=== PATIENT | female | born 2000 | race Caucasian/White ===

== ENCOUNTER 2023-01-24 10:25 | Outpatient (CLI) | payer MEDICAID, SELFPAY ==
[2023-01-24 10:49] VITALS: BP 122/80; PULSE 87; TEMP 36.9
[2023-01-24 10:54] VITALS: BMI 37.8
--- NOTE | 2023-01-24 20:41 | OB.TRI.NOTE ---
HPI - General HPI Narrative JUMANA GIORDANO, is a 23 F who presents to triage with contractions. Patient denies any loss of fluid or vaginal bleeding. Positive movement. Maternal Data Information FRANCINE Calculator Estimated Delivery Date Method Current WG Current Estimate 01/26/23 Manual 39w 6d PFSH PFSH Home Medications aspirin 81 mg tablet,delayed release ([place] Aspirin) 81 mg PO DAILY 01/24/23 [History Last Taken 01/17/23 08:00 81 mg] ipratropium 20 mcg-albuterol 100 mcg/actuation mist for inhalation 1 puff inhalation Q6H 01/24/23 [History Last Taken Unknown] magnesium oxide 420 mg tablet 420 mg PO DAILY 01/24/23 [History Last Taken 01/17/23 08:00 420 mg] Allergy/AdvReac Type Severity Reaction Status Date / Time No Known Allergies Allergy Verified 01/24/23 10:49 Surgical History (Updated 01/25/23 @ 00:41 by Marni Carcamo) History of surgery Social History Smoking Status: Never smoker History Elective abortions Hx Para 0 Spontaneous abortions Hx # Term Pregnancies Ectopic pregnancies Hx # Pregnancies Multiple births # of living children ROS Eyes Eyes: Denies blurry vision Cardiovascular Cardiovascular: Reports none; Denies chest pain at rest, chest pain with activity or dizziness Respiratory/Chest Respiratory/Chest: Denies cough or dyspnea Gastrointestinal Gastrointestinal: Reports none and other; Denies diarrhea or vomiting Genitourinary Genitourinary: Denies dysuria Musculoskeletal Musculoskeletal: Reports none Integumentary Integumentary: Reports none; Denies rash Neurologic Neurologic: Denies dizziness, headache(s) or other visual disturbances Psychiatric Psychiatric: Reports none Physical Exam Const alert and no apparent distress General Appearance: cooperative Orientation / Consciousness: awake Exam Limitations: no limitations HEENT normocephalic Eyes General Eye: normal appearance of both eyes Neck full ROM Chest inspection of chest normal Resp normal respiratory effort and normal air movement Effort and Inspection: symmetric chest movement Auscultation: clear to auscultation bilaterally Cardio regular rate GI soft to palpation, non-tender and non-distended Inspection: and other Back/Spine normal ROM Extremity full ROM, normal capillary refill and no calf tenderness Skin no rashes or lesions noted Neuro oriented x3 and CN's II-XII intact bilaterally Psych mental status grossly normal Assessment & Plan (1) 39 weeks gestation of : (2) Uterine contractions: PLAN: Plan NST reactive, Cat. 1 tracing CE - no change /-2 D/C home with follow up in office Labor precautions and kick counts reviewed
== END 2023-01-24 13:38 | disposition home or self-care (01) ==
LOC: WPOUT 10:39 → WP 10:41
PROVIDERS: Referring Provider Advanced Practice Midwife; Visit Provider Advanced Practice Midwife
DX: O47.1 False labor at or after 37 completed weeks of gestation (principal); Z3A.39 39 weeks gestation of pregnancy
CPT/HCPCS: 59025; 59050 ×2; G0378 ×2; 99221

== ENCOUNTER 2023-01-25 00:16 | Inpatient (IN) | payer MEDICAID, SELFPAY ==
[2023-01-24 21:43] VITALS: PULSE 110; O2SAT 99
[2023-01-24 21:44] VITALS: BP 123/76; PULSE 82; TEMP 37.1
[2023-01-24 21:46] VITALS: BMI 37.8
[2023-01-24] MEDS: Lactated Ringers 1,000 ML 999 ML IV (22:20)
[2023-01-24] MEDS: Acetaminophen 500 MG Tablet 1000 MG PO (22:31)
[2023-01-24 22:53] LABS: Color, Urine Yellow (Yellow); Glucose, Dipstick Normal (Normal); Ketone-Dipstick 50 mg/dl (Negative); Leukocyte Esterase-Dipstick 25 /ul (Negative); Nitrite-Dipstick Negative (Negative); Occult Blood-Urine Negative /ul (Negative); Protein-Dipstick Negative (Negative); Specific Gravity, Urine 1.015 (1.002-1.030); Urine Bilirubin Dipstick Negative (Negative); Urine Clarity Clear (Clear); Urine Urobilinogen Normal (Normal)
[2023-01-25] VITALS (61 sets, daily range): BP systolic 100–140; BP diastolic 54–80; PULSE 79–143; RESP 16–18; TEMP 36.1–37.1; O2SAT 80–100
[2023-01-25 00:29] LABS: Absolute Lymphocyte Count 1.65 X10^3/uL (0.83-4.51); Absolute Neutrophil Count 9.5 X10^3/uL (2.0-7.7); Basophil# 0.02 X10^3/uL; Basophil% 0.2 % (0-1); Hematocrit 34.5 % (37-47); Hemoglobin 11.1 g/dL (12.0-15.0); Lymphocyte # 1.65 X10^3/ul (0.83-4.51); Lymphocyte % 14.1 % (19-41); Mean Corp Hgb Conc 32.2 g/dL (32-36); Mean Corpuscular Hgb 26.9 pg (27.0-32.0); Mean Corpuscular Volume 83.5 fL (81-99); Mean Platelet Vol. 9.5 fl (6.2-12.0); Monocyte# 0.56 X10^3/uL; Monocyte% 4.8 % (0-10); NRBC Flagged by Analyzer 0 % (0-5); Neutrophil # 9.45 X10^3/uL (2.7-7.7); Neutrophil % 80.5 % (47-70); Platelet Count 344 K/mm3 (150-450); RBC Distribution Width CV 13.7 % (11.6-14.6); RBC Distribution Width SD 41.7 fl (35.1-43.9); Red Blood Count 4.13 M/mm3 (4.2-5.4); White Blood Count 11.7 K/mm3 (4.4-11.0)
[2023-01-25] MEDS: LACTATED RINGERS 500 ML 999 ML IV (00:30)
[2023-01-25] MEDS: Lactated Ringers 1,000 ML 200 ML IV ×2 (00:30→05:53)
[2023-01-25 01:25] LABS: Syphilis Antibodies Non-reactive
[2023-01-25] MEDS: fentaNYL-bupivacaine (epidural) 100 ML BAG EPIDURAL ×2 (02:01→06:12)
[2023-01-25 05:07] LABS: Hepatitis C Antibody Non-Reactive (Nonreactive)
[2023-01-25] MEDS: Mag Hydrox/Al Hydrox/Simeth 30 ML UDC PO (05:44)
--- NOTE | 2023-01-25 07:10 | PCM.HP.OB ---
HPI - General General Date of Admission: 01/25/23 HPI Narrative JUMANA GIORDANO, is a 23 F at 39.5 weeks gestation who presents to triage with contractions. She was seen in triage earlier in the day and sent home due to no cervical change. Continued to have contractions at home that increased with intensity and pain. Unsure if she is leaking fluid. Positive movement. PFSH PFSH Home Medications aspirin 81 mg tablet,delayed release ([place] Aspirin) 81 mg PO DAILY 01/24/23 [History Last Taken 01/17/23 08:00 81 mg] ipratropium 20 mcg-albuterol 100 mcg/actuation mist for inhalation 1 puff inhalation Q6H 01/24/23 [History Last Taken Unknown] magnesium oxide 420 mg tablet 420 mg PO DAILY 01/24/23 [History Last Taken 01/17/23 08:00 420 mg] Allergy/AdvReac Type Severity Reaction Status Date / Time No Known Allergies Allergy Verified 01/24/23 10:49 Surgical History (Updated 01/25/23 @ 00:41 by Marni Carcamo) History of surgery Social History Smoking Status: Never smoker History Elective abortions Hx Para 0 Spontaneous abortions Hx # Term Pregnancies Ectopic pregnancies Hx # Pregnancies Multiple births # of living children ROS Eyes Eyes: Denies blurry vision, change in vision or spots in vision ENT HEENT: Denies dizziness or headache(s) Cardiovascular Cardiovascular: Denies abdominal pain, chest pain or dyspnea Respiratory/Chest Respiratory/Chest: Denies cough, dyspnea, shortness of breath at rest or shortness of breath with exertion Gastrointestinal Gastrointestinal: Denies abdominal pain, diarrhea or vomiting Genitourinary Genitourinary: Denies change in urinary stream, difficulty urinating or dysuria Musculoskeletal Musculoskeletal: Reports none Integumentary Integumentary: Denies rash Neurologic Neurologic: Denies dizziness, headache(s), memory loss or weakness Psychiatric Psychiatric: Reports none Vital Signs Vital Signs Vital Signs: 01/24/23 21:43 01/24/23 21:43 01/24/23 21:44 Temperature Temperature Source Tympanic Pulse Rate 110 H Blood Pressure BP Systolic BP Diastolic Pulse Ox 99 01/24/23 21:44 01/24/23 21:44 01/24/23 21:44 Temperature 98.8 F Temperature Source Pulse Rate 82 Blood Pressure 123/76 H BP Systolic 123 BP Diastolic 76 Pulse Ox 01/25/23 00:54 01/25/23 00:54 01/25/23 00:54 Temperature Temperature Source Pulse Rate 104 H Blood Pressure 125/73 H BP Systolic 125 BP Diastolic 73 Pulse Ox 98 01/25/23 00:55 01/25/23 00:55 01/25/23 01:32 Temperature 98.0 F Temperature Source Tympanic Pulse Rate 112 H Blood Pressure BP Systolic BP Diastolic Pulse Ox 01/25/23 01:32 01/25/23 01:37 01/25/23 01:37 Temperature Temperature Source Pulse Rate 113 H Blood Pressure 134/79 H BP Systolic 134 BP Diastolic 79 Pulse Ox 100 01/25/23 01:37 01/25/23 01:37 01/25/23 01:42 Temperature Temperature Source Pulse Rate 114 H Blood Pressure 126/71 H BP Systolic 126 BP Diastolic 71 Pulse Ox 99 01/25/23 01:42 01/25/23 01:42 01/25/23 01:42 Temperature Temperature Source Pulse Rate 93 95 Blood Pressure BP Systolic BP Diastolic Pulse Ox 99 01/25/23 01:47 01/25/23 01:47 01/25/23 01:47 Temperature Temperature Source Pulse Rate 89 Blood Pressure 127/75 H BP Systolic 127 BP Diastolic 75 Pulse Ox 100 01/25/23 01:52 01/25/23 01:52 01/25/23 01:52 Temperature Temperature Source Pulse Rate 93 Blood Pressure 140/80 H BP Systolic 140 BP Diastolic 80 Pulse Ox 97 01/25/23 01:58 01/25/23 01:58 01/25/23 01:57 Temperature Temperature Source Pulse Rate 100 Blood Pressure 129/66 H BP Systolic 129 BP Diastolic 66 Pulse Ox 99 01/25/23 02:02 01/25/23 02:02 01/25/23 02:02 Temperature Temperature Source Pulse Rate 99 Blood Pressure 120/63 BP Systolic 120 BP Diastolic 63 Pulse Ox 99 01/25/23 02:07 01/25/23 02:07 01/25/23 02:07 Temperature Temperature Source Pulse Rate 102 H Blood Pressure 124/71 H BP Systolic 124 BP Diastolic 71 Pulse Ox 100 01/25/23 02:12 01/25/23 02:12 01/25/23 02:12 Temperature Temperature Source Pulse Rate 99 101 H Blood Pressure 129/72 H BP Systolic 129 BP Diastolic 72 Pulse Ox 01/25/23 02:12 01/25/23 02:17 01/25/23 02:17 Temperature Temperature Source Pulse Rate 106 H Blood Pressure 130/71 H BP Systolic 130 BP Diastolic 71 Pulse Ox 100 01/25/23 02:17 01/25/23 02:50 01/25/23 02:50 Temperature Temperature Source Tympanic Pulse Rate Blood Pressure 118/73 BP Systolic 118 BP Diastolic 73 Pulse Ox 100 01/25/23 02:50 01/25/23 02:50 01/25/23 03:47 Temperature 98.8 F Temperature Source Pulse Rate 108 H Blood Pressure 125/70 H BP Systolic 125 BP Diastolic 70 Pulse Ox 01/25/23 03:47 01/25/23 03:47 01/25/23 03:47 Temperature Temperature Source Tympanic Pulse Rate 98 Blood Pressure BP Systolic BP Diastolic Pulse Ox 99 01/25/23 03:47 01/25/23 04:43 01/25/23 04:43 Temperature 98.8 F 98.0 F Temperature Source Tympanic Pulse Rate Blood Pressure BP Systolic BP Diastolic Pulse Ox 01/25/23 04:43 01/25/23 04:43 01/25/23 04:43 Temperature Temperature Source Pulse Rate 96 Blood Pressure 122/62 H BP Systolic 122 BP Diastolic 62 Pulse Ox 100 01/25/23 05:49 01/25/23 05:49 01/25/23 05:49 Temperature Temperature Source Tympanic Pulse Rate 103 H Blood Pressure 118/74 BP Systolic 118 BP Diastolic 74 Pulse Ox 01/25/23 05:49 01/25/23 05:49 01/25/23 05:49 Temperature 98.5 F Temperature Source Pulse Rate 107 H Blood Pressure BP Systolic BP Diastolic Pulse Ox 99 01/25/23 06:26 01/25/23 06:27 01/25/23 06:27 Temperature Temperature Source Tympanic Pulse Rate 88 Blood Pressure 117/79 BP Systolic 117 BP Diastolic 79 Pulse Ox 01/25/23 06:26 01/25/23 06:27 01/25/23 06:27 Temperature 98.4 F Temperature Source Pulse Rate 113 H Blood Pressure BP Systolic BP Diastolic Pulse Ox 100 Weight Weight: 220 lb 0.341 oz Body Mass Index (BMI) 37.8 Physical Exam Const alert, oriented x3 and no apparent distress General Appearance: cooperative Orientation / Consciousness: awake Exam Limitations: no limitations HEENT normocephalic Head and Scalp: normal to inspection Eyes General Eye: normal appearance of both eyes Neck full ROM and no lymphadenopathy Lymph Lymphatic: no lymphadenopathy noted Chest inspection of chest normal Resp normal respiratory effort, normal air movement and clear to auscultation bilaterally Effort and Inspection: able to speak in complete sentences and symmetric chest movement Cardio regular rate and regular rhythm GI normal to inspection, nondistended, normoactive bowel sounds Manual OB Exam: presentation cephalic Back/Spine normal ROM Extremity full ROM and no calf tenderness Skin no rashes or lesions noted General Skin Exam: no breakdown Neuro oriented x3 and CN's II-XII intact bilaterally Psych mental status grossly normal and thought process normal Labs Labs Labs: Blood Type A NEGATIVE Antibody Screen NEGATIVE Hct 34.5 % (37-47) L Hgb 11.1 g/dL (12.0-15.0) L Syphilis Total Ab Non-reactive Hepatitis C Antibody Non-Reactive (Nonreactive) Assessment & Plan (1) Spontaneous onset of labor: (2) Spontaneous rupture of amniotic membranes: (3) Obesity affecting : (4) Rh negative status during : (5) Recurrent UTI: PLAN: Plan NST reactive, Cat. 1 tracing ROM plus- Positive Admit to labor and delivery Routine labs GBS negative Epidural when indicated Start Pitocin at 2 mu/min and increase per policy if no CE in [address] Self notified and is collaborating physician
--- NOTE | 2023-01-25 07:26 | PCM.PN.BLA ---
Progress Note Patient comfortable with epidural anesthesia. Assessment & Plan Assessment/Plan (1) Spontaneous onset of labor: (2) 39 weeks gestation of : (3) Rh negative status during : (4) Obesity affecting : (5) Recurrent UTI: PLAN: Plan Continue present plan of care Continue Pitocin IV and increase per policy GBS negative CE /-[address] Eugene updated and assuming management
--- NOTE | 2023-01-25 07:42 | PCM.PN.BLA ---
Progress Note Patient seen at bedside. Remains comfortable with epidural. Desires AROM. Assessment & Plan Assessment/Plan (1) Meconium in amniotic fluid: (2) Artificial rupture of membranes antepartum: (3) 39 weeks gestation of : (4) Obesity affecting : (5) Spontaneous onset of labor: (6) Rh negative status during : PLAN: Plan CE /-1 bulging bag AROM for meconium fluid Continue present plan of care Anticipate
[2023-01-25] MEDS: Oxytocin 15 Units/NS 250ml 15 UNITS/250 ML IV.SOLN 2 UNITS IV (07:57)
--- NOTE | 2023-01-25 09:48 | PCM.PN.BLA ---
Progress Note pt examined at bedside, 0. continue pitocin and labor at this time. FHR tracing reviewed. anticipate .
[2023-01-25] MEDS: Methylergonovine 0.2 MG/ML Ampul IM (11:08)
[2023-01-25] MEDS: Oxytocin 15 Units/NS 250ml 15 UNITS/250 ML IV.SOLN 83 UNITS IV (11:22)
--- NOTE | 2023-01-25 11:46 | OP.PCM_ITS ---
Maternal Data Information FRANCINE Calculator Estimated Delivery Date Method Current WG Current Estimate 01/26/23 Manual 39w 6d Vaginal Delivery Operative Information Date of Procedure: 01/25/23 Pre-Operative Diagnosis: 39 weeks, obesity in , meconium, rh negative Post-Operative Diagnosis: same, live female infant Surgery / Procedure Performed: Spontaneous Vaginal Delivery Type of Anesthesia: Epidural Drain: Guillen to straight drain Estimated Blood Loss: 300 Time of Delivery: 10:52 Findings Description of Procedure: Patient progressed to fully dilated. Good maternal pushing efforts delivered the 's head followed by the anterior and posterior shoulders. Rest the 's body was delivered without complication. Infant was vigorous at time of delivery and was placed on the mother's chest for immediate skin to skin. [employer]ricating Machine Tender and nursery team were available due to meconium stained fluid. Delayed cord clamping was performed. At this time once the cord was clamped and cut Pitocin was started and placenta delivered intact without complication. Some brisk bleeding was noted but the fundus was firm. Uterine exploration revealed some small amount of membranes. Ultrasound was brought into the room ultrasound did not reveal any further retained products. Methergine IM was given. Bleeding slowed. First-degree vaginal laceration extending bilaterally were appreciated with bleeding noted. 3-0 Rapide suture and 2-0 Vicryl suture was used in an interrupted fashion to repair the lacerations. Good hemostasis was appreciated. Presentation: Vertex Amniotic Membrane Rupture Type: Artificial Amniotic Fluid Description: Moderate meconium Placental Delivery Description: Spontaneous Placenta Disposition: [facility] Specimen(s) Removed: Placenta Cord Vessel Description: 3 Vessels Cord Entanglement: None Infant A Gender: Female (1 minute): 8 (5 minute): 9 Delayed Cord Clamping: Yes Post Vaginal Delivery Medications Given After Delivery: IV Pitocin and IM Methergin Episiotomy Description: None Laceration: Vaginal Extension/lac and 1st degree Complication Complications: None
[2023-01-25] MEDS: 0.9% Saline Lock 10 ML Syringe IV (14:23)
[2023-01-25] MEDS: Acetaminophen 500 MG Tablet 1000 MG PO ×2 (17:38→23:48)
[2023-01-26 04:08] VITALS: BP 110/58; PULSE 107; RESP 18
[2023-01-26 04:09] VITALS: BP 110/58; PULSE 107
[2023-01-26] MEDS: Acetaminophen 500 MG Tablet 1000 MG PO (06:41)
[2023-01-26 08:18] VITALS: BP 110/57; PULSE 94; RESP 16; TEMP 36.8; O2SAT 95; O2SAT 96
[2023-01-26 08:19] VITALS: BP 110/57; PULSE 98
--- NOTE | 2023-01-26 08:37 | DS.PCM_ITS ---
Providers Date of Admission: 01/25/23 Primary Care Physician: JARRED MIDDLETON Reason For Visit: VAGINAL DELIVERY Diagnosis Discharge Diagnosis (1) Meconium in amniotic fluid: Status: Acute Code(s): P96.83 - Meconium staining (2) Artificial rupture of membranes antepartum: Status: Acute (3) Obesity affecting : Status: Acute Code(s): O99.210 - Obesity complicating , unspecified trimester (4) Spontaneous onset of labor: Status: Acute (5) Rh negative status during : Status: Acute Code(s): O26.899 - Other specified related conditions, unspecified trimester; Z67.91 - Unspecified blood type, Rh negative (6) (spontaneous vaginal delivery): Status: Acute Code(s): O80 - Encounter for full-term uncomplicated delivery Plan CE /1 bulging bag AROM for meconium fluid Continue present plan of care Anticipate Medications at Discharge Home Medications ipratropium 20 mcg-albuterol 100 mcg/actuation mist for inhalation 1 puff inhalation Q6H 01/24/23 Hospital Course Operations None Procedures None Summary of Care Provided Minutes Spent on Discharge: 15 Hospital Course: Patient had . Hospital course was uneventful. Physical Exam Narrative Patient seen at bedside. Ambulating and voiding without difficulty. Formula feeding. Desires discharge home today. Const alert and no apparent distress General Appearance: cooperative and comfortable Exam Limitations: no limitations HEENT normocephalic Eyes General Eye: normal appearance of both eyes Neck full ROM General: normal visual inspection Chest Chest: symmetrical chest wall rise Resp normal respiratory effort and normal air movement Effort and Inspection: symmetric chest movement Auscultation: clear to auscultation bilaterally Cardio regular rate and regular rhythm GI normal to inspection, nondistended, normoactive bowel sounds Back/Spine normal ROM Extremity full ROM and no calf tenderness General Extremity: normal exam except as noted Skin no rashes or lesions noted Neuro CN's II-XII intact bilaterally Psych mental status grossly normal Weight / BMI Weight Weight: 220 lb 0.341 oz Body Mass Index (BMI) 37.8 ABG / Lab / Microbiology Data 01/24/23 22:20 Microbiology: Microbiology 01/24/23 22:44 Urine, Clean Catch Urine Culture - Preliminary Culture exhibits no growth. D/C Instructions Discharge Diet: No restrictions Discharge Activity: Return to Normal Activity, May Shower and May Take a Tub Bath May resume sexual activity in: 4-6 weeks Weight Bearing Status: Weight bearing as tolerated Call your doctor if you observe: Fever of 101 or Higher, Inability to urinate, Using more than 1 pad per hour, Shortness of breath, Dizziness, Swelling in the ankles, Chest pain, Calf discomfort and Uncontrolled pain Please Follow Up With: Beena Walters CNM When: Within 10 days Meaningful Use Info Meaningful Use Diagnoses (Choose all that apply): None applicable Discharge Plan Admission Admit Date/Time: 01/25/23 00:16 Primary Reason for Your Visit: Labor and Delivery Attending Provider: Iris Self Primary Care Provider: JARRED MIDDLETON Discharge Orders/Prescriptions Prescriptions: Continued ipratropium-albuterol 20-100 mcg/actuation mist 1 puff inhalation Q6H Discontinued aspirin [[place] Aspirin] 81 mg tablet,delayed release (DR/EC) 81 mg PO DAILY magnesium oxide 420 mg tablet 420 mg PO DAILY Referrals / Follow Up: JARRED MIDDLETON [Other] Disposition Disposition (needs filled in before D/C Order can be placed): Home, Self Care
--- NOTE | 2023-01-26 10:12 | CASEMGMT ---
Social Work Assessment Labor and Delivery Unit Patient Address: [address] [place] [address] [address] [place] [id number] Phone number: [phone] Date of Referral: 01/26/23 Time of Referral:? 829 Referred By: Charge nurse Date of Intervention: ??01/26/23 Time of Intervention:? 899 Reason for Referral:? Resources Sw completed chart review and talked to charge nurse regarding social concerns. Sw presented to bedside and introduced self to mother of baby (MOB- Jaquelin). Sw explained reason for sw involvement. Sw completed psychosocial assessment and provided MOB with resources. Father of baby (FOB- Giovanny) arrived towards end of assessment and asked appropriate questions. History obtained from: medical records and mother of baby (GREGORY) and FOB. ??? Household composition: Currently residing in the home is MOB, FOJerilyn and now baby. Parents state that housing is safe and secure- no concerns. Patient's parent/guardian status:?GREGORY states that she and JUDE have been together for 7 years. MOB states that they met in high school. No concerns regarding domestic violence or intimate partner violence at this time. ? Medical History: GREGORY is 23 year old, female who is 3, para 0-now 1 following labor and delivery of baby. GREGORY received routine [facility] with [facility] during . GREGORY delivered baby on 01/25/23 via vaginal delivery at 39 weeks gestation. Baby girl, named Kelsi Lerner, was born weighing 6lb 8oz and her apgars were 8 and 9 at one and five minutes of life respectfully. GREGORY is bottle feeding baby and reports that she has all necessary feeding supplies. MOB states that baby will be followed by Dr. Menendez for pediatrics. Educational Status:?Both parents graduated from high school, no concerns regarding reading, learning or comprehension. Financial Status: GREGORY and FOJerilyn are both gainfully employed outside of the home. 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 JUDE works for [employer] and he is able to take off a week of work. Infant Supplies: GREGORY states that she has obtained all necessary baby supplies including: car seat, safe sleep space, clothes, diapers, wipes and feeding supplies. Childcare/Caregiver(s):? MOB states that when both parents are working they have family who will be able to provide care to baby. Transportation:?? Both parents have their drivers license and reliable means of transportation. No transportation barriers at this time. Programs/Agencies Involved: ?GREGORY is connected to insurance through [employer]. MOB was reminded to get baby added to her insurance within the next 30 days. MOB was also educated on how to obtain baby's certificate from the [facility]. Sw educated MOB on [employer]. MOB receptive to referral to [employer]. Sw to ensure referral gets made. Sw also encouraged MOB to get connected to [facility]. MOB expressed understanding that now that baby is born she is able to call and get an appointment scheduled. Sw also provided MOB with list of [facility] resources for her to utilize should any needs present themselves after discharge. Children Services/Legal Issues:??? No history of Children Services involvement. No issues or concerns warranting referral at this time. Behavioral Health Issues: ??Mental Health History:?FOB and MOB deny any mental health diagnoses. ?? Substance Use History:?MOB denies substance use prior to and during . ? Family History:??MOB states that there is no family history of addiction/ substance use or mental health. ??? Drug Screens: No urine screens observed in chart review. ?? Family/Social Stressors:? Parents deny any stressors at this time. FOB stated that they have a couple of dogs at home, and he is curious about recommendations on how to introduce baby to them when they go home. Sw brainstormed some solutions/ recommendations for this question. Support Systems: MOB states that her mom and paternal grandma are both supportive. Depression/Shaken Baby/Safe Sleeping:? Sw educated MOB and FOB on signs and symptoms of baby blues and depression/ anxiety. Sw encouraged parents to talk about how FOB can be supportive if MOB would experience one or the other. Parents expressed understanding. Sw educated parents on shaken baby prevention and ABCs of safe sleep. Parents expressed understanding. ASSESSMENT:?MOB and baby admitted following labor and delivery. MOB was observed holding baby and responding appropriately to her needs. MOB stated that she feels an attachment/ farrell to baby already. MOB stated that she was told to feed baby every two- hours. Sw reviewed feeding/ hunger cues with parents. MOB and FOB asked appropriate questions and were receptive to sw involvement and support. PLAN:? MOB and baby to be discharged when medically ready. Sw make referral to [employer] as requested and discussed with MOB. ?No other services requested or indicated. Rashard Clarke, INSURANCE CLAIMS SUPERVISOR, NIGHT MANAGER
[2023-01-26 11:17] VITALS: BP 125/68; PULSE 115; PULSE 120; RESP 16; TEMP 36.5; O2SAT 98; O2SAT 99
[2023-01-26 13:47] VITALS: PULSE 93; RESP 16
== END 2023-01-26 14:05 | disposition home or self-care (01) | DRG 560 ==
LOC: WPOUT 00:16 → WP 00:16
PROVIDERS: Advanced Practice Midwife; Admitting Provider Obstetrics & Gynecology; Visit Provider Obstetrics & Gynecology
DX: O70.0 First degree perineal laceration during delivery (principal); Z37.0 Single live birth; E66.8 Other obesity; O99.214 Obesity complicating childbirth; O77.0 Labor and delivery complicated by meconium in amniotic fluid; Z3A.39 39 weeks gestation of pregnancy; Z79.82 Long term (current) use of aspirin; Z87.440 Personal history of urinary (tract) infections; Z67.91 Unspecified blood type, Rh negative
CPT/HCPCS: 59025; 59050; 76815; 81002; 85025; 86780; 86803; 86850; 86900; 86901; 87086; 87088; 99221; J7120; A4216; G0378

== ENCOUNTER 2024-10-05 07:17 | Inpatient (IN) | payer MEDICAID, SELFPAY ==
[2024-10-05] VITALS (45 sets, daily range): BP systolic 105–147; BP diastolic 58–96; PULSE 75–117; RESP 16–18; TEMP 36.8–37.7; O2SAT 97–100; BMI 34.7
--- OUTSIDE RECORDS SUMMARY | 2024-10-05 07:14 | XMS RPT_ITS | CCD ---
Author Organization [facility] ion Partnership [facility] Care Team Providers Care Liability Claims Adjuster Name Role Phone Sameer Hoyt Unavailable Unavailable Sameer Hoyt Unavailable Unavailable No Doctor Assigned, Nodr Unavailable Unavail able Erin Powell Primary Care Provider [phone] Erin Powell CNPbeth Primary Care Provide r VAL DAI Admitting Unavail able ANDRE ERIN [facility] Care Unavaila ble Robnoah, Erin E Unavailable Ruby Morgan Unavailable Unavailable SUHASVAL KWAN Attending Unavail able ROBNOAH, ERIN [facility] Care Unavaila ble ROBUCK, [facility] Admitting Unavaila ble SUHASVAL KWAN Attending Unavail able ROBNOAH, ERIN RAND Referring Unavaila ble ROBUCK, [facility] Care Unavaila ble SUHASVAL KWAN Attending Unavail able ANDRE [facility] Care Unavaila ble SUHASVAL KWAN Attending Unavail able ROBNOAH, [facility] Unavaila ble NAYANA STERLING Attending Unavailable ROBUCK, [facility] Care Unavaila ble ROBUCK, Erin E Primary Care Physician [phone] MD Asael Puente Attending Provider SHANE Powell Primary Care Provider [phone] Crys Smith Attending Unavailable Robnoah, MsRaymond Khan [facility] Unav ailable Andre, Ms. Erin [facility] Unav ailable DO Jimmy Sanchez Attending Unavailab le (Historical), No Pcp Primary Care Provider Unava ilable Beena Walters Attending Unavailable Beena Walters Referring Unavailable BAADH, PALV Primary Care Unavailable BAADH, PALV Primary Care Unavailable Keo Garcia Admitting Unavailable Keo Garcia Attending Unavailable [facility] Primary Care Provider [phone] Herber Aragon Primary Care Physician [phone] MD aMrgo Herber Attending Unavailable MD Margo Herber Attending Unavailable MD Margo Herber Attending Unavailable MD Margo Herber Attending Unavailable MARY YEH Attending Unavailable [facility] Unavailab TATUM Sherman Attending Unavailable [facility] Unavailab willow ZANESANKETEE Referring Unavailable [facility] Unavailab KATHIE Bullock Attending Unavailable [facility] Unavailab MARY Johnson Attending Unavailable KATHIE DEGROOT Referring Unavailable [facility] Unavailab willow YOST TATUM Referring Unavailable [facility] Unavailab MARY Johnson Attending Unavailable WISPALOMO, TATUM Referring Unavailable [facility] Unavailab TATUM Sherman Attending Unavailable [facility] Unavailab TATUM Sherman Attending Unavailable [facility] Unavailab willow ZANE, KATHIE Referring Unavailable [facility] Unavailab MARY Johnson Attending Unavailable [facility] Unavailab AD Myrick Attending Unavailable [facility] Unavailab AD Myrick Referring Unavailable [facility] Unavailab MARY Johnson Attending Unavailable [facility] Unavailab TATUM Sherman Attending Unavailable [facility] Unavailab willow YOST TATUM Referring Unavailable [facility] Unavailab MARY Johnson Attending Unavailable [facility] Unavailab BEENA Gipson Attending Unavailable [facility] Unavailab BEENA Gipson Attending Unavailable SUNNY, SUNDAY ESTRELLA Primary Care Unavailab le Allergies Allergy Classification Reported Allergen(s) Allergy Type Date of Onset Reaction(s) Facility (1 source) No Known Medication Allergies; Translations: [No Known Medication Allergies] Propensity to adverse reactions (disorder) [facility] Repository Medications Current Medications Medication Drug Class(es) Dates Sig (Normalized) Sig (Original) Albuterol (20 sources) beta2-Adrenergic Agonist Start: 08-04-2020 albuterol Refills(s) 0 Start Date: 08/04/20 Status: Ordered ALBUTEROL INHALA allergy medication and stomach medication, all names unknown. 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 Submit a new specimen if indicated. Normal [facility] Comment on above: Performed By: #### M 100.2200 #### [facility] [address] [place], [address] CBC W/Diff, Automatedon 11-0 Absolute Lymph 1.65 X10 3/uL Normal 0.83-4.51 [facility] Comment on above: Performed By: #### L 100.0100, BtABS, BTS #### [facility] [address] [place], [address] Absolute Neut 9.5 X10 3/uL High 2.0-7.7 [facility] Comment on above: Performed By: #### L 100.0100, BtABS, BTS #### [facility] [address] [place], [address] Basophils/100 WBC (Bld) 0.2 % Normal 0-1 [facility] Comment on above: Performed By: #### L 100.0100, BtABS, BTS #### [facility] [address] [place], [address] Eosinophils/100 WBC (Bld) 0.0 % Normal 0-5 [facility] Comment on above: Performed By: #### L 100.0100, BtABS, BTS #### [facility] [address] [place], [address] Erythrocyte distribution width (RBC) [Ratio] 13.7 % Normal 11.6-14.6 [facility] Comment on above: Performed By: #### L 100.0100, BtABS, BTS #### [facility] [address] [place], [address] Hematocrit (Bld) [Volume fraction] 34.5 % Low 37-47 [facility] Comment on above: Performed By: #### L 100.0100, BtABS, BTS #### [facility] [address] [place], [address] Hemoglobin (Bld) [Mass/Vol] 11.1 g/dL Low 12.0-15.0 [facility] Comment on above: Performed By: #### L 100.0100, BtABS, BTS #### [facility] [address] [place], [address] IG% 0.400 Normal 0.0-0.9 [facility] Comment on above: Result Comment: IG% - Immature Granulocytes (promyelocytes, myelocytes and metamyelocytes) > 1% indicates that a LEFT SHIFT is Present. Performed By: #### L 100.0100, BtABS, BTS #### [facility] [address] [place], [address] Lymphocytes/100 WBC (Bld) 14.1 % Low 19-41 [facility] Comment on above: Performed By: #### L 100.0100, BtABS, BTS #### [facility] [address] [place], [address] MCH (RBC) [Entitic mass] 26.9 pg Low 27.0-32.0 [facility] Comment on above: Performed By: #### L 100.0100, BtABS, BTS #### [facility] [address] [place], [address] MCHC (RBC) [Mass/Vol] 32.2 g/dL Normal 32-36 [facility] Comment on above: Performed By: #### L 100.0100, BtABS, BTS #### [facility] [address] [place], [address] MCV (RBC) [Entitic vol] 83.5 fL Normal 81-99 [facility] Comment on above: Performed By: #### L 100.0100, BtABS, BTS #### [facility] [address] [place], [address] Monocytes/100 WBC (Bld) 4.8 % Normal 0-10 [facility] Comment on above: Performed By: #### L 100.0100, BtABS, BTS #### [facility] [address] [place], [address] Neutrophils/100 WBC (Bld) 80.5 % High 47-70 [facility] Comment on above: Performed By: #### L 100.0100, BtABS, BTS #### [facility] [address] [place], [address] Nucleated RBC (Bld) [#/Vol] 0 10*3/uL Normal 0-5 [facility] Comment on above: Performed By: #### L 100.0100, BtABS, BTS #### [facility] [address] [place], [address] Platelet mean volume (Bld) [Entitic vol] 9.5 fL Normal 6.2-12.0 [facility] Comment on above: Performed By: #### L 100.0100, BtABS, BTS #### [facility] [address] [place], [address] Platelets (Bld) [#/Vol] 344 10*3/uL Normal 150-450 [facility] Comment on above: Performed By: #### L 100.0100, BtABS, BTS #### [facility] [address] [place], [address] RBC (Bld) [#/Vol] 4.13 10*6/uL Low 4.2-5.4 [facility] Comment on above: Performed By: #### L 100.0100, BtABS, BTS #### [facility] [address] [place], [address] RDW SD 41.7 fl Normal 35.1-43.9 [facility] Comment on above: Performed By: #### L 100.0100, BtABS, BTS #### [facility] [address] [place], [address] WBC (Bld) [#/Vol] 11.7 10*3/uL High 4.4-11.0 [facility] Comment on above: Performed By: #### L 100.0100, BtABS, BTS #### [facility] [address] [place], [address] H AND P Exam - OB/GYNon 11-0 H&P Exam - INSIDE PARTS SALES [facility] Medical Records Department [address] [place] [address] H P Exam - [employer]ES 01/25/23 0710 MR#: [id number] Acct: [id number] Name: JUMANA MENJIVAR Rep #: [id number] : 2000 23 From: Beena Walters CNM PCP: ERIN POWELL Status:ADM IN Location: [id number] HPI - General General Date of Admission: 01/25/23 HPI Narrative JUMANA MENJIVAR, is a 23 F at 39.5 weeks gestation who presents to triage with contractions. She was seen in triage earlier in the day and sent home due to no cervical change. Continued to have contractions at home that increased with intensity and pain. Unsure if she is leaking fluid. Positive movement. PFSH PFSH Home Medications aspirin 81 mg tablet,delayed release (Remlap Aspirin) 81 mg PO DAILY 01/24/23 [History Last Taken 01/17/23 08:00 81 mg] ipratropium 20 mcg-albuterol 100 mcg/actuation mist for inhalation 1 puff inhalation Q6H 01/24/23 [History Last Taken Unknown] magnesium oxide 420 mg tablet 420 mg PO DAILY 01/24/23 [History Last Taken 01/17/23 08:00 420 mg] Allergy/AdvReac Type Severity Reaction Status Date / Time No Known Allergies Allergy Verified 01/24/23 10:49 Surgical History (Updated 01/25/23 @ 00:41 by Marni Carcamo) History of surgery Social History Smoking Status: Never smoker History Elective abortions Hx Para 0 Spontaneous abortions Hx # Term Pregnancies Ectopic pregnancies Hx # Pregnancies Multiple births # of living children ROS Eyes Eyes: Denies blurry vision, change in vision or spots in vision ENT HEENT: Denies dizziness or headache(s) Cardiovascular Cardiovascular: Denies abdominal pain, chest pain or dyspnea Respiratory/Chest Respiratory/Chest: Denies cough, dyspnea, shortness of breath at rest or shortness of breath with exertion Gastrointestinal Gastrointestinal: Denies abdominal pain, diarrhea or vomiting Genitourinary Genitourinary: Denies change in urinary stream, difficulty urinating or dysuria Musculoskeletal Musculoskeletal: Reports none Integumentary Integumentary: Denies rash Neurologic Neurologic: Denies dizziness, headache(s), memory loss or weakness Psychiatric Psychiatric: Reports none Vital Signs Vital Signs Vital Signs: 01/24/23 21:43 01/24/23 21:43 01/24/23 21:44 Temperature Temperature Source Tympanic Pulse Rate 110 H Blood Pressure BP Systolic BP Diastolic Pulse Ox 99 01/24/23 21:44 01/24/23 21:44 01/24/23 21:44 Temperature 98.8 F Temperature Source Pulse Rate 82 Blood Pressure 123/76 H BP Systolic 123 BP Diastolic 76 Pulse Ox 01/25/23 00:54 01/25/23 00:54 01/25/23 00:54 Temperature Temperature Source Pulse Rate 104 H Blood Pressure 125/73 H BP Systolic 125 BP Diastolic 73 Pulse Ox 98 01/25/23 00:55 01/25/23 00:55 01/25/23 01:32 Temperature 98.0 F Temperature Source Tympanic Pulse Rate 112 H Blood Pressure BP Systolic BP Diastolic Pulse Ox 01/25/23 01:32 01/25/23 01:37 01/25/23 01:37 Temperature Temperature Source Pulse Rate 113 H Blood Pressure 134/79 H BP Systolic 134 BP Diastolic 79 Pulse Ox 100 01/25/23 01:37 01/25/23 01:37 01/25/23 01:42 Temperature Temperature Source Pulse Rate 114 H Blood Pressure 126/71 H BP Systolic 126 BP Diastolic 71 Pulse Ox 99 01/25/23 01:42 01/25/23 01:42 01/25/23 01:42 Temperature Temperature Source Pulse Rate 93 95 Blood Pressure BP Systolic BP Diastolic Pulse Ox 99 01/25/23 01:47 01/25/23 01:47 01/25/23 01:47 Temperature Temperature Source Pulse Rate 89 Blood Pressure 127/75 H BP Systolic 127 BP Diastolic 75 Pulse Ox 100 01/25/23 01:52 01/25/23 01:52 01/25/23 01:52 Temperature Temperature Source Pulse Rate 93 Blood Pressure 140/80 H BP Systolic 140 BP Diastolic 80 Pulse Ox 97 01/25/23 01:58 01/25/23 01:58 01/25/23 01:57 Temperature Temperature Source Pulse Rate 100 Blood Pressure 129/66 H BP Systolic 129 BP Diastolic 66 Pulse Ox 99 01/25/23 02:02 01/25/23 02:02 01/25/23 02:02 Temperature Temperature Source Pulse Rate 99 Blood Pressure 120/63 BP Systolic 120 BP Diastolic 63 Pulse Ox 99 01/25/23 02:07 01/25/23 02:07 01/25/23 02:07 Temperature Temperature Source Pulse Rate 102 H Blood Pressure 124/71 H BP Systolic 124 BP Diastolic 71 Pulse Ox 100 01/25/23 02:12 01/25/23 02:12 01/25/23 02:12 Temperature Temperature Source Pulse Rate 99 101 H Blood Pressure 129/72 H BP Systolic (more content not included)... Normal [facility] Hepatitis C Antibodyon 01-25 Hepatitis C Ab Non-Reactive Normal Nonreactive [facility] Comment on above: Result Comment: Non Reactive: < 0.8 Equivocal: >/= 0.8 to < 1.0 Reactive: >/= 1.0 The [facility] recommends that a reactive/equivocal HCV antibody result be followed up by the HCV Nucleic Acid Amplification test (616939) Performed By: #### L 3890.6300 #### [facility] [address] [place], [address] L509.8000on 01-25-2023 Syphilis Abs Non-Reactive Normal [facility] Comment on above: Performed By: #### L 509.8000 #### [facility] [address] [place], [address] Operative Reporton 3 Operative Report [facility] Medical Records Department [address] [place] [address] Operative Report 01/25/23 1146 MR#: [id number] Acct: [id number] Name: JUMANA MENJIVAR Rep #: [id number] : 2000 23 From: Millicent Ribeiro MD PCP: ERIN POWELL Status:ADM IN Location: [id number] Maternal Data Information FRANCINE Calculator Estimated Delivery Date Method Current WG Current Estimate 01/26/23 Manual 39w 6d Vaginal Delivery Operative Information Date of Procedure: 01/25/23 Pre-Operative Diagnosis: 39 weeks, obesity in , meconium, rh negative Post-Operative Diagnosis: same, live female infant Surgery / Procedure Performed: Spontaneous Vaginal Delivery Type of Anesthesia: Epidural Drain: Guillen to straight drain Estimated Blood Loss: 300 Time of Delivery: 10:52 Findings Description of Procedure: Patient progressed to fully dilated. Good maternal pushing efforts delivered the 's head followed by the anterior and posterior shoulders. Rest the 's body was delivered without complication. Infant was vigorous at time of delivery and was placed on the mother's chest for immediate skin to skin. Fur Joiner and nursery team were available due to meconium stained fluid. Delayed cord clamping was performed. At this time once the cord was clamped and cut Pitocin was started and placenta delivered intact without complication. Some brisk bleeding was noted but the fundus was firm. Uterine exploration revealed some small amount of membranes. Ultrasound was brought into the room ultrasound did not reveal any further retained products. Methergine IM was given. Bleeding slowed. First-degree vaginal laceration extending bilaterally were appreciated with bleeding noted. 3-0 Rapide suture and 2-0 Vicryl suture was used in an interrupted fashion to repair the lacerations. Good hemostasis was appreciated. Presentation: Vertex Amniotic Membrane Rupture Type: Artificial Amniotic Fluid Description: Moderate meconium Placental Delivery Description: Spontaneous Placenta Disposition: [facility] Specimen(s) Removed: Placenta Cord Vessel Description: 3 Vessels Cord Entanglement: None Infant A Gender: Female (1 minute): 8 (5 minute): 9 Delayed Cord Clamping: Yes Post Vaginal Delivery Medications Given After Delivery: IV Pitocin and IM Methergin Episiotomy Description: None Laceration: Vaginal Extension/lac and 1st degree Complication Complications: None 01/25/23 1150 Cosigner Signature (if applicable): CC: Yandel Ribeiro; ERIN POWELL Signed Normal [facility] Type AND Screenon 01-25-2023 Ab SCREEN GEL TNP Normal [facility] Comment on above: Order Comment: Labor Performed By: #### L 100.0100, BtABS, BTS #### [facility] [address] [place], [address] OPT OUT OF GEL Yes,TUBE (Screen) Normal [facility] Comment on above: Order Comment: Labor Performed By: #### L 100.0100, BtABS, BTS #### [facility] [address] [place], [place], [address] Urinalysis, Routine (Dipstic k)on 01-25-2023 BILIRUBIN URINE Negative Normal Negative [facility] Comment on above: Order Comment: COLLE CTOR TO SPECIFY Performed By: #### L 400.2010 #### [facility] [address] [place], [address] Clarity (U) Clear Normal Clear [facility] Comment on above: Order Comment: COLLE CTOR TO SPECIFY Performed By: #### L 400.2010 #### [facility] [address] [place], [address] Color (U) Yellow Normal Yellow [facility] Comment on above: Order Comment: COLLE CTOR TO SPECIFY Performed By: #### L 400.2010 #### [facility] [address] [place], [address] GLUCOSE, UR Normal Normal Normal [facility] Comment on above: Order Comment: COLLE CTOR TO SPECIFY Performed By: #### L 400.2010 #### [facility] [address] [place], [address] KETONE UR 50 mg/dl Abnormal Negative [facility] Comment on above: Order Comment: COLLE CTOR TO SPECIFY Performed By: #### L 400.2010 #### [facility] [address] [place], [address] LEUK ESTERASE 25 /ul Abnormal Negative [facility] Comment on above: Order Comment: COLLE CTOR TO SPECIFY Performed By: #### L 400.2010 #### [facility] [address] [place], [address] Nitrite Ql (U) Negative Normal Negative [facility] Comment on above: Order Comment: COLLE CTOR TO SPECIFY Performed By: #### L 400.2010 #### [facility] [address] [place], [address] OCCULT BLOOD-UR Negative Normal Negative [facility] Comment on above: Order Comment: COLLE CTOR TO SPECIFY Performed By: #### L 400.2010 #### [facility] [address] [place], [address] pH UR 8.0 Normal 5.0 - 8.0 [facility] Comment on above: Order Comment: JOAQUIN CTOR TO SPECIFY Performed By: #### L 400.2010 #### [facility] [address] [place], [address] PROT DIPSTX Negative Normal Negative [facility] Comment on above: Order Comment: JOAQUIN CTOR TO SPECIFY Performed By: #### L 400.2010 #### [facility] [address] [place], [address] SP.GR. DIPSTX 1.015 Normal 1.002-1.030 [facility] Comment on above: Order Comment: JOAQUIN CTOR TO SPECIFY Performed By: #### L 400.2010 #### [facility] [address] [place], [address] UROBILI Normal Normal Normal [facility] Comment on above: Order Comment: JOAQUIN CTOR TO SPECIFY Performed By: #### L 400.2010 #### [facility] [address] [place], [address] Absolute lymphocyte countOrd ered By: Beena Walters on 01-24-2023 Lymphocytes Auto (Unsp spec) [#/Vol] 1.65 10*3/uL 0.83-4.51 [facility] Basophil percentageOrdered B y: Beena Walters on 01-24-2023 Basophils/100 WBC (Bld) 0.2 % 0-1 [facility] Eosinophils/100 WBC (Bld) 0.0 % 0-5 [facility] Neutrophils (Bld) [#/Vol] 9.5 10*3/uL 2.0-7.7 [facility] Neutrophils/100 WBC (Bld) 80.5 % 47-70 [facility] WBC (Bld) [#/Vol] 11.7 10*3/uL 4.4-11.0 [facility] Bilirubin Test strip Ql (U)O rdered By: Beena Walters on 01-24-2023 Bilirubin Ql (U) Negative Negative [facility] Blood erythrocytes count (nu mber/volume)Ordered By: Beena Walters on 01-24-2023 RBC (Bld) [#/Vol] 4.13 10*6/uL 4.2-5.4 [facility] Blood hemoglobin measurement (mass/volume)Ordered By: Beena Walters on 01-24-2023 Hemoglobin (Bld) [Mass/Vol] 11.1 g/dL 12.0-15.0 [facility] Blood lymphocytes/100 leukoc ytesOrdered By: Beena Walters on 01-24-2023 Lymphocytes/100 WBC (Bld) 14.1 % 19-41 [facility] Blood monocytes/100 leukocyt esOrdered By: Beena Walters on 01-24-2023 Monocytes/100 WBC (Bld) 4.8 % 0-10 [facility] Blood platelet mean volumeOr dered By: Beena Walters on 01-24-2023 Platelet mean volume (Bld) [Entitic vol] 9.5 fL 6.2-12.0 [facility] Culture, urineOrdered By: Eitan Walters on 01-24-2023 Bacteria identified Cx Nom (U) Positive [facility] Determination of erythrocyte mean corpuscular volume (MCV)Ordered By: Beena Walters on 01-24-2023 MCV (RBC) [Entitic vol] 83.5 fL 81-99 [facility] Hematocrit Auto (Bld) [Volum e fraction]Ordered By: Beena Walters on 01-24-2023 Hematocrit (Bld) [Volume fraction] 34.5 % 37-47 [facility] Ketones Test strip Ql (U)Ord ered By: Beena Walters on 01-24-2023 Ketones Ql (U) 50 mg/dl Negative [facility] Laboratory - Hematology and Cell countsOrdered By: Beena Walters on 01-24-2023 Erythrocyte distribution width (RBC) [Entitic vol] 41.7 fL 35.1-43.9 [facility] Erythrocyte distribution width (RBC) [Ratio] 13.7 % 11.6-14.6 [facility] Immature granulocytes/100 WBC (Bld) 0.400 % 0.0-0.9 [facility] Comment on above: IG% - Immature Granu locytes (promyelocytes, myelocytes and metamyelocytes) > 1% indicates that a LEFT SHIFT is Present. MCH (RBC) [Entitic mass] 26.9 pg 27.0-32.0 [facility] Nucleated RBC/100 WBC (Bld) [Ratio] 0 % 0-5 [facility] MCHC Auto (RBC) [Mass/Vol]Or dered By: Beena Walters on 01-24-2023 MCHC (RBC) [Mass/Vol] 32.2 g/dL 32-36 [facility] Nitrite Test strip Ql (U)Ord ered By: Beena Walters on 01-24-2023 Nitrite Ql (U) Negative Negative [facility] No Panel InformationOrdered By: Beena Walters on 01-24-2023 Hepatitis C Antibody Non-Reactive Nonreactive [facility] Comment on above: Non Reactive: < 0.8 Equivocal: >/= 0.8 to < 1.0 Reactive: >/= 1.0The CDC recommends that a reactive/equivocal HCV antibody result be followed up by the HCV Nucleic Acid Amplificationtest (329514) OB Triage Physician Noteon 1 03-26-2022 OB Triage Physician Note [facility] Medical Records Department [address] [place] [address] OB Triage Physician Note 01/24/232040 MR#: [id number] Acct: [id number] Name: JUMANA MENJIVAR Rep #: [id number] : 2000 23 From: Beena Walters CNYandel PCP: ERIN POWELL Status:DEP CLI Y Location: [facility] HPI - General HPI Narrative JUMANA MENJIVAR, is a 23 F who presents to triage with contractions. Patient denies any loss of fluid or vaginal bleeding. Positive movement. Maternal Data Information FRANCINE Calculator Estimated Delivery Date Method Current WG Current Estimate 01/26/23 Manual 39w 6d PFSH PFSH Home Medications aspirin 81 mg tablet,delayed release (Remlap Aspirin) 81 mg PO DAILY 01/24/23 [History Last Taken 01/17/23 08:00 81 mg] ipratropium 20 mcg-albuterol 100 mcg/actuation mist for inhalation 1 puff inhalation Q6H 01/24/23 [History Last Taken Unknown] magnesium oxide 420 mg tablet 420 mg PO DAILY 01/24/23 [History Last Taken 01/17/23 08:00 420 mg] Allergy/AdvReac Type Severity Reaction Status Date / Time No Known Allergies Allergy Verified 01/24/23 10:49 Surgical History (Updated 01/25/23 @ 00:41 by Marni Carcamo) History of surgery Social History Smoking Status: Never smoker History Elective abortions Hx Para 0 Spontaneous abortions Hx # Term Pregnancies Ectopic pregnancies Hx # Pregnancies Multiple births # of living children ROS Eyes Eyes: Denies blurry vision Cardiovascular Cardiovascular: Reports none; Denies chest pain at rest, chest pain with activity or dizziness Respiratory/Chest Respiratory/Chest: Denies cough or dyspnea Gastrointestinal Gastrointestinal: Reports none and other; Denies diarrhea or vomiting Genitourinary Genitourinary: Denies dysuria Musculoskeletal Musculoskeletal: Reports none Integumentary Integumentary: Reports none; Denies rash Neurologic Neurologic: Denies dizziness, headache(s) or other visual disturbances Psychiatric Psychiatric: Reports none Physical Exam Const alert and no apparent distress General Appearance: cooperative Orientation / Consciousness: awake Exam Limitations: no limitations HEENT normocephalic Eyes General Eye: normal appearance of both eyes Neck full ROM Chest inspection of chest normal Resp normal respiratory effort and normal air movement Effort and Inspection: symmetric chest movement Auscultation: clear to auscultation bilaterally Cardio regular rate GI soft to palpation, non-tender and non-distended Inspection: and other Back/Spine normal ROM Extremity full ROM, normal capillary refill and no calf tenderness Skin no rashes or lesions noted Neuro oriented x3 and CN's II-XII intact bilaterally Psych mental status grossly normal Assessment Plan (1) 39 weeks gestation of : (2) Uterine contractions: PLAN: Plan NST reactive, Cat. 1 tracing CE - no change /-2 D/C home with follow up in office Labor precautions and kick counts reviewed 01/25/23 0732 Date Beena Blakelyts CN Cosigner Signature (if applicable): Date CC: CECILE Walters; ERIN POWELL Signed Normal [facility] Platelets bldOrdered By: Jairon Walters on 01-24-2023 Platelets (Bld) [#/Vol] 344 10*3/uL 150-450 [facility] Protein Test strip Ql (U)Ord ered By: Beena Walters on 01-24-2023 Protein Ql (U) Negative Negative [facility] Serum Treponema species anti body detectionOrdered By: Beena Walters on 01-24-2023 Treponema sp Ab Ql (S) Non-Reactive [facility] Urine blood detectionOrdered By: Beena Walters on 01-24-2023 RBC Ql (U) Negative Negative [facility] Urine clarityOrdered By: Jairon Walters on 01-24-2023 Clarity (U) Clear Clear [facility] Urine color determinationOrd ered By: Beena Walters on 01-24-2023 Color (U) Yellow Yellow [facility] Urine glucose detectionOrder ed By: Beena Walters on 01-24-2023 Glucose Ql (U) Normal mg/dl Normal [facility] Urine leukocyte esterase det ection by dipstickOrdered By: Beena Walters on 01-24-2023 Leukocyte esterase Test strip Ql (U) 25 /ul Negative [facility] Urine pHOrdered By: Beena Walters on 01-24-2023 pH (U) 8.0 [pH] 5.0 - 8.0 [facility] Urine specific gravity measu rementOrdered By: Beena Walters on 01-24-2023 Specific gravity (U) [Rel density] 1.015 1.002-1.030 [facility] Urobilinogen Auto test strip Ql (U)Ordered By: Beena Walters on 01-24-2023 Urobilinogen Ql (U) Normal mg/dl Normal [facility] URINE OB DIP B/Oon Glucose Ql (U) Negative Neg mg/dL [facility] Protein.monoclonal (U) [Mass/Vol] Negative Neg mg/dL [facility] OBSTETRIC ULTRASOUND WHIon 1 [facility] URINE OB DIP B/Oon 3 Glucose Ql (U) Negative Neg mg/dL [facility] Protein.monoclonal (U) [Mass/Vol] Negative Neg mg/dL [facility] URINE OB DIP B/Oon 3 Glucose Ql (U) Negative Neg mg/dL [facility] Protein.monoclonal (U) [Mass/Vol] Negative Neg mg/dL [facility] URINE OB DIP B/Oon 3 Glucose Ql (U) Negative Neg mg/dL [facility] Protein.monoclonal (U) [Mass/Vol] Negative Neg mg/dL [facility] URINE OB DIP B/Oon 3 Glucose Ql (U) Negative Neg mg/dL [facility] Protein.monoclonal (U) [Mass/Vol] Negative Neg mg/dL [facility] OBSTETRIC ULTRASOUND WHIon 0 11-14-2022 [facility] URINE OB DIP B/Oon 3 Glucose Ql (U) Negative Neg mg/dL [facility] Protein.monoclonal (U) [Mass/Vol] trace Neg mg/dL [facility] URINE OB DIP B/Oon 3 Glucose Ql (U) Negative Neg mg/dL [facility] Protein.monoclonal (U) [Mass/Vol] trace Neg mg/dL [facility] OBSTETRIC ULTRASOUND WHIon 0 09-29-2022 [facility] URINE OB DIP B/Oon 3 Glucose Ql (U) Negative Neg mg/dL [facility] Protein.monoclonal (U) [Mass/Vol] Negative Neg mg/dL [facility] Reference Laboratory Testing Ordered By: Rand Saavedra on 06-15-2022 Results Report See Comment 1 (06/15/22 6:03 PM) Normal [facility] Comment on above: Result Comment: Resu lts for this order will not be sent to [facility]. The Reference Lab performing the testing will send the results directly to the ordering provider. CHEMISTRYOrdered By: SYSTEM SYSTEM on 06-14-2022 Amphetamines Screen method >1000 ng/mL Ql (U) Negative (06/14/22 4:45 PM) Normal Negative [facility] Barbiturates Screen Ql (U) Negative (06/14/22 4:45 PM) Normal Negative [facility] Benzodiazepines Ql (U) Negative (06/14/22 4:45 PM) Normal Negative [facility] Cocaine Ql (U) Negative (06/14/22 4:45 PM) Normal Negative [facility] Opiates Screen Ql (U) Negative (06/14/22 4:45 PM) Normal Negative [facility] Phencyclidine Screen method >25 ng/mL Ql (U) Negative (06/14/22 4:45 PM) Normal Negative [facility] HEMATOLOGYOrdered By: SYSTEM SYSTEM on 06-14-2022 Basophils/100 WBC (Bld) 0.4 % Normal 0.0 - 2.0 % [facility] Basophils/Leukocytes Auto (Bld) [Pure # fraction] 0.0 E9/L Normal 0.0 - 0.2 E9/L [facility] Eosinophils/100 WBC (Bld) 0.4 % Normal 0.0 - 8.0 % [facility] Eosinophils/Leukocytes Auto (Bld) [Pure # fraction] 0.0 E9/L Normal 0.0 - 0.5 E9/L [facility] Lymphocytes/100 WBC (Bld) 18.7 % Normal 14.0 - 50.0 % [facility] Lymphocytes/Leukocytes Auto (Bld) [Pure # fraction] 1.8 E9/L Normal 1.0 - 4.0 E9/L [facility] Monocytes/100 WBC (Bld) 5.2 % Normal 4.0 - 14.0 % [facility] Monocytes/Leukocytes Auto (Bld) [Pure # fraction] 0.5 E9/L Normal 0.2 - 1.0 E9/L [facility] Neutrophils/100 WBC (Bld) 75.3 % High 36.0 - 75.0 % [facility] Neutrophils/Leukocytes Auto (Bld) [Pure # fraction] 7.3 E9/L Normal 2.0 - 7.5 E9/L [facility] HEMATOLOGYOrdered By: Maria A May on 06-14-2022 Erythrocyte distribution width (RBC) [Ratio] 13.3 % Normal 10.9 - 14.2 % [facility] Hematocrit (Bld) [Volume fraction] 36.5 % Normal 34.0 - 46.0 % [facility] Hemoglobin (Bld) [Mass/Vol] 12.3 g/dL Normal 12.0 - 16.0 gm/dL [facility] MCH (RBC) [Entitic mass] 27.0 pg Normal 27.0 - 34.0 pg [facility] MCHC (RBC) [Mass/Vol] 33.6 g/dL Normal 31.4 - 36.0 gm/dL [facility] MCV (RBC) [Entitic vol] 80.4 fL Normal 80.0 - 100.0 fL [facility] Platelet mean volume (Bld) [Entitic vol] 7.1 fL Normal 6.4 - 10.8 fL [facility] Platelets (Bld) [#/Vol] 356.0 E9/L Normal 150. 0 - 500.0 E9/L [facility] RBC (Bld) [#/Vol] 4.5 E12/L Normal 4.3 - 5.9 E12/L [facility] WBC corrected for nucl RBC Auto (Bld) [#/Vol] 9.7 E9/L Normal 4.0 - 11.0 E9/L [facility] HCG,BETA-QUANTITATIVEon 03-19 HCG,BETA-QUANTITATIVE <2 Normal [facility] Comment on above: Result Comment: . Total HCG measurement is performed using the [employer] Access Immunoassay which detects intact HCG and free beta HCG subunit. . This test is not indicated for use as a tumor marker. HCG testing is performed using a different test methodology at [facility] than other [facility]. Direct result comparison should only be made within the same method. REF VALUES NON FEMALE <5 MALES <5 Performed By: #### H CGQU #### [address] [address] ABO/RH GROUP TESTon 03-18-20 ABO TYPE A Normal [facility] Comment on above: Performed By: #### A RIK #### [address] [address] CBC AND DIFFERENTIALon 03-18 % AUTOMATED IMMATURE GRAN 0.1 % Normal 0.0 - 0.9 [facility] Comment on above: Result Comment: Lesley ture Granulocyte Count (IG) includes promyelocytes, myelocytes and metamyelocytes but does not include bands. Percent differential counts (%) should be interpreted in the context of the absolute cell counts (cells/L). Performed By: #### A RIK #### [address] [address] Basophils (Bld) [#/Vol] 0.03 10*3/uL Normal 0.00 - 0.1 0 [facility] Comment on above: Performed By: #### A RIK #### [place] [id number] Basophils/100 WBC (Bld) 0.3 % Normal 0.0 - 2.[address] [facility] Comment on above: Performed By: #### A RIK #### [place] [id number] Eosinophils (Bld) [#/Vol] 0.04 10*3/uL Normal 0.00 - 0.70 [facility] Comment on above: Performed By: #### A RIK #### [place] [id number] Eosinophils/100 WBC (Bld) 0.4 % Normal 0.0 - 6.0 [facility] Comment on above: Performed By: #### A RIK #### [place] [id number] Erythrocyte distribution width (RBC) [Ratio] 12.9 % Normal 11.5 - 14.5 [facility] Comment on above: Performed By: #### A RIK #### [place] [id number] Hematocrit (Bld) [Volume fraction] 39.1 % Normal 36.0 - 46.0 [facility] Comment on above: Performed By: #### A RIK #### [address] [address] Hemoglobin (Bld) [Mass/Vol] 12.8 g/dL Normal 12.0 - 16.0 [facility] Comment on above: Performed By: #### A RIK #### [address] [address] Lymphocytes (Bld) [#/Vol] 2.24 10*3/uL Normal 1.20 - 4.80 [facility] Comment on above: Performed By: #### A RIK #### [address] [address] Lymphocytes/100 WBC (Bld) 24.5 % Normal 13.0 - 44.0 [facility] Comment on above: Performed By: #### A RIK #### [address] [address] MCHC (RBC) [Mass/Vol] 32.7 g/dL Normal 32.0 - 36.0 [facility] Comment on above: Performed By: #### A RIK #### [address] [address] MCV (RBC) [Entitic vol] 85 fL Normal 80 - [address] [facility] Comment on above: Performed By: #### A RIK #### [address] [address] Monocytes (Bld) [#/Vol] 0.44 10*3/uL Normal 0.10 - 1.0 0 [facility] Comment on above: Performed By: #### A RIK #### [address] [address] Monocytes/100 WBC (Bld) 4.8 % Normal 2.0 - 10.[address] [facility] Comment on above: Performed By: #### A RIK #### [address] [address] Neutrophils (Bld) [#/Vol] 6.38 10*3/uL Normal 1.20 - 7.70 [facility] Comment on above: Result Comment: Perc ent differential counts (%) should be interpreted in the context of the absolute cell counts (cells/L). Performed By: #### A RIK #### [address] [address] Neutrophils/100 WBC (Bld) 69.9 % Normal 40.0 - 80.0 [facility] Comment on above: Performed By: #### A RIK #### [address] [address] Platelets (Bld) [#/Vol] 307 10*3/uL Normal 150 - 450 [facility] Comment on above: Performed By: #### A RIK #### [address] [address] RBC 4.62 x10E12/L Normal 4.00 - 5.20 [facility] Comment on above: Performed By: #### A RIK #### [place] [id number] WBC (Bld) [#/Vol] 9.1 10*3/uL Normal 4.4 - 11.3 [facility] Comment on above: Performed By: #### A RIK #### [place] [id number] COMPREHENSIVE PANELon 2021 Albumin [Mass/Vol] 4.3 g/dL Normal 3.4 - 5.0 [facility] Comment on above: Performed By: #### U AMIC #### [place] [id number] ALP [Catalytic activity/Vol] 74 U/L Normal 33 - 110 [facility] Comment on above: Performed By: #### U AMIC #### [address] [address] ALT [Catalytic activity/Vol] 10 U/L Normal 7 - 45 [facility] Comment on above: Result Comment: Becca ents treated with Sulfasalazine may generate falsely decreased results for ALT. Performed By: #### U AMIC #### [address] [address] Anion gap [Moles/Vol] 12 mmol/L Normal 10 - 20 [facility] Comment on above: Performed By: #### U AMIC #### [address] [address] AST [Catalytic activity/Vol] 15 U/L Normal 9 - 39 [facility] Comment on above: Performed By: #### U AMIC #### [address] [address] Bilirubin [Mass/Vol] 0.3 mg/dL Normal 0.0 - 1.2 [facility] Comment on above: Performed By: #### U AMIC #### [address] [address] Calcium [Mass/Vol] 9.5 mg/dL Normal 8.6 - 10.3 [facility] Comment on above: Performed By: #### U AMIC #### [address] [address] Chloride [Moles/Vol] 106 mmol/L Normal 98 - 107 [facility] Comment on above: Performed By: #### U AMIC #### [address] [address] Creatinine [Mass/Vol] 0.64 mg/dL Normal 0.50 - 1.05 [facility] Comment on above: Performed By: #### U AMIC #### [address] [address] eGFR FEMALE >90 Normal >90 [facility] Comment on above: Result Comment: CALC ULATIONS OF ESTIMATED GFR ARE PERFORMED USING THE 2020 CKD-EPI STUDY REFIT EQUATION WITHOUT THE RACE VARIABLE FOR THE IDMS-TRACEABLE CREATININE METHODS. https://jasn.asnjournals.org/content/early/ASN.2020 312992 Performed By: #### U AMIC #### [address] [address] Glucose [Mass/Vol] 92 mg/dL Normal 74 - 99 [facility] Comment on above: Performed By: #### U AMIC #### [address] [address] HCO3 (Bld) [Moles/Vol] 24 mmol/L Normal 21 - 32 [facility] Comment on above: Performed By: #### U AMIC #### [address] [address] Potassium [Moles/Vol] 3.6 mmol/L Normal 3.5 - 5.3 [facility] Comment on above: Performed By: #### U AMIC #### [address] [address] Protein [Mass/Vol] 7.1 g/dL Normal 6.4 - 8.2 [facility] Comment on above: Performed By: #### U AMIC #### [address] [address] Sodium [Moles/Vol] 138 mmol/L Normal 136 - 145 [facility] Comment on above: Performed By: #### U AMIC #### [address] [address] Urea nitrogen [Mass/Vol] 8 mg/dL Normal 6 - 23 [facility] Comment on above: Performed By: #### U AMIC #### [address] [address] HCG,BETA-QUANTITATIVEon 02-18 HCG,BETA-QUANTITATIVE 490 mIU/mL Abnormal [facility] Comment on above: Result Comment: . Total HCG measurement is performed using the [employer] Access Immunoassay which detects intact HCG and free beta HCG subunit. . This test is not indicated for use as a tumor marker. HCG testing is performed using a different test methodology at [facility] than other [facility]. Direct result comparison should only be made within the same method. REF VALUES NON FEMALE <5 MALES <5 . Low-level positive HCG results can be seen in early , in laurie- or post-menopausal females due to normal pituitary HCG production, or with analytic interference. Repeat testing in 48-72 hours can aid in assessing for as results should double in this time period. FSH measurement is recommended in laurie- or post-menopausal females as concurrent elevation of FSH can support pituitary production as the source of the HCG elevation. Performed By: #### H CGQU #### [address] [address] Provider Note - ED v3on 02-18 Provider Note - ED v3 Provider Note: Chart Review: HISTORY OF PRESENTING ILLNESS JUMANA is a 22 year old Female and was seen by me at 18-Mar-2022 14:24 for a chief complaint of vaginal bleeding (Pt is 7 weeks and is c/o dark red blood that started light this morning then progressively gotten worse. Pt has had one miscarriage in the past. Pt is also c/o cramps.)(1). Triage Information: Most recent Vital Sign Value Date Temp (F): 97.3 03-18-2022 14:09 Temp (C): 36.2 03-18-2022 14:09 Heart Rate (beats/min): 88 03-18-2022 14:09 Respirations (breaths/min): 18 03-18-2022 14:09 SpO2 (%): 98 03-18-2022 14:09 BP Systolic (mm Hg): 118 03-18-2022 14:09 BP Diastolic (mm Hg): 77 03-18-2022 14:09 PAST MEDICAL HISTORY ALLERGIES/INTOLERANCE S: No Known Allergies HEALTH HISTORY: No documented data. OUTPATIENT MEDICATIONS: Home Medications Review Status for Reconciliation: Incomplete Med Status: Incomplete Medication History Drug Name: albuterol sulfate HFA 90 mcg/actuation aerosol inhaler Instructions: 2 puff(s) inhaled every 4 hours, As Needed Drug Name: Flovent HFA 110 mcg/actuation aerosol inhaler Instructions: 2 puff(s) inhaled 2 times a day Drug Name: loratadine 10 mg tablet Instructions: 1 tab(s) orally once a day Drug Name: naproxen 500 mg oral tablet Instructions: 1 tab(s) orally 2 times a day Drug Name: brompheniramine/pseud oephedrine/dextrometh orphan [id number]/5 mL oral syrup Instructions: 5 milliliter(s) orally every 4 to 6 hours, As Needed Drug Name: fluticasone 50 mcg/inh nasal spray Instructions: 1 spray(s) in each nostril once a day Drug Name: cephalexin 500 mg oral capsule Instructions: 1 cap(s) orally 4 times a day SIGNIFICANT EVENTS: Other Description:NON SMOKER Additional Notes:02/2021 Past Medical History Description:NO CHRONIC HEALTH ISSUES Additional Notes:02/2021 Past Surgical History Description:NO SURGICAL HISTORY THIS YEAR Additional Notes:02/2021 CRITICAL CARE RESULTS: Recent Lab Results: I have reviewed these laboratory results: Complete Blood Count + Differential 18-Mar-2022 14:54:00 ResultValue White Blood Cell Count 9.1 Red Blood Cell Count 4.62 HGB 12.8 HCT 39.1 MCV 85 MCHC 32.7 PLT 307 RDW-CV 12.9 Neutrophil % 69.9 Immature Granulocytes % 0.1 Lymphocyte % 24.5 Monocyte % 4.8 Eosinophil % 0.4 Basophil % 0.3 Neutrophil Count 6.38 Lymphocyte Count 2.24 Monocyte Count 0.44 Eosinophil Count 0.04 Basophil Count 0.03 Comprehensive Metabolic Panel 18-Mar-2022 14:54:00 ResultValue Glucose, Serum 92 NA 138 K 3.6 CL 106 Bicarbonate, Serum 24 Anion Gap, Serum 12 BUN 8 CREAT 0.64 GFR Female >90 Calcium, Serum 9.5 ALB 4.3 ALKP 74 T Pro 7.1 T Bili 0.3 Alanine Aminotransferase, Serum 10 Aspartate Transaminase, Serum 15 HCG, Beta Quantitative 18-Mar-2022 14:54:00 ResultValue HCG, Beta Quantitative 490 A Urinalysis, Microscopic 18-Mar-2022 14:42:00 ResultValue White Cells 4 Red Blood Cells 17 A Epithelial Cells, Squamous 2 Bacteria, Urine 1+ A Urinalysis with Culture if Indicated 18-Mar-2022 14:42:00 ResultValue Color, Urine RED Reference Range: STRAW,YELLOW Appearance, Urine HAZY Specific [place], Urine 1.010 pH, Urine 6.0 Protein, Urine 100 (2+) A Glucose, Urine NEGATIVE Blood, Urine LARGE (3+) A Ketones, Urine NEGATIVE Bilirubin, Urine NEGATIVE Urobilinogen, Urine <2.0 Nitrite, Urine NEGATIVE Leukocyte Esterase, Urine TRACE A Radiology Results: Impression: 1. No evidence of an intrauterine . The endometrium is thickened and there is a tiny endometrial-basis securing the lower uterine segment measuring 0.4 cm that does not contain a yolk sac or embryo. This could be an endometrial cyst or residual gestational sac and is too small to further characterize. Recommend close obstetrical follow-up, serial beta HCG measurements, and repeat ultrasound as clinically indicated. 2. Markedly limited visualization of the adnexa. A cystic structure in the right adnexal region near the fundus is noted, though not well characterized due to these limitations. Differential diagnosis includes para ovarian cyst, trace amount of fluid or a gestational sac of an ectopic . Transvaginal images confirm the above. Ultrasound Pelvis OB Transabdominal with Transvaginal up to 1st Trimester [Mar 18 2022 5:10PM] VITAL SIGNS: T PRBP SpO2O2(LPM) %FiO2 Method 18-Mar-2022 17:00:[id number] 98 room air, no respiratory support 18-Mar-2022 16:37:[id number]/65 100 room air, no respiratory support 18-Mar-2022 14:09:[id number]/ 77 98 room air, no respiratory support MDM MDM/ED COURSE: PMH: Reviewed PSH: Reviewed Social History: Reviewed. Allergies reviewed. HPI: This is a 22 year old female, , prior miscarriage July 2021 at approx 7 weeks gestation, who pr (more content not included)... Normal [facility] RH IMMUNE GLOB.on 03-18-2022 RH IMMUNE GLOB. ORDER RECD Normal [facility] Comment on above: Performed By: #### U [facility] #### [place] [id number] [place] [id number] Risk Screen - Adult Emergenc yon 03-18-2022 Risk Screen - Adult Emergency Preferred Language: Preferred Language: Preferred Language for Discussing Health Care (patient/designee)Kimberli de la rosa Patient Preferred Pharmacy: Patient Preferred Pharmacy Statement: I have reviewed and updated the patient's preferred pharmacy selection for today's visit. Advanced Directives: Advance Directive/DNRno Family Violence Adult: Abuse Screen: Are you or have you been threatened or abused physically, emotionally, or sexually by anyoneno Learning Assessment (Patient): Learning Assessment (Patient): Patient is Able to be Assessed for Learningyes Factors Influencing Readiness to Learnacuteness of illness Factors that Impact Ability to Learnnone Devices/Methods Used to Communicatenone Learning Preferencesverbal instruction; written material Cultural Considerationsnone Developmental Considerationsnone Yazdanism Considerationsnone Learning Assessment (Other Learner): Learning Assessment (Other Learner): Other learner availableno Pressure Injury/TB/Substance: Pressure Injury: Do you have a coughno Smoking Statusnever smoker Alcohol Usedenies Drug Usedenies Drug 2 Usedenies Admission Risk Screen: Significant IndicatorsComplete CAGE: CAGE: Is this an injured patient at a Trauma Center ([facility]/[place]/[facility]/[place]): no Electronic Signatures: Julia Dey (RN) (Signed 18-Mar-2022 15:16) Authored: Preferred Language, Patient Preferred Pharmacy, Advanced Directives, Family Violence Adult, Learning Assessment (Patient), Learning Assessment (Other Learner), Pressure Injury/TB/Substance, Pressure Injury, CAGE Last Updated: 18-Mar-2022 15:16 by Julia Dey (RN) Normal [facility] TYPE + SCREENon 03-18-2022 ABO TYPE A Normal [facility] Comment on above: Performed By: #### T +S #### [place] [address] RH TYPE Negative Normal [facility] Comment on above: Result Comment: Revi ew your Rh Negative female patient's potential need for Rh Immune Globulin (RhIg)administration. Performed By: #### T +S #### [place] [address] Performed By: #### A RIK #### [place] [address] UA MICROSCOPICon 03-18-2022 BACTERIA 1+ /HPF Abnormal [facility] Comment on above: Performed By: #### U AMIC #### [place] [address] RBC 17 /HPF Abnormal 0-5 [facility] Comment on above: Performed By: #### U AMIC #### [place] [address] SQUAMOUS EPITH. CELLS 2 /HPF Normal [facility] Comment on above: Performed By: #### U AMIC #### [place] [address] WBC 4 /HPF Normal 0-5 [facility] Comment on above: Performed By: #### U AMIC #### [place] [address] URINALYSIS WITH CULTURE IF I NDICATEDon 03-18-2022 pH (U) 6.0 [pH] Normal 5.0 - 8.0 [facility] Comment on above: Performed By: #### A RIK #### [place] [address] Appearance (U) HAZY Normal CLEAR [facility] Comment on above: Performed By: #### A RIK #### [place] [address] Bilirubin Ql (U) Negative Normal NEGATIVE [facility] Comment on above: Performed By: #### A RIK #### [place] [id number] Color (U) RED Normal STRAW,YELLOW [facility] Comment on above: Performed By: #### A RIK #### [place] [address] Glucose Ql (U) Negative Normal NEGATIVE [facility] Comment on above: Performed By: #### A RIK #### [place] [address] Hemoglobin Ql (U) LARGE (3+) Abnormal NEGATIVE [facility] Comment on above: Performed By: #### A RIK #### [place] [address] Ketones Ql (U) Negative Normal NEGATIVE [facility] Comment on above: Performed By: #### A RIK #### [place] [address] Leukocyte esterase Test strip Ql (U) TRACE Abnormal NEGATIVE [facility] Comment on above: Performed By: #### A RIK #### [place] [id number] Nitrite Ql (U) Negative Normal NEGATIVE [facility] Comment on above: Performed By: #### A RIK #### [place] [address] Protein Ql (U) 100 (2+) Abnormal NEGATIVE [facility] Comment on above: Performed By: #### A RIK #### [place] [id number] Specific gravity (U) [Rel density] 1.010 Normal 1.005 - 1.035 [facility] Comment on above: Performed By: #### A RIK #### [place] [id number] Urobilinogen (U) [Mass/Vol] mg/dL Normal 0.0 - 1.9 [facility] Comment on above: Performed By: #### A RIK #### [facility] [address] [place] [address] URINE CULTURE,BACTERIALon URINE CULTURE,BACTERIAL PATIENT: JUMANA MENJIVAR LOCATION: [facility] NEHEMIAH#: [id number] : [birth year] AGE: SEX: F ORDERED BY: CRYS SMITH SOURCE: URINE COLLECTED: 03/18/22 14:42 ANTIBIOTICS AT [place].: RECEIVED : 03/19/22 08:41 SITE: R E S U L T S URINE CULTURE,BACTERIAL FINAL 03/20/22 07:58 NO GROWTH Normal [facility] Comment on above: Performed By: #### U [facility] #### [facility] [address] [place] [address] US PELVIS OB TRANSABDOMINAL W TRANSVAGINAL UP TO 1st TRIMESTERon 03-18-2022 US PELVIS OB TRANSABDOMINAL W TRANSVAGINAL UP TO 1st TRIMESTER Patient Name: JUMANA MENJIVAR STUDY: US PELVIS OB TRANSABDOMINAL WITH TRANSVAGINAL; 03/18/2022 4:40 pm INDICATION: 7 WEEKS PREG AND BLEEDING. COMPARISON: None. ACCESSION NUMBER(S): [id number] ORDERING CLINICIAN: ANITRA CAMEJO TECHNIQUE: Grayscale and color Doppler transabdominal and transvaginal images of the pelvis. Spectral Doppler of the ovaries. FINDINGS: LMP = 01/28/2022, corresponding to 7 weeks, 0 days; beta-hCG = 490 mIU/mL UTERUS: The uterus has a homogeneous echotexture, is anteverted, and measures 7.8 x 4 x 4.5 cm. ENDOMETRIUM: The endometrium measures 1.3 cm in thickness. There is a tiny endometrial-based cystic area in the lower uterine segment measuring 0.4 cm x 0.1 cm x 0.3 cm with elongated shape and no discernible internal yolk sac or embryo. CERVIX: Closed. RIGHT OVARY: The right ovary measures 2.2 x 1.5 x 1.7 cm and appears normal. Intact arterial and venous color and spectral Doppler flow. There is a 0.5 cm x 0.5 cm x 0.7 cm cystic structure in the right adnexal region near the fundus that is not well visualized or characterized due to body habitus, deep location, and bowel gas. LEFT OVARY: The left ovary measures 2.9 x 1.6 x 2.5 cm and appears normal. Intact arterial and venous color and spectral Doppler flow. No suspicious adnexal mass is seen. Evaluation limited by bowel gas. FLUID: No free fluid. IMPRESSION: 1. No evidence of an intrauterine . The endometrium is thickened and there is a tiny endometrial-basis securing the lower uterine segment measuring 0.4 cm that does not contain a yolk sac or embryo. This could be an endometrial cyst or residual gestational sac and is too small to further characterize. Recommend close obstetrical follow-up, serial beta HCG measurements, and repeat ultrasound as clinically indicated. 2. Markedly limited visualization of the adnexa. A cystic structure in the right adnexal region near the fundus is noted, though not well characterized due to these limitations. Differential diagnosis includes para ovarian cyst, trace amount of fluid or a gestational sac of an ectopic . Transvaginal images confirm the above. Electronically signed by: RENE GOMEZ MD [facility] 07-27-2021 L - -------- Specimen: [id number] Received: 07/27/21 Status: TAMIA Williamson Num: [id number] Spec Type: Surgical Subm Dr: ASAEL PUENTE MD Tissues: A Products of Conception - Spontaneous or Missed (POC) Procedures: HE Stain/5, Gross/Micro L4 -------- Patient Age/Sex Location Account Attending Physician -------- Jumana Menjivar / [place] [id number] ASAEL PUENTE MD -------- SPEC NUM: [id number] RECD: 07/27/21 STATUS: TAMIA WILLIAMSON NUM: [id number] OTTONIEL: 07/27/21 [facility] DR: ASAEL PUENTE MD ENTERED: 07/28/21 [facility] : JOB TYPE: Surgical DEPT: S ORDERED: HE Stain/5, Gross/Micro L4 ORDERED: HE Stain/5, Gross/Micro L4 Pathological Diagnosis Products of conception, suction D C: - Immature chorionic villi present with degenerative changes. - Fragment of decidual tissue and gestational endometrium. - No tissue identified. Clinical Information Missed Gross Description Received in formalin labeled with the patient's name and uterine contents is a 5.5 x 5 x 0.6 cm aggregate of steward-pink, ragged soft tissue. No embryo, parts, vesicles or chorionic villi are grossly identified. Approximately 95% of the specimen is submitted in cassettes A1 - A 5. (/) Microscopic Description Five glass slides with H E stained material have been examined. The microscopic findings support the above pathologic diagnosis. -------- Specimen: [id number] Received: 07/27/21 Status: TAMIA Williamson Num: [id number] Spec Type: Surgical Subm Dr: ASAEL PUENTE MD Tissues: A Products of Conception - Spontaneous or Missed (POC) Procedures: RAIMUNDO Stain/5, Gross/Micro L4 -------- Patient: Jumana Menjivar [id number] (Continued) -------- Specimen: Received: 07/27/21 (Continued) Signed (signature on file) Soco_ Haim Cadena MD 07/28/21 1611 -------- Specimen: Received: 07/27/21 Status: TAMIA Williamson Num: [id number] Spec Type: Surgical Subm Dr: ASAEL PUENTE MD Tissues: A Products of Conception - Spontaneous or Missed (POC) Procedures: HE Stain/5, Gross/Micro L4 -------- Patient: Jumana Menjivar [id number] (Continued) -------- Specimen: [id number] Received: 07/27/21 (Continued) CPT Codes 40132 -------- -------- Specimen: [id number] Received: 07/27/21 Status: EVANGELISTALuciano Williamson Num: [id number] Spec Type: Surgical Subm Dr: ASAEL PUENTE MD Tissues: A Products of Conception - Spontaneous or Missed (POC) Procedures: HE Stain/5, Gross/Micro L4 -------- Patient: Jumana Menjivar [id number] (Continued) -------- Signed (signature on file) Haim Cadena MD 07/28/21 1611 [facility] CHEMISTRYOrdered By: SYSTEM SYSTEM on 07-25-2021 [place] [address] m[IU]/mL High 1 - 3 mIU/mL [facility] Remisol ABO/RH GROUP TESTon 07-18-19 ABO TYPE A [facility] Comment on above: Performed By: #### A RIK #### [place] [address] Performed By: #### T +S #### [place] [address] RH TYPE Negative [facility] Comment on above: Result Comment: Revi ew your Rh Negative female patient's potential need for Rh Immune Globulin (RhIg)administration. Performed By: #### A RIK #### [place] [address] Performed By: #### T +S #### [place] [address] CBC AND DIFFERENTIALon 07-17 Basophils (Bld) [#/Vol] 0.10 10*3/uL Normal 0.00 - 0.1 0 [facility] Comment on above: Performed By: #### U AMIC #### [address] [address] Basophils/100 WBC (Bld) 0.9 % Normal 0.0 - 2.[address] [facility] Comment on above: Performed By: #### U AMIC #### [address] [address] Eosinophils (Bld) [#/Vol] 0.10 10*3/uL Normal 0.00 - 0.70 [facility] Comment on above: Performed By: #### U AMIC #### [address] [address] Eosinophils/100 WBC (Bld) 1.4 % Normal 0.0 - 6.0 [facility] Comment on above: Performed By: #### U AMIC #### [address] [address] Erythrocyte distribution width (RBC) [Ratio] 13.4 % Normal 11.5 - 14.5 [facility] Comment on above: Performed By: #### U AMIC #### [address] [address] Hematocrit (Bld) [Volume fraction] 39.0 % Normal 36.0 - 46.0 [facility] Comment on above: Performed By: #### U AMIC #### [address] [address] Hemoglobin (Bld) [Mass/Vol] 13.2 g/dL Normal 12.0 - 16.0 [facility] Comment on above: Performed By: #### U AMIC #### [address] [address] Lymphocytes (Bld) [#/Vol] 2.40 10*3/uL Normal 1.20 - 4.80 [facility] Comment on above: Performed By: #### U AMIC #### [address] [address] Lymphocytes/100 WBC (Bld) 29.7 % Normal 13.0 - 44.0 [facility] Comment on above: Performed By: #### U AMIC #### [address] [address] MCHC (RBC) [Mass/Vol] 33.8 g/dL Normal 32.0 - 36.0 [facility] Comment on above: Performed By: #### U AMIC #### [address] [address] MCV (RBC) [Entitic vol] 82 fL Normal 80 - [address] [facility] Comment on above: Performed By: #### U AMIC #### [address] [address] Monocytes (Bld) [#/Vol] 0.40 10*3/uL Normal 0.10 - 1.0 0 [facility] Comment on above: Performed By: #### U AMIC #### [address] [address] Monocytes/100 WBC (Bld) 5.1 % Normal 2.0 - 10.0 [facility] Comment on above: Performed By: #### U AMIC #### [address] [address] Neutrophils (Bld) [#/Vol] 5.10 10*3/uL Normal 1.20 - 7.70 [facility] Comment on above: Result Comment: Perc ent differential counts (%) should be interpreted in the context of the absolute cell counts (cells/L). Performed By: #### U AMIC #### [address] [address] Neutrophils/100 WBC (Bld) 62.9 % Normal 40.0 - 80.0 [facility] Comment on above: Performed By: #### U AMIC #### [address] [address] Platelets (Bld) [#/Vol] 311 10*3/uL Normal 150 - 450 [facility] Comment on above: Performed By: #### U AMIC #### [address] [address] RBC 4.75 x10E12/L Normal 4.00 - 5.20 [facility] Comment on above: Performed By: #### U AMIC #### [address] [address] WBC (Bld) [#/Vol] 8.1 10*3/uL Normal 4.4 - 11.3 [facility] Comment on above: Performed By: #### U AMIC #### [address] [address] HCG,BETA-QUANTITATIVEon 05-0 HCG,BETA-QUANTITATIVE 7458 mIU/mL Abnormal [facility] Comment on above: Result Comment: Low- level positive HCG results can be seen in early , in laurie- or post-menopausal females due to normal pituitary HCG production, or with analytic interference. Repeat testing in 48-72 hours can aid in assessing for as results should double in this time period. FSH measurement is recommended in laurie- or post-menopausal females as concurrent elevation of FSH can support pituitary production as the source of the HCG elevation. . Total HCG measurement is performed using the Ashlyn Marshall Access Immunoassay which detects intact HCG and free beta HCG subunit. This test is not indicated for use as a tumor marker. HCG testing is performed using a different test methodology at [facility] than other [facility]. Direct result comparison should only be made within the same method. REF VALUES NON FEMALE <5 MALES <5 Performed By: #### U AMIC #### [address] [address] HCG,URINEon 07-17-2021 Beta HCG ( test) Ql (U) Positive Abnormal Negative [facility] Comment on above: Performed By: #### H CGU #### [address] [address] Provider Note - ED Care Contreras sitionon 07-17-2021 Provider Note - ED Care Transition ED Care Transition: Chart Review: ED NOTES ED NOTES: Patient care was taken over by myself at 7 AM. Patient with complaint of vaginal bleeding with spotting since Sunday. Patient 7 weeks 1 para 0 awaiting transvaginal ultrasound. Transvaginal pelvic ultrasound reveals single live intrauterine at 6 weeks 1 day with pole and yolk sac. No heart rate is identified currently. Recommendation is for repeat quantitative hCGs. I went ahead detailed discussion with the patient concerning fact that she would need to have a repeat quantitative hCG in 48 hours. I then realized that the type and Rh had not been ordered and the patient does not know her blood type. I ordered a type and Rh prior to discharging the patient home with plan follow-up with her [employer] at [employer] for quantitative hCG and 48 hours. Patient was discharged home in stable satisfactory condition provided note for work and told to have pelvic rest. Patient's blood type is a Rh- and therefore will require RhoGAM which I ordered for the patient prior to being discharged home. CLINICAL IMPRESSION Diagnosis/Annotation: ED Dx Name:Threatened Code:O20.0 Disposition: discharged Type: home ATTESTATION CRITICAL CARE TIME Is this a critically ill patient: no Electronic Signatures: Jimmy Sanchez () (Signed 20-Jul-2021 07:11) Authored: ED Notes, Clinical Impression, Attestation, Chart Review, Scores Last Updated: 20-Jul-2021 07:11 by Jimmy Sanchez () [facility] Provider Note - ED v3on 05-0 Provider Note - ED v3 Provider Note: Chart Review: ED NOTES ED NOTES: History of Present Illness: 21-year-old female presents with concern for vaginal bleeding during . at approximately 7 weeks. States that 2 days ago she began having intermittent spotting. Worsened abdominal cramping this morning with heavier bleeding. Denies any nausea, vomiting, fever, chills, trauma. Denies any urinary symptoms. Past Medical History: None Past surgical History: None Family history: Reviewed and not pertinent to complaint Social history: Denies any drugs, alcohol, tobacco abuse. REVIEW OF SYSTEMS: Pertinent negatives and positives noted in the HPI. Otherwise, a complete review of system was negative. PHYSICAL EXAM: Appearance: Alert, oriented , cooperative, in no acute distress. Skin: Intact, dry skin, no lesions, rash, petechiae or purpura. Eyes: PERRLA, EOMs intact, Conjunctiva pink with no redness or exudates. HENT: Normocephalic, atraumatic. Nares patent. No intraoral lesions. Neck: Supple, without meningismus. Trachea at midline. No lymphadenopathy. Pulmonary: Clear bilaterally with good chest wall excursion. No rales, rhonchi or wheezing. No accessory muscle use or stridor. Cardiac: Regular rate and rhythm, no rubs, murmurs, or gallops. Abdomen: Abdomen is soft, nontender, and nondistended. No palpable organomegaly. No rebound or guarding. Nonsurgical abdomen Psychiatric: Appropriate mood and affect. HISTORY OF PRESENTING ILLNESS JUMANA is a 21 year old Female and was seen by me at 17-Jul-2021 06:04 for a chief complaint of problem (Patient states she had a home positive home test 3 weeks ago and has now had vaginal bleeding/spotting for 3 days in a row. Has not seen OBGYN yet.)(1). Triage Information: Most recent Vital Sign Value Date Temp (F): 97.5 07-17-2021 06:11 Temp (C): 36.4 07-17-2021 06:11 Heart Rate (beats/min): 91 07-17-2021 06:11 Respirations (breaths/min): 18 07-17-2021 06:11 SpO2 (%): 99 07-17-2021 06:11 BP Systolic (mm Hg): 126 07-17-2021 06:11 BP Diastolic (mm Hg): 78 07-17-2021 06:11 PAST MEDICAL HISTORY ALLERGIES/INTOLERANCE S: No Known Allergies HEALTH HISTORY: No documented data. OUTPATIENT MEDICATIONS: Home Medications Review Status for Reconciliation: N/A Med Status: Patient Currently Takes Medications Drug Name: albuterol sulfate HFA 90 mcg/actuation aerosol inhaler Instructions: 2 puff(s) inhaled every 4 hours, As Needed Drug Name: Flovent HFA 110 mcg/actuation aerosol inhaler Instructions: 2 puff(s) inhaled 2 times a day Drug Name: loratadine 10 mg tablet Instructions: 1 tab(s) orally once a day Drug Name: naproxen 500 mg oral tablet Instructions: 1 tab(s) orally 2 times a day Drug Name: brompheniramine/pseud oephedrine/dextrometh orphan 3km-27af-10ho/5 mL oral syrup Instructions: 5 milliliter(s) orally every 4 to 6 hours, As Needed Drug Name: fluticasone 50 mcg/inh nasal spray Instructions: 1 spray(s) in each nostril once a day SIGNIFICANT EVENTS: Other Description:NON SMOKER Additional Notes:02/2021 Past Medical History Description:NO CHRONIC HEALTH ISSUES Additional Notes:02/2021 Past Surgical History Description:NO SURGICAL HISTORY THIS YEAR Additional Notes:02/2021 CRITICAL CARE RESULTS: Recent Lab Results: I have reviewed these laboratory results: Urinalysis with Culture if Indicated 17-Jul-2021 06:32:00 ResultValue Color, Urine Yellow Reference Range: STRAW,YELLOW Appearance, Urine CLEAR Specific [place], Urine 1.008 pH, Urine 6.0 Protein, Urine NEGATIVE Glucose, Urine NEGATIVE Blood, Urine LARGE(3+) A Ketones, Urine NEGATIVE Bilirubin, Urine NEGATIVE Urobilinogen, Urine <2.0 Nitrite, Urine Negative Leukocyte Esterase, Urine NEGATIVE Urine Test 17-Jul-2021 06:32:00 ResultValue HCG, Urine POSITIVE A Complete Blood Count + Differential 17-Jul-2021 06:30:00 ResultValue White Blood Cell Count 8.1 Red Blood Cell Count 4.75 HGB 13.2 HCT 39.0 MCV 82 MCHC 33.8 PLT 311 RDW-CV 13.4 Neutrophil % 62.9 Lymphocyte % 29.7 Monocyte % 5.1 Eosinophil % 1.4 Basophil % 0.9 Neutrophil Count 5.10 Lymphocyte Count 2.40 Monocyte Count 0.40 Eosinophil Count 0.10 Basophil Count 0.10 VITAL SIGNS: T PRBP SpO2O2(LPM) %FiO2 Method 17-Jul-2021 06:11:[id number]/ 78 99 MDM MDM/ED COURSE: Patient appears well and nontoxic. Benign abdominal exam. Urine positive. Transvaginal ultrasound ordered. Patient signed out to incoming physician Dr. Sanchez in stable condition. DISPOSITION Diagnosis/Annotation: Signed Out to Incoming Provider Disposition: HANDOFF Signed out to Incoming Provider: Jimmy Sanhcez (more content not included)... [facility] RH IMMUNE GLOB.on 07-17-2021 RH IMMUNE GLOB. ORDER RECD [facility] Comment on above: Performed By: #### U [facility] #### [place] [id number] [place] [id number] Risk Screen - Adult Emergenc yon 07-17-2021 Risk Screen - Adult Emergency Preferred Language: Preferred Language: Preferred Language for Discussing Health Care (patient/designee)Eng estrella Advanced Directives: Advance Directive/DNRno Family Violence Adult: Abuse Screen: Are you or have you been threatened or abused physically, emotionally, or sexually by anyoneno Learning Assessment (Patient): Learning Assessment (Patient): Patient is Able to be Assessed for Learningyes Factors Influencing Readiness to Learnacuteness of illness Factors that Impact Ability to Learnnone Devices/Methods Used to Communicatenone Learning Preferencesaudio Cultural Considerationsnone Developmental Considerationsnone Yazdanism Considerationsnone Learning Assessment (Other Learner): Learning Assessment (Other Learner): Other learner availableno Pressure Injury/TB/Substance: Pressure Injury: Pressure Injury Present on Admissionno Do you have a coughno Smoking Statusnever smoker Alcohol Usedenies Drug Usedenies Drug 2 Usedenies Admission Risk Screen: Significant IndicatorsComplete CAGE: CAGE: Is this an injured patient at a Trauma Center ([facility]/[place]/[place]): no Electronic Signatures: Laney Fernando (MARCELLO) (Signed 17-Jul-2021 06:55) Authored: Preferred Language, Advanced Directives, Family Violence Adult, Learning Assessment (Patient), Learning Assessment (Other Learner), Pressure Injury/TB/Substance, Pressure Injury, CAGE Last Updated: 17-Jul-2021 06:55 by Laney Fernando (MARCELLO) [facility] TRANS VAG PREG UTERUSon 05-0 TRANS VAG PREG UTERUS Patient Name: JUMANA MENJIVAR STUDY: TRANS VAG PREG UTERUS; 07/17/2021 8:12 am INDICATION: spotting. COMPARISON: None. ACCESSION NUMBER(S): [id number] ORDERING CLINICIAN: JIMMY SANCHEZ TECHNIQUE: Multiple ultrasonographic images of the pelvis were obtained. Transabdominal and transvaginal ultrasound was performed. FINDINGS: UTERUS: Uterus shows a single intrauterine , with mean gestational sac diameter of 15 mm, corresponding to gestational age of 5 weeks 5 days, pole is identified, with a crown-rump length measuring up to 7 mm, corresponding to gestational age of 6 weeks 4 days. heart rate could not be identified. Uterus measures 7.2 x 4.5 x 5.2 cm. Yolk sac is identified. Gestational age based on LMP is 7 weeks 2 days, gestational age based on ultrasound is 6 weeks 1 day + / -3 days. MATERNAL ANATOMY: RIGHT ADNEXA: Right ovary measures 2.7 x 1.3 x 2.2 cm, shows normal blood flow. No right adnexal masses. LEFT ADNEXA: Left ovary measures 2.7 x 2.4 x 2 cm, shows a 1.3 cm probable corpus luteal cyst, normal blood flow to the left ovary. Trace amount of free fluid in the pelvis. IMPRESSION: 1. Single intrauterine gestational sac noted with a pole and yolk sac, corresponding to gestational age of 6 weeks 1 day, heart rate could not be identified, changes could be related to early intrauterine , recommend continued serial beta HCG follow-up to exclude nonviable . Electronically signed by: RENAY CHANCE MD [facility] Triage - EDon 07-17-2021 Triage - ED Quick Triage: Are You yes Have You Given In The Last 6 Weeksno Are You Currently Breastfeedingno The patient and/or guardian verbally acknowledges placement for services into the following (when Urgent Care Service hours are operating):emergency department Chart Review: ARRIVAL INFORMATION Mode of Arrival: private vehicle CHIEF COMPLAINT JUMANA MENJIVAR is a Female patient with a chief complaint of problem (Patient states she had a home positive home test 3 weeks ago and has now had vaginal bleeding/spotting for 3 days in a row. Has not seen OBGYN yet.). Triage Date/Time: 17-Jul-2021 06:11 SOLITARIO: 3V Pain Rating (0-10): 0 = None Vital Signs: Temperature: 97.5F ( 36.4C) Blood Pressure: 126/78 Mean: Heart Rate: 91 Respiratory Rate: 18 Pulse Oximetry: 99% Height: 5 feet 4.00 inches. 162.5 CM Weight: 190.4 pounds. Calculated 86.4 kg. Calculated BMI (kg/m2): 32.719 Calculated BSA (m2) 1.97 Riddhi Coma Scale: Best Eye Response: (E4) spontaneous Best Motor Response: (M6) obeys commands Best Verbal Response: (V5) oriented [place] Score: 15 Cough lasting greater than 3 weeks: no Allergies: no Last menstrual period: 27-May-2021 Patient has homicidal thoughts: no Risk Screens Suicide Risk Screen In the Past Month: Have you wished you were or wished you could go to sleep and not wake up no In the Past Month: Have you had any actual thoughts of killing yourself no In Your Lifetime: Have you ever done anything, started to do anything, or prepared to do anything to end your life no Interventions: Ansari Fall Interventions: LOW INTERVENTIONS: *patient oriented to surroundings and call system, * patient/family falls education completed and documented, *patients fall status communicated during bedside handoff, *whiteboard updated, *mode of toileting discussed with patient, *bed in low position with brakes locked, *call light in reach, * non-skid footwear TRAVEL HISTORY Travel History Coronavirus Screening: no exposure or symptoms Travel Exposure History: NO travel to International locations in the past 30 days PAIN Pain Scale Used: [place] Pain Rating (0-10): 0 = None Past Medical History: Past Medical History Reviewedyes Electronic Signatures: Dario Erickson (MARCELLO) (Signed 17-Jul-2021 06:14) Entered: Risk Screens, Pain, Travel History, Chart Review, Scores, Past Medical History Authored: Quick Triage, Risk Screens, Pain, Travel History, Chart Review, Scores, Past Medical History Last Updated: 17-Jul-2021 06:14 by Dario Erickson) Normal [facility] UA MICROSCOPICon 07-17-2021 Mucus Ql (Urine sed) 1+ /LPF Normal [facility] Comment on above: Performed By: #### U [facility] #### [place] [address] RBC 2 /HPF Normal 0-5 [facility] Comment on above: Performed By: #### U AMIC #### [address] [address] SQUAMOUS EPITH. CELLS 2 /HPF Normal [facility] Comment on above: Performed By: #### U AMIC #### [address] [address] WBC 7 /HPF Abnormal 0-5 [facility] Comment on above: Performed By: #### U AMIC #### [address] [address] URINALYSIS WITH CULTURE IF I NDICATEDon 07-17-2021 Appearance (U) CLEAR Normal CLEAR [facility] Comment on above: Performed By: #### U AMIC #### [address] [address] Bilirubin Ql (U) Negative Normal NEGATIVE [facility] Comment on above: Performed By: #### U AMIC #### [address] [address] Color (U) Yellow Normal STRAW,YELLOW [facility] Comment on above: Performed By: #### U AMIC #### [address] [address] Glucose Ql (U) Negative Normal NEGATIVE [facility] Comment on above: Performed By: #### U AMIC #### [address] [address] Hemoglobin Ql (U) LARGE(3+) Abnormal NEGATIVE [facility] Comment on above: Performed By: #### U AMIC #### [address] [address] Ketones Ql (U) Negative Normal NEGATIVE [facility] Comment on above: Performed By: #### U AMIC #### [address] [address] Leukocyte esterase Test strip Ql (U) Negative Normal NEGATIVE [facility] Comment on above: Performed By: #### U AMIC #### [address] [address] Nitrite Ql (U) Negative Normal NEGATIVE [facility] Comment on above: Performed By: #### U AMIC #### [address] [address] pH (U) 6.0 [pH] Normal 5.0 - 8.0 [facility] Comment on above: Performed By: #### U AMIC #### [address] [address] Protein Ql (U) Negative Normal NEGATIVE [facility] Comment on above: Performed By: #### U AMIC #### [address] [address] Specific gravity (U) [Rel density] 1.008 Normal 1.005 - 1.035 [facility] Comment on above: Performed By: #### U AMIC #### [address] [address] Urobilinogen (U) [Mass/Vol] mg/dL Normal 0.0 - 1.9 [facility] Comment on above: Performed By: #### U AMIC #### [address] [address] URINE CULTURE,BACTERIALon URINE CULTURE,BACTERIAL PATIENT: JUMANA MENJIVAR LOCATION: [facility]#: [id number] : [birth year] AGE: SEX: F ORDERED BY: JOVANI SIMPSON SOURCE: URINE COLLECTED: 07/17/21 06:32 ANTIBIOTICS AT [facility].: RECEIVED : 07/17/21 13:06 SITE: R E S [facility] T S URINE CULTURE,BACTERIAL FINAL 07/18/21 08:31 NO SIGNIFICANT GROWTH. Normal [facility] Comment on above: Performed By: #### U RINC #### [facility] [address] [place] [address] Coding Summary.on 08-12-2020 Coding Summary. CD:[id number] G h0bWw+PGhlYWQ+YL5WIWZ kJ53sjTBkpQ0CW9jPVV7E YEIPSOLFSY5PNH2hrHJ6B QpbL1HsdwIu HhyxdSIoWD46PGv2HWE7h NnjBDnsmC4ozKFxR0g6Es UlRV63oD62XZggSWZqZlN 3LjZpbjsgbWFy E2zqQuLteKGoJjy+PHRhY mxlIHdpZHRoPScxMDAlJy YupAayBC3kUd2aFDBbQQW vbGxhcHNlOiBj r5loISCyNFkaHN4szPmaO 9WqlRQ7APVcw0d1Mc68cU I+CIMyTOG2yMxdLWfyc93 6OfJkt3raFBX8 nWMnSIpvZYJ9V35hz9Y2W UAdVAGwCFK7lBI1dK8vdQ anlyfrU8BldSKmKyL7ARN 0rNYqwW1oeRbq ejsywZ9iMrz+S53EIQ6CD UWOHF1EXbn9T1PiGnjqkS I+IU10GWZzKZ04nRTqhOK tm1kigBo0MzLg WUTcSQM7hNfsDTetf1WfH RXwA36ckRYra3T8RCGrfD vckRWhNdFfoUZ6hC4kQUc sfwvjc1wslpmd Sasos1kzqr61uF48Y26qW RcnIQFeOSB2NPFoCUMxqY euhv0hxD9sYu0+OOgem7p xb7golNq8KlAw UETzlsFnaDuuVFE7n2GxM e12F9TkcXqes3ZkBzm7ee 60wCLyb2A9gKA7NIgiUBY clV9iQBrqGiY7 YODgCiCciY43pBMwKSqiF k8foJissZedZI8rYPUaxk ogAMBsxP2qTFUbhASauAl sCP1zDIMmstee b630MaPdTDR3NBWwyPDbG 6GlfV8kUeMcGIKmIDMaZ4 YzqRVtFLpeK953OTjmAyB 3AHNmvyUrJ7Fy ZLZfeBtdRiN2o7H3Ib2Zt 5RggomqFGW2TOqgSCO3Dv B9JcRlShH4Y8AfIvw2VUV upQyqIS1kL8Mm WQUimsrfikskwFG7YJWuE SFgzY03kSSyLPggNr9oe7 Y2z603EIFjOQYmoJ73Pu8 udDogMTBwdCBU lY6idzjds4fzqcxrUoMhT PNhHVq2GMy4EDPioVklMt IxTJN8SuO9MQX6qPSteT6 rrWopypkhgN7y Oyc+C61rzR1qAGA4OBF6c dvuPBXomlMvGP19YD66Q2 RyPjwvdGFibGU+PGRpdiB azJwiVJ8dUoYw d6wdr0XnIXizB0JuLZJvN TrvFin8ZVIuUID0cGW8xR 4dXYIiAAcjc6C8lBF9G7I vuqYykq3aw5wc NFBjJJabT43xbXLbb4F5I URwgUA9FSXbaTqaHkGvqA 93Oyc+TBXdtSnsm5OoYta cl6ofn1rprMy1 JzMuYZQpqyJhsYdjTNA3w 2NfEo16Z59zJRsdQHQuZT GzUAIfAAEozRtxod0kfQ0 wIi8+PGNvbCB3 lOW0yX6wRXJvQwC1PQjbY 094NvJbpIVkZlkos8vae2 wosJd4ZuYuMAWssbIolCb rQBC2b9OsXy11 U22wZIloNIXgQPPsTTHxN IFgnLqsjt1qdX9pRn9+PC 9kh1xfip02qW70gRK+PHR nPQM9zLwiQOjz WXNxdZ2rNIioZfG3PHGwK dUnfZ41xIXjAIwtQm3hjD tslOquVU3uSTTnhypjg07 5TeOgx4smLGYi iLYyMUrpMRU4M00wr0O5D LWzMOJmTXL1wGL4hN3ogX lnbjogbGVmdDsgdmVydGl kFFccFAkbP541 IHRvcDsnPlBhdGllbnQgT gOmVHv2S7MaTgy0EAPlpJ qlNW8jrCJaBPerJl0bvVh ukQeqDB5aIXMd wnify292KuPba1msEGCnl USwNKdjAZY2Q81cb7P6WV SqEYVvCOT5fCB8wV2erEh nbjogbGVmdDsg awPxhBvyAEwhAOnmZ702R HRvcDsnPkJpcnRoIERhdG Y3IX65DF81aYWwj0G1xUF 4S8WpNWQuvgss hiiuxLM1THJoOLDrpP18K u5ntYunTa4vEZFnNHE3SE OfoFAhL2UkoI6oVbNwYOZ lJASxA9PrbPLu JTjuS047DEtlPsM4KICwa uJwE6EnPQYigUzuExD3l4 X7So1BL6G0FQ86WH08lAQ rj8S6hWS2V7Pe EFCgujvipvuflAV2OQTvS TSkcZ44Zs2oiBhtGz3bQI KsLHS9PECvjEAxE8MpnB3 yOiAjMDAwMDAw P9KyzGNwCDgxC136UZisH kJ5OYHwvhBdI6FvZBFecW quQuQ8v6J3Zz0EIFq1PQ0 4WY50mXJnc7B1 fNI4D0SuROPalwwdxlrob UC9UVUqIJWazT00Vn6pdB nyZw3zFROgKBB5FFBdsGN lK3DyqC6cBzQp VNWsSXVbZ0AygOLqYQwxW 270HAprHrQ4VATagbXxZ2 TqRFYimSgkSeS6c0O5Sd8 QKLNcSB29RTE5 nXG3BE98ES85T2HvOyqzg GFibGU+PHRhYmxlIHdpZH RoPScxMDAlJyBzdHlsZT0 sBg0dLREyWEXg xWveiTKyDlCne3smPDMmR WqnEM1xsBhzL1OobHZ2IJ Gxh1e2Uz09X63dM8SxiWB +HHWjsCT4nRU7 wP5tTgLcVcZ3EOgbL160U bQpuRBiYxzcg6dnj7rpoI b4ZlH9FOQnykRxdTodDMV 2z4EnOy16D55s IHdpZHRoPSIxNSUiIHZhb Yqlyw5nuH8xWn4+PGNvbC I3wMB8qN1oRxKgKoB0FDm mH669StSwoECp Ygjre5fwd6fahRq4EfZnQ XGkgaMnpItnZVM1b7RxJb 76O9MhjHpqq8KwCqt1vn8 0kSTvh5P1zGV9 M3DwHFOlflxdtZXatXfuC H7lKFYdxxapKHKutZ9eSL TeC5m9XzEtRbP4QIenM1J ncaC1RGWjeSId JZeqJOH7Q39zn0Q9QFRlM LJwUGB4kEI4bK3qcSxpzy ogbGVmdDsgdmVydGljYWw sDHxzW289CDEt wRkrMTXorD1uHOIidIFwk DhyNW0nQXKnedrqDpBPQ6 JELCBLRUxMWTwvdGQ+PHR iPMY7vQypYOmc VRLeuF7fJMLdS3b5RsLoQ eD2ZDwqC0SrKMLlrrepUd 53vJ2mBfQnCgL3JXvyB1E fmxK9AQIheOYa QXekCIS0J99ab0G3RYCzF FKvDWW1hQW8zP1hzQfzoy ogbGVmdDsgdmVydGljYWw wFEpoD141YFCa qYorCsKuYgN4JgVyBFF7A 3QgVpp0BGNpeEmxRX1zxP ScAJrhJx0pgXevcQiwVV0 wNTBpbjtwYWRk fJ2pVKAapLNwiUoaSH3yG KNxdqwkp435PwGnRSA6CS AmjIOzW5FkdO1fJyFnKRN zENLcR4XeyUKj YRsgR285DVbzXuG6LNKlk cAsV9NkCCZftYxiHbZ3g3 O1Ko1lKRJFORSmuvqcaHV +PFUsZGR1uDun GBydCVNdcS2bPEXfB9b0X rHbDwT3QKzjR7HtUZLghu stFp78iQ2nGqUtTfW2QOh pT2OqewQ3IIIl cFEcWHzpRWB6D74hq7T1N OJxRPPkACK4mBB8sP8llS lnbjogbGVmdDsgdmVydGl sRSbrSDoyA024 IHRvcDsnPkZlbWFsZTwvd GQ+GWXnFDY5rYgbCHypUN LneJ1oQJCsZ0r8OqFzAlO 6CPlmV5BaNCWa jwjoRe21wX8zCkHlJsJ6X ShkI8CztdT6PXPzdEDhLM lrJDM5Z28mo5P0PHLwYOJ xDGF4hFK7uI2f bGlnbjogbGVmdDsgdmVyd NixCVdoWVvfF780VCFqdY znAsnqRgCJul2nEX7rBsw vdGQ+WZ24pm32 A5YmPtoaKfv5BYIfKTX7u GR7iH2hBARtABcvr6U7kL N6M6LccsTwci7hy6gfOKA dBVbgM22dhJFi j0I4IDZwqLI5YKQxqXxbK uEpqM56Wsy+PGNvbGdyb3 KoFuocs8fwq0koyKl8NnS wJSIgdmFsaWdu ROR7f6RgUs15A35nCPwhN HRoPSIzMCUiIHZhbGlnbj 7ljL7fIy9+IJHvaMT1oSC 7vO4zVhDjRdS3 KCfjE662BiRbqARmShgbc 1qsl9cikUz6NyQuWSHbtl UszHulIJD9s5GgYm44P5J rtJrqn5NmYzb7 fb00sCShq2Q8wQZ1J6OcF AWkjqzrxCJevWkzDA5rDA UefxspSKNvsJ7nZRKrJ4g 1JpQlMiI3RAtb O3WwirE9BHFslMXvECGql EENvU7hrkrqu0kyanljSx GvQBCmXFz1CAk0OHNhlEf vKjXzWIF6BpJ2 IZU7nLFfvN1nhIcuejdkv G9wOyc+RPb2k4neqPHhSQ 3zhCB3AH51BE09bQJte6D 2xQA5K0RiQJSb lkkeedjiqPH3VXVzHPRjz Q42Sv0pzBmcEo5tQVNxRF X9JITqwJDjK7JlwK7kNiH fRAImJPCxQ6Fn sUCaMDyhW714UFfiJpF7G MYxusGsD0WrLNNoySnwLp E4f5P2Tn2GKA77AS50KG0 9eUNvc4J1sRZ2 D5NoYQFrdedcmaqywJR7N XQlPFYnhE31Wy5tmXkrMa 1qGUMwTSM3PPCwaFBqT2Q tqF6tEfCeOXWs YEKtY9OiqWQmVTcfR815H UqbNgM4HHSqmcGmN2EeSN WucJrvAmA4j4D8Ul9QAs4 4ZX15GY85ePSy x0C5jIG9R6YeKPXeuwhfy iotkMH3GEJbCEQclV42Lf 6rdQdtOn7tICPrAXG3TMW xaLIyW3YzxP6g BdIlKXMpJVSlA0BcoAYmK BawR852IPmaMdR1QLQfrl PyL1JeVIToyUznDbN6i1A 4Yk1LLCgczgo0 R6ZuYwkckEC+FM64YFWoI Y25lGEtdPCwd2jfhKl9Ru MvRJBvHQN4mWknTCifv8B uSFGsM09hsCUj c2U6 (more content not included)... Normal [facility] Chlamydia/Gonococcus, NAAon 08-09-2020 C. trachomatis rRNA PHYLLIS+probe Ql (Unsp spec) Negative Invalid Interpretation Code Negative [facility] Comment on above: Order Comment: drop off- do not cancel pms 08/04/2020 22:06:26 EDT Performed By: #### 1 [id number] #### [facility] [address] [place] [address] N. gonorrhoeae rRNA PHYLLIS+probe Ql (Unsp spec) Negative Invalid Interpretation Code Negative [facility] Comment on above: Order Comment: drop off- do not cancel [facility] 08/04/2020 22:06:26 EDT Result Comment: Perf ormed at: =G [facility] [address], [place] [id number] MD Deana Farrell Performed By: #### 1 [id number] #### [facility] [address] [place] [address] Ambulatory Clinical Summaryo 08-04-2020 Ambulatory Clinical Summary {p7-[id number] -[id number] -ec-58}CD:[id number] Normal [facility] Gynecology Office/Clinic Not sarina 08-04-2020 Gynecology Office/Clinic Note CD:[id number] 8UA02pNxlbxLlh7upwc8i LO5vIcKavwDdZAhhTg8yg 9crJY92rr8eQsOeOl1+Cj trLM5DDOpCCKZq dA4aSAOXBuvAEwSdRP6sA iLJXc6OKOJcHKzHEPvgBI 2dJIK2baxzsU4zCP6gRHQ waTLfJu9ll0g0 WqsuWu5vIq0NKe86sUOyx EZkQOZMJ9wcvI1sYX5wlI CiJ2NgDBDnBo6QTEc6wVk ocQ3rlyS4Rum1 yBW1Mn68m6mprnQyn4ZlH oJ9EToypAk1fCfrTZasdY 4lXhIxRSWCaC3pgNrpFD8 xlW6uywVoqKaw biI+LenjPQQdEna5kGGzF G76A0RsfUvdLpb3fSS8RN AptOShBGTdhRn9JWEDWOB BLUNvbXBhdGli nMYaJSCyurRukdP7KegWN MVeBkPaZgg9G0xfVLW+Cj fqf7W0Fii3HFs4HBD0aKv rXLYym571IACs nKjveAwniESaq74aCIVka AJwSrZoh859FGPjahT0SL aajDmzFql5tDBemKTka9f dwLf2HcSzSGSf AicTPFXrhGiae6YvRmoMM Hnqk0ddpoKhxHifNWJ6w2 AhFHjtGTOxXFL4NnKmIV8 +CgkJPGNvbCB2 TMahN872TkMguAQpa2glk Pd1VhV3UPFmRx3HWTcjO6 6dN5HqrNY+Ztj5cUEgKPp +CgkJPHRyPgoJ XNi1hWFdv4Y4dAL5GfUti jFiu9k3VDobRYT6DiK8IU H1lIBnaD0igLivolchyS3 wOyI+CgkJCTxk aJBqO7kqq4S2NmMvt8Ehp GhwwvIxDHLmIhDuk7meUx rjUVBugF2eEVR1OcNjIAX zsNMjOUBjJD9l hpQucDXjJNWnPbZtB1Blc 68ad9KlFWAGH6bXVkZsYL V2BR9dNkDtQJ3gY0YxKEz 8MAidFNA0PEQn NQP1Gd25A9I3MGE3MXRbQ OubVYSuJOEmb6B9rSY4Br EvOPPcgnl7BJAcaAbeDpf zcGFuIGNsYXNz KDAbANMvS9Ten42kxNAed EH5Vr09p8RtzyFvsVmrDV 7gIf6siN38MDccbJG5WYY tyXH8JCJncLKb LUCgu7ByjErkqllouH2lH LXjxW4fAiT+Q5xzFSGxW8 3vsXutaS37CA1syDVhHvx mm9Arux6YNFyZ NMYtokYmeFKzxg9hRXYzw RBji058RR97LgNaMEgvp2 20EL34nAgaAU5hNWUVV4A PCU4ATVZDOdAk IZejZUGktxSbL7F4qEhnQ TKYQ9K9UzB2KS1HHfPgRO HFZ0IwFdIcJo4LY7TRPIh KDpG8GiDeRMfx GEOoPqJ5KIIwVyNkMbCpW w03WzLiYVP2RGSoP7UsNF m8FrR4TfArPu8RTYkHSSD tchCjbDVfld1o AXJbeFQgd707RD85kXNmr DWuWFOhzC80PKGqLEUgNY X3E13bnWNlaHJ6wOA0DuR BVENBUkVfTUVB AsHyAWZ2XV10bUZ3sGO9T mL9OoK0PPr9MeZzXHprMJ GvGvI9DHLfRVRiIIY1Xh2 6KCV6UGVbMAKs MiO3NNo1QlCmHxHvSdW5u ZonsmviGH5tIQynUL5fS7 UzU0ShNC01YHIbw01pIgX yqXJzzE1bsxYn SG9vodYmTaYyv7NyPt01Q N3mroBmtc08I8Cjnw9SXL pLND3cuVD+CgkJCTwvZGl 2PgoKCQkJPGRp shJgjBHymq5pDNScVQF8y P8zLXKxaoEkdeWazOLnpE UgZGRpbnNlcnRmcmVldGV 2tXGpNPKgiB83 UURiKZAzkBI9Fh7oSaBrH aRtUs46YHR4KOG5XohfIL uaMc1zUOHlYZuoXRNqWuO sTLF4oAhmBECp BALvmH7rJxP1yBm3Me12i 1WrfmLjjDMwps4rQYWvCX H1aN2kNLiufSfzoYW+PHN jIG3gc0H4oVG9 HyYmyoHlh5RlZ5a7AhKyi 7qgUsY0RUh1NODcW24bRK Uzu620JPVhBFKfrNfhKWd dYs0vg4InuEPj VtHOhYK3g6M9KC8maDOvX mcrt2Iqxe5UEzjORUppnV HkV7hxj4J8XiGjv4Ipp02 qlyS8UV8ndUJ7 AJSgNII2eAUnlYctiJNwP 1amVKCYR1jmD50QOMIXLF KJYIvuS4NfP40dnoIdpeU qF8vbdSnefI68 FKP3ZZE8Uc0zIUDuCEZkV ZduDVWnWAE4RlU0LSyaGk JvJI44RqVvXGBxJ7GpSyC yMGEzYzFmMjRk Ot14w9WeqqKgzCtpIZ1gq SIuU1tpGwDnqFEhONgmBd RzJKNdnP1uZuNwyKN3UQV spHSiKXguW095 QLppOzD7JXMznS7kIgBqK 6SyMSujEWzqGMd6NADknv Mrf6Z4pXX3DE7rld8lnPj cOr7gzP31ZBbb zMS1CM7lxb8cvMiiaNZ2v L1xBFGrtgW8zY0yOaGsc5 5lOyI+MMVhMB9rs3N3cUH 2PzKonJ7jGxZa W7HvHfGdHUNqJhwlHGr7D GshsXVgEBxkPf52p1E8KS AbwFrudBUkXKvfMw6vo6C 8f502OMWhjIqm Ks0oaQ13WDkxyXZ6PXPlj LG0VCAppDZaWFZkw0PwtH aswqzrcW5iMVUxwL8pTkN cGKWbbH7duQ3p MdFvqMz7IW7irnbnbj4vb 6Z9r090OYNmeItbGgIgZL lhTN2cqKLVdTI6u2H9BQ3 zcGFuPiYjeGEw OyYjeGEwOyYjeGEwOzxzc WNfFDF8iDvdYIDiFZChvM 8kKEPhfLwtKVU7NnZcTVT qrJ2oHTEbeQZu kWmvRQM4FkPnp704MLoip ZztlKvePf3bKQfqsHKlQ7 vbKHCwtOazYSA0TvGgVAR ajU2hNp89eF3j QoSwyJe8Ht6ZVRDQVPwgK UIwLSnnQYkis7Vzlm3gN6 ftEWczT5ysXUvvIaT3ALP 2QaQ9EXU1EBPx IC8+CgkJCSYjeGEwOzxic tSzYlvFHVraP7cvEYkoA5 nmIQeVahGhudY6yE71bjB jhkYbspRuW4tf dgFopKU7m7Q8ELuidyLdH mVlbiByZWNvcmRlZDwvc3 Lbte28J4Vjvq2VESjXBM2 kaXY+CgoJCQk8 KAh8TYZsCULwBZUlJBSaK 8Sef37hBLVlKPPoGCCiYI TzSWXwMTipx1FcrHFrPQA 6YAq0SKVkgyPq u2ZxCwluVzKvJGyaJZR4d D0pJ90lER8uQR6EEjZyWN DbYxWqByOzeUW9Xv4mApY lZwXuBd40WqYb RSF4VPUmSMV0QA4jThC7Y 2A9KAQ2AWUwBBY1aJewBD BmJOXwwA2sCgS9zKf1Ip9 5q6ViosLoaZSj co0uLWPvXUN0hN0tZIvom GxheSI+CIXpYF7dg4P8gV M2ReMdkgGle7WuA2h0MhY ds4nzCmP2YGq7 ZEZyS84mZCOke248CLJkS WIybTytLDicQxegg8Haxo vtq0RhQSWgs5EwlXGHsJh wDMCxKU9wpIOo Rfijn1Mqck2LFffPORloo WZaN4hjl6J7XjEpHH4jE2 3bcNZkuBUoHMZ8B92cD1X tvS7qEGCXHkLi JIotg542ZE54xJurVH2qL P5MS0GXTITjUAMuMhDgTh SlOC8cYJB2mNF3TfPaXlF oTuY7KEF8NZPz AAWWDt96LqqVPTQEKqK4M 7T4O0B6EKVmpYL2Qo7oDk y0DWDqFE9bCKibKPEnMWO xBtS2FN83MwCp TTwzYEThLUVoNkmOBLr3A Ih2NJZrLLOwZJTpQFRplc NvbnRlbnRpdGVtIiBkZDp uv450BR46aAoe IU4dPDAMH0GTSQ9YOACTK aNjHYmxpyXaiDuiHA0uDT p5QPdqSlO6MAFbYRC6YT0 9dSU1abIsd3pg qo8jOJTvhEB9Qj6pOpL3J Bv1JJ5gErAlBIApY7MrPF CpZE86JfU0TuGlTFUqAvD mUcrFMAf1SEd4 IGNsYXNzPSJkZGNvbXBvb aKldPBoXBA5PX74kLC0sA N6jGX4tGA8IyLzi3VvjPU caRDuhEB5Bg35 Kyg1PmZjGp9gGDD9DPQ6Q eAhMKBzPx5fGSbaQBUjIg GwW7ZgAvuPCEe3FRe6UAY sYXNzPSJkZGZy LQF4CDv4NOTstxPph9LqP nltAzZvJOnzvS4wmC8aqZ pbL9A8yCaqYEA6w6Twwyq naHQiIGlkPSJf GAE2A8MeG8BdI7H7Tc20P ay6TCW1ZLXrJyDfCkZ9Mq X8TEZpQg0jUVD8M65fqNF qDVIsz4JjiOBf WHh7bOYyKGScZJCngV2kF OdmvPiuhQUnZJiBFH6tT6 dsUAihPPP8iIQiU0dsUZW uYSBwbGFjZWQg GbsyZG4nRq3fgN5lq93pN ePjNB2zKl4yKM06MkDqLt 3ABCfDIY3RITRfVYVqUgK rcAFui9DnlM8p uUltfBL0UESyOsXsNRUqq mshPMTeSDRxTNX0EZB6TO Bzp2Pbz2IgIe4sMCJst9A 1QZCepL8soRsz OBMwVVB0oS4iFQDfNIMfA SlkVnGSUGG3bZSjiIEmRQ vrLgMrl9F7YDRbfQScMKF cOHRdf8PfGIth orApX6WfuQPpucyhs1r7y QMtFVLihIAilZ8vcigunp 6fkMMtzmBsQQH8WUYgTOD slhxzYZOvGJ9y EANzyX2phWiwuH95EKHfg 0Jah4MxZM9jGWCkU5enVY fwUOnqC2ghigklCXHehBW bjA5uM3T9rr4h argvDY5bUG8dq9DsSVEiC C8+IozZAR1fLGEsGO4hDL IcvC1pnWQayQRywBchrrS hueQsIH15dRrf CJ9rPL8xjzDeoHQwj2XgI KfzYQZqeJRouJ9zKDk1RU pgtiLxkMNgx6NuVItgGWH yIC8+CgkJCVNo Z (more content not included)... Normal [facility] Comment on above: Result Comment: Elec tronically Signed By: IVANA CERVANTES, Josey\.anthony\Date and Time Signed: 08/04/20 16:25 EDT Patient Educationon 08-05-19 Patient Education Intrauterine Device Information An intrauterine device (IUD) is inserted into your uterus and prevents . There are 2 types of IUDs available: ? Copper IUD. This type of IUD is wrapped in copper wire and is placed inside the uterus. Copper makes the uterus and fallopian tubes produce a fluid that kills sperm. The copper IUD can stay in place for 10 years. ? Hormone IUD. This type of IUD contains the hormone progestin (synthetic progesterone ). The hormone thickens the cervical mucus and prevents sperm from entering the uterus, and it also thins the uterine lining to prevent implantation of a fertilized egg. The hormone can weaken or kill the sperm that get into the uterus. The hormone IUD can stay in place for 5 years. Your caregiver will make sure you are a good candidate for a contraceptive IUD. Discuss with your caregiver the possible side effects. ADVANTAGES ? It is highly effective, reversible, long-acting, and low maintenance. ? There are no estrogen-related side effects. ? An IUD can be used when . ? It is not associated with weight gain. ? It works immediately after insertion. ? The copper IUD does not interfere with your female hormones. ? The progesterone IUD can make heavy menstrual periods construction assistant. ? The progesterone IUD can be used for 5 years. ? The copper IUD can be used for 10 years. DISADVANTAGES ? The progesterone IUD can be associated with irregular bleeding patterns. ? The copper IUD can make your menstrual flow heavier and more painful. ? You may experience cramping and vaginal bleeding after insertion. Document Released: 02/06/2005 Document Revised: 05/27/2012 Document Reviewed: 07/08/2011 ExitCare? Patient Information ?2013 [employer] [facility] Vital Signs Date Time Vital Sign Value Performing Clinician Facility 10-02-2024 [id number]:[id number] Body mass index (BMI) [Ratio] 34.67 kg/m2 Keo Garcia MD Work Phone: [facility] 10-02-2024 15:10-0400 Body weight 91.63 kg Keo Garcia MD Work Phone: [facility] 10-02-2024 15:10-0400 Diastolic blood pressure 78 mm[Hg] Keo Garcia MD Work Phone: [facility] 10-02-2024 15:10-0400 Systolic blood pressure 112 mm[Hg] Keo Garcia MD Work Phone: [facility] 09-25-2024 15:07-0400 Body mass index (BMI) [Ratio] 34.6 kg/m2 Tatum Yost MD Work Phone: [facility] 09-25-2024 15:07-0400 Body weight 91.44 kg Tatum Yost MD Work Phone: [facility] 09-25-2024 15:07-0400 Diastolic blood pressure 74 mm[Hg] Tatum Yost MD Work Phone: [facility] 09-25-2024 15:07-0400 Systolic blood pressure 106 mm[Hg] Tatum Yost MD Work Phone: [facility] 09-18-2024 15:04-0400 Body mass index (BMI) [Ratio] 34.16 kg/m2 Mary Yeh MD Work Phone: [facility] 09-18-2024 15:04-0400 Body weight 90.27 kg Mary Yeh MD Work Phone: [facility] 09-18-2024 15:04-0400 Diastolic blood pressure 62 mm[Hg] Mary Yeh MD Work Phone: [facility] 09-18-2024 15:04-0400 Systolic blood pressure 110 mm[Hg] Mary Yeh MD Work Phone: [facility] 09-12-2024 15:22-0400 Body mass index (BMI) [Ratio] 34.67 kg/m2 Beena Walters LAY MIDWIFE.CNM Work Phone: [facility] 09-12-2024 15:22-0400 Body weight 91.63 kg Beena Walters L[employer] MIDWIFE.CNM Work Phone: [facility] 09-12-2024 15:22-0400 Diastolic blood pressure 64 mm[Hg] Beena Plotts L[employer] MIDWIFE.CNM Work Phone: [facility] 09-12-2024 15:22-0400 Systolic blood pressure 102 mm[Hg] Beena Plotts LAY MIDWIFE.CNM Work Phone: [facility] 09-05-2024 15:09-0400 Body mass index (BMI) [Ratio] 34.5 kg/m2 Beena Plotts LAY MIDWIFE.CNM Work Phone: [facility] 09-05-2024 15:09-0400 Body weight 91.17 kg Beena Plotts LAY MIDWIFE.CNM Work Phone: [facility] 09-05-2024 15:09-0400 Diastolic blood pressure 66 mm[Hg] Beena Plotts LAY MIDWIFE.CNM Work Phone: [facility] 09-05-2024 15:09-0400 Systolic blood pressure 102 mm[Hg] Beena Plotts LAY MIDWIFE.CNM Work Phone: [facility] 08-22-2024 10:44-0400 Body mass index (BMI) [Ratio] 34.36 kg/m2 Tatum Yost MD Work Phone: [facility] 08-22-2024 10:44-0400 Body weight 90.81 kg Tatum Yost MD Work Phone: [facility] 08-22-2024 10:44-0400 Diastolic blood pressure 72 mm[Hg] Tatum Yost MD Work Phone: [facility] 08-22-2024 10:44-0400 Systolic blood pressure 110 mm[Hg] Tatum Yost MD Work Phone: [facility] 07-24-2024 13:39-0400 Body mass index (BMI) [Ratio] 33.37 kg/m2 Tatum Yost MD Work Phone: [facility] 07-24-2024 13:39-0400 Body weight 88.18 kg Tatum Yost MD Work Phone: [facility] 07-24-2024 13:39-0400 Diastolic blood pressure 78 mm[Hg] Tatum Yost MD Work Phone: [facility] 07-24-2024 13:39-0400 Systolic blood pressure 110 mm[Hg] Tatum Yost MD Work Phone: [facility] 06-12-2024 14:29-0400 Body mass index (BMI) [Ratio] 32.61 kg/m2 Ad Haury LAY MIDWIFE.PASTRY [employer]OOK Work Phone: [facility] 06-12-2024 14:29-0400 Body weight 86.18 kg Ad Haury LAY MIDWIFE.[employer] Work Phone: [facility] 06-12-2024 14:29-0400 Diastolic blood pressure 60 mm[Hg] Ad Haury LAY MIDWIFE.[employer] Work Phone: [facility] 06-12-2024 14:29-0400 Systolic blood pressure 110 mm[Hg] Ad Haury LAY MIDWIFE.[employer] Work Phone: [facility] 06-06-2024 11:05-0400 Body mass index (BMI) [Ratio] 32.27 kg/m2 Mary Yeh MD Work Phone: [facility] 06-06-2024 11:05-0400 Body weight 85.28 kg Mary Yeh MD Work Phone: [facility] 06-06-2024 11:05-0400 Diastolic blood pressure 70 mm[Hg] Mary Yeh MD Work Phone: [facility] 06-06-2024 11:05-0400 Systolic blood pressure 120 mm[Hg] Mary Yeh MD Work Phone: [facility] 05-15-2024 13:55-0500 Body mass index (BMI) [Ratio] 31.93 kg/m2 Mary Yeh MD Work Phone: [facility] 05-15-2024 13:55-0500 Body weight 84.37 kg Mary Yeh MD Work Phone: [facility] 05-15-2024 13:55-0500 Diastolic blood pressure 74 mm[Hg] Mary Yeh MD Work Phone: [facility] 05-15-2024 13:55-0500 Systolic blood pressure 112 mm[Hg] Mary Yeh MD Work Phone: [facility] 04-17-2024 16:10-0500 Body mass index (BMI) [Ratio] 31.76 kg/m2 Mary Yeh MD Work Phone: [facility] 04-17-2024 16:10-0500 Body weight 83.92 kg Mary Yeh MD Work Phone: [facility] 04-17-2024 16:10-0500 Diastolic blood pressure 73 mm[Hg] Mary Yeh MD Work Phone: [facility] 04-17-2024 16:10-0500 Systolic blood pressure 111 mm[Hg] Mary Yeh MD Work Phone: [facility] 03-21-2024 13:09-0500 Body mass index (BMI) [Ratio] 31.76 kg/m2 Tatum Yost MD Work Phone: [facility] 03-21-2024 13:09-0500 Body weight 83.92 kg Tatum Yost MD Work Phone: [facility] 03-21-2024 13:09-0500 Diastolic blood pressure 68 mm[Hg] Tatum Yost MD Work Phone: [facility] 03-21-2024 13:09-0500 Systolic blood pressure 120 mm[Hg] Tatum Yost MD Work Phone: [facility] 02-19-2024 08:10-0500 Body mass index (BMI) [Ratio] 32.41 kg/m2 Kathie Lima LAY MIDWIFE.[employer] Work Phone: [facility] 02-19-2024 08:10-0500 Body weight 85.64 kg Kathie Lima LAY MIDWIFE.[employer] Work Phone: [facility] 02-19-2024 08:10-0500 Diastolic blood pressure 66 mm[Hg] Kathie Lima LAY MIDWIFE.[employer] Work Phone: [facility] 02-19-2024 08:10-0500 Systolic blood pressure 112 mm[Hg] Kathie Zane L[employer] MIDWIFE.[employer] Work Phone: [facility] 01-26-2023 13:47-0500 Heart rate 93 /min [facility] 01-26-2023 13:47-0500 Respiratory rate 16 /min [facility] 01-26-2023 11:17-0500 Body temperature 97.7 [degF] [facility] 01-26-2023 11:17-0500 Diastolic blood pressure 68 mm[Hg] [facility] 01-26-2023 11:17-0500 SaO2% (BldA) [Mass fraction] 99 % [facility] 01-26-2023 11:17-0500 Systolic blood pressure 125 mm[Hg] [facility] 01-24-2023 21:46-0500 Body height 162.56 cm [facility] 01-24-2023 21:46-0500 Body mass index (BMI) [Ratio] 37.8 kg/m2 [facility] 01-24-2023 21:46-0500 Body weight 99.8 kg [facility] 01-24-2023 10:54-0500 Body height 162.56 cm [facility] [place] 01-24-2023 10:54-0500 Body mass index (BMI) [Ratio] 37.8 kg/m2 [facility] 01-24-2023 10:54-0500 Body weight 99.9 kg [facility] 01-24-2023 10:49-0500 Body temperature 98.5 [degF] [facility] 01-24-2023 10:49-0500 Diastolic blood pressure 80 mm[Hg] [facility] 01-24-2023 10:49-0500 Heart rate 87 /min [facility] [place] 01-24-2023 10:49-0500 Systolic blood pressure 122 mm[Hg] [facility] 01-16-2023 10:41-0400 Body weight 99.34 kg Jairo Guillermo MD Work Phone: [facility] 01-16-2023 10:41-0400 Diastolic blood pressure 72 mm[Hg] Jairo Guillermo MD Work Phone: [facility] 01-16-2023 10:41-0400 Systolic blood pressure 122 mm[Hg] Jairo Guillermo MD Work Phone: [facility] 01-10-2023 14:38-0400 Body weight 98.43 kg Keo Garcia MD Work Phone: [facility] 01-10-2023 14:38-0400 Diastolic blood pressure 76 mm[Hg] Keo Garcia MD Work Phone: [facility] 01-10-2023 14:38-0400 Systolic blood pressure 112 mm[Hg] Keo Garcia MD Work Phone: [facility] 01-02-2023 13:50-0400 Body weight 98.88 kg Millicent Eugene MD Work Phone: [facility] 01-02-2023 13:50-0400 Diastolic blood pressure 66 mm[Hg] Millicent Eugene MD Work Phone: [facility] 01-02-2023 13:50-0400 Systolic blood pressure 114 mm[Hg] Millicent Eugene MD Work Phone: [facility] 12-26-2022 14:39-0400 Body weight 99.43 kg Jairo Guillermo MD Work Phone: [facility] 12-26-2022 14:39-0400 Diastolic blood pressure 72 mm[Hg] Jairo Guillermo MD Work Phone: [facility] 12-26-2022 14:39-0400 Systolic blood pressure 106 mm[Hg] Jairo Guillermo MD Work Phone: [facility] 12-11-2022 13:50-0400 Blood Pressure Location Erin ANDRE [facility] 12-11-2022 13:50-0400 Diastolic blood pressure 70 mm[Hg] Erin POWELL [facility] 12-11-2022 13:50-0400 Heart rate 104 /min Erin POWELL [facility] 12-11-2022 13:50-0400 SaO2% (BldA) [Mass fraction] 97 % Erin POWELL [facility] 12-11-2022 13:50-0400 Systolic blood pressure 109 mm[Hg] Erin POWELL [facility] 11-29-2022 16:03-0400 Body weight 96.16 kg Millicent Eugene MD Work Phone: [facility] 11-29-2022 16:03-0400 Diastolic blood pressure 70 mm[Hg] Millicent Eugene MD Work Phone: [facility] 11-29-2022 16:03-0400 Systolic blood pressure 112 mm[Hg] Millicent Eugene MD Work Phone: [facility] 11-14-2022 13:46-0400 Body weight 95.71 kg Lauren Pro MD Work Phone: [facility] 11-14-2022 13:46-0400 Diastolic blood pressure 62 mm[Hg] Lauren Pro MD Work Phone: [facility] 11-14-2022 13:46-0400 Systolic blood pressure 108 mm[Hg] Lauren Pro MD Work Phone: [facility] 11-03-2022 10:17-0400 Body weight 95.25 kg Millicent Eugene MD Work Phone: [facility] 11-03-2022 10:17-0400 Diastolic blood pressure 64 mm[Hg] Millicent Eugene MD Work Phone: [facility] 11-03-2022 10:17-0400 Systolic blood pressure 110 mm[Hg] Millicent Eugene MD Work Phone: [facility] 10-11-2022 14:54-0400 Diastolic blood pressure 75 mm[Hg] Erin ROBUCK [facility] 10-11-2022 14:54-0400 Heart rate 91 /min Erin ROBUCK [facility] 10-11-2022 14:54-0400 SaO2% (BldA) [Mass fraction] 98 % Erin ROBUCK [facility] 10-11-2022 14:54-0400 Systolic blood pressure 114 mm[Hg] Erin ROBUCK [facility] 09-29-2022 14:39-0400 Body weight 93.89 kg Ob Ultrasound Work Phone: [facility] 09-01-2022 15:54-0400 Body weight 93.89 kg Jairo Guillermo MD Work Phone: [facility] 09-01-2022 15:54-0400 Diastolic blood pressure 58 mm[Hg] Jairo Guillermo MD Work Phone: [facility] 09-01-2022 15:54-0400 Systolic blood pressure 102 mm[Hg] Jairo Guillermo MD Work Phone: [facility] 06-20-2022 08:41-0400 Diastolic blood pressure 71 mm[Hg] Erin ROBUCK [facility] 06-20-2022 08:41-0400 Heart rate 90 /min Erin ROBUCK [facility] 06-20-2022 08:41-0400 Systolic blood pressure 107 mm[Hg] Erin ROBUCK [facility] 07-25-2021 16:03-0400 Body weight 85.72 kg MD Asael Puente Work Phone: [facility] 03-14-2021 17:50-0500 Body height 162.5 cm Erin Robuck Other Phone: [facility] 03-14-2021 17:50-0500 Body temperature 97.7 [degF] Erin Robuck Other Phone: [facility] 03-14-2021 17:50-0500 Diastolic blood pressure 83 mm[Hg] Erin Robuck Other Phone: [facility] 03-14-2021 17:50-0500 Heart rate 90 /min Erin Robuck Other Phone: [facility] 03-14-2021 17:50-0500 Respiratory rate 20 /min Erin Robuck Other Phone: [facility] 03-14-2021 17:50-0500 SaO2% (BldA) [Mass fraction] 98 % Erin Robuck Other Phone: [facility] 03-14-2021 17:50-0500 Systolic blood pressure 118 mm[Hg] Erin Robuck Other Phone: [facility] 12-08-2020 16:39-0400 Body height 162.6 cm Val Dai MD Work Phone: [facility] 12-08-2020 16:39-0400 Body mass index (BMI) [Percentile] Per age and sex 95.7 % Val Dai MD Work Phone: [facility] 12-08-2020 16:39-0400 Body mass index (BMI) [Ratio] 32.6 kg/m2 Val Dai MD Work Phone: [facility] 12-08-2020 16:39-0400 Body temperature 98.2 [degF] Val Dai MD Work Phone: [facility] 12-08-2020 16:39-0400 Body weight 86.14 kg Val Dai MD Work Phone: [facility] 12-08-2020 16:39-0400 Diastolic blood pressure 79 mm[Hg] Val Dai MD Work Phone: [facility] 12-08-2020 16:39-0400 Heart rate 91 /min Val Dai MD Work Phone: [facility] 12-08-2020 16:39-0400 SaO2% (BldA) [Mass fraction] 95 % Val Dai MD Work Phone: [facility] 12-08-2020 16:39-0400 Systolic blood pressure 112 mm[Hg] Val Dai MD Work Phone: [facility] 10-19-2020 16:27-0400 Body height 162.6 cm Val Dai MD Work Phone: [facility] 10-19-2020 16:27-0400 Body mass index (BMI) [Ratio] 31.31 kg/m2 Val Dai MD Work Phone: [facility] 10-19-2020 16:27-0400 Body temperature 97.7 [degF] Val Dai MD Work Phone: [facility] 10-19-2020 16:27-0400 Body weight 82.74 kg Val Dai MD Work Phone: [facility] 10-19-2020 16:27-0400 Diastolic blood pressure 81 mm[Hg] Val Dai MD Work Phone: [facility] 10-19-2020 16:27-0400 Heart rate 70 /min Val Dai MD Work Phone: [facility] 10-19-2020 16:27-0400 SaO2% (BldA) [Mass fraction] 98 % Val Dai MD Work Phone: [facility] 10-19-2020 16:27-0400 Systolic blood pressure 122 mm[Hg] Val Dai MD Work Phone: [facility] 08-19-2020 14:32-0400 Body height 162.6 cm Val Dai MD Work Phone: [facility] 08-19-2020 14:32-0400 Body mass index (BMI) [Ratio] 32.41 kg/m2 Val Dai MD Work Phone: [facility] 08-19-2020 14:32-0400 Body temperature 98.01 [degF] Val Dai MD Work Phone: [facility] 08-19-2020 14:32-0400 Body weight 85.64 kg Val Dai MD Work Phone: [facility] 08-19-2020 14:32-0400 Diastolic blood pressure 73 mm[Hg] Val Dai MD Work Phone: [facility] 08-19-2020 14:32-0400 Heart rate 60 /min Val Dai MD Work Phone: [facility] 08-19-2020 14:32-0400 SaO2% (BldA) [Mass fraction] 97 % Val Dai MD Work Phone: [facility] 08-19-2020 14:32-0400 Systolic blood pressure 123 mm[Hg] Val Dai MD Work Phone: [facility] 05-11-2020 13:42-0500 BMI (Body Mass Index) 31.76 kg/m2 Nayana Sterling [facility] 05-11-2020 13:42-0500 Body weight 83.92 kg Nayana Sterling [facility] 05-11-2020 13:42-0500 Height 162.6 cm [facility] [place] Encounters Encounter Date Encounter Type Care Provider Facility Start: 01-02-2025 ambulatory MD Herber Kirby lity:[facility] Start: 10-02-2024 End: 10-02-2024 Patient encounter procedure Keo Garcia MD Work Phone: OB/Gynecology Comment on above: Encounter for superv ision of high risk in third trimester, antepartum (HCC) (Primary Dx); Short interval between pregnancies affecting , antepartum (HCC); Anemia complicating , third trimester (HCC); 40 weeks gestation of (HCC); Vaginal discharge during in third trimester (HCC) Start: 09-25-2024 End: 09-25-2024 Patient encounter procedure Tatum Yost MD Work Phone: OB/Gynecology Comment on above: Obesity affecting pr egnancy in third trimester, unspecified obesity type (HCC) (Primary Dx); 39 weeks gestation of (HCC); Encounter for supervision of high risk in third trimester, antepartum (HCC); Anemia complicating , third trimester (HCC); Short interval between pregnancies affecting , antepartum (HCC) Start: 09-25-2024 End: 09-25-2024 ambulatory TATUM YOST Facility:[facility] Start: 09-18-2024 End: 09-18-2024 Initial preventive medicine new pt age 12-17 yr Mary Yeh MD Work Phone: OB/Gynecology Comment on above: Encounter for superv ision of high risk in third trimester, antepartum (HCC) (Primary Dx); Obesity affecting in third trimester, unspecified obesity type (HCC); Anemia complicating , third trimester (HCC); Short interval between pregnancies affecting , antepartum (HCC); 38 weeks gestation of (HCC) Start: 09-18-2024 End: 09-18-2024 ambulatory MARY YEH Facility:[facility] Start: 09-12-2024 End: 09-12-2024 Patient encounter procedure Beena Walters APRN.CNM Work Phone: OB/Gynecology Comment on above: Obesity affecting pr egnancy in third trimester, unspecified obesity type (HCC) (Primary Dx); 37 weeks gestation of (HCC); Encounter for supervision of high risk in third trimester, antepartum (HCC); Anemia complicating , third trimester (HCC); Short interval between pregnancies affecting , antepartum (HCC) Start: 09-12-2024 End: 09-12-2024 [facility] Start: 09-05-2024 End: 09-05-2024 Patient encounter procedure Beena Walters APRN.CNM Work Phone: OB/Gynecology Comment on above: Obesity affecting pr egnancy in third trimester, unspecified obesity type (HCC) (Primary Dx); Encounter for supervision of high risk in third trimester, antepartum (HCC); Anemia complicating , third trimester (HCC); 36 weeks gestation of (HCC) Start: 09-05-2024 End: 09-05-2024 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 TATUM YOST [facility] Start: 08-07-2024 End: 08-07-2024 [facility] Start: 07-24-2024 End: 07-24-2024 Patient encounter procedure Tatum Yost MD Work Phone: OB/Gynecology Comment on above: Obesity affecting pr egnancy in third trimester, unspecified obesity type (HCC) (Primary Dx); 30 weeks gestation of (HCC); Encounter for supervision of high risk in third trimester, antepartum (HCC); Anemia complicating , third trimester (HCC) Start: 07-24-2024 End: 07-24-2024 ambulatory TATUM YOST Facility:[facility] Start: 07-10-2024 End: 09-09-2024 Follow-up encounter Ad Roland APRN.PASTRY COOK Work Phone: OB/Gynecology Start: 07-10-2024 End: 07-10-2024 ambulatory AD ROLAND Facility:[facility] Start: 07-04-2024 End: 07-04-2024 ambulatory MD Herber Aragon Facility:[facility] Start: 06-18-2024 End: 06-20-2024 Telephone encounter Mary Little RN Maternal Medic ine Comment on above: Tours Captain - O ther (PRAF) Breast Pump Start: 06-12-2024 End: 06-12-2024 ambulatory AD ROLAND Facility:[facility] Start: 06-12-2024 End: 06-12-2024 Patient encounter procedure Ad Roland APRN.PASTRY COOK Work Phone: OB/Gynecology Comment on above: Encounter for superv ision of high risk in second trimester, antepartum (Primary Dx); 24 weeks gestation of ; Rh negative state in antepartum period; Screening for diabetes mellitus; Obesity affecting in third trimester, unspecified obesity type Start: 06-06-2024 End: 06-06-2024 ambulatory MARY YEH Facility:[facility] Start: 06-06-2024 End: 06-06-2024 Office outpatient visit 15 minutes Mary Yeh MD Work Phone: OB/Gynecology Comment on above: Encounter for superv ision of other normal in second trimester (Primary Dx); Short interval between pregnancies affecting , antepartum; Vaginal itching; Screening for diabetes mellitus Start: 05-19-2024 End: 05-21-2024 ambulatory Tatum Yost MD Work Phone: OB/Gynecology Comment on above: Dentist Start: 05-17-2024 End: 07-17-2024 Follow-up encounter Tatum Yost MD Work Phone: OB/Gynecology Start: 05-15-2024 End: 05-15-2024 Office outpatient visit 15 minutes Mary Yeh MD Work Phone: OB/Gynecology Comment on above: Encounter for superv ision of other normal in second trimester (Primary Dx); 20 weeks gestation of Start: 05-15-2024 End: 05-15-2024 ambulatory TATUM YOST Facility:[facility] Start: 05-15-2024 End: 05-15-2024 Patient encounter procedure Whi Tech 1 Physical Therapist Mfm Wstr Mob Maternal Medicine Comment on above: Encounter for anatomic survey (Primary Dx); Obesity affecting in second trimester, unspecified obesity type; 20 weeks gestation of Start: 04-17-2024 End: 04-17-2024 Office outpatient visit 15 minutes Mary Yeh MD Work Phone: OB/Gynecology Comment on above: Short interval betwe en pregnancies affecting , antepartum (Primary Dx); Encounter for supervision of other normal in second trimester; 16 weeks gestation of Start: 04-17-2024 End: 04-17-2024 ambulatory KATHIE DEGROOT Facility:[facility] Start: 04-17-2024 End: 04-17-2024 Patient encounter procedure Whi Tech 1 Physical Therapist [facility] Maternal Medicine Comment on above: Encounter for hector lechuga screening for malformation using ultrasound (Primary Dx); 16 weeks gestation of ; Obesity affecting in second trimester, unspecified obesity type Start: 04-12-2024 End: 04-14-2024 ambulatory Tatum Yost MD Work Phone: OB/Gynecology Comment on above: Medicine Start: 04-11-2024 End: 04-11-2024 ambulatory MD Herber Aragon Facility:[facility] Start: 03-24-2024 End: 03-24-2024 ambulatory Tatum Yost MD Work Phone: OB/Gynecology Comment on above: Test results Start: 03-21-2024 End: 03-21-2024 Patient encounter procedure Tatum Yost MD Work Phone: OB/Gynecology Comment on above: Short interval betwe en pregnancies affecting , antepartum (Primary Dx); 12 weeks gestation of ; Encounter for supervision of other normal in second trimester Start: 03-21-2024 End: 03-21-2024 ambulatory [facility] Facility:[facility] Start: 03-07-2024 End: 03-07-2024 ambulatory MD Herber Aragon Facility:[facility] Start: 03-07-2024 End: 03-07-2024 Patient encounter procedure Herber Aragon [facility] Start: 02-21-2024 End: 02-21-2024 Telephone encounter Mary Little RN Obstetrics/Gynecolog y Comment on above: Tours Captain - O ther (PRAF) Start: 02-19-2024 End: 02-19-2024 ambulatory KATHIE TYNAN Facility:[facility] Start: 02-19-2024 End: 02-19-2024 Patient encounter procedure Kathie Limaramiro QUIROGAPASTRY COOK Work Phone: OB/Gynecology Comment on above: with uncer tain dates in first trimester (Primary Dx); 7 weeks gestation of ; Short interval between pregnancies affecting , antepartum; Encounter for supervision of normal in multigravida in first trimester Start: 02-06-2024 End: 02-06-2024 Telephone encounter Ad Roland APRN.PASTRY COOK Work Phone: OB/Gynecology Comment on above: Appointment Start: 01-25-2023 ambulatory Millicent Eugene MD Work Phone: OB/Gynecology Comment on above: Ob Delivery Note Start: 01-25-2023 End: 01-26-2023 Evaluation and management of inpatient PALV BAADH Facility:[facility] Start: 01-25-2023 End: 01-26-2023 Evaluation and management of inpatient [facility] Work Phone: Start: 01-24-2023 End: 01-24-2023 ambulatory Jairo Guillermo MD Work Phone: [facility] Work Phone: Comment on above: Baby Start: 01-24-2023 End: 01-24-2023 ambulatory Beena Walters Facility:[facility] Start: 01-24-2023 End: 01-24-2023 Patient encounter procedure [facility] Work Phone: Start: 01-17-2023 ambulatory Jairo Dolan Work Phone: OB/Gynecology Comment on above: Movement Start: 01-16-2023 End: 01-16-2023 Patient encounter procedure Jairo Guillermo MD Work Phone: OB/Gynecology Comment on above: Supervision of other high risk pregnancies, third trimester (Primary Dx); 38 weeks gestation of Start: 01-10-2023 End: 01-10-2023 Patient encounter procedure Keo Garcia MD Work Phone: OB/Gynecology Comment on above: with prena ankush care elsewhere, antepartum (Primary Dx); Obesity during ; Encounter for ultrasound to check growth; 37 weeks gestation of ; Need for influenza vaccination Encounter for ultras ound to assess growth (Primary Dx); Uterine size-date discrepancy, third trimester; Supervision of other high risk pregnancies, third trimester; 38 weeks gestation of Start: 01-02-2023 End: 01-02-2023 Patient encounter procedure Millicent Eugene MD Work Phone: OB/Gynecology Comment on above: Obesity during pregn jasvir (Primary Dx); with care elsewhere, antepartum; 36 weeks gestation of Start: 12-26-2022 End: 12-26-2022 Patient encounter procedure Jairo Guillermo MD Work Phone: OB/Gynecology Comment on above: with prena ankush care elsewhere, antepartum (Primary Dx); Obesity during ; 35 weeks gestation of Start: 12-11-2022 End: 12-11-2022 Patient encounter procedure Erin POWELL [facility] Start: 11-29-2022 End: 11-29-2022 Patient encounter procedure Millicent Eugene MD Work Phone: OB/Gynecology Comment on above: Obesity in (Primary Dx); 31 weeks gestation of Start: 11-14-2022 End: 11-14-2022 Patient encounter procedure Lauren Pro MD Work Phone: Maternal Medicine Comment on above: Encounter for follow -up ultrasound of anatomy (Primary Dx); Obesity affecting in second trimester, unspecified obesity type; 29 weeks gestation of Obesity during pregn jasvir (Primary Dx); 29 weeks gestation of Start: 11-03-2022 Telephone encounter Tours Captain RN Obstetrics/Gynecology Comment on above: Tours Captain - O ther (2nd risk assessment form submitted at 28 wks. Halima Mack RN) Start: 11-03-2022 End: 11-03-2022 Patient encounter procedure Millicent Eugene MD Work Phone: OB/Gynecology Comment on above: Obesity during pregn jasvir (Primary Dx); Rh negative state in antepartum period; Need for vaccination; 28 weeks gestation of Start: 10-11-2022 End: 10-11-2022 Patient encounter procedure Erin POWELL [facility] Start: 10-02-2022 Telephone encounter Jairo salamanca MD Work Phone: OB/Gynecology Comment on above: [facility] Start: 09-29-2022 End: 09-29-2022 Patient encounter procedure Physical Therapist Chauvin Ultrasound Work Phone: OB/Gynecology Comment on above: Obesity during pregn jasvir Start: 09-01-2022 End: 09-01-2022 Patient encounter procedure Jairo Giullermo MD Work Phone: OB/Gynecology Comment on above: with prena ankush care elsewhere, antepartum (Primary Dx); Obesity during ; Recurrent urinary tract infection affecting , antepartum; 19 weeks gestation of Start: 06-20-2022 End: 06-20-2022 Patient encounter procedure rEin POWELL [facility] Start: 06-15-2022 End: 06-15-2022 Patient encounter procedure Josey HEATH [facility] Start: 06-14-2022 End: 06-14-2022 Patient encounter procedure Josey HEATH [facility] Start: 03-18-2022 End: 03-18-2022 Emergency department patient visit Crys Elizabeth Smith Facility:[id number] Start: 07-27-2021 End: 07-27-2021 Admission to same day surgery center MD [facility] Start: 07-26-2021 End: 10-24-2021 Preprocedural examination done Asael Puente [facility] Start: 07-26-2021 End: 10-24-2021 Recurring Asael Puente [facility] Start: 07-25-2021 End: 07-25-2021 Patient encounter procedure Asael Puente [facility] Start: 07-17-2021 End: 07-17-2021 Emergency department patient visit Ms. Erin Powell Facility:[id number] Start: 05-17-2021 End: 05-17-2021 ambulatory NAYANA STERLING [facility] Start: 05-17-2021 End: 05-17-2021 Office outpatient visit 10 minutes Nayana Sterling [facility] Work Phone: [facility] Comment on above: Tendinitis of thumb (Primary Dx); Carpal tunnel syndrome of right wrist Start: 03-14-2021 End: 03-14-2021 Emergency department patient visit Ruby Morgan [facility] Start: 12-08-2020 End: 12-08-2020 ambulatory [facility] Amb[facility] Start: 12-08-2020 End: 12-08-2020 Office outpatient visit 15 minutes Val Dai MD Work Phone: [facility] Comment on above: Irritable bowel synd chris with diarrhea Start: 10-19-2020 End: 10-19-2020 ambulatory [facility] Amb[facility] Start: 10-19-2020 End: 10-19-2020 Office outpatient visit 15 minutes Val Dai MD Work Phone: [facility] Comment on above: Irritable bowel synd chris with diarrhea (Primary Dx) Start: 08-20-[address] [facility] Start: 08-19-2020 End: 08-19-2020 ambulatory ERIN POWELL [facility] Ambulatory Start: 08-19-2020 End: 08-19-2020 Office outpatient new 30 minutes Erin Powell [facility] Work Phone: [facility] Comment on above: Irritable bowel synd chris with both constipation and diarrhea Start: 07-05-2020 End: 07-05-2020 Transcribe Orders Alyssa Alfonso MA [facility] Comment on above: Irritable bowel synd chris without diarrhea (Primary Dx) Start: 05-11-2020 End: 05-11-2020 Office outpatient new 20 minutes Nayana Sterling Work Phone: [facility] Comment on above: Tendinitis of thumb (Primary Dx) Start: 01-29-2018 End: 01-30-2018 Patient encounter procedure Sameer Day Lai Facility:[facility] Procedures Date Procedure Procedure Detail Performing Clinician Start: 10-02-2024 Urnls dip stick/tabl et rgnt auto w/o microscopy Keo Garcia MD Work Phone: Start: 09-25-2024 Urnls dip stick/tabl et rgnt non-auto w/o micrscp Tatum Yost MD Work Phone: Start: 09-18-2024 Urnls dip stick/tabl et rgnt non-auto w/o micrscp Mary Yeh MD Work Phone: Start: 09-12-2024 Urnls dip stick/tabl et rgnt non-auto w/o micrscp Beena Plotchepe LAY MIDWIFE.CNM Work Phone: Start: 09-05-2024 Urnls dip stick/tabl et rgnt non-auto w/o micrscp Beena Plotts LAY MIDWIFE.CNM Work Phone: Start: 08-22-2024 Urnls dip stick/tabl et rgnt non-auto w/o micrscp Tatum Yost MD Work Phone: Start: 07-10-2024 Antibody screen QUINTIN YEH Comment on above: Order Comment: Speci men Type: BLOOD SPECIMEN Ordering Facility: [facility] Address: [address] [place] [address] Performed By: #### T SPN #### [facility] CLIA [id number] [address] [place] [address] Start: 05-15-2024 Us preg uterus after 1st trimest 03/19 gestation Tatum Yost MD Work Phone: Start: 04-17-2024 Us preg uterus after 1st trimest / gestation Kathie Degroot LAY MIDWIFE.PASTRY COOK Work Phone: Start: 03-21-2024 Antibody screen QUINTIN YEH Comment on above: Order Comment: Speci men Type: BLOOD SPECIMEN Ordering Facility: [facility] Address: [address] [place] [address] Performed By: #### T SPN #### [facility] CLIA [id number] [address] [place] [address] OF DESMOND Start: 02-19-2024 Us uterus l imited 1/> fetuses Kathie Degroot LAY MIDWIFE.PASTRY COOK Work Phone: Start: 01-25-2023 Antibody screen Ramya Walters Comment on above: Order Comment: Labor Performed By: #### L 100.0100, BtABS, BTS #### [facility] [address] [place], [address] Start: 01-24-2023 Urine culture Start: 01-16-2023 URINE OB DIP B/O Jairo Guillermo MD Work Phone: Start: 01-10-2023 INFLUENZA VACCINE, A GE 6 MO - 64 YR, QUADRIVALENT (AFLURIA, FLULAVAL, FLUZONE) Keo Garcia MD Work Phone: Start: 01-10-2023 URINE OB DIP B/O Maksim Garcia MD Work Phone: Start: 01-10-2023 Us preg uterus after 1st trimest 03/19 gestation Keo Garcia MD Work Phone: Start: 01-02-2023 URINE OB DIP B/O Millicent Eugene MD Work Phone: Start: 12-26-2022 URINE OB DIP B/O Jairo Guillermo MD Work Phone: Start: 11-29-2022 URINE OB DIP B/O Millicent Eugene MD Work Phone: Start: 11-14-2022 URINE OB DIP B/O Jairo Guillermo MD Work Phone: Start: 11-14-2022 Us preg uterus after 1st trimest 03/19 gestation Millicent Eugene MD Work Phone: Start: 11-03-2022 URINE OB DIP B/O Millicent Eugene MD Work Phone: Start: 09-29-2022 Us preg uterus after 1st trimest 03/19 gestation Jairo Guillermo MD Work Phone: Start: 09-01-2022 URINE OB DIP B/O Jairo Guillermo MD Work Phone: Start: 03-18-2022 Antibody screen Orly bonilla Joelalfonsoestee Comment on above: Performed By: #### T +S #### [address] [address] Start: 07-27-2021 Dilation and curetta ge of uterus MD Asael Puente Work Phone: Start: 07-17-2021 Antibody screen Orly bonilla Luis Comment on above: Performed By: #### T +S #### [address] [address] Start: 07-03-2018 Insertion of intraut erine contraceptive device Asael Puente Plan of Treatment Date Care Activity Detail Author Start: 07-10-2034 Urine microalbumin profile DTaP,Tdap,Td Vaccine (4 - Td or Tdap) [facility] Start: 11-03-2032 Urine microalbumin profile [facility] Start: 08-08-2025 PAP TESTING PAP TESTING [facility] Start: 08-08-2025 Screening for malignant neoplasm of cervix Cervical Cancer Screening [facility] Start: 02-18-2025 GC (Gonorrhea) Screening (18-24) GC (Gonorrhea) Screening (18-24) [facility] Start: 02-18-2025 Screening for Chlamydia trachomatis Chlamydia Screening (18-) [facility] Start: 11-18-2024 End: 11-18-2024 Patient encounter procedure 11/18/2024 2:30 PM EDT Office Visit OB/Gynecology [address] [place], [place] [id number] Keo Garcia MD [address] [place], [place] [id number] POST 6 week OB/Gynecology Comment on above: POST 6 week Start: 11-17-2024 Influenza vaccination [facility] Start: 10-13-2024 End: 10-13-2024 Patient encounter procedure 10/13/2024 2:30 PM EDT Office Visit OB/Gynecology [address] [place] [address] Ad Roland APRN.PASTRY COOK [address] [place] [address] Post OB/Gynecology Comment on above: Post Start: 10-02-2024 End: 10-02-2024 Patient encounter procedure 10/02/2024 3:10 PM EDT Routine Office Visit OB/Gynecology [address] [place] [address] Keo Garcia MD [address] [place] [address] OB OB/Gynecology Comment on above: OB Start: 09-25-2024 End: 09-25-2024 Patient encounter procedure 09/25/2024 3:10 PM EDT Routine Office Visit OB/Gynecology [address] [place] [address] Tatum Yost MD [address] [place] [address] OB OB/Gynecology Comment on above: OB Start: 09-18-2024 End: 09-18-2024 Patient encounter procedure 09/18/2024 3:40 PM EDT Routine Office Visit OB/Gynecology [address] [place] [address] Mary Yeh MD [address] [place] [address] OB OB/Gynecology Comment on above: OB Start: 09-12-2024 End: 09-12-2024 Patient encounter procedure 09/12/2024 3:15 PM EDT Routine Office Visit OB/Gynecology [address] [place] [address] Beena Walters APRN.CNM [address] [place] [address] OB OB/Gynecology Comment on above: OB Start: 09-05-2024 End: 09-05-2024 Patient encounter procedure 09/05/2024 3:15 PM EDT Routine Office Visit OB/Gynecology [address] [place] [address] Beena Walters APRN.CN [address] [place] [address] OB OB/Gynecology Comment on above: OB Start: 08-07-2024 End: 08-07-2024 Patient encounter procedure 08/07/2024 3:50 PM EDT Routine Office Visit OB/Gynecology [address] [place] [address] Mary Yeh MD [address] [place], [place] [id number] OB Routine OB/Gynecology Comment on above: OB Routine Start: 07-24-2024 End: 10-23-2024 CBC panel - Blood by Automated count COMPLETE BLOOD COUNT Lab Routine 30 weeks gestation of (HCC) Anemia complicating , third trimester (HCC) Expected: 07/24/2024, Expires: 10/23/2024 [facility] Work Phone: Comment on above: Expected: 07/24/2024, Expires: Start: 07-24-2024 End: 07-24-2024 Patient encounter procedure 07/24/2024 1:50 PM EDT Routine Office Visit OB/Gynecology [address] [place] [address] Tatum Yost MD [address] [place] [address] 30 wk OB OB/Gynecology Comment on above: 30 wk OB Start: 07-10-2024 End: 07-10-2024 Patient encounter procedure 07/10/2024 10:30 AM EDT Routine Office Visit OB/Gynecology [address] [place] [address] Mary Yeh MD [address] [place] [address] 28 wk OB + og shot + glucose test OB/Gynecology Comment on above: 28 wk OB + og shot + glucose test Start: 07-10-2024 End: 07-10-2024 ambulatory 07/10/2024 10:00 AM EDT Results Only [place] [facility] [address] [place] [address] glucose + labs [facility] Comment on above: glucose + labs Start: 07-07-2024 End: 10-06-2024 ANEMIA REFLEX PANEL ANEMIA REFLEX PANEL Lab Routine Encounter for supervision of other normal in second trimester Expected: 07/07/2024, Expires: 10/06/2024 [facility] Comment on above: Expected: 07/07/2024, Expires: Start: 07-07-2024 End: 06-06-2025 GESTATIONAL GLUCOSE SCREEN, 1-HOUR, 50 GRAM, NON-FASTING GESTATIONAL GLUCOSE SCREEN, 1-HOUR, 50 GRAM, NON-FASTING Lab Routine Screening for diabetes mellitus Expected: 07/07/2024, Expires: 06/06/2025 [facility] Work Phone: Comment on above: Expected: 07/07/2024, Expires: Start: 07-07-2024 End: 06-06-2025 SYPHILIS TREPONEMAL W/REFLEX SYPHILIS TREPONEMAL W/REFLEX Lab Routine Encounter for supervision of other normal in second trimester Expected: 07/07/2024, Expires: 06/06/2025 [facility] Comment on above: Expected: 07/07/2024, Expires: Start: 06-12-2024 End: 06-12-2024 Patient encounter procedure 06/12/2024 2:30 PM EDT Routine Office Visit OB/Gynecology [address] [place] [address] Ad Roland APRN.PASTRY COOK [address] [place] [address] 4 wk fu (24 wk appt) OB/Gynecology Comment on above: 4 wk fu (24 wk appt) Start: 06-12-2024 End: 09-11-2024 ANEMIA REFLEX PANEL ANEMIA REFLEX PANEL Lab Routine 24 weeks gestation of Rh negative state in antepartum period Expected: 06/12/2024, Expires: 09/11/2024 [facility] Comment on above: Expected: 06/12/2024, Expires: Start: 06-12-2024 End: 06-12-2025 GESTATIONAL GLUCOSE SCREEN, 1-HOUR, 50 GRAM, NON-FASTING GESTATIONAL GLUCOSE SCREEN, 1-HOUR, 50 GRAM, NON-FASTING Lab Routine Screening for diabetes mellitus Expected: 06/12/2024, Expires: 06/12/2025 [facility] Work Phone: Comment on above: Expected: 06/12/2024, Expires: Start: 06-12-2024 End: 06-12-2025 SYPHILIS TREPONEMAL W/REFLEX SYPHILIS TREPONEMAL W/REFLEX Lab Routine 24 weeks gestation of Rh negative state in antepartum period Expected: 06/12/2024, Expires: 06/12/2025 [facility] Comment on above: Expected: 06/12/2024, Expires: Start: 06-12-2024 End: 09-11-2024 TYPE + SCREEN TYPE + SCREEN Blood Bank Routine 24 weeks gestation of Rh negative state in antepartum period Expected: 06/12/2024, Expires: 09/11/2024 [facility] Comment on above: Expected: 06/12/2024, Expires: Start: 05-16-2024 End: 05-16-2024 Patient encounter procedure 05/16/2024 2:40 PM EST Routine Office Visit OB/Gynecology [address] [place] [address] Jairo Guillermo MD [address] [place] [address] OB Routine OB/Gynecology Comment on above: OB Routine Start: 05-16-2024 End: 05-16-2024 Patient encounter procedure 05/16/2024 1:30 PM EST Routine Office Visit Maternal Medicine [address] [place] [address] Anatomy Scan [facility] Comment on above: Anatomy Scan Start: 05-15-2024 End: 05-15-2024 Patient encounter procedure [facility] Comment on above: anatomy scan OB Start: 04-17-2024 End: 04-17-2024 Patient encounter procedure [facility] Comment on above: Early Anatomy [facility] Anatomy/OB Start: 03-21-2024 End: 03-21-2025 OBSTETRIC ULTRASOUND WHI OBSTETRIC ULTRASOUND WHI Anc Imaging Routine 12 weeks gestation of Short interval between pregnancies affecting , antepartum Encounter for supervision of other normal in second trimester Expected: 03/21/2024, Expires: 03/21/2025 [facility] Work Phone: Comment on above: Expected: 03/21/2024, Expires: Start: 03-21-2024 End: 03-21-2024 Patient encounter procedure 03/21/2024 1:10 PM EST Routine Office Visit OB/Gynecology [address] [place] [address] Tatum Yost MD [address] [place] [address] 2nd OB OB/Gynecology Comment on above: 2nd OB Start: 02-19-2024 End: 05-20-2024 ANEMIA REFLEX PANEL ANEMIA REFLEX PANEL Lab Routine with uncertain dates in first trimester Expected: 02/19/2024, Expires: 05/20/2024 [facility] Work Phone: Comment on above: Expected: 02/19/2024, Expires: Start: 02-19-2024 End: 05-20-2024 Hemoglobin A1c in Blood HEMOGLOBIN A1C Lab Routine with uncertain dates in first trimester Expected: 02/19/2024, Expires: 05/20/2024 [facility] Comment on above: Expected: 02/19/2024, Expires: Start: 02-19-2024 End: 05-20-2024 Hepatitis B virus surface Ag [Presence] in Serum HEPATITIS B SURFACE ANTIGEN Lab Routine with uncertain dates in first trimester Expected: 02/19/2024, Expires: 05/20/2024 [facility] Comment on above: Expected: 02/19/2024, Expires: Start: 02-19-2024 End: 05-20-2024 Hepatitis C virus Ab [Presence] in Serum HEPATITIS C ANTIBODY IA WITH CONFIRMATION Lab Routine with uncertain dates in first trimester Expected: 02/19/2024, Expires: 05/20/2024 [facility] Comment on above: Expected: 02/19/2024, Expires: Start: 02-19-2024 End: 05-20-2024 HIV 1+2 Ab [Presence] in Serum or Plasma by Immunoassay HIV 1/2 COMBO WITH REFLEX TO DIFFERENTIATION Lab Routine with uncertain dates in first trimester Expected: 02/19/2024, Expires: 05/20/2024 [facility] Comment on above: Expected: 02/19/2024, Expires: Start: 02-19-2024 End: 02-18-2025 OBSTETRIC ULTRASOUND WHI OBSTETRIC ULTRASOUND WHI Anc Imaging Routine 7 weeks gestation of Expected: 02/19/2024, Expires: 02/18/2025 [facility] Comment on above: Expected: 02/19/2024, Expires: Start: 02-19-2024 End: 05-20-2024 RUBELLA IGG ANTIBODY RUBELLA IGG ANTIBODY Lab Routine with uncertain dates in first trimester Expected: 02/19/2024, Expires: 05/20/2024 [facility] Comment on above: Expected: 02/19/2024, Expires: Start: 02-19-2024 End: 05-20-2024 SYPHILIS TREPONEMAL W/REFLEX SYPHILIS TREPONEMAL W/REFLEX Lab Routine with uncertain dates in first trimester Expected: 02/19/2024, Expires: 05/20/2024 [facility] Comment on above: Expected: 02/19/2024, Expires: Start: 02-19-2024 End: 05-20-2024 TYPE + SCREEN TYPE + SCREEN Blood Bank Routine with uncertain dates in first trimester Expected: 02/19/2024, Expires: 05/20/2024 [facility] Comment on above: Expected: 02/19/2024, Expires: Start: 02-19-2024 End: 02-19-2024 Patient encounter procedure 02/19/2024 8:15 AM EST Initial Office Visit OB/Gynecology [address] [place] [address] Kathie Degroot APRN.PASTRY COOK [address] [place] [address] OB/Gynecology Start: 11-18-2023 Covid-19 Vaccine ( season) Covid-19 Vaccine ( season) [facility] Start: 11-18-2023 Influenza [facility] Start: 08-09-2023 CHLAMYDIA SCREENING (18-24) CHLAMYDIA SCREENING (18-24) [facility] Start: 08-09-2023 GC (GONORRHEA) SCREENING (18-24) GC (GONORRHEA) SCREENING (18-24) [facility] Start: 08-09-2023 Screening for Chlamydia trachomatis Chlamydia Screening (18-24) [facility] Start: 01-26-2023 Patient discharge [facility] Start: 01-25-2023 Administration of blood product [facility] Start: 01-25-2023 Administration of medication [facility] Start: 01-25-2023 Application of ice collar, cap or bag [facility] Start: 01-25-2023 Catheterization of vein [facility] Start: 01-25-2023 Introduction of urinary catheter [facility] Start: 01-25-2023 Measuring intake and output [facility] Start: 01-25-2023 Notification of physician [facility] Start: 01-25-2023 Procedure discontinued [facility] Start: 01-25-2023 Provision of activity privileges [facility] Start: 01-25-2023 Vital signs measurements [facility] Start: 01-25-2023 [facility] Start: 01-25-2023 Admission procedure [facility] Start: 01-25-2023 Verification routine [facility] Start: 01-24-2023 Nonstress test [facility] Start: 01-24-2023 Obstetric monitoring [facility] Start: 01-24-2023 Vital signs measurements [facility] Start: 01-24-2023 [facility] Start: 01-24-2023 Patient discharge [facility] Start: 11-17-2022 Influenza vaccination [facility] Start: 11-14-2022 End: 11-15-2023 OBSTETRIC ULTRASOUND WHI OBSTETRIC ULTRASOUND [facility]I Anc Imaging Routine Obesity during 29 weeks gestation of Expected: 11/14/2022, Expires: 11/15/2023 [facility] Work Phone: Comment on above: Expected: 11/14/2022, Expires: 4 Start: 09-01-2022 End: 09-02-2023 OBSTETRIC ULTRASOUND WHI OBSTETRIC ULTRASOUND WHI Anc Imaging Routine Obesity during Expected: 09/01/2022, Expires: 09/02/2023 [facility] Work Phone: Comment on above: Expected: 09/01/2022, Expires: 4 Start: 03-19-2022 DEPRESSION ASSESSMENT DEPRESSION ASSESSMENT [facility] Start: 03-10-2021 End: 03-10-2021 Patient encounter procedure 03/10/2021 Office Visit Gastroenterology Vla Dia MD [address] [place] [address] [facility] Start: 11-18-2020 End: 11-18-2020 Patient encounter procedure 11/18/2020 Office Visit Gastroenterology Val Dai MD [address] [place] [address] [facility] Start: 11-17-2020 Influenza vaccination [facility] Start: 09-16-2020 End: 09-16-2020 Patient encounter procedure 09/16/2020 Office Visit Gastroenterology Val Dai MD [address] [place] [address] [phone] [facility] Start: 04-25-2020 Meningococcal B Vaccine (2 of 2 - Trumenba SCDM 2-dose series) Meningococcal B Vaccine (2 of 2 - Trumenba SCDM 2-dose series) [facility] Start: 04-25-2020 Meningococcal B Vaccine: Consider Based On Risk (2 of 2 - Risk Trumenba 2-dose series) Meningococcal B Vaccine: Consider Based On Risk (2 of 2 - Risk Trumenba 2-dose series) [facility] Start: 01-04-2020 Hepatitis B Vaccine (1 of 3 - 19+ 3-dose series) Hepatitis B Vaccine (1 of 3 - 19+ 3-dose series) [facility] Start: 01-04-2020 Urine microalbumin profile DTAP,TDAP,TD (1 - Tdap) [facility] Start: 11-21-2019 HPV Vaccine (2 - 3-dose series) HPV Vaccine (2 - 3-dose series) [facility] Start: 11-18-2019 Influenza vaccination Sequential Influenza Vaccine (#1) [facility] Start: 11-18-2019 Influenza vaccination given Sequential Influenza Vaccine (#1) [facility] Start: 2019 Anxiety Screening Anxiety Screening [facility] Start: 2019 Depression Screening Depression Screening [facility] Start: 2019 Hepatitis C antibody, confirmatory test Hepatitis C Screening [facility] Start: 2019 Hepatitis C screening Hepatitis C Screening [facility] Start: 2019 HEPATITIS C SCREENING HEPATITIS C SCREENING [facility] Start: 2019 HIV SCREENING HIV SCREENING [facility] Start: 2019 HIV screening HIV Screening [facility] Start: 2017 COVID-19 Vaccine (1 of 2) COVID-19 Vaccine (1 of 2) [facility] Start: 2017 COVID-19 Vaccine (1) COVID-19 Vaccine (1) [facility] Start: 01-04-2016 HIV screening HIV Screening [facility] Start: 2015 PEDS TO ADULT TRANSITION ANNUAL ASSESSMENT PEDS TO ADULT TRANSITION ANNUAL ASSESSMENT [facility] Start: 2013 Adolescent depression screening assessment Depression Screening (PHQ9) [facility] Start: 2013 COVID-19 Vaccine (1) COVID-19 Vaccine (1) [facility] Start: 2013 Depression screening using PHQ-9 (Patient Health Questionnaire 9) score [facility] Start: 2013 PEDS TO ADULT TRANSITION INITIAL DISCUSSION PEDS TO ADULT TRANSITION INITIAL DISCUSSION [facility] Start: 01-04-2012 Vaccination for human papillomavirus HPV Vaccines (1 - 2-dose series) [facility] Start: 2010 HPV VACCINE (1 - 2-dose series) HPV VACCINE (1 - 2-dose series) [facility] Start: 2006 COVID-19 Vaccine (1) COVID-19 Vaccine (1) [facility] Start: 01-04-2004 History and physical examination, annual for health maintenance Wellness Visit [facility] Start: 2001 COVID-19 VACCINE (#1) COVID-19 VACCINE (#1) [facility] Start: 2001 HEPATITIS B (1 of 3 - 3-dose series) HEPATITIS B (1 of 3 - 3-dose series) [facility] Start: 2001 Hepatitis B Vaccine (1 of 3 - 3-dose series) Hepatitis B Vaccine (1 of 3 - 3-dose series) [facility] Start: 2001 Screening for Chlamydia trachomatis Chlamydia Screening [facility] Start: 2001 Tetanus vaccination Tetanus: Every 10yrs [facility] Bacteria identified in Urine by Culture URINE CULTURE Microbiology Routine with care elsewhere, antepartum Recurrent urinary tract infection affecting , antepartum 09/01/2022 4:30 PM EDT [facility] Work Phone: Bacteria identified in Urine by Culture URINE CULTURE Microbiology Routine with uncertain dates in first trimester 02/19/2024 8:40 AM EST [facility] Bacteria identified in Urine by Culture BACTERIAL CULTURE, URINE Microbiology Routine Encounter for supervision of high risk in third trimester, antepartum (HCC) Short interval between pregnancies affecting , antepartum (HCC) Anemia complicating , third trimester (HCC) 40 weeks gestation of (HCC) Vaginal discharge during in third trimester (HCC) 10/02/2024 3:56 PM EDT [facility] BACTERIAL VAGINOSIS NAAT BACTERI AL VAGINOSIS NAAT Lab Routine Vaginal itching 06/06/2024 11:18 AM EDT [facility] BACTERIAL VAGINOSIS NAAT BACTERI AL VAGINOSIS NAAT Lab Routine Encounter for supervision of high risk in third trimester, antepartum (HCC) Short interval between pregnancies affecting , antepartum (HCC) Anemia complicating , third trimester ([facility]) 40 weeks gestation of ([facility]) Vaginal discharge during in third trimester ([facility]) 10/02/2024 3:56 PM T [facility] TABITHA/TRICHOMONAS NAAT TABITHA /TRICHOMONAS NAAT Lab Routine Vaginal itching 06/06/2024 11:18 AM [facility] TABITHA/TRICHOMONAS NAAT TABITHA /TRICHOMONAS NAAT Lab Routine Encounter for supervision of high risk in third trimester, antepartum (HCC) Short interval between pregnancies affecting , antepartum ([facility]) Anemia complicating , third trimester ([facility]) 40 weeks gestation of ([facility]) Vaginal discharge during in third trimester ([facility]) 10/02/2024 3:56 PM [facility] Work Phone: Chlamydia trachomatis+Neisseria gonorrhoeae DNA [Presence] in Unspecified specimen by PHYLLIS with probe detection GONORRHEA/CHLAMYDIA NAAT Lab Routine with uncertain dates in first trimester 02/19/2024 8:40 AM [facility] Chlamydia trachomatis+Neisseria gonorrhoeae DNA [Presence] in Unspecified specimen by PHYLLIS with probe detection GONORRHEA/CHLAMYDIA NAAT Lab Routine Encounter for supervision of high risk in third trimester, antepartum ([facility]) Short interval between pregnancies affecting , antepartum ([facility]) Anemia complicating , third trimester ([facility]) 40 weeks gestation of ([facility]) Vaginal discharge during in third trimester ([facility]) 10/02/2024 3:56 PM [facility] End: 09-16-2021 Electromyography EMG: Neurology Routine Carpal tunnel syndrome of right wrist 1 Occurrences starting 05/17/2021 until 09/16/2021 [facility] Work Phone: Comment on above: 1 Occurrences starting 05/17/2021 until 09/16/2021 End: 05-17-2022 Nerve conduction test Nerve conduction test Neurology Routine Carpal tunnel syndrome of right wrist 1 Occurrences starting 05/17/2021 until 05/17/2022 [facility] Comment on above: 1 Occurrences starting 05/17/2021 until 05/17/2022 Patient Education [facility] Work Phone: Patient referral [facility] Work Phone: ROUTINE, GR OUP B STREP PCR ROUTINE, GROUP B STREP PCR Microbiology Routine 36 weeks gestation of 01/02/2023 2:50 PM EDT [facility] Work Phone: ROUTINE, GR OUP B STREPTOCOCCUS BY PCR ROUTINE, GROUP B STREPTOCOCCUS BY PCR Microbiology Routine Obesity affecting in third trimester, unspecified obesity type (HCC) Encounter for supervision of high risk in third trimester, antepartum ([facility]) Anemia complicating , third trimester ([facility]) 36 weeks gestation of ([facility]LY [facility]) 09/05/2024 3:24 PM EDT [facility] Work Phone: End: 08-19-2021 Tissue transglutaminase IgA measurement Tissue Transglutaminase, IgA Lab Routine Irritable bowel syndrome with both constipation and diarrhea 1 Occurrences starting 08/19/2020 until 08/19/2021 [facility] Comment on above: 1 Occurrences starting 08/19/2020 until 08/19/2021 [facility] Immunizations Immunization Date Immunization Notes Care Provider [facility] 07-10-2024 RHO(D) immune globulin- IV or IM Tatum Yost MD Work Phone: [facility] 07-10-2024 tetanus toxoid, reduced diphtheria toxoid, and acellular pertussis vaccine, adsorbed Tatum Yost MD Work Phone: [facility] 01-16-2023 influenza, high dose seasonal, preservative-free [facility] 01-16-2023 influenza virus vaccine, unspecified formulation Kathie Degroot APRN.CNP Work Phone: [facility] 01-10-2023 influenza, injectabl e, quadrivalent, contains preservative Keo Garcia MD Work Phone: [facility] Work Phone: 01-10-2023 influenza virus vaccine, unspecified formulation Ad Roland PASTRY COOK Work Phone: [facility] 11-03-2022 RHO(D) immune globulin- IV or IM Tours Captain RN [facility] Work Phone: 11-03-2022 tetanus toxoid, reduced diphtheria toxoid, and acellular pertussis vaccine, adsorbed Tours Captain RN [facility] Work Phone: 10-24-2019 Human Papillomavirus 9-valent vaccine Tatum Yost MD Work Phone: [facility] 10-24-2019 meningococcal B vaccine, fully recombinant Tatum Yost MD Work Phone: [facility] 10-24-2019 meningococcal polysaccharide (groups A, C, Y and W-135) diphtheria toxoid conjugate vaccine (MCV4P) Tatum Yost MD Work Phone: [facility] 11-16-2014 meningococcal ACWY vaccine, unspecified formulation Asael Moreno [facility] 11-16-2014 tetanus toxoid, reduced diphtheria toxoid, and acellular pertussis vaccine, adsorbed Asael Revision3 [facility] NEGATED: Highlighted row has not occurred!12-11-2022 influenza virus vaccine, unspecified formulation Erin ANDRE [facility] NEGATED: Highlighted row has not occurred!05-30-2019 influenza virus vaccine, live, attenuated, for intranasal use Asael Puente [facility] Payers Date Payer Category Payer Self-pay [id number] 2022 Unknown [id number] 2020 Medicaid [id number] 2020 Medicaid [id number] 2020 Medicaid [id number] 2018 Unknown 2001 Unknown [id number] 2.16. [id number] 2001 Unknown [id number] 2.16. [id number] 2001 Unknown [id number] 2.16. [id number] 2001 Unknown [id number] 2.16. [id number] 2001 Unknown [id number] 2.16. [id number] 2001 Unknown [id number] 2.16. [id number] 2001 Unknown [id number] 2.16.8 [id number] 2001 Unknown [id number] 2.16.8 [id number] 2001 Unknown [id number] 2.16.8 [id number] 2001 Unknown [id number] 2.16.8 40.1.035970.3.579.2.727 2001 Unknown [id number] 2.16.8 [id number] 2001 Unknown [id number] 2.16.8 [id number] 1976 Unknown [id number] 2.16.84 [id number] Unknown [id number] 2.16.8 [id number] Unknown [id number] 2.16.8 [id number] Social History Date Type Detail Facility Start: 05-12-2020 End: 08-08-2022 Tobacco smoking status NHIS Never smoker [facility] Start: 05-12-2020 End: 08-08-2022 Tobacco use and exposure Never used [facility] Start: 05-12-2020 End: 10-02-2024 Alcohol intake Ex-drinker (finding) [facility] Start: 2001 Sex Assigned At Not on file [facility] Start: 05-07-2021 End: 05-17-2021 Exposure to SARS-CoV-2 (event) Not sure [facility] Start: 01-25-2023 Tobacco smokin g consumption unknown [facility] Tobacco smoking status Never [facility] Start: 09-29-2022 End: 10-02-2024 Sex Assigned At Female [facility] Start: 2001 Sex Assigned At Female F [facility] Start: 08-03-2022 Education 13 [facility] Start: 05-05-2022 [facility] Start: 09-29-2022 End: 10-02-2024 History of Social function [facility] Goals Date Patient Goal Desired Activity /State Personal health goal Personal health goal Clinical Notes 08-19-2020 to 10-02-2024 Addendum Note - Keo Garcia MD - 10/02/2024 3:55 PM EDTAddendum Note - Keo Garcia MD - 10/02/2024 3:55 PM EDTAddendum Note - Jenny Nielsen MA - 10/02/2024 3:50 PM EDT Note Date & Type Note Facility 10-02-2024 Note Addended by: KEO GARCIA on: 10/02/2024 03:55 PM Modules accepted: Orders [facility] 10-02-2024 Miscellaneous Notes Addended by: KEO GARCIA on: 10/02/2024 03:55 PM Modules accepted: Orders Addended by: JENNY NIELSEN on: 10/02/2024 03:50 PM Modules accepted: Orders RR- VB No. LOF No. CTXS No. Movement: present. Other c/o: No. Medication list reviewed. SENSITIVE EXAM: Sensitive exam not performed. Physical Exam See Flow Sheet Abd: soft, nontender, gravid Ext: edema: 1+ A/P 40w0d Estimated Date of Delivery: 10/02/24 Assessment & Plan Encounter for supervision of high risk in third trimester, antepartum ([facility]) Orders: TABITHA/TRICHOMONAS NAAT BACTERIAL VAGINOSIS NAAT UA DIP, URINE (POC) BACTERIAL CULTURE, URINE Short interval between pregnancies affecting , antepartum ([facility]) Orders: TABITHA/TRICHOMONAS NAAT BACTERIAL VAGINOSIS NAAT UA DIP, URINE (POC) BACTERIAL CULTURE, URINE Anemia complicating , third trimester ([facility]) Orders: TABITHA/TRICHOMONAS NAAT BACTERIAL VAGINOSIS NAAT UA DIP, URINE (POC) BACTERIAL CULTURE, URINE 40 weeks gestation of ([facility]) Orders: TABITHA/TRICHOMONAS NAAT BACTERIAL VAGINOSIS NAAT UA DIP, URINE (POC) BACTERIAL CULTURE, URINE Vaginal discharge during in third trimester ([facility]) Orders: TABITHA/TRICHOMONAS NAAT BACTERIAL VAGINOSIS NAAT UA DIP, URINE (POC) BACTERIAL CULTURE, URINE r/b/a to induction of labor reviewed, questions answered, desires to proceed. Scheduled for 10/05/24. Membranes swept after verbal consent Keo Garcia M.D. documented in this encounter [facility] 10-02-2024 Note Addended by: Luciano NIELSEN on: 10/02/2024 03:50 PM Modules accepted: Orders T [facility] 10-02-2024 Progress note Formatting of t his note might be different from the original. RR- VB No. LOF No. CTXS No. Movement: present. Other c/o: No. Medication list reviewed. SENSITIVE EXAM: Sensitive exam not performed. Physical Exam See Flow Sheet Abd: soft, nontender, gravid Ext: edema: 1+ A/P 40w0d Estimated Date of Delivery: 10/02/24 Assessment & Plan Encounter for supervision of high risk in third trimester, antepartum ([facility]) Orders: TABITHA/TRICHOMONAS NAAT BACTERIAL VAGINOSIS NAAT UA DIP, URINE (POC) BACTERIAL CULTURE, URINE Short interval between pregnancies affecting , antepartum ([facility]) Orders: TABITHA/TRICHOMONAS NAAT BACTERIAL VAGINOSIS NAAT UA DIP, URINE (POC) BACTERIAL CULTURE, URINE Anemia complicating , third trimester ([facility]) Orders: TABITHA/TRICHOMONAS NAAT BACTERIAL VAGINOSIS NAAT UA DIP, URINE (POC) BACTERIAL CULTURE, URINE 40 weeks gestation of ([facility]) Orders: TABITHA/TRICHOMONAS NAAT BACTERIAL VAGINOSIS NAAT UA DIP, URINE (POC) BACTERIAL CULTURE, URINE Vaginal discharge during in third trimester ([facility]) Orders: TABITHA/TRICHOMONAS NAAT BACTERIAL VAGINOSIS NAAT UA DIP, URINE (POC) BACTERIAL CULTURE, URINE r/b/a to induction of labor reviewed, questions answered, desires to proceed. Scheduled for 10/05/24. Membranes swept after verbal consent Keo Garcia M.D. [facility] 09-25-2024 Progress note Formatting of t his note might be different from the original. SW- No ctx, vb, lof. Good FM PE: Gen- NAD, well appearing, comfortable Abd- Soft, gravid, NT See flowsheet A/p 39 wk gestation - Discussed 41 wk IOL - RTO 1 wk Tatum Yost DO [facility] 09-25-2024 Miscellaneous Notes SW- No ctx, vb, lof. Good FM PE: Gen- NAD, well appearing, comfortable Abd- Soft, gravid, NT See flowsheet A/p 39 wk gestation - Discussed 41 wk IOL - RTO 1 wk Tatum Yost DO documented in this encounter [facility] 09-25-2024 Instructions Fanny Skaggs MA - 09/25/2024 3:06 PM EDT SEQUENTIAL SCREENINGS The [facility] offers sequential screenings for women who are interested in screenings for chromosomal abnormalities and certain defects during a . The sequential screen combines ultrasound and blood tests to determine the risk of chromosomal abnormalities, including Down's Syndrome (Trisomy 21) and Trisomy 18, as well as open neural tube defects including spina bifida. Ultrasound examination is performed between 11 weeks and 13 weeks gestational age. Blood tests are drawn after the ultrasound and again later in the between 15 and 21 weeks gestational age. Please let your physician know if you are interested in this testing. It will require an appointment with our electronics warfare technician. This is not an ultrasound performed by a physician in our office during a routine visit. SIGNS AND SYMPTOMS OF LABOR 1. Contractions every 10 minutes or more often 2. Clear, pink, or brownish fluid (water) leaking from vagina 3. Feeling that baby is pushing down, pressure 4. Low, dull backache 5. Cramps that feel like a period 6. Cramps with or without diarrhea If you notice any of the above symptoms, contact our office at [phone] and ask to speak with a nurse. After hours, you can call doctors registry at [phone] OR call [facility] at [phone] and ask to have the doctor precision machinist paged. If you consider this an emergency, dial 2--6 or go to your nearest emergency department. NEED HELP? Are you dealing with a violent or abusive relationship? Are you a victim of rape or sexual assult? Call [facility] ([place]) 24 hour Crisis Hotline: 417.177.3789 or 164-569-1911. MANUAL Your Guide to a Healthy manual is now on-line. Visit [email or web address] to download your free copy documented in this encounter [facility] 09-18-2024 Progress note Formatting of t his note might be different from the original. S: Jumana Menjivar is a 24 year old female who presents at 10/02/2024, by Last Menstrual Period for a routine visit. Denies headache, visual changes, chest pain, shortness of breath, vaginal bleeding, leakage of fluid, or dysuria. Feeling well, no complaints. Good movement, No contractions O: See flow sheet Gen: No apparent distress Abd: Gravid, nontender ASSESSMENT/PLAN: 1. Encounter for supervision of high risk in third trimester, antepartum ([facility]) - ICD9: V23.9, ICD10: O09.93 (primary diagnosis) - URINE OB DIP B/O 2. Obesity affecting in third trimester, unspecified obesity type ([facility]) - ICD9: 649.13, ICD10: O99.213 - URINE OB DIP B/O 3. Anemia complicating , third trimester ([facility]) - ICD9: 648.23, 285.9, ICD10: O99.013 Oral iron - URINE OB DIP B/O 4. Short interval between pregnancies affecting , antepartum ([facility]) - ICD9: V23.89, ICD10: O09.899 - URINE OB DIP B/O 5. 38 weeks gestation of ([facility]) - ICD9: V22.2, ICD10: Z3A.38 - URINE OB DIP B/O Mary Yeh MD [facility] 09-18-2024 Miscellaneous Notes S: Jumana Menjivar is a 24 year old female who presents at 10/02/2024, by Last Menstrual Period for a routine visit. Denies headache, visual changes, chest pain, shortness of breath, vaginal bleeding, leakage of fluid, or dysuria. Feeling well, no complaints. Good movement, No contractions O: See flow sheet Gen: No apparent distress Abd: Gravid, nontender ASSESSMENT/PLAN: 1. Encounter for supervision of high risk in third trimester, antepartum ([facility]) - ICD9: V23.9, ICD10: O09.93 (primary diagnosis) - URINE OB DIP B/O 2. Obesity affecting in third trimester, unspecified obesity type ([facility]) - ICD9: 649.13, ICD10: O99.213 - URINE OB DIP B/O 3. Anemia complicating , third trimester ([facility]) - ICD9: 648.23, 285.9, ICD10: O99.013 Oral iron - URINE OB DIP B/O 4. Short interval between pregnancies affecting , antepartum ([facility]) - ICD9: V23.89, ICD10: O09.899 - URINE OB DIP B/O 5. 38 weeks gestation of ([facility]) - ICD9: V22.2, ICD10: Z3A.38 - URINE OB DIP B/O Mary Yeh MD documented in this encounter [facility] 09-18-2024 Instructions Dana Jimenez MA - 09/18/2024 3:03 PM EDT SEQUENTIAL SCREENINGS The [facility] offers sequential screenings for women who are interested in screenings for chromosomal abnormalities and certain defects during a . The sequential screen combines ultrasound and blood tests to determine the risk of chromosomal abnormalities, including Down's Syndrome (Trisomy 21) and Trisomy 18, as well as open neural tube defects including spina bifida. Ultrasound examination is performed between 11 weeks and 13 weeks gestational age. Blood tests are drawn after the ultrasound and again later in the between 15 and 21 weeks gestational age. Please let your physician know if you are interested in this testing. It will require an appointment with our electronics warfare technician. This is not an ultrasound performed by a physician in our office during a routine visit. SIGNS AND SYMPTOMS OF LABOR 1. Contractions every 10 minutes or more often 2. Clear, pink, or brownish fluid (water) leaking from vagina 3. Feeling that baby is pushing down, pressure 4. Low, dull backache 5. Cramps that feel like a period 6. Cramps with or without diarrhea If you notice any of the above symptoms, contact our office at [phone] and ask to speak with a nurse. After hours, you can call doctors registry at [phone] OR call [facility] at [phone] and ask to have the doctor precision machinist paged. If you consider this an emergency, dial 9-1-5 or go to your nearest emergency department. NEED HELP? Are you dealing with a violent or abusive relationship? Are you a victim of rape or sexual assult? Call [facility] ([place]) 24 hour Crisis Hotline: 135.983.2071 or 475-673-0078. MANUAL Your Guide to a Healthy manual is now on-line. Visit [email or web address] to download your free copy documented in this encounter [facility] 09-12-2024 Progress note Formatting of t his note might be different from the original. S: Jumana Menjivar is a 24 year old female who presents at 37 weeks gestation for a routine visit. Positive movements. Occasional margaret soriano contractions. Increased acid reflux with no relief from Pepcid. Would like to try another medication. Acid reflux causes her to vomit. Denies headache, visual changes, chest pain, shortness of breath, vaginal bleeding, leakage of fluid, or dysuria. O: See flow sheet Gen: No apparent distress Abd: Gravid, non tender ASSESSMENT/PLAN: 1. Obesity affecting in third trimester, unspecified obesity type 2. 37 weeks gestation of 3. Encounter for supervision of high risk in third trimester, antepartum 4. Anemia complicating , third trimester 5. Short interval between pregnancies affecting , antepartum - D/C Pepcid - Rx for Protonix 20 mg XR PO sent - Labor precautions reviewed and when to call office - Continue vitamin and ASA daily - RTO weekly visits Beena Walters APRN.CNM [facility] 09-12-2024 Miscellaneous Notes S: Jumana Menjivar is a 24 year old female who presents at 37 weeks gestation for a routine visit. Positive movements. Occasional margaret soriano contractions. Increased acid reflux with no relief from Pepcid. Would like to try another medication. Acid reflux causes her to vomit. Denies headache, visual changes, chest pain, shortness of breath, vaginal bleeding, leakage of fluid, or dysuria. O: See flow sheet Gen: No apparent distress Abd: Gravid, non tender ASSESSMENT/PLAN: 1. Obesity affecting in third trimester, unspecified obesity type 2. 37 weeks gestation of 3. Encounter for supervision of high risk in third trimester, antepartum 4. Anemia complicating , third trimester 5. Short interval between pregnancies affecting , antepartum - D/C Pepcid - Rx for Protonix 20 mg XR PO sent - Labor precautions reviewed and when to call office - Continue vitamin and ASA daily - RTO weekly visits Beena Walters APRN.CNM documented in this encounter [facility] 09-12-2024 Instructions Kaamri Rock MA - 09/12/2024 3:19 PM EDT SEQUENTIAL SCREENINGS The [facility] offers sequential screenings for women who are interested in screenings for chromosomal abnormalities and certain defects during a . The sequential screen combines ultrasound and blood tests to determine the risk of chromosomal abnormalities, including Down's Syndrome (Trisomy 21) and Trisomy 18, as well as open neural tube defects including spina bifida. Ultrasound examination is performed between 11 weeks and 13 weeks gestational age. Blood tests are drawn after the ultrasound and again later in the between 15 and 21 weeks gestational age. Please let your physician know if you are interested in this testing. It will require an appointment with our electronics warfare technician. This is not an ultrasound performed by a physician in our office during a routine visit. SIGNS AND SYMPTOMS OF LABOR 1. Contractions every 10 minutes or more often 2. Clear, pink, or brownish fluid (water) leaking from vagina 3. Feeling that baby is pushing down, pressure 4. Low, dull backache 5. Cramps that feel like a period 6. Cramps with or without diarrhea If you notice any of the above symptoms, contact our office at [phone] and ask to speak with a nurse. After hours, you can call doctors registry at [phone] OR call [facility] at [phone] and ask to have the doctor precision machinist paged. If you consider this an emergency, dial 9-1-4 or go to your nearest emergency department. NEED HELP? Are you dealing with a violent or abusive relationship? Are you a victim of rape or sexual assult? Call [facility] ([place]) 24 hour Crisis Hotline: 799.371.9913 or 764-466-9072. MANUAL Your Guide to a Healthy manual is now on-line. Visit [email or web address] to download your free copy documented in this encounter [facility] 09-05-2024 Progress note Formatting of t his note might be different from the original. S: Jumana Menjivar is a 24 year old female who presents at 36 weeks gestation for a routine visit. Positive movements. Denies any cramps or contractions. Denies headache, visual changes, chest pain, shortness of breath, vaginal bleeding, leakage of fluid, or dysuria. Feeling well, no complaints. O: See flow sheet Gen: No apparent distress Abd: Gravid, nontender TAUS- confirms vertex ASSESSMENT/PLAN: 1. Obesity affecting in third trimester, unspecified obesity type 2. Encounter for supervision of high risk in third trimester, antepartum 3. Anemia complicating , third trimester 4. 36 weeks gestation of - GBS today - Continue oral iron supplementation - Reviewed labor precautions and when to call office - RTO weekly visits Beena Walters APRN.CNM [facility] Work Phone: 09-05-2024 Miscellaneous Notes S: Jumana Menjivar is a 24 year old female who presents at 36 weeks gestation for a routine visit. Positive movements. Denies any cramps or contractions. Denies headache, visual changes, chest pain, shortness of breath, vaginal bleeding, leakage of fluid, or dysuria. Feeling well, no complaints. O: See flow sheet Gen: No apparent distress Abd: Gravid, nontender TAUS- confirms vertex ASSESSMENT/PLAN: 1. Obesity affecting in third trimester, unspecified obesity type 2. Encounter for supervision of high risk in third trimester, antepartum 3. Anemia complicating , third trimester 4. 36 weeks gestation of - GBS today - Continue oral iron supplementation - Reviewed labor precautions and when to call office - RTO weekly visits Beena Walters APRN.CNM documented in this encounter [facility] 09-05-2024 Instructions Kamari Rock MA - 09/05/2024 3:08 PM EDT SEQUENTIAL SCREENINGS The [facility] offers sequential screenings for women who are interested in screenings for chromosomal abnormalities and certain defects during a . The sequential screen combines ultrasound and blood tests to determine the risk of chromosomal abnormalities, including Down's Syndrome (Trisomy 21) and Trisomy 18, as well as open neural tube defects including spina bifida. Ultrasound examination is performed between 11 weeks and 13 weeks gestational age. Blood tests are drawn after the ultrasound and again later in the between 15 and 21 weeks gestational age. Please let your physician know if you are interested in this testing. It will require an appointment with our electronics warfare technician. This is not an ultrasound performed by a physician in our office during a routine visit. SIGNS AND SYMPTOMS OF LABOR 1. Contractions every 10 minutes or more often 2. Clear, pink, or brownish fluid (water) leaking from vagina 3. Feeling that baby is pushing down, pressure 4. Low, dull backache 5. Cramps that feel like a period 6. Cramps with or without diarrhea If you notice any of the above symptoms, contact our office at [phone] and ask to speak with a nurse. After hours, you can call doctors registry at [phone] OR call [facility] at [phone] and ask to have the doctor precision machinist paged. If you consider this an emergency, dial 9-1-1 or go to your nearest emergency department. NEED HELP? Are you dealing with a violent or abusive relationship? Are you a victim of rape or sexual assult? Call [facility] ([place]) 24 hour Crisis Hotline: 275.535.4454 or 973-278-6048. MANUAL Your Guide to a Healthy manual is now on-line. Visit [email or web address] to download your free copy documented in this encounter [facility] 08-25-2024 Telephone encounter Note 3rd risk assessment form submitted 08/25/2024. Mary Little RN [facility] 08-25-2024 Miscellaneous Notes 3rd risk assessment form submitted 08/25/2024. Mary Little RN documented in this encounter [facility] 08-22-2024 Progress note Formatting of t his note might be different from the original. SW- No pain, vb, lof. Good FM PE: Gen- NAD, well appearing Abd- A/p 34 wk gestation - Anemia: Cont oral iron - RTO 2 wks for GBS Tatum Yost DO [facility] 08-22-2024 Miscellaneous Notes SW- No pain, vb, lof. Good FM PE: Gen- NAD, well appearing Abd- A/p 34 wk gestation - Anemia: Cont oral iron - RTO 2 wks for GBS Tatum Yost DO documented in this encounter [facility] 08-22-2024 Instructions Fanny Skaggs MA - 08/22/2024 10:42 AM EDT SEQUENTIAL SCREENINGS The [facility] offers sequential screenings for women who are interested in screenings for chromosomal abnormalities and certain defects during a . The sequential screen combines ultrasound and blood tests to determine the risk of chromosomal abnormalities, including Down's Syndrome (Trisomy 21) and Trisomy 18, as well as open neural tube defects including spina bifida. Ultrasound examination is performed between 11 weeks and 13 weeks gestational age. Blood tests are drawn after the ultrasound and again later in the between 15 and 21 weeks gestational age. Please let your physician know if you are interested in this testing. It will require an appointment with our electronics warfare technician. This is not an ultrasound performed by a physician in our office during a routine visit. SIGNS AND SYMPTOMS OF LABOR 1. Contractions every 10 minutes or more often 2. Clear, pink, or brownish fluid (water) leaking from vagina 3. Feeling that baby is pushing down, pressure 4. Low, dull backache 5. Cramps that feel like a period 6. Cramps with or without diarrhea If you notice any of the above symptoms, contact our office at [phone] and ask to speak with a nurse. After hours, you can call doctors registry at [phone] OR call [facility] at [phone] and ask to have the doctor precision machinist paged. If you consider this an emergency, dial 5-8-6 or go to your nearest emergency department. NEED HELP? Are you dealing with a violent or abusive relationship? Are you a victim of rape or sexual assult? Call [facility] ([facility] 24 hour Crisis Hotline: 555.916.8371 or 329-048-9827. MANUAL Your Guide to a Healthy manual is now on-line. Visit [email or web address] to download your free copy documented in this encounter [facility] 07-24-2024 Progress note Formatting of t his note might be different from the original. SW- pt doing well. No pain, vb, lof. Good FM PE: Gen- NAD, well appearing Abd- Soft, gravid, NT See flowsheet A/p 30 wk gestation - Anemia: Cont oral iron and repeat CBC ordered for next visit - Discussed upcoming expectations - RTO 2 wks Tatum Yost DO [facility] 07-24-2024 Miscellaneous Notes SW- pt doing well. No pain, vb, lof. Good FM PE: Gen- NAD, well appearing Abd- Soft, gravid, NT See flowsheet A/p 30 wk gestation - Anemia: Cont oral iron and repeat CBC ordered for next visit - Discussed upcoming expectations - RTO 2 wks Tatum Yost DO documented in this encounter [facility] 07-24-2024 Instructions Fanny Skaggs MA - 07/24/2024 1:38 PM EDT SEQUENTIAL SCREENINGS The [facility] offers sequential screenings for women who are interested in screenings for chromosomal abnormalities and certain defects during a . The sequential screen combines ultrasound and blood tests to determine the risk of chromosomal abnormalities, including Down's Syndrome (Trisomy 21) and Trisomy 18, as well as open neural tube defects including spina bifida. Ultrasound examination is performed between 11 weeks and 13 weeks gestational age. Blood tests are drawn after the ultrasound and again later in the between 15 and 21 weeks gestational age. Please let your physician know if you are interested in this testing. It will require an appointment with our electronics warfare technician. This is not an ultrasound performed by a physician in our office during a routine visit. SIGNS AND SYMPTOMS OF LABOR 1. Contractions every 10 minutes or more often 2. Clear, pink, or brownish fluid (water) leaking from vagina 3. Feeling that baby is pushing down, pressure 4. Low, dull backache 5. Cramps that feel like a period 6. Cramps with or without diarrhea If you notice any of the above symptoms, contact our office at [phone] and ask to speak with a nurse. After hours, you can call [employer] registry at [phone] OR call [facility] at [phone] and ask to have the doctor precision machinist paged. If you consider this an emergency, dial 9-1-4 or go to your nearest emergency department. NEED HELP? Are you dealing with a violent or abusive relationship? Are you a victim of rape or sexual assult? Call [facility] ([place]) 24 hour Crisis Hotline: 217.879.1927 or 145-408-6694. MANUAL Your Guide to a Healthy manual is now on-line. Visit [email or web address] to download your free copy documented in this encounter [facility] 07-10-2024 Note HNO ID: [id number] Author: MARY COTTRELL RN Service: ? Author Type: Registered Nurse Type: Progress Notes Filed: 07/10/2024 11:15 Note Text: The patient is here for an injection of Rhogam. Dose: 300 mcg Amount wasted: none. Route: Intramuscular Site: right upper quadrant gluteus Inhalation Therapy Aides Teacher: CSL Behring Lot #: [id number] Expiration Date: 09/14/26 The date due for the next injection is N/A Patient tolerated well. Mary Yeh MD present in office at time of injection. Mary Cottrell RN [facility] 07-10-2024 Note HNO ID: [id number] Author: JENNY NIELSEN MA Service: ? Author Type: Gi Physician Type: Progress Notes Filed: 07/10/2024 11:15 Note Text: Patient identified by name and date of . Jumana Miranda Otto presents today for a vaccination of Tdap. Patient denies an allergy to latex: yes Patient denies a severe (life-threatening) allergy to a previous dose of Tdap, DTP, DTaP, DT or Td vaccine. Yes Patient denies history of epilepsy or neurological problems: Yes Patient is afebrile and denies being moderately or severely ill: Yes Patient denies history of Guillain-[place] Syndrome (a severe paralytic illness): Yes Tdap Adacel injection was given without incident. See immunizations for details of immunizations administered today. VIS sheet provided: Yes Provider Dr Yeh was present in office at time of injection. [facility] 06-20-2024 Telephone encounter Note Order signed and faxed. Yamel Melton RN [facility] 06-20-2024 Miscellaneous Notes Order signed and faxed. Yamel Melton RN Breast pump and belly band order received from [address] To JG to sign. Yamel Melton RN documented in this encounter [facility] 06-18-2024 Telephone encounter Note Breast pump and belly band order received from [address] To JG to sign. Yamel Melton RN [facility] 06-18-2024 Telephone encounter Note 2nd risk assessment form submitted 06/18/2024. Mary Little RN [facility] 06-18-2024 Miscellaneous Notes 2nd risk assessment form submitted 06/18/2024. Mary Little RN documented in this encounter [facility] 06-12-2024 Note HNO ID: [id number] Author: AD ROLAND APRN.PASTRY COOK Service: ? Author Type: Nurse Practitioner Type: Progress Notes Filed: 06/12/2024 14:48 Note Text: EH - S: Jumana is a 24 year old female who presents at 24w0d for a routine visit. Feeling movement. Denies headache, visual changes, chest pain, shortness of breath, vaginal bleeding, leakage of fluid, or dysuria. Some musculoskeletal pain. O: See flow sheet Gen: No apparent distress Abd: Gravid, nontender, S=D ASSESSMENT/PLAN: 1. Encounter for supervision of high risk in second trimester, antepartum - ICD9: V23.9, ICD10: O09.92 (primary diagnosis) - Continue PNV and LDA 24 weeks gestation of - ICD9: V22.2, ICD10: Z3A.24 - GTT, CBC, RPR, type and screen next visit Rh negative state in antepartum period - ICD9: 646.83, ICD10: O26.899, Z67.91 - Plan for Rhogam next visit Obesity affecting in third trimester, unspecified obesity type - ICD9: 649.13, ICD10: O99.213 - Pre BMI 32 PTL precautions reviewed. RTO in 4 weeks or sooner as needed. Ad Roland APRN.PASTRY COOK [facility] 06-12-2024 History of Presen t illness Narrative EH - S: Jumana is a 24 year old female who presents at 24w0d for a routine visit. Feeling movement. Denies headache, visual changes, chest pain, shortness of breath, vaginal bleeding, leakage of fluid, or dysuria. Some musculoskeletal pain. O: See flow sheet Gen: No apparent distress Abd: Gravid, nontender, S=D ASSESSMENT/PLAN: 1. Encounter for supervision of high risk in second trimester, antepartum - ICD9: V23.9, ICD10: O09.92 (primary diagnosis) - Continue PNV and LDA 24 weeks gestation of - ICD9: V22.2, ICD10: Z3A.24 - GTT, CBC, RPR, type and screen next visit Rh negative state in antepartum period - ICD9: 646.83, ICD10: O26.899, Z67.91 - Plan for Rhogam next visit Obesity affecting in third trimester, unspecified obesity type - ICD9: 649.13, ICD10: O99.213 - Pre BMI 32 PTL precautions reviewed. RTO in 4 weeks or sooner as needed. Ad Roland APRN.PASTRY COOK documented in this encounter [facility] 06-12-2024 Instructions Henna Myers MA - 06/12/2024 2:22 PM EDT SEQUENTIAL SCREENINGS The [facility] offers sequential screenings for women who are interested in screenings for chromosomal abnormalities and certain defects during a . The sequential screen combines ultrasound and blood tests to determine the risk of chromosomal abnormalities, including Down's Syndrome (Trisomy 21) and Trisomy 18, as well as open neural tube defects including spina bifida. Ultrasound examination is performed between 11 weeks and 13 weeks gestational age. Blood tests are drawn after the ultrasound and again later in the between 15 and 21 weeks gestational age. Please let your physician know if you are interested in this testing. It will require an appointment with our electronics warfare technician. This is not an ultrasound performed by a physician in our office during a routine visit. SIGNS AND SYMPTOMS OF LABOR 1. Contractions every 10 minutes or more often 2. Clear, pink, or brownish fluid (water) leaking from vagina 3. Feeling that baby is pushing down, pressure 4. Low, dull backache 5. Cramps that feel like a period 6. Cramps with or without diarrhea If you notice any of the above symptoms, contact our office at [phone] and ask to speak with a nurse. After hours, you can call doctors registry at [phone] OR call [facility] at [phone] and ask to have the doctor precision machinist paged. If you consider this an emergency, dial 9-1-9 or go to your nearest emergency department. NEED HELP? Are you dealing with a violent or abusive relationship? Are you a victim of rape or sexual assult? Call [facility] ([place]) 24 hour Crisis Hotline: 289.607.2856 or 998-626-8238. MANUAL Your Guide to a Healthy manual is now on-line. Visit [email or web address] to download your free copy documented in this encounter [facility] 03-21-2025 Progress note Formatting of t his note might be different from the original. S: Jumana Menjivar is a 24 year old female who presents at 10/02/2024, by Last Menstrual Period for a routine visit. Denies headache, visual changes, chest pain, shortness of breath, vaginal bleeding, leakage of fluid, or dysuria. Feeling well, no complaints. O: See flow sheet Gen: No apparent distress Abd: Gravid, nontender Treated a yeast infection with monistat but symptoms worse after one dose. STAT care on SUN but has not results Swabs collected today ASSESSMENT/PLAN: 1. Encounter for supervision of other normal in second trimester - ICD9: V22.1, ICD10: Z34.82 (primary diagnosis) - SYPHILIS TREPONEMAL W/REFLEX - ANEMIA REFLEX PANEL 2. Short interval between pregnancies affecting , antepartum - ICD9: V23.89, ICD10: O09.899 3. Vaginal itching - ICD9: 698.1, ICD10: N89.8 - TABITHA/TRICHOMONAS NAAT - BACTERIAL VAGINOSIS NAAT 4. Screening for diabetes mellitus - ICD9: V77.1, ICD10: Z13.1 - GESTATIONAL GLUCOSE SCREEN, 1-HOUR, 50 GRAM, NON-FASTING Mary Yeh MD [facility] 06-06-2024 Miscellaneous Notes S: Jumana Menjivar is a 24 year old female who presents at 10/02/2024, by Last Menstrual Period for a routine visit. Denies headache, visual changes, chest pain, shortness of breath, vaginal bleeding, leakage of fluid, or dysuria. Feeling well, no complaints. O: See flow sheet Gen: No apparent distress Abd: Gravid, nontender Treated a yeast infection with monistat but symptoms worse after one dose. STAT care on SUN but has not results Swabs collected today ASSESSMENT/PLAN: 1. Encounter for supervision of other normal in second trimester - ICD9: V22.1, ICD10: Z34.82 (primary diagnosis) - SYPHILIS TREPONEMAL W/REFLEX - ANEMIA REFLEX PANEL 2. Short interval between pregnancies affecting , antepartum - ICD9: V23.89, ICD10: O09.899 3. Vaginal itching - ICD9: 698.1, ICD10: N89.8 - TABITHA/TRICHOMONAS NAAT - BACTERIAL VAGINOSIS NAAT 4. Screening for diabetes mellitus - ICD9: V77.1, ICD10: Z13.1 - GESTATIONAL GLUCOSE SCREEN, 1-HOUR, 50 GRAM, NON-FASTING Mary Yeh MD documented in this encounter [facility] 06-06-2024 Instructions Dana Jimenez MA - 06/06/2024 11:01 AM EDT SEQUENTIAL SCREENINGS The [facility] offers sequential screenings for women who are interested in screenings for chromosomal abnormalities and certain defects during a . The sequential screen combines ultrasound and blood tests to determine the risk of chromosomal abnormalities, including Down's Syndrome (Trisomy 21) and Trisomy 18, as well as open neural tube defects including spina bifida. Ultrasound examination is performed between 11 weeks and 13 weeks gestational age. Blood tests are drawn after the ultrasound and again later in the between 15 and 21 weeks gestational age. Please let your physician know if you are interested in this testing. It will require an appointment with our electronics warfare technician. This is not an ultrasound performed by a physician in our office during a routine visit. SIGNS AND SYMPTOMS OF LABOR 1. Contractions every 10 minutes or more often 2. Clear, pink, or brownish fluid (water) leaking from vagina 3. Feeling that baby is pushing down, pressure 4. Low, dull backache 5. Cramps that feel like a period 6. Cramps with or without diarrhea If you notice any of the above symptoms, contact our office at [phone] and ask to speak with a nurse. After hours, you can call doctors registry at [phone] OR call [facility] at [phone] and ask to have the doctor precision machinist paged. If you consider this an emergency, dial or go to your nearest emergency department. NEED HELP? Are you dealing with a violent or abusive relationship? Are you a victim of rape or sexual assult? Call [facility] ([facility] 24 hour Crisis Hotline: 263.247.9134 or 744-152-7942. MANUAL Your Guide to a Healthy manual is now on-line. Visit [email or web address] to download your free copy documented in this encounter [facility] 05-15-2024 Progress note Formatting of t his note might be different from the original. S: Jumana Menjivar is a 24 year old female who presents at 10/02/2024, by Last Menstrual Period for a routine visit. Denies headache, visual changes, chest pain, shortness of breath, vaginal bleeding, leakage of fluid, or dysuria. Feeling well, no complaints. Good movement, No contractions O: See flow sheet Gen: No apparent distress Abd: Gravid, nontender Anatomy prelim normal ASSESSMENT/PLAN: 1. Encounter for supervision of other normal in second trimester - ICD9: V22.1, ICD10: Z34.82 (primary diagnosis) 2. 20 weeks gestation of - ICD9: V22.2, ICD10: Z3A.20 Mary Yeh MD [facility] 05-15-2024 Miscellaneous Notes S: Jumana Menjivar is a 24 year old female who presents at 10/02/2024, by Last Menstrual Period for a routine visit. Denies headache, visual changes, chest pain, shortness of breath, vaginal bleeding, leakage of fluid, or dysuria. Feeling well, no complaints. Good movement, No contractions O: See flow sheet Gen: No apparent distress Abd: Gravid, nontender Anatomy prelim normal ASSESSMENT/PLAN: 1. Encounter for supervision of other normal in second trimester - ICD9: V22.1, ICD10: Z34.82 (primary diagnosis) 2. 20 weeks gestation of - ICD9: V22.2, ICD10: Z3A.20 Mary Yeh MD documented in this encounter [facility] 05-15-2024 Instructions Bashir Toth MA - 05/15/2024 1:54 PM EST SEQUENTIAL SCREENINGS The [facility] offers sequential screenings for women who are interested in screenings for chromosomal abnormalities and certain defects during a . The sequential screen combines ultrasound and blood tests to determine the risk of chromosomal abnormalities, including Down's Syndrome (Trisomy 21) and Trisomy 18, as well as open neural tube defects including spina bifida. Ultrasound examination is performed between 11 weeks and 13 weeks gestational age. Blood tests are drawn after the ultrasound and again later in the between 15 and 21 weeks gestational age. Please let your physician know if you are interested in this testing. It will require an appointment with our electronics warfare technician. This is not an ultrasound performed by a physician in our office during a routine visit. SIGNS AND SYMPTOMS OF LABOR 1. Contractions every 10 minutes or more often 2. Clear, pink, or brownish fluid (water) leaking from vagina 3. Feeling that baby is pushing down, pressure 4. Low, dull backache 5. Cramps that feel like a period 6. Cramps with or without diarrhea If you notice any of the above symptoms, contact our office at [phone] and ask to speak with a nurse. After hours, you can call doctors registry at [phone] OR call [facility] at [phone] and ask to have the doctor precision machinist paged. If you consider this an emergency, dial 9-1-3 or go to your nearest emergency department. NEED HELP? Are you dealing with a violent or abusive relationship? Are you a victim of rape or sexual assult? Call [facility] [place] ([facility] 24 hour Crisis Hotline: 706.190.9906 or 536-643-3012. MANUAL Your Guide to a Healthy manual is now on-line. Visit [email or web address] to download your free copy documented in this encounter [facility] 04-17-2024 Progress note Formatting of t his note might be different from the original. S: Jumana Menjivar is a 24 year old female who presents at 10/02/2024, by Last Menstrual Period for a routine visit. Denies visual changes, chest pain, shortness of breath, vaginal bleeding, leakage of fluid, or dysuria. Feeling well, no complaints. Nausea better but still getting headaches. Magnesium worked last O: See flow sheet Gen: No apparent distress Early anatomy today 20 week scan scheduled ASSESSMENT/PLAN: 1. Short interval between pregnancies affecting , antepartum - ICD9: V23.89, ICD10: O09.899 (primary diagnosis) 2. Encounter for supervision of other normal in second trimester - ICD9: V22.1, ICD10: Z34.82 3. 16 weeks gestation of - ICD9: V22.2, ICD10: Z3A.16 Mary Yeh MD [facility] 04-17-2024 Miscellaneous Notes S: Jumana Menjivar is a 24 year old female who presents at 10/02/2024, by Last Menstrual Period for a routine visit. Denies visual changes, chest pain, shortness of breath, vaginal bleeding, leakage of fluid, or dysuria. Feeling well, no complaints. Nausea better but still getting headaches. Magnesium worked last O: See flow sheet Gen: No apparent distress Early anatomy today 20 week scan scheduled ASSESSMENT/PLAN: 1. Short interval between pregnancies affecting , antepartum - ICD9: V23.89, ICD10: O09.899 (primary diagnosis) 2. Encounter for supervision of other normal in second trimester - ICD9: V22.1, ICD10: Z34.82 3. 16 weeks gestation of - ICD9: V22.2, ICD10: Z3A.16 Mary Yeh MD documented in this encounter [facility] 04-17-2024 Instructions Jenny Nielsen MA - 04/17/2024 4:10 PM EST SEQUENTIAL SCREENINGS The [facility] offers sequential screenings for women who are interested in screenings for chromosomal abnormalities and certain defects during a . The sequential screen combines ultrasound and blood tests to determine the risk of chromosomal abnormalities, including Down's Syndrome (Trisomy 21) and Trisomy 18, as well as open neural tube defects including spina bifida. Ultrasound examination is performed between 11 weeks and 13 weeks gestational age. Blood tests are drawn after the ultrasound and again later in the between 15 and 21 weeks gestational age. Please let your physician know if you are interested in this testing. It will require an appointment with our electronics warfare technician. This is not an ultrasound performed by a physician in our office during a routine visit. SIGNS AND SYMPTOMS OF LABOR 1. Contractions every 10 minutes or more often 2. Clear, pink, or brownish fluid (water) leaking from vagina 3. Feeling that baby is pushing down, pressure 4. Low, dull backache 5. Cramps that feel like a period 6. Cramps with or without diarrhea If you notice any of the above symptoms, contact our office at [phone] and ask to speak with a nurse. After hours, you can call doctors registry at [phone] OR call [facility] at [phone] and ask to have the doctor precision machinist paged. If you consider this an emergency, dial [phone] or go to your nearest emergency department. NEED HELP? Are you dealing with a violent or abusive relationship? Are you a victim of rape or sexual assult? Call [facility] [place] ([facility] 24 hour Crisis Hotline: 365.654.1514 or 090-515-6667. MANUAL Your Guide to a Healthy manual is now on-line. Visit [email or web address] to download your free copy documented in this encounter [facility] 04-14-2024 Miscellaneous Notes Faxed to [facility] in [place]. Mary Cottrell RN documented in this encounter [facility] 04-14-2024 Telephone encounter Note Faxed to [facility] in [place]. Mary Highman, RN [facility] 03-21-2024 Note Addended by: TATUM YOST on: 03/21/2024 01:35 PM Modules accepted: Orders [facility] 03-21-2024 Miscellaneous Notes Addended by: TATUM YOST on: 03/21/2024 01:35 PM Modules accepted: Orders SW- Acid reflux. No pain, vb, lof. PE: Gen- NAD, well appearing Abd- Soft A/p 12 wk gestation - Start baby ASA - NOB labs completed - Start Pepcid - Schedule anatomy US - RTO 4 wks Tatum Yost DO documented in this encounter [facility] 03-21-2024 Progress note Formatting of t his note might be different from the original. SW- Acid reflux. No pain, vb, lof. PE: Gen- NAD, well appearing Abd- Soft A/p 12 wk gestation - Start baby ASA - NOB labs completed - Start Pepcid - Schedule anatomy US - RTO 4 wks Tatum Yost DO [facility] 03-21-2024 Instructions Fanny Skaggs MA - 03/21/2024 1:05 PM EST SEQUENTIAL SCREENINGS The [facility] offers sequential screenings for women who are interested in screenings for chromosomal abnormalities and certain defects during a . The sequential screen combines ultrasound and blood tests to determine the risk of chromosomal abnormalities, including Down's Syndrome (Trisomy 21) and Trisomy 18, as well as open neural tube defects including spina bifida. Ultrasound examination is performed between 11 weeks and 13 weeks gestational age. Blood tests are drawn after the ultrasound and again later in the between 15 and 21 weeks gestational age. Please let your physician know if you are interested in this testing. It will require an appointment with our electronics warfare technician. This is not an ultrasound performed by a physician in our office during a routine visit. SIGNS AND SYMPTOMS OF LABOR 1. Contractions every 10 minutes or more often 2. Clear, pink, or brownish fluid (water) leaking from vagina 3. Feeling that baby is pushing down, pressure 4. Low, dull backache 5. Cramps that feel like a period 6. Cramps with or without diarrhea If you notice any of the above symptoms, contact our office at [phone] and ask to speak with a nurse. After hours, you can call doctors registry at [phone] OR call [facility] at [phone] and ask to have the doctor precision machinist paged. If you consider this an emergency, dial 9--3 or go to your nearest emergency department. NEED HELP? Are you dealing with a violent or abusive relationship? Are you a victim of rape or sexual assult? Call [facility] 24 hour Crisis Hotline: 896.176.6414 or 943-165-4196. MANUAL Your Guide to a Healthy manual is now on-line. Visit [email or web address] to download your free copy documented in this encounter [facility] 02-21-2024 Telephone encounter Note 1st risk assessment form submitted 02/21/2024. Mary Little RN [facility] 02-21-2024 Miscellaneous Notes 1st risk assessment form submitted 02/21/2024. Mary Little RN documented in this encounter [facility] 02-19-2024 Mitra Nunez LPN - 02/19/2024 8:02 AM EST Please select the following link to access the [facility] Your Guide to a Healthy . [email or web address] documented in this encounter [facility] 02-06-2024 Telephone encounter Note I called patient and did intake questions [facility] 02-06-2024 Miscellaneous Notes I called patient and did intake questions Attempted to contact the patient to go over new ob intake questions. No answer. Left voicemail. Adrienne Guzman MA documented in this encounter [facility] 02-06-2024 Note HNO ID: [id number] Author: KATHIE DEGROOT APRN.PASTRY COOK Service: ? 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 *Delivered last child 01/25/2023. FOB is the father of her previous child. * Declined aneuploidy screening INITIAL OB ASSESSMENT HPI: Jumana is a 24 year old White here to establish Obstetrical Care. Patient's last menstrual period was 12/27/2023 (exact date). from OB Dating Form. was planned-FOJerilyn is the father of her other child. Complaints: No OB History T1 L1 SAB1 IAB0 Ectopic0 Multiple0 Live Births1 # 1 - Date: 07/2021, Sex: None, Weight: None, GA: 8w0d, Type: MISSED AB, Apgar1: None, Apgar5: None, Living: None, Comments: DANDC # 2 - Date: 03/18/22, Sex: None, Weight: None, GA: 6w0d, Type: SPONTANEOUS , Apgar1: None, Apgar5: None, Living: None, Comments: No DANDC # 3 - Date: 01/25/23, Sex: Female, Weight: 2.948 kg (6 lb 8 oz), GA: 39w6d, Type: Vaginal, Spontaneous, Apgar1: 8, Apgar5: 9, Living: Living, Comments: spontaneous labor, EBL 300mL, 1st degree vaginal laceration # 4 - Date: None, Sex: None, Weight: None, GA: None, Type: None, Apgar1: None, Apgar5: None, Living: None, Comments: None Previous history: Prior : never History of 4th degree laceration: No History of shoulder dystocia: No History of Hypertensive disorders including pre-eclampsia or gestational hypertension: No History of gestational diabetes: No Patient's Risk Screening for delivery: Have you had a prior mejia between 20w and 36w6d? No How many pregnancies have you had before? 3 Did you have a previous baby with a GBS Infection? No Please select all that apply for any prior : N/A MEDICAL/PSYCHOSOCIAL HISTORY: History of hemorrhage or bleeding concerns: No Thyroid Disease: No History of chronic hypertension: No History of pre-existing diabetes: No No results found for: ABORHD No weight on file for this encounter. Last Pap: 08/16/2022 History of abnormal pap: No Prior treatment for cervical dysplasia: none. Last HPV: History of STDs: None Partner History of STDs: None Did you have a partner with Herpes? No Tobacco use: No E-Cigarette/Vaping Use: No Caffeine use: Yes 1 can of soda a day Drug use: No Alcohol use: No Multivitamin with Folic acid: Yes Would refuse blood transfusion if medically necessary: No Social Needs: How often does this describe you? I don't have enough money to pay my bills: Never Within the past 12 months, have you worried that your food would run out before you had money to buy more? Never In the past 12 months, has lack of reliable transportation kept you from going to medical appointments or work, or from getting things needed for daily living? Never In the past 12 months, have you had any concerns about having a place to live, or about the condition or quality of your housing? Never Would you like more information on any of the following (please check all that apply)? Not interested Social History: Do you have any history of depression, anxiety, PTSD, or other mood problems? No Do you have a history of abuse or trauma that may impact your experience? No Are you currently employed? Yes Depression/Anxiety Screening: denies symptoms of depression. OB Depression and Anxiety Screening- This Encounter (since 02/05/2024) Over the past 2 weeks have you felt down, depressed, or hopeless? Negative Over the past two weeks, have you felt little interest or pleasure in doing things?? Negative Feeling nervous, anxious or on edge 0-Not at all Not being able to stop or control worrying 0-Not al all Anxiety Pre-Screening Total (If >/= 3 additional questions will be reviewed) 0 Genetic Screening: Partner present: No Patient verbalized knowledge of partner family health history: Yes Do you or your partner have any personal or family history of defects not previously discussed: No Do you have history of a complicated by anomaly, genetic condition, or demise: No Preeclampsia Risk Screening: Screening for prevention of preeclampsia: High risk factors: None Moderate risk ractors: Obesity (body mass index greater than 30) OB Risk Screening: Completed, no positive findings documented. 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 (Patient not taking: Reported on 03/13/2023) 100 tablet 3 aspirin, enteric coated (ASPIRIN, ENTERIC COATED) 81 mg EC tabl (more content not included)... 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 *Delivered last child 01/25/2023. FOB is the father of her previous child. * Declined aneuploidy screening INITIAL OB ASSESSMENT HPI: Jumana is a 24 year old White here to establish Obstetrical Care. Patient's last menstrual period was 12/27/2023 (exact date). from OB Dating Form. was planned-FOB is the father of her other child. Complaints: No OB History T1 L1 SAB1 IAB0 Ectopic0 Multiple0 Live Births1 # 1 - Date: 07/2021, Sex: None, Weight: None, GA: 8w0d, Type: MISSED AB, Apgar1: None, Apgar5: None, Living: None, Comments: D&C # 2 - Date: 03/18/22, Sex: None, Weight: None, GA: 6w0d, Type: SPONTANEOUS , Apgar1: None, Apgar5: None, Living: None, Comments: No D&C # 3 - Date: 01/25/23, Sex: Female, Weight: 2.948 kg (6 lb 8 oz), GA: 39w6d, Type: Vaginal, Spontaneous, Apgar1: 8, Apgar5: 9, Living: Living, Comments: spontaneous labor, EBL 300mL, 1st degree vaginal laceration # 4 - Date: None, Sex: None, Weight: None, GA: None, Type: None, Apgar1: None, Apgar5: None, Living: None, Comments: None Previous history: Prior : never History of 4th degree laceration: No History of shoulder dystocia: No History of Hypertensive disorders including pre-eclampsia or gestational hypertension: No History of gestational diabetes: No Patient's Risk Screening for delivery: Have you had a prior mejia between 20w and 36w6d? No How many pregnancies have you had before? 3 Did you have a previous baby with a GBS Infection? No Please select all that apply for any prior : N/A MEDICAL/PSYCHOSOCIAL HISTORY: History of hemorrhage or bleeding concerns: No Thyroid Disease: No History of chronic hypertension: No History of pre-existing diabetes: No No results found for: ABORHD No weight on file for this encounter. Last Pap: 08/16/2022 History of abnormal pap: No Prior treatment for cervical dysplasia: none. Last HPV: History of STDs: None Partner History of STDs: None Did you have a partner with Herpes? No Tobacco use: No E-Cigarette/Vaping Use: No Caffeine use: Yes 1 can of soda a day Drug use: No Alcohol use: No Multivitamin with Folic acid: Yes Would refuse blood transfusion if medically necessary: No Social Needs: How often does this describe you? I don't have enough money to pay my bills: Never Within the past 12 months, have you worried that your food would run out before you had money to buy more? Never In the past 12 months, has lack of reliable transportation kept you from going to medical appointments or work, or from getting things needed for daily living? Never In the past 12 months, have you had any concerns about having a place to live, or about the condition or quality of your housing? Never Would you like more information on any of the following (please check all that apply)? Not interested Social History: Do you have any history of depression, anxiety, PTSD, or other mood problems? No Do you have a history of abuse or trauma that may impact your experience? No Are you currently employed? Yes Depression/Anxiety Screening: denies symptoms of depression. OB Depression and Anxiety Screening- This Encounter (since 02/05/2024) Over the past 2 weeks have you felt down, depressed, or hopeless? Negative Over the past two weeks, have you felt little interest or pleasure in doing things? Negative Feeling nervous, anxious or on edge 0-Not at all Not being able to stop or control worrying 0-Not al all Anxiety Pre-Screening Total (If >/= 3 additional questions will be reviewed) 0 Genetic Screening: Partner present: No Patient verbalized knowledge of partner family health history: Yes Do you or your partner have any personal or family history of defects not previously discussed: No Do you have history of a complicated by anomaly, genetic condition, or demise: No Preeclampsia Risk Screening: Screening for prevention of preeclampsia: High risk factors: None Moderate risk ractors: Obesity (body mass index greater than 30) OB Risk Screening: Completed, no positive findings documented. 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 (Patient not taking: Reported on 03/13/2023) 100 tablet 3 aspirin, enteric coated (ASPIRIN, ENTERIC COATED) 81 mg EC tablet Take 1 tablet by mouth once daily. (Patient not taking: Reported on 03/13/2023) 100 tablet 1 prental multivitamin 27 mg iron- 800 mcg tablet Take 1 tablet by mouth once daily. ALBUTEROL INHALATION Inhale as instructed. No current facility-administered medications for this visit. Allergies As of Date: 02/19/2024 (No Known Allergies) Fully Assessed 03/13/2023 Does patient have penicillin allergy: No REVIEW OF SYSTEMS: GENERAL: Negative for: Fever or Chills HEENT: Negative for: Headache, Impaired Vision, Ringing in Ears, Nosebleeds NECK: Negative for: Swelling, Pain, Stiffness RESPIRATORY: Negative for: Cough, Shortness of breath, Wheezing GASTROINTESTINAL: Negative for: Heartburn, Constipation, Diarrhea, Blood in stool, and Positive for: Nausea and Vomiting MUSCULOSKELETAL: Negative for: Muscle or joint pain, stiffness, Joint swelling NEUROLOGIC/PSYCHIATRIC: Negative for: Weakness, Paralysis, Numbness, Tingling, Tremor, Anxiety, Depression, Memory loss SKIN: Negative for: Rash, Itching GENITOURINARY: Negative for: vaginal itching, vaginal discharge, hematuria or dysuria SENSITIVE EXAM: The sensitive examination was discussed with the Patient or Patient's Authorized Counter Pocket Sewer. As applicable, any other physician, advance practice provider, medical student, or other health professional student that will be observing or involved in the sensitive examination for educational or training purposes was discussed with the Patient or Authorized Counter Pocket Sewer. The Patient or Authorized Counter Pocket Sewer has agreed to proceed with the sensitive examination. (Sensitive examination includes inspection and/or palpation of the breasts, pelvis, prostate and anorectal regions). PHYSICAL EXAM: LMP 12/27/2023 GENERAL: pleasant in no apparent distress DERMATOLOGY: Normal, without lesions, non-icteric, and non-hirsute NECK: Supple, full range of motion, no adenopathy, and thyroid normal CHEST: Normal inspiratory effort BREAST: soft, non-tender, symmetric, no dominant mass, normal nipple-areolar complex, no lymphadenopathy, and no nipple discharge ABDOMEN: soft, non-tender, and no masses NEURO: alert and oriented x3,exam grossly non-focal PELVIS: External genitalia normal without lesions. Perineal body intact. No vaginal or cervical lesions. Cervix closed. No adnexal masses or tenderness. Clinical Pelvimetry: Pelvimetry clinically assessed as adequate Limited OB ultrasound exam: single intrauterine , positive cardiac activity, and POCUS performed. +cardiac activity, CRL consistent with LMP. Kathie Degroot APRN.PASTRY COOK ASSESSMENT: 24 year old at 5w6d wks gestational age PLAN: 1) Patient oriented to practice. Patient given new OB orientation folder. Discussed nutrition, folic acid supplementation, dietary guidelines, exercise, smoking, alcohol, caffeine, and drug use. Discussed gestational weight gain guidelines. Discussed routine OB labs including STD/HIV. Discussed how to access Your guide to a health and the Rehabilitation Clerk. Reviewed midwifery and inventory coordinator services that are available. 2) Screening: Hemoglobin A1C: ordered Baby Aspirin: The patient has been counseled about the potential benefits of low dose aspirin in and our recommendation that this be offered to all patients, regardless of whether they meet the high risk criteria specified above. She Accepts Aneuploidy Screening: Discussed aneuploidy screening, nuchal translucency/first trimester early anatomy ultrasound and NIPT. The risks/benefits and limitations of NIPT/aneuploidy screening were reviewed including the potential for false negative and false positive results. The availability of genetic counseling was reviewed. Information on aneuploidy screening was provided. The patient declines screening Myriad Carrier Screening: Discussed myriad carrier screening. We discussed the availability of professional-society guided carrier screening and reviewed the conditions screened and limitations of screening. The availability of genetic counseling was reviewed. Information on carrier screening was provided. The patient Declines 3) Patient offered option of Virtual Visits. Patient unsure. May consider in future. 4) Obesity (BMI >30), will order early glucose screen or Hemoglobin A1C. Short interval between pregnancies Follow up in 4 weeks or sooner dinh. Kathie Degroot APRN.CNP documented in this encounter [facility] 02-06-2024 Telephone encounter Note Attempted to contact the patient to go over new ob intake questions. No answer. Left voicemail. Adrienne Guzman MA [facility] 01-26-2023 Discharge summary Note Date/Time January 26, 2023 8:39am [facility] Medical Records Department [address] [place] [address] Discharge Summary 01/26/23 0837 MR#: [id number] Acct: [id number] Name: JUMANA MENJIVAR Rep #:[id number] : 2000 23 From: Beena Walters CNM PCP: ERIN POWELL Status:ADM IN Location: [id number] Providers Date of Admission: 01/25/23 Primary Care Physician: ERIN POWELL Reason For Visit: VAGINAL DELIVERY Diagnosis Discharge Diagnosis (1) Meconium in amniotic fluid: Status: Acute Code(s): P96.83 - Meconium staining (2) Artificial rupture of membranes antepartum: Status: Acute (3) Obesity affecting : Status: Acute Code(s): O99.210 - Obesity complicating , unspecified trimester (4) Spontaneous onset of labor: Status: Acute (5) Rh negative status during : Status: Acute Code(s): O26.899 - Other specified related conditions, unspecified trimester; Z67.91 - Unspecified blood type, Rh negative (6) (spontaneous vaginal delivery): Status: Acute Code(s): O80 - Encounter for full-term uncomplicated delivery Plan CE 1 bulging bag AROM for meconium fluid Continue present plan of care Anticipate Medications at Discharge Home Medications ipratropium 20 mcg-albuterol 100 mcg/actuation mist for inhalation 1 puff inhalation Q6H 01/24/23 Hospital Course Operations None Procedures None Summary of Care Provided Minutes Spent on Discharge: 15 Hospital Course: Patient had . Hospital course was uneventful. Physical Exam Narrative Patient seen at bedside. Ambulating and voiding without difficulty. Formula feeding. Desires discharge home today. Const alert and no apparent distress General Appearance: cooperative and comfortable Exam Limitations: no limitations HEENT normocephalic Eyes General Eye: normal appearance of both eyes Neck full ROM General: normal visual inspection Chest Chest: symmetrical chest wall rise Resp normal respiratory effort and normal air movement Effort and Inspection: symmetric chest movement Auscultation: clear to auscultation bilaterally Cardio regular rate and regular rhythm GI normal to inspection, nondistended, normoactive bowel sounds Back/Spine normal ROM Extremity full ROM and no calf tenderness General Extremity: normal exam except as noted Skin no rashes or lesions noted Neuro CN's II-XII intact bilaterally Psych mental status grossly normal Weight / BMI Weight Weight: 220 lb 0.341 oz Body Mass Index (BMI) 37.8 ABG / Lab / Microbiology Data 01/24/23 22:20 Microbiology: Microbiology 01/24/23 22:44 Urine, Clean Catch Urine Culture - Preliminary Culture exhibits no growth. D/C Instructions Discharge Diet: No restrictions Discharge Activity: Return to Normal Activity, May Shower and May Take a Tub Bath May resume sexual activity in: 4-6 weeks Weight Bearing Status: Weight bearing as tolerated Call your doctor if you observe: Fever of 101 or Higher, Inability to urinate, Using more than 1 pad per hour, Shortness of breath, Dizziness, Swelling in the ankles, Chest pain, Calf discomfort and Uncontrolled pain Please Follow Up With: Beena Walters CNM When: Within 10 days Meaningful Use Info Meaningful Use Diagnoses (Choose all that apply): None applicable Discharge Plan Admission Admit Date/Time: 01/25/23 00:16 Primary Reason for Your Visit: Labor and Delivery Attending Provider: Keo Garcia Primary Care Provider: ERIN POWELL Discharge Orders/Prescriptions Prescriptions: Continued ipratropium-albuterol 20-100 mcg/actuation mist 1 puff inhalation Q6H Discontinued aspirin [Remlap Aspirin] 81 mg tablet,delayed release (DR/EC) 81 mg PO DAILY magnesium oxide 420 mg tablet 420 mg PO DAILY Referrals / Follow Up: ERIN POWELL [Other] Disposition Disposition (needs filled in before D/C Order can be placed): Home, Self Care 01/26/23 0841 <Electronically signed by Beena Walters CNM> Cosigner Signature (if applicable): CC: CECILE Walters; ERIN POWELL~ Signed [facility] Work Phone: 1(198) 404-999411-10-2023 [facility] Medical Records Department [address] [place] [id number] Discharge Summary 01/26/23 0837 MR#: [id number] Acct: [id number] Name: JUMANA MENJIVAR Rep #: [id number] : 2000 23 From: Beena Walters CNM PCP: ERIN POWELL Status:ADM IN Location: [id number] Providers Date of Admission: 01/25/23 Primary Care Physician: ERIN POWELL Reason For Visit: VAGINAL DELIVERY Diagnosis Discharge Diagnosis (1) Meconium in amniotic fluid: Status: Acute Code(s): P96.83 - Meconium staining (2) Artificial rupture of membranes antepartum: Status: Acute (3) Obesity affecting : Status: Acute Code(s): O99.210 - Obesity complicating , unspecified trimester (4) Spontaneous onset of labor: Status: Acute (5) Rh negative status during : Status: Acute Code(s): O26.899 - Other specified related conditions, unspecified trimester; Z67.91 - Unspecified blood type, Rh negative (6) (spontaneous vaginal delivery): Status: Acute Code(s): O80 - Encounter for full-term uncomplicated delivery Plan CE /-1 bulging bag AROM for meconium fluid Continue present plan of care Anticipate Medications at Discharge Home Medications ipratropium 20 mcg-albuterol 100 mcg/actuation mist for inhalation 1 puff inhalation Q6H 01/24/23 Hospital Course Operations None Procedures None Summary of Care Provided Minutes Spent on Discharge: 15 Hospital Course: Patient had . Hospital course was uneventful. Physical Exam Narrative Patient seen at bedside. Ambulating and voiding without difficulty. Formula feeding. Desires discharge home today. Const alert and no apparent distress General Appearance: cooperative and comfortable Exam Limitations: no limitations HEENT normocephalic Eyes General Eye: normal appearance of both eyes Neck full ROM General: normal visual inspection Chest Chest: symmetrical chest wall rise Resp normal respiratory effort and normal air movement Effort and Inspection: symmetric chest movement Auscultation: clear to auscultation bilaterally Cardio regular rate and regular rhythm GI normal to inspection, nondistended, normoactive bowel sounds Back/Spine normal ROM Extremity full ROM and no calf tenderness General Extremity: normal exam except as noted Skin no rashes or lesions noted Neuro CN's II-XII intact bilaterally Psych mental status grossly normal Weight / BMI Weight Weight: 220 lb 0.341 oz Body Mass Index (BMI) 37.8 ABG / Lab / Microbiology Data 01/24/23 22:20 Microbiology: Microbiology 01/24/23 22:44 Urine, Clean Catch Urine Culture - Preliminary Culture exhibits no growth. D/C Instructions Discharge Diet: No restrictions Discharge Activity: Return to Normal Activity, May Shower and May Take a Tub Bath May resume sexual activity in: 4-6 weeks Weight Bearing Status: Weight bearing as tolerated Call your doctor if you observe: Fever of 101 or Higher, Inability to urinate, Using more than 1 pad per hour, Shortness of breath, Dizziness, Swelling in the ankles, Chest pain, Calf discomfort and Uncontrolled pain Please Follow Up With: Beena Walters CNM When: Within 10 days Meaningful Use Info Meaningful Use Diagnoses (Choose all that apply): None applicable Discharge Plan Admission Admit Date/Time: 01/25/23 00:16 Primary Reason for Your Visit: Labor and Delivery Attending Provider: Keo Garcia Primary Care Provider: ERIN POWELL Discharge Orders/Prescriptions Prescriptions: Continued ipratropium-albuterol 20-100 mcg/actuation mist 1 puff inhalation Q6H Discontinued aspirin [Remlap Aspirin] 81 mg tablet,delayed release (DR/EC) 81 mg PO DAILY magnesium oxide 420 mg tablet 420 mg PO DAILY Referrals / Follow Up: ERIN POWELL [Other] Disposition Disposition (needs filled in before D/C Order can be placed): Home, Self Care 01/26/23 0841 Cosigner Signature (if applicable): CC: CECILE Walters; ERIN POWELL [facility] History of Present illness Narrative * Yamel Melton RN - 01/25/2023 4:58 PM EST Patient delivered via by Dr. Eugene on 01/25/23 at [facility]. See OB history. Yamel Melton RN documented in this encounterUniversity Hospitals [facility]11-09-2023 Procedure [facility]11-09-2023 Progress note Author Yandel james [facility] January 25, 2023 9:49am Note Date/Time January 25, 2023 9 :49am [facility] Medical Records Department [address] [place] [address] Progress Note 01/25/2348 MR#: [id number] Acct: [id number] Name: JUMANA MENJIVAR Rep #:[id number] : 2000 23 From: Millicent Eugene MD PCP: ERIN POWELL Status:ADM IN Location: WI741-2 Progress Note pt examined at bedside, VE/0. continue pitocin and labor at this time. FHR tracing reviewed. anticipate . 01/25/2349 <Electronically signed by Millicent Ribeiro MD> Millicent Ribeiro MD Cosigner Signature (if applicable): CC: ~ Signed [facility] Work Phone: 1(458) 429-273511-09-2023 Progress note Author [facility] January 25, 2023 7:44am Note Date/Time January 25, 2023 7 :44am [facility] Medical Records Department [address] [place] [address] Progress Note 01/25/23741 MR#: [id number] Acct: [id number] Name: JUMANA MENJIVAR Rep #:[id number] : 2000 23 From: Beena Walters CNM PCP: ERIN POWELL Status:ADM IN Location: LD674-6 Progress Note Patient seen at bedside. Remains comfortable with epidural. Desires AROM. Assessment & Plan Assessment/Plan (1) Meconium in amniotic fluid: (2) Artificial rupture of membranes antepartum: (3) 39 weeks gestation of : (4) Obesity affecting : (5) Spontaneous onset of labor: (6) Rh negative status during : PLAN: Plan CE bulging bag AROM for meconium fluid Continue present plan of care Anticipate 01/25/2344 <Electronically signed by Beena Walters CNM> Beena Walters CNM Cosigner Signature (if applicable): CC: ~ Signed [facility] Work Phone: 1(323) 950-589611-09-2023 Progress note Author Beena [facility] January 25, 2023 7:29am Note Date/Time January 25, 2023 7 :29am [facility] Medical Records Department [address] [place] [address] Progress Note 01/25/23725 MR#: [id number] Acct: [id number] Name: JUMANA MENJIVAR Rep #:[id number] : 2000 23 From: Beena Walters CNM PCP: ERIN POWELL Status:ADM IN Location: [id number] Progress Note Patient comfortable with epidural anesthesia. Assessment & Plan Assessment/Plan (1) Spontaneous onset of labor: (2) 39 weeks gestation of : (3) Rh negative status during : (4) Obesity affecting : (5) Recurrent UTI: PLAN: Plan Continue present plan of care Continue Pitocin IV and increase per policy GBS negative CE bulging bag Anticipate Dr. Eugene updated and assuming management 01/25/23 07 <Electronically signed by Beena Walters CNM> Beena Walters CNM Cosigner Signature (if applicable): CC: ~ Signed [facility] Work Phone: 1(672) 710-976711-09-2023 History and physical note Author Beena [facility] January 25, 2023 7:26am Note Date/Time January 25, 2023 7 :16am [facility] Medical Records Department [address] [place] [id number] H&P Exam - [employer] 01/25/23 0710 MR#: [id number] Acct: [id number] Name: JUMANA MENJIVAR Rep #:[id number] : 2000 23 From: Beena Walters CNM PCP: ERIN POWELL Status:ADM IN Location: [id number] HPI - General General Date of Admission: 01/25/23 HPI Narrative JUMANA MNEJIVAR, is a 23 F at 39.5 weeks gestation who presents to triage withcontractions. She was seen in triage earlier in the day and sent home due to no cervical change. Continued to have contractions at home that increased with intensity and pain. Unsure if she is leaking fluid. Positive movement. PFSH PFSH Home Medications aspirin 81 mg tablet,delayed release (Remlap Aspirin) 81 mg PO DAILY 01/24/23 [History Last Taken 01/17/23 08:00 81 mg] ipratropium 20 mcg-albuterol 100 mcg/actuation mist for inhalation 1 puff inhalation Q6H 01/24/23 [History Last Taken Unknown] magnesium oxide 420 mg tablet 420 mg PO DAILY 01/24/23 [History Last Taken 01/17/23 08:00 420 mg] Allergy/AdvReac Type Severity Reaction Status Date / Time No Known Allergies Allergy Verified 01/24/23 10:49 Surgical History (Updated 01/25/23 @ 00:41 by Marni Carcamo) History of surgery Social History Smoking Status: Never smoker History Elective abortions Hx Para 0 Spontaneous abortions Hx # Term Pregnancies Ectopic pregnancies Hx # Pregnancies Multiple births # of living children ROS Eyes Eyes: Denies blurry vision, change in vision or spots in vision ENT HEENT: Denies dizziness or headache(s) Cardiovascular Cardiovascular: Denies abdominal pain, chest pain or dyspnea Respiratory/Chest Respiratory/Chest: Denies cough, dyspnea, shortness of breath at rest or shortness of breath with exertion Gastrointestinal Gastrointestinal: Denies abdominal pain, diarrhea or vomiting Genitourinary Genitourinary: Denies change in urinary stream, difficulty urinating or dysuria Musculoskeletal Musculoskeletal: Reports none Integumentary Integumentary: Denies rash Neurologic Neurologic: Denies dizziness, headache(s), memory loss or weakness Psychiatric Psychiatric: Reports none Vital Signs Vital Signs Vital Signs: 01/24/23 21:43 01/24/23 21:43 01/24/23 21:44 Temperature Temperature Source Tympanic Pulse Rate 110 H Blood Pressure BP Systolic BP Diastolic Pulse Ox 99 01/24/23 21:44 01/24/23 21:44 01/24/23 21:44 Temperature 98.8 F Temperature Source Pulse Rate 82 Blood Pressure 123/76 H BP Systolic 123 BP Diastolic 76 Pulse Ox 01/25/23 00:54 01/25/23 00:54 01/25/23 00:54 Temperature Temperature Source Pulse Rate 104 H Blood Pressure 125/73 H BP Systolic 125 BP Diastolic 73 Pulse Ox 98 01/25/23 00:55 01/25/23 00:55 01/25/23 01:32 Temperature 98.0 F Temperature Source Tympanic Pulse Rate 112 H Blood Pressure BP Systolic BP Diastolic Pulse Ox 01/25/23 01:32 01/25/23 01:37 01/25/23 01:37 Temperature Temperature Source Pulse Rate 113 H Blood Pressure 134/79 H BP Systolic 134 BP Diastolic 79 Pulse Ox 100 01/25/23 01:37 01/25/23 01:37 01/25/23 01:42 Temperature Temperature Source Pulse Rate 114 H Blood Pressure 126/71 H BP Systolic 126 BP Diastolic 71 Pulse Ox 99 01/25/23 01:42 01/25/23 01:42 01/25/23 01:42 Temperature Temperature Source Pulse Rate 93 95 Blood Pressure BP Systolic BP Diastolic Pulse Ox 99 01/25/23 01:47 01/25/23 01:47 01/25/23 01:47 Temperature Temperature Source Pulse Rate 89 Blood Pressure 127/75 H BP Systolic 127 BP Diastolic 75 Pulse Ox 100 01/25/23 01:52 01/25/23 01:52 01/25/23 01:52 Temperature Temperature Source Pulse Rate 93 Blood Pressure 140/80 H BP Systolic 140 BP Diastolic 80 Pulse Ox 97 01/25/23 01:58 01/25/23 01:58 01/25/23 01:57 Temperature Temperature Source Pulse Rate 100 Blood Pressure 129/66 H BP Systolic 129 BP Diastolic 66 Pulse Ox 99 01/25/23 02:02 01/25/23 02:02 01/25/23 02:02 Temperature Temperature Source Pulse Rate 99 Blood Pressure 120/63 BP Systolic 120 BP Diastolic 63 Pulse Ox 99 01/25/23 02:07 01/25/23 02:07 01/25/23 02:07 Temperature Temperature Source Pulse Rate 102 H Blood Pressure 124/71 H BP Systolic 124 BP Diastolic 71 Pulse Ox 100 01/25/23 02:12 01/25/23 02:12 01/25/23 02:12 Temperature Temperature Source Pulse Rate 99 101 H Blood Pressure 129/72 H BP Systolic 129 BP Diastolic 72 Pulse Ox 01/25/23 02:12 01/25/23 02:17 01/25/23 02:17 Temperature Temperature Source Pulse Rate 106 H Blood Pressure 130/71 H BP Systolic 130 BP Diastolic 71 Pulse Ox 100 01/25/23 02:17 01/25/23 02:50 01/25/23 02:50 Temperature Temperature Source Tympanic Pulse Rate Blood Pressure 118/73 BP Systolic 118 BP Diastolic 73 Pulse Ox 100 01/25/23 02:50 01/25/23 02:50 01/25/23 03:47 Temperature 98.8 F Temperature Source Pulse Rate 108 H Blood Pressure 125/70 H BP Systolic 125 BP Diastolic 70 Pulse Ox 01/25/23 03:47 01/25/23 03:47 01/25/23 03:47 Temperature Temperature Source Tympanic Pulse Rate 98 Blood Pressure BP Systolic BP Diastolic Pulse Ox 99 01/25/23 03:47 01/25/23 04:43 01/25/23 04:43 Temperature 98.8 F 98.0 F Temperature Source Tympanic Pulse Rate Blood Pressure BP Systolic BP Diastolic Pulse Ox 01/25/23 04:43 01/25/23 04:43 01/25/23 04:43 Temperature Temperature Source Pulse Rate 96 Blood Pressure 122/62 H BP Systolic 122 BP Diastolic 62 Pulse Ox 100 01/25/23 05:49 01/25/23 05:49 01/25/23 05:49 Temperature Temperature Source Tympanic Pulse Rate 103 H Blood Pressure 118/74 BP Systolic 118 BP Diastolic 74 Pulse Ox 01/25/23 05:49 01/25/23 05:49 01/25/23 05:49 Temperature 98.5 F Temperature Source Pulse Rate 107 H Blood Pressure BP Systolic BP Diastolic Pulse Ox 99 01/25/23 06:26 01/25/23 06:27 01/25/23 06:27 Temperature Temperature Source Tympanic Pulse Rate 88 Blood Pressure 117/79 BP Systolic 117 BP Diastolic 79 Pulse Ox 01/25/23 06:26 01/25/23 06:27 01/25/23 06:27 Temperature 98.4 F Temperature Source Pulse Rate 113 H Blood Pressure BP Systolic BP Diastolic Pulse Ox 100 Weight Weight: 220 lb 0.341 oz Body Mass Index (BMI) 37.8 Physical Exam Const alert, oriented x3 and no apparent distress General Appearance: cooperative Orientation / Consciousness: awake Exam Limitations: no limitations HEENT normocephalic Head and Scalp: normal to inspection Eyes General Eye: normal appearance of both eyes Neck full ROM and no lymphadenopathy Lymph Lymphatic: no lymphadenopathy noted Chest inspection of chest normal Resp normal respiratory effort, normal air movement and clear to auscultation bilaterally Effort and Inspection: able to speak in complete sentences and symmetric chest movement Cardio regular rate and regular rhythm GI normal to inspection, nondistended, normoactive bowel sounds Manual OB Exam: presentation cephalic Back/Spine normal ROM Extremity full ROM and no calf tenderness Skin no rashes or lesions noted General Skin Exam: no breakdown Neuro oriented x3 and CN's II-XII intact bilaterally Psych mental status grossly normal and thought process normal Labs Labs Labs: Blood Type A NEGATIVE Antibody Screen NEGATIVE Hct 34.5 % (37-47) L Hgb 11.1 g/dL (12.0-15.0) L Syphilis Total Ab Non-reactive Hepatitis C Antibody Non-Reactive (Nonreactive) Assessment & Plan (1) Spontaneous onset of labor: (2) Spontaneous rupture of amniotic membranes: (3) Obesity affecting : (4) Rh negative status during : (5) Recurrent UTI: PLAN: Plan NST reactive, Cat. 1 tracing ROM plus- Positive Admit to labor and delivery Routine labs GBS negative Epidural when indicated Start Pitocin at 2 mu/min and increase per policy if no CE in [address] Garcia notified and is collaborating physician 01/25/23 0716 <Electronically signed by Beena Walters CNM> Cosigner Signature (if applicable): CC: CECILE Walters; ERIN POWELL~ Signed ADDENDUM by CECILE Walters on 01/25/23 at 0726 Addendum INCORRECT PATIENT CHARTED ON- This patient did NOT have ROM plus return positive and is currently intact. Ableto palpate bag of water with exam. 01/25/23 07<Electronically signed by Beena Walters CNM> Cosigner Signature (if applicable): cc: CECILE Walters; ERIN POWELL ~* Signed [facility] Work Phone: 1(656) 801-924911-08-2023 Miscellaneous Notes* Telephone Encounter - Beena Walters APRN.CNM - 01/24/2023 10:52 AM EST Thank you for the update. Beena Walters APRN.CNM * Telephone Encounter - Yamel Melton RN - 01/24/2023 9:36 AM EST Patient called in for update. Contractions are now 4 minutes apart and she is uncomfortable. No bleeding or leaking fluid. Good movement. She is wanting to go to L&D. She is notifying L&D that she is coming. FYI. Yamel Giauque RN documented in this [facility]11-01-2023 Miscellaneous Notes* Telephone Encounter - Beena Walters APRN.CNM - 01/17/2023 1:49 PM EDT She can do kick counts. Go in quiet room, lay on left side and count movements. Any movement counts- small or large. She should be feeling 10 movements in 2 hours. Babies do have sleep cycles as well. If she is concerned- please offer her to come in for NST again. Beena Walters APRN.CNM * Telephone Encounter - Linda Valenzuela RN - 01/17/2023 1:33 PM EDT Please address. Patient 38w5d just seen in office yesterday and had an NST. Linda Valenzuela RN documented in this encounterUniversity Hospitals [facility]10-31-2023 History of Present illness Narrative* Jairo Guillermo MD - 01/16/2023 11:50 AM EDT NST SUMMARY PROVIDER ASSESSMENT AND INTERPRETATION Jumana Menjivar is a 23 year old female, , who is at 38w4d with an FRANCINE of 01/26/2023, by Ultrasound dating method. Indications for NST: Obesity Baseline: 145 Variability: Moderate Accelerations: Present 15 X 15 Decelerations: None Contractions: TOCO: None Interpretation: Reactive SIGNATURE: Jairo Guillermo MD documented in this [facility]10-31-2023 Miscellaneous Notes* Quick Notes - Jairo Guillermo MD - 01/16/2023 10:50 AM EDT KJ - VB No. LOF No. CTXS No. Movement: present. Other c/o: No. Medication list reviewed. Physical Exam See Flow Sheet Gen: no accute distress, well appearing Abd: soft, nontender, gravid A/P 38w4d Estimated Date of Delivery: 01/26/23 Obesity - NST today Labor precautions reviewed, Kick counts reviewed. Jairo Guillermo MD documented in this encounterUniversity Hospitals Ely[facility] Center10-31-2023 Instructions* Patient Instructions* Masters Mandi Rodriguez - 01/16/2023 10:36 AM EDT SEQUENTIAL SCREENINGS The [facility] offers sequential screenings for women who are interested in screenings for chromosomal abnormalities and certain defects during a . The sequential screen combinesultrasound and blood tests to determine the risk of chromosomal abnormalities, including Down's Syndrome (Trisomy 21) and Trisomy 18, as well as open neural tube defects including spina bifida. Ultrasound examination is performed between 11 weeks and 13 weeks gestational age. Blood tests are drawn after the ultrasound and again later in the between 15 and 21 weeks gestational age. Please let your physician know if you are interested in this testing. It will require an appointment withour electronics warfare technician. This is not an ultrasound performed by a physician in our office during a routine visit. SIGNS AND SYMPTOMS OF LABOR 1. Contractions every 10 minutes or more often 2. Clear, pink, or brownish fluid (water) leaking from vagina 3. Feeling that baby is pushing down, pressure 4. Low, dull backache 5. Cramps that feel like a period 6. Cramps with or without diarrhea If you notice any of the above symptoms, contact our office at [phone] and ask to speak with anurse. After hours, you can call doctors registry at [phone] OR call [facility] at [phone] ask to have the doctor precision machinist paged. If you consider this an emergency, dial 1--7 or go to your nearest emergency department. NEED HELP? Are you dealing with a violent or abusive relationship? Are you a victim of rape or sexual assult? Call [facility] ([place]) 24 hour Crisis Hotline: 734.578.6672 or 308-786-8118. MANUAL Your Guide to a Healthy manual is now on-line. Visit [email or web address] to download your free copy documented in this encounterUniversity Hospitals Elyria Medical Center10-25-2023 History of Present illness Narrative* Keo Garcia MD - 01/10/2023 2:49 PM EDT NST SUMMARY PROVIDER ASSESSMENT AND INTERPRETATION Jumana Menjivar is a 23 year old female, , who is at 37w5d with an FRANCINE of 01/26/2023, by Ultrasound dating method. Indications for NST: Obesity Baseline: 155 Variability: Moderate Accelerations: Present 15 X 15 Decelerations: None Contractions: TOCO: None Interpretation: Category I and Reactive SIGNATURE: Keo Garcia MD documented in this encounterUniversity Hospitals Elyria Medical Center10-25-2023 Miscellaneous Notes* Quick Notes - Keo Garcia MD - 01/10/2023 2:43 PM EDT RR- VB No. LOF No. CTXS No. Movement: present. Other c/o: No. Medication list reviewed. Physical Exam See Flow Sheet Abd: soft, nontender, gravid Ext: edema: Trace A/P 37w5d Estimated Date of Delivery: 01/26/23 GBS neg US for growth today getting NSTs weekly for BMI >35 FLU VACCINE DONE TODAY Keo Garcia M.D. documented in this encounterUniversity Hospitals Elyria [facility] Center10-25-2023 Instructions* Patient Instructions* Jenny Nielsen Ma - 01/10/2023 2:18 PM EDT SEQUENTIAL SCREENINGS The [facility] offers sequential screenings for women who are interested in screenings for chromosomal abnormalities and certain defects during a . The sequential screen combinesultrasound and blood tests to determine the risk of chromosomal abnormalities, including Down's Syndrome (Trisomy 21) and Trisomy 18, as well as open neural tube defects including spina bifida. Ultrasound examination is performed between 11 weeks and 13 weeks gestational age. Blood tests are drawn after the ultrasound and again later in the between 15 and 21 weeks gestational age. Please let your physician know if you are interested in this testing. It will require an appointment withour electronics warfare technician. This is not an ultrasound performed by a physician in our office during a routine visit. SIGNS AND SYMPTOMS OF LABOR 1. Contractions every 10 minutes or more often 2. Clear, pink, or brownish fluid (water) leaking from vagina 3. Feeling that baby is pushing down, pressure 4. Low, dull backache 5. Cramps that feel like a period 6. Cramps with or without diarrhea If you notice any of the above symptoms, contact our office at [phone] and ask to speak with anurse. After hours, you can call doctors registry at [phone] OR call [facility] at [phone] ask to have the doctor precision machinist paged. If you consider this an emergency, dial 9-9-8 or go to your nearest emergency department. NEED HELP? Are you dealing with a violent or abusive relationship? Are you a victim of rape or sexual assult? Call [facility] ([place]) 24 hour Crisis Hotline: 895.701.8627 or 439-900-7819. MANUAL Your Guide to a Healthy manual is now on-line. Visit [email or web address] to download your free copy documented in this encounterUniversity Hospitals Elyria Medical Center10-17-2023 Miscellaneous Notes* Quick Notes - Millicent Dent MD - 01/02/2023 3:15 PM EDT DM-Pt doing well. Denies vaginal Bleeding, Leaking fluid, or regular Contractions. Pt reports good movement Physical Exam: Gen: female in no apparent distress Abd: soft, Gravid. Non tender to palpation. See flow sheet A/P: @ 36.4 weeks 1) nst today 2) has growth us scheduled next week 3) gbs today 4) kick counts and labor reviewed Millicent Ribeiro MD documented in this encounterUniversity Hospitals Elyria [facility] Center10-17-2023 History of Present illness Narrative* Millicent Dent MD - 01/02/2023 2:45 PM EDT NST SUMMARY PROVIDER ASSESSMENT AND INTERPRETATION Jumana Menjivar is a 22 year old female, , who is at 36w4d with an FRANCINE of 01/26/2023, by Ultrasound dating method. Indications for NST: Obesity Baseline: 150 Variability: Moderate Accelerations: Present 15 X 15 Decelerations: None Contractions: TOCO: None Interpretation: Category I and Reactive SIGNATURE: Millicent Ribeiro MD documented in this encounterUniversity Hospitals Elyria [facility] Center10-17-2023 Instructions* Patient Instructions* Dana Jimenez Ma - 01/02/2023 1:44 PM EDT SEQUENTIAL SCREENINGS The [facility] offers sequential screenings for women who are interested in screenings for chromosomal abnormalities and certain defects during a . The sequential screen combinesultrasound and blood tests to determine the risk of chromosomal abnormalities, including Down's Syndrome (Trisomy 21) and Trisomy 18, as well as open neural tube defects including spina bifida. Ultrasound examination is performed between 11 weeks and 13 weeks gestational age. Blood tests are drawn after the ultrasound and again later in the between 15 and 21 weeks gestational age. Please let your physician know if you are interested in this testing. It will require an appointment withour electronics warfare technician. This is not an ultrasound performed by a physician in our office during a routine visit. SIGNS AND SYMPTOMS OF LABOR 1. Contractions every 10 minutes or more often 2. Clear, pink, or brownish fluid (water) leaking from vagina 3. Feeling that baby is pushing down, pressure 4. Low, dull backache 5. Cramps that feel like a period 6. Cramps with or without diarrhea If you notice any of the above symptoms, contact our office at [phone] and ask to speak with anurse. After hours, you can call doctors registry at [phone] OR call [facility] at [phone] ask to have the doctor precision machinist paged. If you consider this an emergency, dial 9-1-2 or go to your nearest emergency department. NEED HELP? Are you dealing with a violent or abusive relationship? Are you a victim of rape or sexual assult? Call [facility] ([place]) 24 hour Crisis Hotline: 376.504.5762 or 459-857-3528. MANUAL Your Guide to a Healthy manual is now on-line. Visit [email or web address] to download your free copy documented in this encounterUniversity Hospitals Elyria Medical Center10-10-2023 Miscellaneous Notes* Quick Notes - Jairo Guillermo MD - 12/26/2022 3:03 PM EDT KJ - VB No. LOF No. CTXS No. Movement: present. Other c/o: No. Medication list reviewed. Physical Exam See Flow Sheet Gen: no accute distress, well appearing Abd: soft, nontender, gravid A/P 35w4d Estimated Date of Delivery: 01/26/23 Obesity - growth US scheduled. Needs weekly NSTs at 36 weeks. PTL precautions reviewed, Kick counts reviewed. Jairo Guillermo MD documented in this encounterUniversity Hospitals Elyria Medical Center10-10-2023 Instructions* Patient Instructions* Mandi Jorge Ma - 12/26/2022 2:34 PM EDT SEQUENTIAL SCREENINGS The [facility] offers sequential screenings for women who are interested in screenings for chromosomal abnormalities and certain defects during a . The sequential screen combinesultrasound and blood tests to determine the risk of chromosomal abnormalities, including Down's Syndrome (Trisomy 21) and Trisomy 18, as well as open neural tube defects including spina bifida. Ultrasound examination is performed between 11 weeks and 13 weeks gestational age. Blood tests are drawn after the ultrasound and again later in the between 15 and 21 weeks gestational age. Please let your physician know if you are interested in this testing. It will require an appointment withour electronics warfare technician. This is not an ultrasound performed by a physician in our office during a routine visit. SIGNS AND SYMPTOMS OF LABOR 1. Contractions every 10 minutes or more often 2. Clear, pink, or brownish fluid (water) leaking from vagina 3. Feeling that baby is pushing down, pressure 4. Low, dull backache 5. Cramps that feel like a period 6. Cramps with or without diarrhea If you notice any of the above symptoms, contact our office at [phone] and ask to speak with anurse. After hours, you can call doctors registry at [phone] OR call [facility] at [phone] ask to have the doctor precision machinist paged. If you consider this an emergency, dial 91-0 or go to your nearest emergency department. NEED HELP? Are you dealing with a violent or abusive relationship? Are you a victim of rape or sexual assult? Call [facility] ([place]) 24 hour Crisis Hotline: 460.807.5038 or 666-306-2063. MANUAL Your Guide to a Healthy manual is now on-line. Visit [email or web address] to download your free copy documented in this encounterUniversity Hospitals Elyria Medical Center09-18-2023 Hospital Discharge instructions Follow Up Care 12/04/2022 12:58:44 With:Erin POWELL CNP Address: [address] [place], [place] [id number]- When: only if needed [facility] 09-13-2023 Miscellaneous Notes* Quick Notes - Millicent Dent MD - 11/29/2022 4:22 PM EDT DM-Pt doing well. Denies vaginal Bleeding, Leaking fluid, or regular Contractions. Pt reports good movement Physical Exam: Gen: female in no apparent distress Abd: soft, Gravid. Non tender to palpation. See flow sheet A/P: @ 31.5 week 1) declines flu 2) RTO 2 wk 3) kick counts reviewed Millicent Ribeiro MD documented in this encounterUniversity Hospitals [facility]09-13-2023 Instructions* Patient Instructions* Barbara Rodriguez Dana - 11/29/2022 3:43 PM EDT SEQUENTIAL SCREENINGS [facility] offers sequential screenings for women who are interested in screenings for chromosomal abnormalities and certain defects during a . The sequential screen combinesultrasound and blood tests to determine the risk of chromosomal abnormalities, including Down's Syndrome (Trisomy 21) and Trisomy 18, as well as open neural tube defects including spina bifida. Ultrasound examination is performed between 11 weeks and 13 weeks gestational age. Blood tests are drawn after the ultrasound and again later in the between 15 and 21 weeks gestational age. Please let your physician know if you are interested in this testing. It will require an appointment withour electronics warfare technician. This is not an ultrasound performed by a physician in our office during a routine visit. SIGNS AND SYMPTOMS OF LABOR 1. Contractions every 10 minutes or more often 2. Clear, pink, or brownish fluid (water) leaking from vagina 3. Feeling that baby is pushing down, pressure 4. Low, dull backache 5. Cramps that feel like a period 6. Cramps with or without diarrhea If you notice any of the above symptoms, contact our office at [phone] and ask to speak with anurse. After hours, you can call doctors registry at [phone] OR call [facility] at [phone] ask to have the doctor precision machinist paged. If you consider this an emergency, dial 9-5 or go to your nearest emergency department. NEED HELP? Are you dealing with a violent or abusive relationship? Are you a victim of rape or sexual assult? Call [facility] ([place]) 24 hour Crisis Hotline: 493.253.2237 or 206-116-1570. MANUAL Your Guide to a Healthy manual is now on-line. Visit [email or web address] to download your free copy documented in this encounterUniversity Hospitals Elyria Medical Center08-29-2023 Miscellaneous Notes* Quick Notes - Jairo Guillermo MD - 11/14/2022 3:18 PM EDT KJ - VB No. LOF No. CTXS No. Movement: present. Other c/o: No. Medication list reviewed. Physical Exam See Flow Sheet Gen: no accute distress, well appearing Abd: soft, nontender, gravid A/P 29w4d Estimated Date of Delivery: 01/26/23 Obesity - growth US today & repeat in 4 weeks PPBC - desires Mirena IUD and OK with it being after PP visit PTL precautions reviewed, Kick counts reviewed. Jairo Guillermo MD documented in this encounterUniversity Hospitals Elyria Medical Center08-29-2023 Instructions* Patient Instructions* Mandi Jorge Ma - 11/14/2022 2:40 PM EDT SEQUENTIAL SCREENINGS The [facility] offers sequential screenings for women who are interested in screenings for chromosomal abnormalities and certain defects during a . The sequential screen combinesultrasound and blood tests to determine the risk of chromosomal abnormalities, including Down's Syndrome (Trisomy 21) and Trisomy 18, as well as open neural tube defects including spina bifida. Ultrasound examination is performed between 11 weeks and 13 weeks gestational age. Blood tests are drawn after the ultrasound and again later in the between 15 and 21 weeks gestational age. Please let your physician know if you are interested in this testing. It will require an appointment withour electronics warfare technician. This is not an ultrasound performed by a physician in our office during a routine visit. SIGNS AND SYMPTOMS OF LABOR 1. Contractions every 10 minutes or more often 2. Clear, pink, or brownish fluid (water) leaking from vagina 3. Feeling that baby is pushing down, pressure 4. Low, dull backache 5. Cramps that feel like a period 6. Cramps with or without diarrhea If you notice any of the above symptoms, contact our office at [phone] and ask to speak with anurse. After hours, you can call doctors registry at [phone] OR call [facility] at [phone] ask to have the doctor precision machinist paged. If you consider this an emergency, dial 9-1-8 or go to your nearest emergency department. NEED HELP? Are you dealing with a violent or abusive relationship? Are you a victim of rape or sexual assult? Call [facility] ([place]) 24 hour Crisis Hotline: 802.991.7067 or 593-972-5018. MANUAL Your Guide to a Healthy manual is now on-line. Visit [email or web address] to download your free copy documented in this encounterUniversity Hospitals Elyria Medical Center08-18-2023 Miscellaneous Notes* Quick Notes - Millicent Dent MD - 11/03/2022 10:45 AM EDT DM-Pt doing well. Denies vaginal Bleeding, Leaking fluid, or regular Contractions. Pt reports good movement Physical Exam: Gen: female in no apparent distress Abd: soft, Gravid. Non tender to palpation. See flow sheet A/P: @ 28 weeks 1) tdap, rhogam and labs today 2) larc form- MIRENA at delivery 3) RTO 2 wks 4) Kick counts reviewed Millicent Ribeiro MD documented in this encounterUniversity Hospitals Elyria Medical Center08-18-2023 History of Present illness Narrative* Dana Jimenez Ma - 11/03/2022 10:16 AM EDT Patient identified by name and date of . Jumana Menjivar presents today for a vaccination of Tdap. Patient denies an allergy to latex: yes Patient denies a severe (life-threatening) allergy to a previous dose of Tdap, DTP, DTaP, DT or Td vaccine. Yes Patient denies history of epilepsy or neurological problems: Yes Patient is afebrile and denies being moderately or severely ill: Yes Patient denies history of Guillain-[place] Syndrome (a severe paralytic illness): Yes Tdap Adacel injection was given without incident. See immunizations for details of immunizations administered today. VIS sheet provided: Yes Provider Jabier was present in office at time of injection. Dana Jimenez Ma documented in this encounterUniversity Hospitals Elyria Medical Center08-18-2023 Instructions* Patient Instructions* Dana Jimenez Ma - 11/03/2022 10:02 AM EDT SEQUENTIAL SCREENINGS The [facility] offers sequential screenings for women who are interested in screenings for chromosomal abnormalities and certain defects during a . The sequential screen combinesultrasound and blood tests to determine the risk of chromosomal abnormalities, including Down's Syndrome (Trisomy 21) and Trisomy 18, as well as open neural tube defects including spina bifida. Ultrasound examination is performed between 11 weeks and 13 weeks gestational age. Blood tests are drawn after the ultrasound and again later in the between 15 and 21 weeks gestational age. Please let your physician know if you are interested in this testing. It will require an appointment withour electronics warfare technician. This is not an ultrasound performed by a physician in our office during a routine visit. SIGNS AND SYMPTOMS OF LABOR 1. Contractions every 10 minutes or more often 2. Clear, pink, or brownish fluid (water) leaking from vagina 3. Feeling that baby is pushing down, pressure 4. Low, dull backache 5. Cramps that feel like a period 6. Cramps with or without diarrhea If you notice any of the above symptoms, contact our office at [phone] and ask to speak with anurse. After hours, you can call doctors registry at [phone] OR call [facility] at [phone] ask to have the doctor precision machinist paged. If you consider this an emergency, dial or go to your nearest emergency department. NEED HELP? Are you dealing with a violent or abusive relationship? Are you a victim of rape or sexual assult? Call [facility] ([place]) 24 hour Crisis Hotline: 350.622.3542 or 749-831-7543. MANUAL Your Guide to a Healthy manual is now on-line. Visit [email or web address] to download your free copy documented in this encounterUniversity Hospitals Elyria Medical Center08-18-2023 Miscellaneous Notes* Telephone Encounter - Halima Mack RN - 11/03/2022 9:47 AM EDT 2nd risk assessment form submitted at 28 wks. Halima Mack RN documented in this encounterUniversity Hospitals Elyria Medical Center07-26-2023 Hospital Discharge instructions Patient Education 10/11/2022 15:03:17 Obesity, Adult, [id number] Obesity, Adult Obesity is having too much body fat. Being obese means that your weight is more than what is healthy for you. BMI (body mass index) is a number that explains how much body fat you have. If you have a BMI of 30or more, you are obese. Obesity can cause serious health problems, such as: Stroke. Coronary artery disease (CAD). Type 2 diabetes. Some types of cancer. High blood pressure (hypertension). High cholesterol. Gallbladder stones. Obesity can also contribute to: Osteoarthritis. Sleep apnea. Infertility problems. What are the causes? Eating meals each day that are high in calories, sugar, and fat. Drinking a lot of drinks that have sugar in them. Being born with genes that may make you more likely to become obese. Having a medical condition that causes obesity. Taking certain medicines. Sitting a lot (having a sedentary lifestyle). Not getting enough sleep. What increases the risk? Having a family history of obesity. Living in an area with limited access to: ?[place], recreation centers, or sidewalks. ?Healthy food choices, such as grocery stores and [email or web address]. What are the signs or symptoms? The main sign is having too much body fat. How is this treated? Treatment for this condition often includes changing your lifestyle. Treatment may include: Changing your diet. This may include making a healthy meal plan. Exercise. This may include activity that causes your heart to beat faster (aerobic exercise) and strength training. Work with your doctor to design a program that works for you. Medicine to help you lose weight. This may be used if you are not able to lose one pound a week after 6 weeks of healthy eating and more exercise. Treating conditions that cause the obesity. Surgery. Options may include gastric banding and gastric bypass. This may be done if: ?Other treatments have not helped to improve your condition. ?You have a BMI of 40 or higher. ?You have life-threatening health problems related to obesity. Follow these instructions at home: Eating and drinking Follow advice from your doctor about what to eat and drink. Your doctor may tell you to: ?Limit fast food, sweets, and processed snack foods. ?Choose low-fat options. For example, choose low-fat milk instead of whole milk. ?Eat five or more servings of fruits or vegetables each day. ?Eat at home more often. This gives you more control over what you eat. ?Choose healthy foods when you eat out. ?Learn to read food labels. This will help you learn how much food is in one serving. ?Keep low-fat snacks available. ?Avoid drinks that have a lot of sugar in them. These include soda, fruit juice, iced tea with sugar, and flavored milk. Drink enough water to keep your pee (urine) pale yellow. Do not go on fad diets. Physical activity Exercise often, as told by your doctor. Most adults should get up to 150 minutes of moderate-intensity exercise every week.Ask your doctor: ?What types of exercise are safe for you. ?How often you should exercise. Warm up and stretch before being active. Do slow stretching after being active (cool down). Rest between times of being active. Lifestyle Work with your doctor and a food expert (dietitian) to set a weight-loss goal that is best for you. Limit your screen time. Find ways to reward yourself that do not involve food. Do not drink alcohol if: ?Your doctor tells you not to drink. ?You are , may be , or are planning to become . If you drink alcohol: ?Limit how much you have to: ?0 1 drink a day for women. ?0 2 drinks a day for men. ?Know how much alcohol is in your drink. In the [place] one drink equals one 12 oz bottle of beer (355 mL), one 5 oz glass of wine (148 mL), or one 1 oz glass of hard liquor (44 mL). General instructions Keep a weight-loss journal. This can help you keep track of: ?The food that you eat. ?How much exercise you get. Take vmhr-cxz-ewfoigr and prescription medicines only as told by your doctor. Take vitamins and supplements only as told by your doctor. Think about joining a support group. Pay attention to your mental health as obesity can lead to depression or self esteem issues. Keep all follow-up visits. Contact a doctor if: You cannot meet your weight-loss goal after you have changed your diet and lifestyle for 6 weeks. You are having trouble breathing. Summary Obesity is having too much body fat. Being obese means that your weight is more than what is healthy for you. Work with your doctor to set a weight-loss goal. Get regular exercise as told by your doctor. This information is not intended to replace advice given to you by your health care provider. Make sure you discuss any questions you have with your health care provider. Document Revised: 10/11/2021 Document Reviewed: 10/11/2021 [employer] Patient Education 2022 [employer]. Follow Up Care 06/20/2022 09:03:56 With:Erin POWELL CNP Address: [address] [place], [place] [id number]- When: only if needed [facility] 07-18-2023 Miscellaneous Notes* Telephone Encounter - Jus Katz RN - 10/03/2022 9:33 AM EDT Received records. On Dr Eagle olivia for review and a copy sent to be scanned into medical record * Telephone Encounter - Jus Katz RN - 10/02/2022 3:07 PM EDT Received medical records from [facility].No records were included. Just TiffanyYN visit from 08/04/2020. I called their office to get the other records faxed to us. Spoke with Dayanara and she will fax office visits to us. ( If pt calls back I had left a message to clarify if she had care there-but decided to call Jeff Marsh myself-sorry to bother her) documented in this encounterUniversity Hospitals Elyria Medical Center06-16-2023 Miscellaneous Notes* Quick Notes - Jairo Guillermo MD - 09/01/2022 4:12 PM EDT KJ - No VB/LOF/ctxs. Possible flutters. A&P: Anatomy US today & follow up schedule Need records - patient to sign records release as reports getting PNB in [place] Urine culture Jairo Guillermo MD documented in this encounterUniversity Hospitals Elyria Medical Center06-16-2023 Instructions* Patient Instructions* Mandi Jorge Ma - 09/01/2022 3:53 PM EDT SEQUENTIAL SCREENINGS The [facility] offers sequential screenings for women who are interested in screenings for chromosomal abnormalities and certain defects during a . The sequential screen combinesultrasound and blood tests to determine the risk of chromosomal abnormalities, including Down's Syndrome (Trisomy 21) and Trisomy 18, as well as open neural tube defects including spina bifida. Ultrasound examination is performed between 11 weeks and 13 weeks gestational age. Blood tests are drawn after the ultrasound and again later in the between 15 and 21 weeks gestational age. Please let your physician know if you are interested in this testing. It will require an appointment withour electronics warfare technician. This is not an ultrasound performed by a physician in our office during a routine visit. SIGNS AND SYMPTOMS OF LABOR 1. Contractions every 10 minutes or more often 2. Clear, pink, or brownish fluid (water) leaking from vagina 3. Feeling that baby is pushing down, pressure 4. Low, dull backache 5. Cramps that feel like a period 6. Cramps with or without diarrhea If you notice any of the above symptoms, contact our office at [phone] and ask to speak with anurse. After hours, you can call doctors registry at [phone] OR call [facility] at [phone] ask to have the doctor precision machinist paged. If you consider this an emergency, dial 9-1-1 or go to your nearest emergency department. NEED HELP? Are you dealing with a violent or abusive relationship? Are you a victim of rape or sexual assult? Call [facility] ([place]) 24 hour Crisis Hotline: 750.233.9855 or 982-105-7160. MANUAL Your Guide to a Healthy manual is now on-line. Visit [email or web address] to download your free copy documented in this encounterUniversity Hospitals Elyria Medical Center04-04-2023 Hospital Discharge instructions Patient Education 06/20/2022 08:56:13 Obesity, Adult, Scfu-zs-Itnn Obesity, Adult Obesity is having too much body fat. Being obese means that your weight is more than what is healthy for you. BMI is a number that explains how much body fat you have. If you have a BMI of 30 or more, you are obese. Obesity is often caused by eating or drinking more calories than your body uses. Changing your lifestyle can help you lose weight. Obesity can cause serious health problems, such as: Stroke. Coronary artery disease (CAD). Type 2 diabetes. Some types of cancer, including cancers of the colon, breast, uterus, and gallbladder. Osteoarthritis. High blood pressure (hypertension). High cholesterol. Sleep apnea. Gallbladder stones. Infertility problems. What are the causes? Eating meals each day that are high in calories, sugar, and fat. Being born with genes that may make you more likely to become obese. Having a medical condition that causes obesity. Taking certain medicines. Sitting a lot (having a sedentary lifestyle). Not getting enough sleep. Drinking a lot of drinks that have sugar in them. What increases the risk? Having a family history of obesity. Being an woman. Being a man. Living in an area with limited access to: ?[place], recreation centers, or sidewalks. ?Healthy food choices, such as grocery stores and farmers' markets. What are the signs or symptoms? The main sign is having too much body fat. How is this treated? Treatment for this condition often includes changing your lifestyle. Treatment may include: ?Changing your diet. This may include making a healthy meal plan. ?Exercise. This may include activity that causes your heart to beat faster (aerobic exercise) and strength training. Work with your doctor to design a program that works for you. ?Medicine to help you lose weight. This may be used if you are not able to lose 1 pound a week after 6 weeks of healthy eating and more exercise. ?Treating conditions that cause the obesity. ?Surgery. Options may include gastric banding and gastric bypass. This may be done if: ?Other treatments have not helped to improve your condition. ?You have a BMI of 40 or higher. ?You have life-threatening health problems related to obesity. Follow these instructions at home: Eating and drinking Follow advice from your doctor about what to eat and drink. Your doctor may tell you to: ?Limit fast food, sweets, and processed snack foods. ?Choose low-fat options. For example, choose low-fat milk instead of whole milk. ?Eat 5 or more servings of fruits or vegetables each day. ?Eat at home more often. This gives you more control over what you eat. ?Choose healthy foods when you eat out. ?Learn to read food labels. This will help you learn how much food is in 1 serving. ?Keep low-fat snacks available. ?Avoid drinks that have a lot of sugar in them. These include soda, fruit juice, iced tea with sugar, and flavored milk. Drink enough water to keep your pee (urine) pale yellow. Do not go on fad diets. Physical activity Exercise often, as told by your doctor. Most adults should get up to 150 minutes of moderate-intensity exercise every week.Ask your doctor: ?What types of exercise are safe for you. ?How often you should exercise. Warm up and stretch before being active. Do slow stretching after being active (cool down). Rest between times of being active. Lifestyle Work with your doctor and a food expert (dietitian) to set a weight-loss goal that is best for you. Limit your screen time. Find ways to reward yourself that do not involve food. Do not drink alcohol if: ?Your doctor tells you not to drink. ?You are , may be , or are planning to become . If you drink alcohol: ?Limit how much you use to: ?0 1 drink a day for women. ?0 2 drinks a day for men. ?Be aware of how much alcohol is in your drink. In the [place] one drink equals one 12 oz bottle of beer (355 mL), one 5 oz glass of wine (148 mL), or one 1 oz glass of hard liquor (44 mL). General instructions Keep a weight-loss journal. This can help you keep track of: ?The food that you eat. ?How much exercise you get. Take uacc-qfm-siatrke and prescription medicines only as told by your doctor. Take vitamins and supplements only as told by your doctor. Think about joining a support group. Keep all follow-up visits as told by your doctor. This is important. Contact a doctor if: You cannot meet your weight loss goal after you have changed your diet and lifestyle for 6 weeks. Get help right away if you: Are having trouble breathing. Are having thoughts of harming yourself. Summary Obesity is having too much body fat. Being obese means that your weight is more than what is healthy for you. Work with your doctor to set a weight-loss goal. Get regular exercise as told by your doctor. This information is not intended to replace advice given to you by your health care provider. Make sure you discuss any questions you have with your health care provider. Document Released: 05/27/2012 Document Revised: 11/07/2018 Document Reviewed: 11/07/2018 [employer] Patient Education 2020 [place]. Follow Up Care 06/16/2022 08:57:43 With:Erin POWELL CNP Address: [address] [place], [place] [id number]- When:Within 3 Month(s) [facility] 03-29-2023 Evaluation + Plan note Diagnostic Tests Pending * Hepatitis B Surface Antigen 06/14/22 * Urine Culture 06/14/22 * RPR with Conf Rfx 06/14/22 * Rubella Antibody IgG 06/14/22 * HIV Screen 4th Generation wRfx 06/14/22 * Varicella Zoster Antibody IgG 06/14/22 [facility]03-02-2022 History of Present illness Narrative* Nayana Sterling, PASTRY COOK - 05/18/2021 7:19 AM EST [facility] [address] [facility] [address] [facility] [id number] Chief Complaint Patient presents with Right Hand - Pain Jumana Menjivar returns to the office today for follow-up of the right hand. I last saw Jumana about a year ago for pain in the right thumb. Today she presents to the office with a slightly different symptoms. She reports that not only if she having discomfort in the thumb but she also has numbness and tingling in the thumb as well as the index and the middle fingers. She has been wearing a night splint on the wrist which did work but unfortunately now is not helping her at all. She does find that this wakes her up in the middle of the night. She is right-handed and this is making work more difficult due to the pain. She denies any new injury to the right hand. She has tried with OTC pain medications and unfortunately nothing is helping which is why she is here for follow-up today. The patient's past medical history, surgical history, social history, family history, medications and allergies were reviewed with the patient today and are available in the chart for further review. No Known Allergies Current Outpatient Medications: albuterol sulfate (PROAIR HFA INHL), Inhale ., Disp: , Rfl: amoxicillin (AMOXIL) 500 MG capsule, TAKE 1 CAPSULE BY MOUTH THREE TIMES DAILY UNTIL GONE, Disp: , Rfl: dicyclomine (BENTYL) 10 MG capsule, Take 1 (one) capsule (10 mg total) by mouth 2 (two) times a day., Disp: 60 capsule, Rfl: 0 etodolac (LODINE) 500 MG tablet, Take 500 mg by mouth 2 (two) times a day as needed for pain ., Disp: , Rfl: famotidine (PEPCID) 20 MG tablet, Take 20 mg by mouth nightly ., Disp: , Rfl: Flovent HFA 110 mcg/actuation inhaler, Inhale 2 puffs 2 (two) times a day ., Disp: , Rfl: loperamide (Imodium A-D) 2 mg tablet, Take 1 (one) tablet (2 mg total) by mouth every 8 (eight) hours as needed for diarrhea ., Disp: 30 tablet, Rfl: 0 LORATADINE ORAL, Take by mouth ., Disp: , Rfl: naproxen (NAPROSYN) 500 MG tablet, Take 500 mg by mouth 2 (two) times a day ., Disp: , Rfl: penicillin v potassium (VEETID) 500 MG tablet, Take 500 mg by mouth 3 (three) times a day ., Disp: , Rfl: Sprintec, 28, 0.25-35 mg-mcg per tablet, Take 1 tablet by mouth daily ., Disp: , Rfl: Past Medical History: Diagnosis Date Asthma GERD (gastroesophageal reflux disease) IBS (irritable bowel syndrome) Past Surgical History: Procedure Laterality Date COLONOSCOPY INTRAUTERINE DEVICE INSERTION 06/2018 Social History Socioeconomic History Marital status: Single Tobacco Use Smoking status: Never Smoker Smokeless tobacco: Never Used Vaping Use Vaping Use: Never used Substance and Sexual Activity Alcohol use: Not Currently Drug use: Not Currently ROS: Review of Systems Constitutional: Negative for activity change and fatigue. HENT: Negative for congestion, hearing loss and trouble swallowing. Eyes: Negative for visual disturbance. Respiratory: Negative for chest tightness and shortness of breath. Cardiovascular: Negative for chest pain and palpitations. Gastrointestinal: Negative for abdominal pain, diarrhea, nausea and vomiting. Endocrine: Negative for polydipsia, polyphagia and polyuria. Genitourinary: Negative for decreased urine volume, difficulty urinating and hematuria. Musculoskeletal: Positive for arthralgias and myalgias. Negative for joint swelling. Skin: Negative for color change, rash and wound. Allergic/Immunologic: Negative for immunocompromised state. Neurological: Positive for weakness and numbness. Negative for dizziness and light-headedness. Hematological: Does not bruise/bleed easily. Psychiatric/Behavioral: Negative for confusion and sleep disturbance. The patient is not nervous/anxious. PE: Physical Exam Constitutional: Appearance: She is well-developed. HENT: Head: Normocephalic. Eyes: Pupils: Pupils are equal, round, and reactive to light. Cardiovascular: Rate and Rhythm: Normal rate and regular rhythm. Pulmonary: Effort: Pulmonary effort is normal. Breath sounds: Normal breath sounds. Abdominal: General: Bowel sounds are normal. Palpations: Abdomen is soft. Musculoskeletal: General: Tenderness present. Normal range of motion. Cervical back: Normal range of motion and neck supple. Skin: General: Skin is warm and dry. Neurological: Mental Status: She is alert and oriented to person, place, and time. ORTHO: Right Hand Exam Tenderness The patient is experiencing tenderness in the snuff box and radial area. Range of Motion The patient has normal right wrist ROM. Muscle Strength Metrology Manager: 4/5 Tests Phalen s sign: positive Tinel's sign (median nerve): positive Niyah's test: negative Other Erythema: absent Scars: absent Sensation: normal Pulse: present Imaging: No new imaging, reviewed from prior visit. Assessment/Plan: After examination and discussion I will order an EMG of the right upper extremity for carpal tunnel. We discussed possible injections to the right wrist for carpal tunnel which she politely declined today stating that she is just really nervous about any type of injection. She is to continue with the bracing as well as OTC pain medications I will see her back in the office to review the EMG results. She does verbalize understanding and is in agreement with the treatment plan. documented in this [id number] History of Present illness Narrative* Val Dai MD - 12/08/2020 5:00 PM EDT Jumana Menjivar 20 y.o. 2000 female Changes since last visit: 20-year-old female with diarrhea predominant IBS came for follow-up. She was given Bentyl and Imodium as needed basis. She says her abdominal cramps are much better sometimes she has diarrhea then constipation no blood in the stool. Past Medical History: Past Medical History: Diagnosis Date Asthma GERD (gastroesophageal reflux disease) IBS (irritable bowel syndrome) Surgical History & Procedures: Past Surgical History: Procedure Laterality Date COLONOSCOPY INTRAUTERINE DEVICE INSERTION 06/2018 Social History: Social History Socioeconomic History Marital status: Single Spouse name: Not on file Number of children: Not on file Years of education: Not on file Highest education level: Not on file Occupational History Not on file Tobacco Use Smoking status: Never Smoker Smokeless tobacco: Never Used Vaping Use Vaping Use: Never used Substance and Sexual Activity Alcohol use: Not Currently Drug use: Not Currently Sexual activity: Not on file Other Topics Concern Not on file Social History Narrative Not on file Social Determinants of Health Financial Resource Strain: Difficulty of Paying Living Expenses: Not on file Food Insecurity: Worried About Running Out of Food in the Last Year: Not on file Ran Out of Food in the Last Year: Not on file Transportation Needs: Lack of Transportation (Medical): Not on file Lack of Transportation (Non-Medical): Not on file Physical Activity: Days of Exercise per Week: Not on file Minutes of Exercise per Session: Not on file Stress: Feeling of Stress : Not on file Social Connections: Frequency of Communication with Friends and Family: Not on file Frequency of Social Gatherings with Friends and Family: Not on file Attends Yazdanism Services: Not on file Active Member of Clubs or Organizations: Not on file Attends Club or Organization Meetings: Not on file Marital Status: Not on file Housing Stability: Unable to Pay for Housing in the Last Year: Not on file Number of Places Lived in the Last Year: Not on file Unstable Housing in the Last Year: Not on file Current Medications: Current Outpatient Medications Medication Sig Dispense Refill albuterol sulfate (PROAIR HFA INHL) Inhale . amoxicillin (AMOXIL) 500 MG capsule TAKE 1 CAPSULE BY MOUTH THREE TIMES DAILY UNTIL GONE dicyclomine (BENTYL) 10 MG capsule Take 1 (one) capsule (10 mg total) by mouth 2 (two) times a day . 60 capsule 0 etodolac (LODINE) 500 MG tablet Take 500 mg by mouth 2 (two) times a day as needed for pain . famotidine (PEPCID) 20 MG tablet Take 20 mg by mouth nightly . Flovent HFA 110 mcg/actuation inhaler Inhale 2 puffs 2 (two) times a day . loperamide (Imodium A-D) 2 mg tablet Take 1 (one) tablet (2 mg total) by mouth every 8 (eight) hours as needed for diarrhea . 30 tablet 0 LORATADINE ORAL Take by mouth . naproxen (NAPROSYN) 500 MG tablet Take 500 mg by mouth 2 (two) times a day . penicillin v potassium (VEETID) 500 MG tablet Take 500 mg by mouth 3 (three) times a day . Sprintec, 28, 0.25-35 mg-mcg per tablet Take 1 tablet by mouth daily . No current facility-administered medications for this visit. Review of Systems Constitutional: Negative for appetite change and unexpected weight change. HENT: Negative for voice change. Respiratory: Negative for cough, choking and shortness of breath. Cardiovascular: Negative for chest pain and leg swelling. Gastrointestinal: Positive for diarrhea. Negative for abdominal pain, anal bleeding, blood in stool, constipation, nausea, rectal pain and vomiting. Genitourinary: Negative for hematuria. Musculoskeletal: Negative for arthralgias and joint swelling. Skin: Negative for pallor. Neurological: Negative for dizziness, tremors and weakness. Hematological: Negative for adenopathy. Does not bruise/bleed easily. Psychiatric/Behavioral: Negative for confusion. Physical Exam Constitutional: Appearance: Normal appearance. Eyes: Pupils: Pupils are equal, round, and reactive to light. Cardiovascular: Pulses: Normal pulses. Heart sounds: Normal heart sounds. Pulmonary: Breath sounds: Normal breath sounds. Abdominal: General: Bowel sounds are normal. Palpations: Abdomen is soft. There is no mass. Tenderness: There is no abdominal tenderness. Skin: Coloration: Skin is not jaundiced. Neurological: General: No focal deficit present. Mental Status: She is alert and oriented to person, place, and time. Psychiatric: Behavior: Behavior normal. No visits with results within 30 Day(s) from this visit. Latest known visit with results is: Lab Draw on 08/20/2020 Component Date Value Ref Range Status TTG IgA 08/20/2020 <1.2 U/mL Final Assessment & Plan: Diarrhea predominant IBS we will continue Bentyl 10 mg p.o. twice daily prescription given I asked her to use high-fiber diet and take Imodium on as needed basis. I will follow her up in 3 months. Val Dai MD documented in this [id number] History of Present illness Narrative* Val Dai MD - 10/19/2020 4:49 PM EDT Jumana Menjivar 20 y.o. 2000 female Changes since last visit: 20-year-old female with history of IBS diarrhea predominant with GERD was seen 1 month ago and she was complaining loose bowel off and on for 1 year intermittently sometimes constipation and lower abdominal cramps. Patient was given Bentyl and high-fiber diet patient says her abdominal pain is muchbetter but now she only has loose bowel. Denies any blood in the stool patient had TTG antibodies which was negative for celiac disease. Past Medical History: Past Medical History: Diagnosis Date Asthma GERD (gastroesophageal reflux disease) IBS (irritable bowel syndrome) Surgical History & Procedures: Past Surgical History: Procedure Laterality Date COLONOSCOPY INTRAUTERINE DEVICE INSERTION 06/2018 Social History: Social History Socioeconomic History Marital status: Single Spouse name: Not on file Number of children: Not on file Years of education: Not on file Highest education level: Not on file Occupational History Not on file Tobacco Use Smoking status: Never Smoker Smokeless tobacco: Never Used Vaping Use Vaping Use: Never used Substance and Sexual Activity Alcohol use: Not Currently Drug use: Not Currently Sexual activity: Not on file Other Topics Concern Not on file Social History Narrative Not on file Social Determinants of Health Financial Resource Strain: Difficulty of Paying Living Expenses: Food Insecurity: Worried About Running Out of Food in the Last Year: Ran Out of Food in the Last Year: Transportation Needs: Lack of Transportation (Medical): Lack of Transportation (Non-Medical): Physical Activity: Days of Exercise per Week: Minutes of Exercise per Session: Stress: Feeling of Stress : Social Connections: Frequency of Communication with Friends and Family: Frequency of Social Gatherings with Friends and Family: Attends Yazdanism Services: Active Member of Clubs or Organizations: Attends Club or Organization Meetings: Marital Status: Current Medications: Current Outpatient Medications Medication Sig Dispense Refill albuterol sulfate (PROAIR HFA INHL) Inhale . dicyclomine (BENTYL) 10 MG capsule Take 1 (one) capsule (10 mg total) by mouth 2 (two) times a day . 60 capsule 0 etodolac (LODINE) 500 MG tablet Take 500 mg by mouth 2 (two) times a day as needed for pain . famotidine (PEPCID) 20 MG tablet Take 20 mg by mouth nightly . Flovent HFA 110 mcg/actuation inhaler Inhale 2 puffs 2 (two) times a day . LORATADINE ORAL Take by mouth . naproxen (NAPROSYN) 500 MG tablet Take 500 mg by mouth 2 (two) times a day . Sprintec, 28, 0.25-35 mg-mcg per tablet Take 1 tablet by mouth daily . loperamide (Imodium A-D) 2 mg tablet Take 1 (one) tablet (2 mg total) by mouth every 8 (eight) hours as needed for diarrhea . 30 tablet 0 penicillin v potassium (VEETID) 500 MG tablet Take 500 mg by mouth 3 (three) times a day . No current facility-administered medications for this visit. Review of Systems Constitutional: Negative for appetite change and unexpected weight change. HENT: Negative for voice change. Respiratory: Negative for cough, choking and shortness of breath. Cardiovascular: Negative for chest pain and leg swelling. Gastrointestinal: Positive for abdominal pain and diarrhea. Negative for anal bleeding, blood in stool, constipation, nausea, rectal pain and vomiting. Genitourinary: Negative for hematuria. Musculoskeletal: Negative for arthralgias and joint swelling. Skin: Negative for pallor. Neurological: Negative for dizziness, tremors and weakness. Hematological: Negative for adenopathy. Does not bruise/bleed easily. Psychiatric/Behavioral: Negative for confusion. Physical Exam No visits with results within 30 Day(s) from this visit. Latest known visit with results is: Lab Draw on 08/20/2020 Component Date Value Ref Range Status TTG IgA 08/20/2020 <1.2 U/mL Final Assessment & Plan: 20-year-old female has typical diarrhea predominant IBS now only loose bowel cramps are better withBentyl. I will continue Bentyl on as needed basis and I asked her to take Imodium on as needed basis with high-fiber diet I will follow her up in 1 month if her symptoms persist she may need colonoscopy. Val Dai MD documented in this [id number] History of Present illness Narrative* Val Dai MD - 08/19/2020 3:00 PM EDT Jumana Menjivar 20 y.o. 2000 female Reason for Consult: IBS HPI: 21-year-old female with history of GERD and IBS was referred to me for evaluation of IBS. Patient says for long time she has abdominal pain which is mostly crampy and when she moved bowel abdominal pain gets better she also has loose bowel off and on with intermittent constipation but denies any blood in the stool. Denies any problem with diarrhea product or breads. Past Medical History: Past Medical History: Diagnosis Date Asthma GERD (gastroesophageal reflux disease) IBS (irritable bowel syndrome) Surgical History & Procedures: Past Surgical History: Procedure Laterality Date INTRAUTERINE DEVICE INSERTION 06/2018 Social History: Social History Socioeconomic History Marital status: Single Spouse name: Not on file Number of children: Not on file Years of education: Not on file Highest education level: Not on file Occupational History Not on file Tobacco Use Smoking status: Never Smoker Smokeless tobacco: Never Used Vaping Use Vaping Use: Never used Substance and Sexual Activity Alcohol use: Not Currently Drug use: Not Currently Sexual activity: Not on file Other Topics Concern Not on file Social History Narrative Not on file Social Determinants of Health Financial Resource Strain: Difficulty of Paying Living Expenses: Food Insecurity: Worried About Running Out of Food in the Last Year: Ran Out of Food in the Last Year: Transportation Needs: Lack of Transportation (Medical): Lack of Transportation (Non-Medical): Physical Activity: Days of Exercise per Week: Minutes of Exercise per Session: Stress: Feeling of Stress : Social Connections: Frequency of Communication with Friends and Family: Frequency of Social Gatherings with Friends and Family: Attends Yazdanism Services: Active Member of Clubs or Organizations: Attends Club or Organization Meetings: Marital Status: Current Medications: Current Outpatient Medications Medication Sig Dispense Refill albuterol sulfate (PROAIR HFA INHL) Inhale . famotidine (PEPCID) 20 MG tablet Take 20 mg by mouth nightly . Flovent HFA 110 mcg/actuation inhaler Inhale 2 puffs 2 (two) times a day . LORATADINE ORAL Take by mouth . penicillin v potassium (VEETID) 500 MG tablet Take 500 mg by mouth 3 (three) times a day . Sprintec, 28, 0.25-35 mg-mcg per tablet Take 1 tablet by mouth daily . dicyclomine (BENTYL) 10 MG capsule Take 1 (one) capsule (10 mg total) by mouth 2 (two) times a day . 60 capsule 0 No current facility-administered medications for this visit. Review of Systems Constitutional: Negative for appetite change and unexpected weight change. HENT: Negative for voice change. Respiratory: Negative for cough, choking and shortness of breath. Cardiovascular: Negative for chest pain and leg swelling. Gastrointestinal: Positive for abdominal pain and diarrhea. Negative for anal bleeding, blood in stool, constipation, nausea, rectal pain and vomiting. Genitourinary: Negative for hematuria. Musculoskeletal: Negative for arthralgias and joint swelling. Skin: Negative for pallor. Neurological: Negative for dizziness, tremors and weakness. Hematological: Negative for adenopathy. Does not bruise/bleed easily. Psychiatric/Behavioral: Negative for confusion. Physical Exam Constitutional: Appearance: Normal appearance. Eyes: Pupils: Pupils are equal, round, and reactive to light. Cardiovascular: Pulses: Normal pulses. Heart sounds: Normal heart sounds. Pulmonary: Breath sounds: Normal breath sounds. Abdominal: General: Bowel sounds are normal. Palpations: Abdomen is soft. There is no mass. Tenderness: There is no abdominal tenderness. Skin: Coloration: Skin is not jaundiced. Neurological: General: No focal deficit present. Mental Status: She is alert and oriented to person, place, and time. Psychiatric: Behavior: Behavior normal. No visits with results within 30 Day(s) from this visit. Latest known visit with results is: No results found for any previous visit. Assessment & Plan: 20-year-old white female with no significant past medical history complaining of loose bowel off and on for long time intermittent with sometimes constipation associated with abdominal pain mostly crampy. She has typical IBS. I asked her to take high-fiber diet and take Bentyl 10 mg p.o. twice daily. I will also get anti-tTG antibodies to rule out celiac disease. I will follow her up in 1 month. Val Dai MD documented in this encounterOhioHealthEvaluation + Plan note Future Appointments Appointment Date:08/10/2021 03:30:00 PM Scheduled Provider:Josey CASTILLO [facility] Future [facility]ointments Appointment Date:09/20/2022 09:00:00 AM Scheduled Provider:Erin POWELL CNP Location:[facility] Appointment Type:FM Open [facility] [place] + Plan note Future Appointments Appointment Date:04/04/2024 09:40:00 AM Scheduled Provider:Herber Aragon MD Location:[facility] Appointment Type:[facility]* Diagnosis Irritable bowel syndrome without diarrhea- Primary [facility] Diagnosis Irritable bowel syndrome with both constipation and diarrhea [facility]* Diagnosis Irritable bowel syndrome with diarrhea- Primary Irritable bowel syndrome [facility] Diagnosis Irritable bowel syndrome with diarrhea Irritable bowel syndrome [facility]* Diagnosis Tendinitis of thumb- Primary Carpal tunnel syndrome of right wrist [facility] noteNo assessment information availableMadison Health Work Phone: evaluation note* Diagnosis with care elsewhere, antepartum- Primary Obesity during Recurrent urinary tract infection affecting , antepartum 19 weeks gestation of state, incidental [facility] Diagnosis Obesity during [facility]* Diagnosis Obesity during - Primary Rh negative state in antepartum period Rhesus isoimmunization affecting management of mother, antepartum condition Need for vaccination Need for prophylactic vaccination and inoculation against unspecified single disease 28 weeks gestation of state, incidental [facility]* Diagnosis Encounter for follow-up ultrasound of anatomy- Primary Obesity affecting in second trimester, unspecified obesity type 29 weeks gestation of state, incidental [facility]* Diagnosis Obesity during - Primary 29 weeks gestation of state, incidental [facility]* Diagnosis Obesity in - Primary Obesity complicating , childbirth, or the puerperium, unspecified as to episode of care or not applicable 31 weeks gestation of state, incidental [facility]* Diagnosis with care elsewhere, antepartum- Primary Obesity during 35 weeks gestation of state, incidental [facility] this [facility]* Diagnosis Obesity during - Primary with care elsewhere, antepartum 36 weeks gestation of state, incidental [facility] this [facility]* Diagnosis with care elsewhere, antepartum- Primary Obesity during Encounter for ultrasound to check growth Encounter for routine screening for malformation using ultrasonics 37 weeks gestation of state, incidental Need for influenza vaccination Need for prophylactic vaccination and inoculation against influenza documented [facility] this [facility]* Diagnosis Encounter for ultrasound to assess growth- Primary Uterine size-date discrepancy, third trimester Supervision of other high risk pregnancies, third trimester 38 weeks gestation of state, incidental [facility] this encounter [facility]* Diagnosis Supervision of other high risk pregnancies, third trimester- Primary 38 weeks gestation of state, incidental [facility]* Diagnosis Onset Date Resolution Status 39 weeks gestation of acute Uterine contractions acute 39 weeks gestation of acute Artificial rupture of membranes antepartum acute Meconium in amniotic fluid a cute Obesity affecting acute Recurrent UTI acute Rh negative status during acute Spontaneous onset of labor a cute (spontaneous vaginal delivery) [facility] Work Phone: Evaluation note* Diagnosis with uncertain dates in first trimester- Primary 7 weeks gestation of state, incidental Short interval between pregnancies affecting , antepartum Encounter for supervision of normal in multigravida in first trimester documented [facility] this encounter [facility]* Diagnosis Short interval between pregnancies affecting , antepartum- Primary 12 weeks gestation of state, incidental Encounter for supervision of other normal in second trimester [facility]* Diagnosis Encounter for screening for malformation using ultrasound- Primary 16 weeks gestation of state, incidental Obesity affecting in second trimester, unspecified obesity type documented [facility] this encounter [facility]* Diagnosis Short interval between pregnancies affecting , antepartum- Primary Encounter for supervision of other normal in second trimester 16 weeks gestation of state, incidental [facility]* Diagnosis Encounter for supervision of other normal in second trimester- Primary 20 weeks gestation of state, incidental [facility]* Diagnosis Encounter for anatomic survey- Primary Obesity affecting in second trimester, unspecified obesity type 20 weeks gestation of state, incidental [facility]* Diagnosis Encounter for supervision of other normal in second trimester- Primary Short interval between pregnancies affecting , antepartum Vaginal itching Pruritus of genital organs Screening for diabetes mellitus documented in this encounter [facility] note* Diagnosis Encounter for supervision of high risk in second trimester, antepartum- Primary 24 weeks gestation of state, incidental Rh negative state in antepartum period Rhesus isoimmunization affecting management of mother, antepartum condition Screening for diabetes mellitus Obesity affecting in third trimester, unspecified obesity type documented in this encounter [facility] note* Diagnosis Obesity affecting in third trimester, unspecified obesity type (HCC)- Primary 30 weeks gestation of (HCC) state, incidental Encounter for supervision of high risk in third trimester, antepartum (HCC) Anemia complicating , third trimester (HCC) documented in this encounter [facility] note* Diagnosis Obesity affecting in third trimester, unspecified obesity type (HCC)- Primary 34 weeks gestation of (HCC) state, incidental Encounter for supervision of high risk in third trimester, antepartum (HCC) documented in this encounter [facility] note* Diagnosis Obesity affecting in third trimester, unspecified obesity type (HCC)- Primary Encounter for supervision of high risk in third trimester, antepartum (HCC) Anemia complicating , third trimester (HCC) 36 weeks gestation of (HCC) state, incidental documented in this encounter [facility] note* Diagnosis Obesity affecting in third trimester, unspecified obesity type (HCC)- Primary 37 weeks gestation of (HCC) state, incidental Encounter for supervision of high risk in third trimester, antepartum (HCC) Anemia complicating , third trimester (HCC) Short interval between pregnancies affecting , antepartum (HCC) documented in this encounter [facility] note* Diagnosis Encounter for supervision of high risk in third trimester, antepartum (HCC)- Primary Obesity affecting in third trimester, unspecified obesity type (HCC) Anemia complicating , third trimester (HCC) Short interval between pregnancies affecting , antepartum (HCC) 38 weeks gestation of (HCC) state, incidental documented in this encounter [facility] note* Diagnosis Obesity affecting in third trimester, unspecified obesity type (HCC)- Primary 39 weeks gestation of (HCC) state, incidental Encounter for supervision of high risk in third trimester, antepartum (HCC) Anemia complicating , third trimester (HCC) Short interval between pregnancies affecting , antepartum (HCC) [facility] Diagnosis Encounter for supervision of high risk in third trimester, antepartum (HCC)- Primary Short interval between pregnancies affecting , antepartum (HCC) Anemia complicating , third trimester (HCC) 40 weeks gestation of (HCC) state, incidental Vaginal discharge during in third trimester (HCC) * Assessment & Plan Note - Keo Garcia MD - 10/02/2024 3:32 PM EDT Associated Problem(s): Anemia complicating , third trimester (HCC) Orders: TABITHA/TRICHOMONAS NAAT BACTERIAL VAGINOSIS NAAT UA DIP, URINE (POC) BACTERIAL CULTURE, URINE * Assessment & Plan Note - Keo Garcia MD - 10/02/2024 3:32 PM EDT Associated Problem(s): Short interval between pregnancies affecting , antepartum (HCC) Orders: TABITHA/TRICHOMONAS NAAT BACTERIAL VAGINOSIS NAAT UA DIP, URINE (POC) BACTERIAL CULTURE, URINE documented in this encounter [facility] course Narrative No data available for this section [facility] Discharge instructions No data available for this section [facility] No data available for this section [facility] Consultation (Routine) Status Reason Specialty Diagnoses / Procedures Referred By Contact Referred To Contact Authorized Gastroenterology Diagnoses Irritable bowel syndrome without diarrhea Erin Powell, SAIDA [address] [place] [address] Val Dai MD [address] [place] [address] [facility] for referral (narrative)* Diagnostic Procedure Only (Routine) - Authorized Specialty Diagnoses / Procedures Referred By Contac t Referred To Contact [facility] Diagnoses Obesity during Procedures OBSTETRIC ULTRASOUND WHI US PREG UTERUS AFTER 1ST TRIMEST GESTATION Jairo Guillermo MD [address] [place] [address] [address] Referral ID Status Reason Start Date Expiration Date Visits Requested Visits Authorized [id number] Authorized Auto-Generat ed Referral 09/01/2022 09/01/2023 1 1 [facility] for referral (narrative)* Diagnostic Procedure Only (Routine) - Authorized Specialty Diagnoses / Procedures Referred By Contac t Referred To Contact [facility] Diagnoses Obesity during 29 weeks gestation of Procedures OBSTETRIC ULTRASOUND WHI US PREG UTERUS AFTER 1ST TRIMEST GESTATION Jairo Guillermo MD [address] [place] [place] [address] [address] Referral ID Status Reason Start Date Expiration Date Visits Requested Visits Authorized [id number] Authorized Auto-Generat ed Referral 11/14/2022 11/14/2023 1 1 [facility] for referral (narrative)* Diagnostic Procedure Only (Routine) - Authorized Specialty Diagnoses / Procedures Referred By Contac t Referred To Contact [facility] Diagnoses 7 weeks gestation of Procedures OBSTETRIC ULTRASOUND WHI US PREG UTERUS AFTER 1ST TRIMEST GESTATION Kathie Degroot APRN.SAIDA [address] [place] [address] [address] Referral ID Status Reason Start Date Expiration Date Visits Requested Visits Authorized [id number] Authorized Auto-Generat ed Referral 02/19/2024 02/18/2025 1 1 [facility] for referral (narrative)* Diagnostic Procedure Only (Routine) - Authorized Specialty Diagnoses / Procedures Referred By Contac t Referred To Contact [facility] Diagnoses 12 weeks gestation of Short interval between pregnancies affecting , antepartum Encounter for supervision of other normal in second trimester Procedures OBSTETRIC ULTRASOUND WHI US PREG UTERUS AFTER 1ST TRIMEST GESTATION Tatum Yost MD [address] [place] [address] [facility] [address] [place] [address] Referral ID Status Reason Start Date Expiration Date Visits Requested Visits Authorized [id number] Authorized Auto-Generat ed Referral 03/21/2024 03/21/2025 1 1 [facility] for visit Narrative* Consultation (Routine) Status Reason Specialty Diagnoses / Procedures Referred By Contact Referred To Contact Closed Gastroenterology Diagnoses Irritable bowel syndrome without diarrhea Erin Powell CNP [address] [place] [address] Val Dai MD [address] [place] [address] [facility] Summary Purpose Family History No Family History Records FoundNo Family History Records FoundNo Family History Records FoundNo Family History Records FoundNo Family History Records FoundNo Family History Records FoundNo Family History Records FoundNo Family History Records Found No data available for this section No Family History Records FoundNo Family History Records Found Advance Directives Documents on File Type Date Recorded 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 Advance Directives and Living Will Documents on File Type Date Recorded 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 Advance Directives and Living Will Advance Directive Response Recorded Date/ Time Advance Directives No July 26 12:02pm Advance Directive Response Recorded Date/ Time Living Will No January 25 12:39am Power of Admission Discharge Rn No January 25, 2023 12:39am History of Present Illness * Nayana Sterling, PASTRY COOK - 05/12/2020 11:56 AM EST [facility] [address] [facility] [address] [facility] [id number] Chief Complaint Patient presents with Right Hand - Pain Jumana Menjivar, 20 year old female with right thumb pain. She states that this has been going on for months now but within the last couple of weeks its been so painful that she has a hard time using that right hand. 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 She is right handed and denies any specific injury to the right hand or thumb. Shehas tried otc pain relievers and nothing has helped. The pain runs along the thumb and sometimes into the wrist. She denies any numbness or tingling in the thumb or the hand. Its difficult for her toopen doors or use the hand in any type of twisting motion such as to open a jar. She ended up in the ER because the pain was so bad and did have xrays taken. She was told there was no fracture but that she needed to follow up with orthopedics. The patient's past medical history, surgical history, social history, family history, medications and allergies were reviewed with the patient today and are available in the chart for further review. No Known Allergies Current Outpatient Medications: albuterol sulfate (PROAIR HFA INHL), Inhale ., Disp: , Rfl: LORATADINE ORAL, Take by mouth ., Disp: , Rfl: Past Medical History: Diagnosis Date Asthma No past surgical history on file. Social History Socioeconomic History Marital status: Single Spouse name: Not on file Number of children: Not on file Years of education: Not on file Highest education level: Not on file Occupational History Not on file Social Needs Financial resource strain: Not on file Food insecurity Worry: Not on file Inability: Not on file Transportation needs Medical: Not on file Non-medical: Not on file Tobacco Use Smoking status: Never Smoker Smokeless tobacco: Never Used Substance and Sexual Activity Alcohol use: Not Currently Drug use: Not Currently Sexual activity: Not on file Lifestyle Physical activity Days per week: Not on file Minutes per session: Not on file Stress: Not on file Relationships Social connections Talks on phone: Not on file Gets together: Not on file Attends confucianism service: Not on file Active member of club or organization: Not on file Attends meetings of clubs or organizations: Not on file Relationship status: Not on file Other Topics Concern Not on file Social History Narrative Not on file ROS: Review of Systems Constitutional: Negative for activity change and fatigue. HENT: Negative for congestion, hearing loss and trouble swallowing. Eyes: Negative for visual disturbance. Respiratory: Negative for chest tightness and shortness of breath. Cardiovascular: Negative for chest pain and palpitations. Gastrointestinal: Negative for abdominal pain, diarrhea, nausea and vomiting. Endocrine: Negative for polydipsia, polyphagia and polyuria. Genitourinary: Negative for decreased urine volume, difficulty urinating and hematuria. Musculoskeletal: Positive for arthralgias. Negative for joint swelling and myalgias. Skin: Negative for color change, rash and wound. Allergic/Immunologic: Negative for immunocompromised state. Neurological: Negative for dizziness, weakness, light-headedness and numbness. Hematological: Does not bruise/bleed easily. Psychiatric/Behavioral: Negative for confusion and sleep disturbance. The patient is not nervous/anxious. PE: Physical Exam Constitutional: She is oriented to person, place, and time. She appears well- developed and well-nourished. HENT: Head: Normocephalic. Eyes: Pupils are equal, round, and reactive to light. Neck: Normal range of motion. Neck supple. Cardiovascular: Normal rate and regular rhythm. Pulmonary/Chest: Effort normal and breath sounds normal. Abdominal: Soft. Bowel sounds are normal. Musculoskeletal: Normal range of motion. General: Tenderness present. Right hand: She exhibits tenderness. Hands: Neurological: She is alert and oriented to person, place, and time. Skin: Skin is warm and dry. ORTHO: Right Hand Exam Tenderness The patient is experiencing tenderness in the snuff box and dorsal area. Range of Motion The patient has normal right wrist ROM. Muscle Strength Metrology Manager: 4/5 Tests Phalen s Sign: negative Tinel's sign (median nerve): negative Niyah's test: positive Other Erythema: absent Scars: absent Sensation: normal Pulse: present Imaging: R Hand reviewed in tele-imaging No acute fracture or dislocation. No osseous abnormality. Assessment/Plan: After examination and reviewing of the patient x-ray images, I am having her use asplint for the thumb while at work and school. I also would like her to continue with taking otc anti-inflammatories for pain and inflammation. If there is no improvement in 2 weeks, I will see her back in the office and we can try an injection. The patient verbalizes understanding and is in agreement with the treatment plan. documented in this encounter Assessments Diagnosis Tendinitis of thumb- Primary Reason for Referral Specialty Diagnoses / Procedures Referred By Contanamaria burnett Referred To Contact Neurology Diagnoses Carpal tunnel syndrome of right wrist Procedures Nerve conduction test Nayana Sterling CNP [address] [place] [address] Brady Steward MD [address] [place] [address] Referral ID Status Reason Start Date Expiration Date V isits Requested Visits Authorized [id number] Authorized 05/17/2021 05/17/2022 1 1 Specialty Diagnoses / Procedures Referred By Charity burnett Referred To Contact Neurology Diagnoses Carpal tunnel syndrome of right wrist Procedures EMG: Nayana Sterling CNP [address] [place], [place] [id number] Brady Steward MD [address] [place] [address] Referral ID Status Reason Start Date Expiration Date V isits Requested Visits Authorized [id number] Authorized 05/17/2021 05/17/2022 1 1 Chief Complaint and Reason for Visit Chief Complaint Threatened Chief Complaint R/O LABOR Chief Complaint R/O LABOR VAGINAL DELIVERY Reason for Visit 39 weeks gestation o f Uterine contractions 39 weeks gestation of Artificial rupture of membranes antepartum Meconium in amniotic fluid Obesity affecting Recurrent UTI Rh negative status during Spontaneous onset of labor (spontaneous vaginal delivery) Health Concerns Problem Noted Date [facility] Education - [facility] 07/18 Education - [place] 08/08/2022 Problem Noted Date Diagnosed Date [facility] - [facility] 08/08/2022 Education - [place] 08/08/2022 Problem Noted Date Diagnosed Date [facility] Education - [facility] 08/08/2022 Education - [place] 08/08/2022 Problem Noted Date Diagnosed Date [facility] Education - [facility] 08/08/2022 Education - [place] 08/08/2022 Problem Noted Date Diagnosed Date [facility] Education - [facility] 08/08/2022 Education - [place] 08/08/2022 Problem Noted Date Diagnosed Date [facility] Education - [facility] 08/08/2022 Education - [place] 08/08/2022 Problem Noted Date Diagnosed Date [facility] Education - [facility] 08/08/2022 Education - [place] 08/08/2022 Problem Noted Date Diagnosed Date [facility] Education - [facility] 08/08/2022 Education - [place] 08/08/2022 Problem Noted Date Diagnosed Date [facility] Education - [facility] 08/08/2022 Education - [place] 08/08/2022 Problem Noted Date Diagnosed Date [facility] Education - [facility] 08/08/2022 Education - [place] 08/08/2022 Problem Noted Date Diagnosed Date [facility] Education - [facility] 08/08/2022 Education - [place] 08/08/2022 Problem Noted Date Diagnosed Date [facility] Education - [facility] 08/08/2022 [place] - [place] 08/08/2022 Additional Source Comments INFORMATION SOURCE (unrecogn ized section and content) DATE CREATED AUTHOR 02/25/2018 [facility] DATE CREATED AUTHOR AUTHOR'S ORGANIZ ATION 08/21/2020 [facility] DATE CREATED AUTHOR AUTHOR'S ORGANIZ ATION 04/25/2021 [facility] DATE CREATED AUTHOR AUTHOR'S ORGANIZ ATION 05/18/2021 [facility] DATE CREATED AUTHOR AUTHOR'S ORGANIZ ATION 09/02/2021 [facility] DATE CREATED AUTHOR AUTHOR'S ORGANIZ ATION 03/20/2022 [facility] DATE CREATED AUTHOR AUTHOR'S ORGANIZ ATION 03/29/2022 [facility] DATE CREATED AUTHOR AUTHOR'S ORGANIZ ATION 02/02/2023 [facility] DATE CREATED AUTHOR AUTHOR'S ORGANIZ ATION 07/06/2024 [facility] DATE CREATED AUTHOR AUTHOR'S ORGANIZ ATION 09/30/2024 [facility] Reason for Visit (unrecogniz ed section and content) Reason Comments Pain Reason Comments Pain Reason Onset Date Comments Care 09/01/2022 Reason Comments US Specialty Diagnoses / Procedures Referred By Contac t Referred To Contact [facility] Diagnoses Obesity during Procedures OBSTETRIC ULTRASOUND WHI US PREG UTERUS AFTER 1ST TRIMEST GESTATION Jairo Guillermo MD [address] 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 Halima Mack RN Reason Onset Date Comments Care 11/03/2022 Specialty Diagnoses / Procedures Referred By Contac t Referred To Contact [facility] Diagnoses Encounter for follow-up ultrasound of anatomy Procedures OBSTETRIC ULTRASOUND WHI US PREG UTERUS AFTER 1ST TRIMEST GESTATION Millicent Dent MD [address] [place] [address] [facility] [address] [place] [address] Referral ID Status Reason Start Date Expiration Date V isits Requested Visits Authorized [id number] Closed Auto-Generate d Referral 10/09/2022 10/09/2023 1 1 Reason Onset Date Comments Care 11/14/2022 Reason Onset Date Comments Care 11/29/2022 Reason Onset Date Comments Care 12/26/2022 Reason Onset Date Comments Care 01/02/2023 Reason Onset Date Comments Care 01/10/2023 Immunizations 01/10/2023 Flu vaccination Specialty Diagnoses / Procedures Referred By Contac t Referred To Contact [facility] Diagnoses Uterine size-date discrepancy, third trimester Supervision of other high risk pregnancies, third trimester Procedures OBSTETRIC ULTRASOUND WHI US PREG UTERUS AFTER 1ST TRIMEST GESTATION Keo Garcia MD [address] 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 - Other [facility] Reason Onset Date Comments Care 03/21/2024 Specialty Diagnoses / Procedures Referred By Contac t Referred To Contact [facility] Diagnoses 7 weeks gestation of Procedures OBSTETRIC ULTRASOUND WHI US PREG UTERUS AFTER 1ST TRIMEST GESTATION Kathie Degroot APRN.CNP [address] [facility] [place] [address] [address] Referral ID Status Reason Start Date Expiration Date V isits Requested Visits Authorized [id number] Closed Auto-Generate d Referral 02/19/2024 02/18/2025 1 1 Reason Onset Date Comments Care 04/17/2024 Reason Onset Date Comments Care 05/15/2024 Specialty Diagnoses / Procedures Referred By Contac t Referred To Contact [facility] Diagnoses 12 weeks gestation of Short interval between pregnancies affecting , antepartum Encounter for supervision of other normal in second trimester Procedures OBSTETRIC ULTRASOUND WHI US PREG UTERUS AFTER 1ST TRIMEST GESTATION Tatum Yost MD [address] [facility] [address] Phone: tel: fax: [address] [address] Referral ID Status Reason Start Date Expiration Date V isits Requested Visits Authorized [id number] Closed Auto-Generate d Referral 03/21/2024 03/21/2025 1 1 Reason Onset Date Comments Care 06/06/2024 Reason Onset Date Comments Care 06/12/2024 Reason Comments Breast Pump Reason Onset Date Comments Care 07/24/2024 Reason Onset Date Comments Care 08/22/2024 Reason Onset Date Comments Care 09/05/2024 Reason Onset Date Comments Care 09/12/2024 Reason Onset Date Comments Care 09/18/2024 Reason Onset Date Comments Care 09/25/2024 Care Teams (unrecognized sec tion and content) Liability Claims Adjuster Relationship Specialty Start Date End Date SukhdevErin veloz, PASTRY COOK [address] [place] [address] PCP - General Nurse Practitioner 05/11/20 Liability Claims Adjuster Relationship Specialty Start Date End Date Erin Powell CNP [address] [place] [address] PCP - General Nurse Practitioner 05/11/20 Team Status: Inactive Member Role Status Dates Asael Puente MD Attending Provider Active Erin Powell APRN [employer]AL PATTERNMAKER-C Primary Care Provider Active Team Status: Active Member Role Status Dates Erin Powell APRN [employer] PATTERNMAKER-C Primary Care Provider Active Liability Claims Adjuster Relationship Specialty Start Date End Date (Historical), No Pcp PCP - General 11/20/14 Liability Claims Adjuster Relationship Specialty Start Date End Date (Historical), No Pcp PCP - General 11/20/14 Liability Claims Adjuster Relationship Specialty Start Date End Date (Historical), No Pcp PCP - General 11/20/14 Liability Claims Adjuster Relationship Specialty Start Date End Date (Historical), No Pcp PCP - General 11/20/14 Liability Claims Adjuster Relationship Specialty Start Date End Date (Historical), No Pcp PCP - General 11/20/14 Liability Claims Adjuster Relationship Specialty Start Date End Date (Historical), No Pcp PCP - General 11/20/14 Liability Claims Adjuster Relationship Specialty Start Date End Date (Historical), No Pcp PCP - General 11/20/14 Liability Claims Adjuster Relationship Specialty Start Date End Date (Historical), No Pcp PCP - General 11/20/14 Liability Claims Adjuster Relationship Specialty Start Date End Date (Historical), No Pcp PCP - General 11/20/14 Liability Claims Adjuster Relationship Specialty Start Date End Date (Historical), No Pcp PCP - General 11/20/14 Liability Claims Adjuster Relationship Specialty Start Date End Date (Historical), No Pcp PCP - General 11/20/14 Team Status: Active Member Role Status Dates ERIN POWELL Primary Care Provider Active Team Status: Inactive Member Role Status Dates ANDRE KHAN Primary Care Provider Active Beena Walters CNM Attending Provider, Referring Pr ovidfely Active Liability Claims Adjuster Relationship Specialty Start Date End Date (Historical), No Pcp PCP - General 11/20/14 Team Status: Inactive Member Role Status Dates ANDRE KHAN Primary Care Provider Active Dr. Keo Garcia MD Admit Provider, Attending Pro vider Active Liability Claims Adjuster Relationship Specialty Start Date End Date Sunday Bruno [address] [place] [address] PCP - General Family Medicine 01/28/24 Liability Claims Adjuster Relationship Specialty Start Date End Date Cristian Brunojackson Devi [address] [place] [address] PCP - General Family Medicine 01/28/24 Liability Claims Adjuster Relationship Specialty Start Date End Date Cristian Brunojackson Devi [address] [place] [address] PCP - General Family Medicine 01/28/24 Liability Claims Adjuster Relationship Specialty Start Date End Date Sunday Bruno Estrella [address] [place] [address] PCP - General Family Medicine 01/28/24 Liability Claims Adjuster Relationship Specialty Start Date End Date Cristian Brunojackson Devi [address] [place] [address] PCP - General Family Medicine 01/28/24 Liability Claims Adjuster Relationship Specialty Start Date End Date Sunday Bruno [address] [place] [address] PCP - General Family Medicine 01/28/24 Liability Claims Adjuster Relationship Specialty Start Date End Date Sunday Bruno [address] [place] [place] [address] PCP - General Family Medicine 01/28/24 Liability Claims Adjuster Relationship Specialty Start Date End Date Sunday Bruno [address] [place] [address] PCP - General Family Medicine 01/28/24 Liability Claims Adjuster Relationship Specialty Start Date End Date Sunday Bruno [address] [facility] [place] [address] PCP - General Family Medicine 01/28/24 Liability Claims Adjuster Relationship Specialty Start Date End Date Sunday Bruno [address] [place] [address] PCP - General Family Medicine 01/28/24 Liability Claims Adjuster Relationship Specialty Start Date End Date Sunday Bruno [address] [place] [address] PCP - General Family Medicine 01/28/24 Liability Claims Adjuster Relationship Specialty Start Date End Date Sunday Bruno [address] [place] [address] PCP - General Family Medicine 01/28/24 Liability Claims Adjuster Relationship Specialty Start Date End Date Sunday Bruno [address] [place] [facility] [place] [address] PCP - General Family Medicine 01/28/24 Liability Claims Adjuster Relationship Specialty Start Date End Date Sunday Bruno [address] [place] [address] PCP - General Family Medicine 01/28/24 Liability Claims Adjuster Relationship Specialty Start Date End Date Sunday Bruno [address] [place] [facility] [place] [address] PCP - General Family Medicine 01/28/24 Liability Claims Adjuster Relationship Specialty Start Date End Date Sunday Bruno [address] [place] [facility] [place] [address] PCP - General Family Medicine 01/28/24 Liability Claims Adjuster Relationship Specialty Start Date End Date Sunday Bruno [address] [place] [facility] [place] [address] PCP - General Family Medicine 01/28/24 <item> Privacy Markings (unrecogniz ed section and content) Section Author: Princess Landin PROHIBITION ON REDISCLOSURE OF CONFIDENTIAL INFORMATION This notice accompanies a disclosure of information concerning a client made to you with the consent of such client. Goals (unrecognized section and content) Goals may be documented in a n alternate section Source Comments (unrecognize d section and content) In the event this informatio n is protected by the Federal Confidentiality of Alcohol and Drug Abuse Patient Records regulations: The Federal rules restrict any use of the information to criminally investigate or prosecute any alcohol or drug abuse patient.[facility] Center[facility] the event this information is protected by the Federal Confidentiality of Alcohol and Drug Abuse Patient Records regulations: The Federal rules restrict any use of the information to criminally investigate or prosecute any alcohol or drug abuse patient.[facility] CenterIn the event this information is protected by the Federal Confidentiality of Alcohol and Drug Abuse Patient Records regulations: The Federal rules restrict any use of the information to criminally investigate or prosecute any alcohol or drug abuse patient.[facility] CenterIn the event this information is protected by the Federal Confidentiality of Alcohol and Drug Abuse Patient Records regulations: The Federal rules restrict any use of the information to criminally investigate or prosecute any alcohol or drug abuse patient.[facility] CenterIn the event this information is protected by the Federal Confidentiality of Alcohol and Drug Abuse Patient Records regulations: The Federal rules restrict any use of the information to criminally investigate or prosecute any alcohol or drug abuse patient.[facility] CenterIn the event this information is protected by the Federal Confidentiality of Alcohol and Drug Abuse Patient Records regulations: The Federal rules restrict any use of the information to criminally investigate or prosecute any alcohol or drug abuse patient.[facility] CenterIn the event this information is protected by the Federal Confidentiality of Alcohol and Drug Abuse Patient Records regulations: The Federal rules restrict any use of the information to criminally investigate or prosecute any alcohol or drug abuse patient.[facility] CenterIn the event this information is protected by the Federal Confidentiality of Alcohol and Drug Abuse Patient Records regulations: The Federal rules restrict any use of the information to criminally investigate or prosecute any alcohol or drug abuse patient.[facility] CenterIn the event this information is protected by the Federal Confidentiality of Alcohol and Drug Abuse Patient Records regulations: The Federal rules restrict any use of the information to criminally investigate or prosecute any alcohol or drug abuse patient.[facility] CenterIn the event this information is protected by the Federal Confidentiality of Alcohol and Drug Abuse Patient Records regulations: The Federal rules restrict any use of the information to criminally investigate or prosecute any alcohol or drug abuse patient.[facility] CenterIn the event this information is protected by the Federal Confidentiality of Alcohol and Drug Abuse Patient Records regulations: The Federal rules restrict any use of the information to criminally investigate or prosecute any alcohol or drug abuse patient.[facility] CenterIn the event this information is protected by the Federal Confidentiality of Alcohol and Drug Abuse Patient Records regulations: The Federal rules restrict any use of the information to criminally investigate or prosecute any alcohol or drug abuse patient.[facility] CenterIn the event this information is protected by the Federal Confidentiality of Alcohol and Drug Abuse Patient Records regulations: The Federal rules restrict any use of the information to criminally investigate or prosecute any alcohol or drug abuse patient.[facility] CenterIn the event this information is protected by the Federal Confidentiality of Alcohol and Drug Abuse Patient Records regulations: The Federal rules restrict any use of the information to criminally investigate or prosecute any alcohol or drug abuse patient.[facility] CenterIn the event this information is protected by the Federal Confidentiality of Alcohol and Drug Abuse Patient Records regulations: The Federal rules restrict any use of the information to criminally investigate or prosecute any alcohol or drug abuse patient.[facility] CenterIn the event this information is protected by the Federal Confidentiality of Alcohol and Drug Abuse Patient Records regulations: The Federal rules restrict any use of the information to criminally investigate or prosecute any alcohol or drug abuse patient.[facility] CenterIn the event this information is protected by the Federal Confidentiality of Alcohol and Drug Abuse Patient Records regulations: The Federal rules restrict any use of the information to criminally investigate or prosecute any alcohol or drug abuse patient.[facility] CenterIn the event this information is protected by the Federal Confidentiality of Alcohol and Drug Abuse Patient Records regulations: The Federal rules restrict any use of the information to criminally investigate or prosecute any alcohol or drug abuse patient.[facility] CenterIn the event this information is protected by the Federal Confidentiality of Alcohol and Drug Abuse Patient Records regulations: The Federal rules restrict any use of the information to criminally investigate or prosecute any alcohol or drug abuse patient.[facility] CenterIn the event this information is protected by the Federal Confidentiality of Alcohol and Drug Abuse Patient Records regulations: The Federal rules restrict any use of the information to criminally investigate or prosecute any alcohol or drug abuse patient.[facility] CenterIn the event this information is protected by the Federal Confidentiality of Alcohol and Drug Abuse Patient Records regulations: The Federal rules restrict any use of the information to criminally investigate or prosecute any alcohol or drug abuse patient.[facility] CenterIn the event this information is protected by the Federal Confidentiality of Alcohol and Drug Abuse Patient Records regulations: The Federal rules restrict any use of the information to criminally investigate or prosecute any alcohol or drug abuse patient.[facility] CenterIn the event this information is protected by the Federal Confidentiality of Alcohol and Drug Abuse Patient Records regulations: The Federal rules restrict any use of the information to criminally investigate or prosecute any alcohol or drug abuse patient.[facility] CenterIn the event this information is protected by the Federal Confidentiality of Alcohol and Drug Abuse Patient Records regulations: The Federal rules restrict any use of the information to criminally investigate or prosecute any alcohol or drug abuse patient.[facility] CenterIn the event this information is protected by the Federal Confidentiality of Alcohol and Drug Abuse Patient Records regulations: The Federal rules restrict any use of the information to criminally investigate or prosecute any alcohol or drug abuse patient.[facility] CenterIn the event this information is protected by the Federal Confidentiality of Alcohol and Drug Abuse Patient Records regulations: The Federal rules restrict any use of the information to criminally investigate or prosecute any alcohol or drug abuse patient.[facility] CenterIn the event this information is protected by the Federal Confidentiality of Alcohol and Drug Abuse Patient Records regulations: The Federal rules restrict any use of the information to criminally investigate or prosecute any alcohol or drug abuse patient.[facility] CenterIn the event this information is protected by the Federal Confidentiality of Alcohol and Drug Abuse Patient Records regulations: The Federal rules restrict any use of the information to criminally investigate or prosecute any alcohol or drug abuse patient.[facility] CenterIn the event this information is protected by the Federal Confidentiality of Alcohol and Drug Abuse Patient Records regulations: The Federal rules restrict any use of the information to criminally investigate or prosecute any alcohol or drug abuse patient.[facility] CenterIn the event this information is protected by the Federal Confidentiality of Alcohol and Drug Abuse Patient Records regulations: The Federal rules restrict any use of the information to criminally investigate or prosecute any alcohol or drug abuse patient.[facility] CenterIn the event this information is protected by the Federal Confidentiality of Alcohol and Drug Abuse Patient Records regulations: The Federal rules restrict any use of the information to criminally investigate or prosecute any alcohol or drug abuse patient.[facility] CenterIn the event this information is protected by the Federal Confidentiality of Alcohol and Drug Abuse Patient Records regulations: The Federal rules restrict any use of the information to criminally investigate or prosecute any alcohol or drug abuse patient.[facility] CenterIn the event this information is protected by the Federal Confidentiality of Alcohol and Drug Abuse Patient Records regulations: The Federal rules restrict any use of the information to criminally investigate or prosecute any alcohol or drug abuse patient.[facility] CenterIn the event this information is protected by the Federal Confidentiality of Alcohol and Drug Abuse Patient Records regulations: The Federal rules restrict any use of the information to criminally investigate or prosecute any alcohol or drug abuse patient.[facility] CenterIn the event this information is protected by the Federal Confidentiality of Alcohol and Drug Abuse Patient Records regulations: The Federal rules restrict any use of the information to criminally investigate or prosecute any alcohol or drug abuse patient.[facility] CenterIn the event this information is protected by the Federal Confidentiality of Alcohol and Drug Abuse Patient Records regulations: The Federal rules restrict any use of the information to criminally investigate or prosecute any alcohol or drug abuse patient.[facility] CenterIn the event this information is protected by the Federal Confidentiality of Alcohol and Drug Abuse Patient Records regulations: The Federal rules restrict any use of the information to criminally investigate or prosecute any alcohol or drug abuse patient.[facility] CenterIn the event this information is protected by the Federal Confidentiality of Alcohol and Drug Abuse Patient Records regulations: The Federal rules restrict any use of the information to criminally investigate or prosecute any alcohol or drug abuse patient.[facility] CenterIn the event this information is protected by the Federal Confidentiality of Alcohol and Drug Abuse Patient Records regulations: The Federal rules restrict any use of the information to criminally investigate or prosecute any alcohol or drug abuse patient.[facility] CenterIn the event this information is protected by the Federal Confidentiality of Alcohol and Drug Abuse Patient Records regulations: The Federal rules restrict any use of the information to criminally investigate or prosecute any alcohol or drug abuse patient.[facility] CenterIn the event this information is protected by the Federal Confidentiality of Alcohol and Drug Abuse Patient Records regulations: The Federal rules restrict any use of the information to criminally investigate or prosecute any alcohol or drug abuse patient.[facility] FOR RECORDS PERTAINING TO PATIENTS WHO ARE OR HAVE BEEN ENROLLED IN A CHEMICAL DEPENDENCY/SUBSTANCEABUSE PROGRAM, SOME INFORMATION MAY BE OMITTED. This clinical summary was aggregated from multiple sources. Caution should be exercised in using it in the provision of clinical care. This summary normalizes information from multiple sources, and as a consequence, information in this document may materially change the coding, format and clinical context of patient data. In addition, data may be omitted in some cases. CLINICAL DECISIONS SHOULD BE BASED ON THE PRIMARY CLINICAL RECORDS. [facility] [employer] [facility] provides no warranty or guarantee of the accuracy or completeness of information in this document.
--- OUTSIDE RECORDS SUMMARY | 2024-10-05 07:25 | XMS RPT_ITS | CCD ---
Author Organization [facility] ion Partnership [facility] Care Team Providers Care Archeologist Name Role Phone Sameer Hoyt Unavailable Unavailable Sameer Hoyt Unavailable Unavailable No Doctor Assigned, Nodr Unavailable Unavail able Erin Powell Primary Care Provider Erin Powell CNPbeth Primary Care Provide r VAL DAI Admitting Unavail able ANDRE ERIN [facility] Care Unavaila ble Robnoah, Erin E Unavailable Ruby Morgan Unavailable Unavailable SUHASVAL KWAN Attending Unavail able ROBNOAH, ERIN [facility] Care Unavaila ble ROBUCK, [facility] Admitting Unavaila ble SUHASVAL KWAN Attending Unavail able ROBNOAH, ERIN RAND Referring Unavaila ble ROBUCK, [facility] Care Unavaila ble SUHASVAL KWAN Attending Unavail able ANDRE [facility] Care Unavaila ble SUHASVAL KWAN Attending Unavail able ROBNOAH, [facility] Unavaila ble NAYANA STERLING Attending Unavailable ROBUCK, [facility] Care Unavaila ble ROBUCK, Erin E Primary Care Physician MD Asael Puente Attending Provider SHANE Powell Primary Care Provider [phone] Crys Smith Attending Unavailable Robnoah, MsRaymond Khan [place] [facility] Unav ailable Andre, Ms. Erin [place] [facility] Unav ailable DO Jimmy Sanchez Attending Unavailab le (Historical), No Pcp Primary Care Provider Unava ilable Beena Walters Attending Unavailable Beena Walters Referring Unavailable BAADH, PALV Primary Care Unavailable BAADH, PALV Primary Care Unavailable Iris Garcia Admitting Unavailable Iris Garcia Attending Unavailable [facility] Primary Care Provider [phone] Herber Aragon Primary Care Physician MD Margo Herber Attending Unavailable MD Margo Herber Attending Unavailable MD Margo Herber Attending Unavailable MD Margo Herber Attending Unavailable MARY YEH Attending Unavailable [facility] Unavailab TATUM Sherman Attending Unavailable [facility] Unavailab willow ZANESANKETEE Referring Unavailable [facility] Unavailab KATHIE Bullock Attending Unavailable [facility] Unavailab MARY Johnson Attending Unavailable KATHIE DEGROOT Referring Unavailable [facility] Unavailab willow YOST TATUM Referring Unavailable [facility] Unavailab MARY Johnson Attending Unavailable WISPALOMO, TATUM Referring Unavailable [facility] Unavailab TATUM Sherman Attending Unavailable [facility] Unavailab TATUM Sherman Attending Unavailable [facility] Unavailab willow ZANE, KATHIE Referring Unavailable [facility] Unavailab MARY Johnson Attending Unavailable [facility] Unavailab AD Myrick Attending Unavailable [facility] Unavailab AD Myrick Referring Unavailable [facility] Unavailab MARY Johnson Attending Unavailable [facility] Unavailab TATUM Sherman Attending Unavailable [facility] Unavailab willow YOST TATUM Referring Unavailable [facility] Unavailab MARY Johnson Attending Unavailable [facility] Unavailab BEENA Gipson Attending Unavailable [facility] Unavailab BEENA Gipson Attending Unavailable SUNNY, SUNDAY ESTRELLA Primary Care Unavailab le Allergies Allergy Classification Reported Allergen(s) Allergy Type Date of Onset Reaction(s) Facility (1 source) No Known Medication Allergies; Translations: [No Known Medication Allergies] Propensity to adverse reactions (disorder) [facility] Repository Medications Current Medications Medication Drug Class(es) Dates Sig (Normalized) Sig (Original) Albuterol (20 sources) beta2-Adrenergic Agonist Start: 08-04-2020 albuterol Refills(s) 0 Start Date: 08/04/20 Status: Ordered ALBUTEROL INHALA TION Inhale as instructed. Active ALBUTEROL INHALA TION Inhale as instructed. 0 Active take 2 puff(s) by in halation every four hours as needed albuterol sulfate HFA 90 mcg/actuation aerosol inhaler ; 2 puff(s) inhaled every 4 hours, As Needed Quantity: 0 Refills: 5 Ordered: 05-Jan-2020 Fanny Mayorga Generic Substitution Allowed Comments: Source=Surescripts, Medication=albuterol sulfate HFA 90 mcg/actuation aerosol inhaler, OriginatingSource=[employer] #27, OriginatingProvider=ERIN POWELL, Duration=17, Refills=5, Date Last Modified/Filled=28-Nov-2019 albuterol sulfat e (PROAIR HFA INHL) Inhale . 0 Active Comment on above: Source=Surescripts, Medication=albuterol sulfate HFA 90 mcg/actuation aerosol inhaler, OriginatingSource=[employer] #27, OriginatingProvider=ERIN POWELL, Duration=17, Refills=5, Date Last Modified/Filled=28-Nov-2019 Inhale as instructed . 120 actuat albuterol 0.1 mg/actuat / ipratropium bromide 0.02 mg/actuat inhalation spray (2 sources) Anticholinergic, beta2-Adrenergic Agonist Star t: 110 8- 23 take 1 puff(s) by inhalation every six hours Ipratropium-Albu terol Active 1 PUFF INHALATION EVERY 6 HOURS January 24, 2023 12:00am amoxicillin 500 mg oral capsule (2 sources) Penicillin-class Antibacterial Star t: 7- 21 take 1 capsule by mouth three times daily amoxicillin (AMOXIL) 500 MG capsule TAKE 1 CAPSULE BY MOUTH THREE TIMES DAILY UNTIL GONE 0 11/23/2020 Active aspirin 81 mg delayed release oral tablet (20 sources) Platelet Aggregation Inhibitor, Nonsteroidal Anti-inflammatory Drug Star t: 07-18 End: 06-05 24 take 1 tablet by mouth once daily aspirin, enteric coated (ECOTRIN LOW STRENGTH) 81 mg EC tablet Indications: with uncertain dates in first trimester (HCC) Take 1 tablet by mouth once daily. 90 tablet 3 02/19/2024 Active Comment on above: Take 1 tablet by treva once daily. benzoyl peroxide 53 mg/ml topical foam (1 source) Star t: 11-18 benzoyl peroxide topical 5.3% foam 1 abimael, Topical, Daily, 60 gram, Refill(s) 11, apply to inner thighs, [facility], 163, cm, 12/11/22 13:51:00 EDT, Height/Length Dosing, 93.8, kg, 12/11/22 13:51:00 EDT, Weight Dosing Start Date: 12/11/22 Status: Ordered brompheniramine maleate 0.4 mg/ml / dextromethorphan hydrobromide 2 mg/ml / pseudoephedrine hydrochloride 6 mg/ml oral solution (1 source) alpha-Adrenergic Agonist, Uncompetitive E-ryjnkk-X-aspartate Receptor Antagonist, Sigma-1 Agonist Star t: 02-17 End: 08-05 take 5 mL by mouth every four to six hours brompheniramine/ pseudoephedrine/ dextromethorphan [id number]/5 mL oral syrup ; 5 milliliter(s) orally every 4 to 6 hours, As Needed Quantity: 120 Refills: 0 Ordered: 14-Mar-2021 EddieChristoferRuby Start: 14-Mar-2021 End: 23-Mar-2021 Generic Substitution Allowed Comments: May cause drowsiness. Alcohol may intensify this effect. Use care when operating dangerous machinery.Obtain medical advice before taking any non-prescription drugs as some may affect the action of this medication. Comment on above: May cause drowsiness . Alcohol may intensify this effect. Use care when operating dangerous machinery.Obtain medical advice before taking any non-prescription drugs as some may affect the action of this medication. 60 actuat budesonide 0.08 mg/actuat / formoterol fumarate 0.0045 mg/actuat metered dose inhaler (20 sources) Corticosteroid, beta2-Adrenergic Agonist Star t: 02-17 take 2 puff(s) by inhalation twice daily SYMBICORT 80-4.5 mcg/actuation inhaler Inhale 2 Puffs as instructed two times a day. 03/07/2024 Active cephalexin 500 mg oral capsule (1 source) Cephalosporin Antibacterial Star t: 07-06 End: 06-17 take 1 capsule by mouth every eight hours cephalexin 500 mg Cap 500 mg = 1 cap(s), Oral, q8hr, X 7 day(s), # 21 cap(s), Refills(s) 0, Pharmacy: [facility], 163, cm, 06/20/22 8:49:00 EDT, Height/Length Dosing, 93.6, kg, 06/20/22 8:43:00 EDT, Weight Dosing Start Date: 06/20/22 Stop Date: 06/27/22 Status: Ordered clindamycin 0.01 mg/mg topical gel (5 sources) Lincosamide Antibacterial Star t: 11-18 clindamycin Top 1% Gel 1 abimael, Topical, Once a day (at bedtime), 30 gram, Refill(s) 5, [facility], 163, cm, 12/11/22 13:51:00 EDT, Height/Length Dosing, 93.8, kg, 12/11/22 13:51:00 EDT, Weight Dosing Start Date: 12/11/22 Status: Ordered Start: 08-25-2020 take 1 capsule by [facility] every eight hours clindamycin 300 mg oral cap 300 mg = 1 cap(s), Oral, q8hr, # 30 cap(s), Refills(s) 0, Pharmacy: [facility], 163, cm, 07/15/20 10:43:00 EDT, Height/Length Dosing, 86.4, kg, 07/15/20 12:49:00 EDT, Weight Dosing Start Date: 08/25/20 Status: Ordered dicyclomine hydrochloride 10 mg oral capsule (6 sources) Anticholinergic Start: 08-19-2020 End: 12-08-2020 take 1 capsule by mouth twice daily dicyclomine (BENTYL) 10 MG capsule Indications: Irritable bowel syndrome with diarrhea Take 1 (one) capsule (10 mg total) by mouth 2 (two) times a day . 60 capsule 0 12/08/2020 Active {21 (Ethinyl Estradiol 0.035 MG / norgestimate 0.25 MG Oral Tablet) / 7 (Inert Ingredients 1 MG Oral Tablet) } Pack [Sprintec 28 Day] (7 sources) Progestin, Estrogen Start: 08-04-2020 Sprintec oral tablet 1 tab(s), Oral, Daily, 84 tab(s), Refill(s) 0, [facility], 163, cm, 08/04/20 15:41:00 EDT, Height/Length Dosing, 85.7, kg, 08/04/20 15:41:00 EDT, Weight Dosing Start Date: 08/04/20 Status: Ordered Start: 08-04-2020 take 1 tablet by treva once daily Sprintec, 28, 0.25-35 mg-mcg per tablet Take 1 tablet by mouth daily . 0 08/04/2020 Active etodolac 500 mg oral tablet (3 sources) Nonsteroidal Anti-inflammatory Drug Start: 10-12-2020 take 1 tablet by mouth twice daily as needed for pain etodolac (LODINE) 500 MG tablet Take 500 mg by mouth 2 (two) times a day as needed for pain . 0 10/12/2020 Active ferrous sulfate (1 source) ferrous sulfate (IRON PO) Take by mouth. Active fluticasone propionate 0.05 mg/actuat metered dose nasal spray (14 sources) Corticosteroid Start: 03-14-2021 End: 03-23-2021 take 1 spray(s) nasal route once daily fluticasone 50 mcg/inh nasal spray ; 1 spray(s) in each nostril once a day Quantity: 1 Refills: 0 Ordered: 14-Mar-2021 Rbuy Morgan Start: 14-Mar-2021 End: 23-Mar-2021 Generic Substitution Allowed Comments: For the nose.It is very important that you take or use this exactly as directed. Do not skip doses or discontinue unless directed by your doctor. Start: 08-04-2020 Flovent HFA Re fills(s) 0 Start Date: 08/04/20 Status: Ordered Start: 06-23-2020 take 2 puff(s) by in halation twice daily Flovent HFA 110 Aerosol = 2 puff(s), Inhalation, BID, # 1 EA, Refills(s) 11, Pharmacy: [facility], 163, cm, 06/23/20 14:35:00 EDT, Height/Length Dosing, 87.3, kg, 04/08/20 14:06:00 EST, Weight Dosing Start Date: 06/23/20 Status: Ordered Start: 06-23-2020 take 2 puff(s) by in halation twice daily Flovent HFA 110 Aerosol = 2 puff(s), Inhalation, BID, # 1 EA, Refills(s) 11, Pharmacy: [facility], 163, cm, 06/23/20 14:35:00 EDT, Height/Length Dosing, 87.3, kg, 04/08/20 14:06:00 EST, Weight Dosing Start Date: 06/23/20 Status: Ordered Start: 06-23-2020 take 2 puff(s) by in halation twice daily Flovent HFA 110 mcg/actuation inhaler Inhale 2 puffs 2 (two) times a day . 0 06/23/2020 Active Comment on above: Source=Surescripts, Medication=Flovent HFA 110 mcg/actuation aerosol inhaler, OriginatingSource=[employer] #27, OriginatingProvider=Sunday BRUNO, Duration=30, Refills=11, Date Last Modified/Filled=11-Nov-2019 For the nose.It is v ning important that you take or use this exactly as directed. Do not skip doses or discontinue unless directed by your doctor. loperamide hydrochloride 2 mg oral tablet (3 sources) Opioid Agonist Start : 10-19 take 1 tablet by mouth every eight hours as needed for diarrhea loperamide (Imodium A-D) 2 mg tablet Take 1 (one) tablet (2 mg total) by mouth every 8 (eight) hours as needed for diarrhea . 30 tablet 0 10/19/2020 Active Loratadine (15 sources) Start : 08-04 loratadine Refills(s) 0 Start Date: 08/04/20 Status: Ordered Start: 06-23-2020 take 1 tablet by treva th once daily Claritin 10 mg Tab 10 mg = 1 tab(s), Oral, Daily, # 30 tab(s), Refills(s) 11, Pharmacy: [facility], 163, cm, 06/23/20 14:35:00 EDT, Height/Length Dosing, 87.3, kg, 04/08/20 14:06:00 EST, Weight Dosing Start Date: 06/23/20 Status: Ordered LORATADINE ORAL Take by mouth . 0 Active Comment on above: Source=Nidhi, Medication=loratadine 10 mg tablet, OriginatingSource=[facility], OriginatingProvider=Sunday BRUNO, Duration=30, Refills=11, Date Last Modified/Filled=11-Nov-2019 12 hr loratadine 5 mg / pseudoephedrine sulfate 120 mg extended release oral tablet (1 source) alpha-Adrenergic Agonist take 1 tablet by mouth every twelve hours, then take 1 tablet by mouth every twelve hours Loratadine-D 5 mg-120 mg tablet,extended release 12 hr ; TAKE 1 TABLET BY MOUTH EVERY 12 HOURS FOR 7 DAYS hold loratidine while on this Quantity: 0 Refills: 0 Ordered: 05-Jan-2020 Fanny Mayorga Status: Discontinued Generic Substitution Allowed Comments: Source=Sureraymondriesequiel ts, Medication=Lorat adine-D 5 mg-120 mg tablet,extended release 12 hr, OriginatingSourc e=[facility], OriginatingProvi alfonso=ERIN POWELL, Duration=7, Date Last Modified/Filled= 28-Nov-2019 Comment on above: Source=S[employer]i, Medication=Loratadine-D 5 mg-120 mg tablet,extended release 12 hr, OriginatingSource=[facility], OriginatingProvider=ERIN POWELL, Duration=7, Date Last Modified/Filled=28-Nov-2019 magnesium oxide 420 mg oral tablet (18 sources) Start : 09-29 End: 02-18 take 1 tablet by mouth once daily Magnesium Oxide 420 mg tab Take 1 tablet by mouth once daily. 100 tablet 3 09/29/2022 02/19/2024 Discontinued Comment on above: Take 1 tablet by [facility] once daily. naproxen 500 mg oral tablet (8 sources) Nonsteroidal Anti-inflammatory Drug Start : 08-12 take 1 tablet by mouth twice daily Naprosyn 500 mg Tab 500 mg = 1 tab(s), Oral, BID, # 60 tab(s), Refills(s) 0, Pharmacy: [facility], 163, cm, 07/15/20 10:43:00 EDT, Height/Length Dosing, 86.4, kg, 07/15/20 12:49:00 EDT, Weight Dosing Start Date: 08/12/20 Status: Ordered Omeprazole (5 sources) Proton Pump Inhibitor Start : 08-04 omeprazole Refills(s) 0 Start Date: 08/04/20 Status: Ordered take 1 capsule by [facility] once daily omeprazole 20 mg capsule,delayed release ; 1 cap(s) orally once a day with supper Quantity: 0 Refills: 5 Ordered: 05-Jan-2020 Fanny Mayorga Status: Other Generic Substitution Allowed Comments: Source=[employer], Medication=omeprazole 20 mg capsule,delayed release, OriginatingSource=[facility], OriginatingProvider=Sunday BRUNO, Duration=30, Refills=5, Date Last Modified/Filled=16-Dec-2019 Comment on above: Source=[employer]cripts, Medication=omeprazole 20 mg capsule,delayed release, OriginatingSource=[facility], OriginatingProvider=Sunday BRUNO, Duration=30, Refills=5, Date Last Modified/Filled=16-Dec-2019 pantoprazole 20 mg delayed release oral tablet (4 sources) Proton Pump Inhibitor Start : 09-12 take 1 tablet by mouth once daily pantoprazole DR (PROTONIX) 20 mg tablet Take 1 tablet by mouth once daily. 30 tablet 2 09/12/2024 Active penicillin v potassium 500 mg oral tablet (7 sources) Start : 07-15 take 1 tablet by mouth three times daily penicillin V potassium 500 mg Tab 500 mg = 1 tab(s), Oral, TID, # 30 tab(s), Refills(s) 0, Pharmacy: [facility], 163, cm, 07/15/20 10:43:00 EDT, Height/Length Dosing, 86.4, kg, 07/15/20 12:49:00 EDT, Weight Dosing Start Date: 07/15/20 Status: Ordered penicillin V potassium 500 mg Tab (1 source) Start : 07-15 take 1 tablet by mouth three times daily penicillin V potassium 500 mg Tab 500 mg = 1 tab(s), Oral, TID, # 30 tab(s), Refills(s) 0, Pharmacy: [facility], 163, cm, 07/15/20 10:43:00 EDT, Height/Length Dosing, 86.4, kg, 07/15/20 12:49:00 EDT, Weight Dosing Start Date: 07/15/20 Status: Ordered prental multivitamin 27 mg iron- 800 mcg tablet (20 sources) take 1 tablet by mouth once daily prental multivitamin 27 mg iron- 800 mcg tablet Take 1 tablet by mouth once daily. Active take 1 tablet by mouth once lenore y prental multivitamin 27 mg iron- 800 mcg tablet Take 1 tablet by mouth once daily. 0 Active Comment on above: Take 1 tablet by treva once daily. Sprintec oral tablet (1 source) Start: 08-04-2020 Sprintec oral tablet 1 tab(s), Oral, Daily, 84 tab(s), Refill(s) 0, [facility], 163, cm, 08/04/20 15:41:00 EDT, Height/Length Dosing, 85.7, kg, 08/04/20 15:41:00 EDT, Weight Dosing Start Date: 08/04/20 Status: Ordered Symbicort 80/4.5 inhalation aerosol with adapter (1 source) Start: 03-07-2024 take 2 puff(s) by inhalation twice daily Symbicort 80/4.5 inhalation aerosol with adapter 2 puff(s), Inhalation, BID, 10.2 gm, Refill(s) 0, [facility], 163, cm, 03/07/24 9:05:00 EST, Height/Length Dosing, 84.1, kg, 03/07/24 9:05:00 EST, Weight Dosing Start Date: 03/07/24 Status: Ordered Ventolin HFA 90 mcg/inh Aerosol (4 sources) Start: 06-23-2020 take 2 puff(s) by inhalation every four hours for wheezing Ventolin HFA 90 mcg/inh Aerosol 2 puff(s), Inhalation, q4hr for wheezing, 18 gram, Refill(s) 5, [facility], 163, cm, 06/23/20 14:35:00 EDT, Height/Length Dosing, 87.3, kg, 04/08/20 14:06:00 EST, Weight Dosing Start Date: 06/23/20 Status: Ordered Ventolin HFA 90 mcg/inh Aerosol-Adpt (4 sources) Start: 06-20-2022 take 2 puff(s) by inhalation every four hours for wheezing Ventolin HFA 90 mcg/inh Aerosol-Adpt 2 puff(s), Inhalation, q4hr for wheezing, 18 gram, Refill(s) 2, [facility], 163, cm, 06/20/22 8:49:00 EDT, Height/Length Dosing, 93.6, kg, 06/20/22 8:43:00 EDT, Weight Dosing Start Date: 06/20/22 Status: Ordered Completed/Discontinued Medications Medication Drug Class(es) Dates Sig (Normalized) Sig (Original) famotidine 20 mg oral tablet (20 sources) Histamine-2 Receptor Antagonist Start: 03-21-2024 End: 09-12-2024 take 1 tablet by mouth twice daily famotidine (PEPCID) 20 mg tablet Take 1 tablet by mouth two times a day. 60 tablet 2 03/21/2024 09/12/2024 Discontinued (Discontinued by Patient) Start: 06-23-2020 take 1 tablet by treva once daily at bedtime famotidine 20 mg Tab 20 mg = 1 tab(s), Oral, Once a day (at bedtime), # 30 tab(s), Refills(s) 11, Pharm[facility]: [facility], 163, cm, 06/23/20 14:35:00 EDT, Height/Length Dosing, 87.3, kg, 04/08/20 14:06:00 EST, Weight Dosing Start Date: 06/23/20 Status: Ordered levonorgestrel 0.984087 mg/hr intrauterine system (4 sources) Progestin, Progestin-containing Intrauterine Device Start: 06-26-2018 Kyleena 19.5 mg intrauterine device 19.5 mg = 1 EA, IntraUteral, Once, X 1 dose(s), Refills(s) 0 Start Date: 06/26/18 Status: Ordered Problems Active Problems Problem Classification Problem Date Documented Da te Episodic/Chronic Asthma (19 sources) Asthma; Translations: [Mild intermittent asthma] Onset: 3 02-21-2016 Chronic Disorders of teeth and jaw (4 sources) Infection of tooth 07-15-2020 Episodic Early or threatened labor (3 sources) Uterine contractions present; Translations: [False labor, unspecified] Onset: 3 01-25-2023 Episodic Esophageal disorders (16 sources) Gastroesophageal reflux disease 06-10-2019 Chronic Immunizations and screening for infectious disease (3 sources) Vaccination needed; Translations: [Encounter for immunization] Onset: 5 11-03-2022 Episodic Other complications of (20 sources) Obesity; Translations: [Obesity complicating , unspecified trimester] Onset: 3 Chronic Other complications of (11 sources) Maternal obesity complicating , childbirth and the puerperium, antepartum; Translations: [Obesity complicating , second trimester] 11-14-2022 Chronic Other complications of (1 source) Obesity complicating , unspecified trimester; Translations: [Obesity complicating , childbirth, or the puerperium, unspecified as to episode of care or not applicable] 01-26-2023 Chronic Other complications of (16 sources) Anemia in mother complicating , childbirth AND/OR puerperium; Translations: [Anemia complicating , third trimester] Onset: 5 07-10-2024 Chronic Other complications of (1 source) Obesity complicating , third trimester; Translations: [Obesity affecting in third trimester, unspecified obesity type (HCC)] Onset: 5 Chronic Other complications of (1 source) Anemia complicating , third trimester; Translations: [Anemia complicating , third trimester (HCC)] Onset: 5 Chronic Other complications of (1 source) Uterine size for dates discrepancy; Translations: [Uterine size-date discrepancy, third trimester] 01-12-2023 Episodic Other complications of (20 sources) High risk ; Translations: [Supervision of other high risk pregnancies, third trimester] Onset: 3 01-12-2023 Episodic Other complications of (20 sources) Finding of pattern of ; Translations: [Supervision of other high risk pregnancies, unspecified trimester] Onset: 4 02-19-2024 Episodic Other complications of (2 sources) Supervision of high risk , unspecified, third trimester; Translations: [Encounter for supervision of high risk in third trimester, antepartum (HCC)] Onset: 5 Episodic Other complications of (1 source) Vaginal discharge; Translations: [Other specified related conditions, third trimester] 10-02-2024 Episodic Other connective tissue disease (2 sources) Tendinitis of hand; Translations: [Other enthesopathies, not elsewhere classified] Episodic Other female genital disorders (1 source) Pruritus of vagina; Translations: [Other specified noninflammatory disorders of vagina] 06-06-2024 Episodic Other gastrointestinal disorders (10 sources) Irritable bowel syndrome; Translations: [Irritable bowel syndrome without diarrhea] Chronic Other gastrointestinal disorders (2 sources) Irritable bowel syndrome with diarrhea; Translations: [Irritable bowel syndrome with diarrhea] Chronic Other nervous system disorders (1 source) Carpal tunnel syndrome of right wrist; Translations: [Carpal tunnel syndrome, right upper limb] Chronic Other nervous system disorders (8 sources) Carpal tunnel syndrome 03-17-2020 Chronic Other nutritional; endocrine; and metabolic disorders (4 sources) Body mass index 30+ - obesity 07-01-2020 Chronic Other nutritional; endocrine; and metabolic disorders (2 sources) Obese class II; Translations: [Body mass index (BMI) 35.0-35.9, adult] Onset: 3 Chronic Other nutritional; endocrine; and metabolic disorders (1 source) Obese class I; Translations: [Body mass index (BMI) 31.0-31.9, adult] Onset: 4 Chronic Other conditions (1 source) Amniotic fluid -meconium stain ; Translations: [Meconium staining] 01-25-2023 Episodic Other conditions (1 source) Meconium staining; Translations: [Meconium staining] 01-26-2023 Episodic Other screening for suspected conditions (not mental disorders or infectious disease) (9 sources) Patient encounter status; Translations: [Encounter for other screening follow-up] Onset: 11-14-2022 Episodic Other upper respiratory disease (8 sources) Seasonal allergy 06-10-2019 Chronic Other upper respiratory infections (2 sources) Upper respiratory infection; Translations: [Acute upper respiratory infections of unspecified site] 03-14-2021 Episodic Residual codes; unclassified (1 source) Gestation period, 19 weeks; Translations: [19 weeks gestation of ] Episodic Residual codes; unclassified (1 source) Gestation period, 28 weeks; Translations: [28 weeks gestation of ] 11-03-2022 Episodic Residual codes; unclassified (2 sources) Gestation period, 29 weeks; Translations: [29 weeks gestation of ] 11-14-2022 Episodic Residual codes; unclassified (1 source) Gestation period, 31 weeks; Translations: [31 weeks gestation of ] 11-29-2022 Episodic Residual codes; unclassified (1 source) Gestation period, 35 weeks; Translations: [35 weeks gestation of ] 12-26-2022 Episodic Residual codes; unclassified (2 sources) Gestation period, 36 weeks; Translations: [36 weeks gestation of ] 01-02-2023 Episodic Residual codes; unclassified (2 sources) Gestation period, 37 weeks; Translations: [37 weeks gestation of ] 01-10-2023 Episodic Residual codes; unclassified (3 sources) Gestation period, 38 weeks; Translations: [38 weeks gestation of ] 01-12-2023 Episodic Residual codes; unclassified (2 sources) Gestation period, 39 weeks; Translations: [39 weeks gestation of ] 01-25-2023 Episodic Residual codes; unclassified (3 sources) 39 weeks gestation of ; Translations: [ state, incidental] Onset: 5 01-24-2023 Episodic Residual codes; unclassified (1 source) Gestation period, 7 weeks; Translations: [Less than 8 weeks gestation of ] 02-19-2024 Episodic Residual codes; unclassified (1 source) Gestation period, 12 weeks; Translations: [12 weeks gestation of ] 03-21-2024 Episodic Residual codes; unclassified (2 sources) Gestation period, 16 weeks; Translations: [16 weeks gestation of ] 04-17-2024 Episodic Residual codes; unclassified (2 sources) Gestation period, 20 weeks; Translations: [20 weeks gestation of ] 05-15-2024 Episodic Residual codes; unclassified (1 source) Gestation period, 24 weeks; Translations: [24 weeks gestation of ] 06-12-2024 Episodic Residual codes; unclassified (1 source) Gestation period, 30 weeks; Translations: [30 weeks gestation of ] 07-24-2024 Episodic Residual codes; unclassified (1 source) Gestation period, 34 weeks; Translations: [34 weeks gestation of ] 08-22-2024 Episodic Residual codes; unclassified (1 source) 38 weeks gestation of ; Translations: [38 weeks gestation of (HCC)] Onset: Episodic Residual codes; unclassified (1 source) 37 weeks gestation of ; Translations: [37 weeks gestation of (HCC)] Onset: Episodic Residual codes; unclassified (1 source) 36 weeks gestation of ; Translations: [36 weeks gestation of (HCC)] Onset: 5 Episodic Residual codes; unclassified (1 source) 34 weeks gestation of ; Translations: [34 weeks gestation of (HCC)] Onset: Episodic Residual codes; unclassified (1 source) 30 weeks gestation of ; Translations: [30 weeks gestation of (HCC)] Onset: Episodic Residual codes; unclassified (1 source) 28 weeks gestation of ; Translations: [28 weeks gestation of (HCC)] Onset: Episodic Residual codes; unclassified (1 source) 24 weeks gestation of ; Translations: [24 weeks gestation of (HCC)] Onset: 5 Episodic Residual codes; unclassified (1 source) Gestation period, 40 weeks; Translations: [40 weeks gestation of ] 10-02-2024 Episodic Unclassified (2 sources) COLD SYMPTOMS 03-14-2021 Comment on above: COLD SYMPTOMS Unclassified (2 sources) Spontaneous onset of labor; Translations: [Spontaneous onset of labor] 01-25-2023 Unclassified (2 sources) Prolonged artificial rupture of membranes with problem; Translations: [Artificial rupture of membranes antepartum] 01-25-2023 Unclassified (20 sources) [facility] Education - COMMON Onset: 4 02-19-2024 Unclassified (20 sources) Education - [place] Onset: 4 02-19-2024 Urinary tract infections (4 sources) Urinary tract infectious disease; Translations: [Urinary tract infection, site not specified] Onset: 3 Episodic Past or Other Problems Problem Classification Problem Date Documented Date Episodic/Chronic Abdominal pain (1 source) Unspecified abdominal pain; Translations: [Unspecified abdominal pain] Onset: 07-17-2021 Episodic Blindness and vision defects (20 sources) Hypermetropia; Translations: [Hypermetropia, unspecified eye] Onset: 12-08-2014 12-08-2014 Episodic Hemorrhage during ; abruptio placenta; placenta previa (2 sources) Threatened ; Translations: [Hemorrhage in early , unspecified] Onset: 07-17-2021 Episodic Other complications of (1 source) Other specified related conditions, first trimester; Translations: [Oth related conditions, first trimester] Onset: 07-17-2021 Episodic Other complications of (20 sources) Urinary tract infection in ; Translations: [Unspecified infection of urinary tract in , unspecified trimester] Onset: 08-03-2022 Resolved: 02-19-2024 Episodic Other complications of (20 sources) RhD negative; Translations: [Other specified related conditions, unspecified trimester] Onset: 11-06-2022 11-03-2022 Episodic Other complications of (2 sources) Other specified related conditions, unspecified trimester; Translations: [Other specified complications of , antepartum condition or complication] Onset: 11-06-2022 01-26-2023 Episodic Other complications of (2 sources) Supervision of other high risk pregnancies, unspecified trimester; Translations: [Short interval between pregnancies affecting , antepartum (HCC)] Onset: 02-19-2024 Episodic Other female genital disorders (20 sources) Recurrent loss; Translations: [Recurrent loss without current ] Onset: 08-07-2022 02-19-2024 Episodic Other and delivery including normal (20 sources) Normal ; Translations: [Encounter for supervision of normal , unspecified, unspecified trimester] Onset: 06-20-2022 Episodic Other skin disorders (20 sources) Hidradenitis suppurativa; Translations: [Hidradenitis suppurativa] Onset: 12-11-2022 Episodic Residual codes; unclassified (2 sources) Less than 8 weeks gestation of ; Translations: [Less than 8 weeks gestation of ] Onset: 07-17-2021 Episodic Residual codes; unclassified (1 source) Unspecified blood type, Rh negative; Translations: [Rh negative state in antepartum period (HCC)] Onset: 11-06-2022 Episodic Residual codes; unclassified (1 source) 12 weeks gestation of ; Translations: [12 weeks gestation of ] Onset: 05-15-2024 Episodic Unclassified (16 sources) Patient encounter status 03-02-2020 Unclassified (1 source) Exposure to 2019 novel coronavirus; Translations: [Contact with and (suspected) exposure to COVID19] Results Test Name Value Interpretation Reference Range Facility UA DIP, URINE (POC)on 2024 BILIRUBIN UA (POCT) Negative Negative [facility] CLARITY UA (POCT) Slightly Cloudy Cl [facility] COLOR UA (POCT) Yellow [facility] GLUCOSE UA (POCT) Negative Negative mg/dL [facility] Hemoglobin Ql (U) Negative Negative [facility] Interpretation and review of laboratory results Abnormal [facility] KETONE UA (POCT) Negative Negative mg/dL [facility] LEUKOCYTES UA (POCT) Small Abnormal Negative [facility] NITRITE UA (POCT) Negative Negative [facility] PH UA (POCT) 7.5 4.5 - 8.[address] [facility] Protein Ql (U) Negative Negative mg/dL [facility] SPECIFIC GRAVITY UA (POCT) 1.02 1.005 - 1.[address] [facility] UROBILINOGEN UA (POCT) 1 Emely l E.U./dL [facility] Location:[facility], [address], [place], [place], [id number] [place] [address] POINT OF CARE [facility] URINE OB DIP B/Oon 5 Glucose Ql (U) Negative Neg mg/dL [facility] Interpretation and review of laboratory results Normal [facility] Protein.monoclonal (U) [Mass/Vol] Negative Neg mg/dL [facility] URINE OB DIP B/Oon 5 Glucose Ql (U) Negative Neg mg/dL [facility] Protein.monoclonal (U) [Mass/Vol] Negative Neg mg/dL [facility] URINE OB DIP B/Oon 5 Glucose Ql (U) Negative Neg mg/dL [facility] Interpretation and review of laboratory results Normal [facility] Protein.monoclonal (U) [Mass/Vol] Negative Neg mg/dL [facility] ROUTINE, GROUP B ST REPTOCOCCUS BY PCRon 09-05-2024 ROUTINE, GROUP B STREPTOCOCCUS BY PCR Not detected Normal [facility] Comment on above: Performed By: #### T SPN #### CC [facility] BLOOD [facility]ANK [facility] [id number] [address] [place] [address] URINE OB DIP B/Oon 5 Glucose Ql (U) Negative Neg mg/dL [facility] Interpretation and review of laboratory results Normal [facility] Protein.monoclonal (U) [Mass/Vol] Negative Neg mg/dL [facility]2024 [id number] JUMANA MENJIVAR ([id number]) 2 F Date Time Provider Department 08/25/24 MARY LITTLE [id number] During your visit today, we recorded the following information about you: Mary Little RN 08/25/2024 9:11 AM Signed 3rd risk assessment form submitted 08/25/2024. Mary Little RN Allergies As of Date: 08/25/2024 (No Known Allergies) Date Reviewed: 08/22/2024 Reviewed by: Fanny Skaggs MA - Fully Assessed Reason for Visit: [employer] - Other [3602] Cmt: PRAF Prescriptions as of 08/25/2024 - SYMBICORT 80-4.5 mcg/actuation inhaler Inhale 2 Puffs as instructed two times a day. - famotidine (PEPCID) 20 mg tablet Take 1 tablet by mouth two times a day. - aspirin, enteric coated (ECOTRIN LOW STRENGTH) 81 mg EC tablet Take 1 tablet by mouth once daily. - prental multivitamin 27 mg iron- 800 mcg tablet Take 1 tablet by mouth once daily. - ALBUTEROL INHALATION Inhale as instructed. Meds Comments as of 12/08/2014: Per mom, 2 inhalers, allergy medication and stomach medication, all names unknown. 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] 08/07/2022 Anemia complicating , third trimester *07/10/2024 Encounter Status:Closed by MARY LITTLE on 08/25/24 Normal [facility] URINE OB DIP B/Oon Glucose Ql (U) Negative Neg mg/dL [facility] Interpretation and review of laboratory results Normal [facility] Protein.monoclonal (U) [Mass/Vol] Negative Neg mg/dL [facility] CBC panel Auto (Bld)on 08-07 Erythrocyte distribution width (RBC) [Ratio] 15.0 % Normal 11.5-15.0 [facility] Comment on above: Order Comment: Speci men Type: BLOOD SPECIMEN Ordering Facility: [facility] Address: [address] [place] [address] Performed By: #### T SPN #### CC MA[facility] BLOOD BANK CLIA [id number] [address] [place] [address] [place] Hematocrit (Bld) [Volume fraction] 31.7 % Low 36.0-46.0 [facility] Comment on above: Order Comment: Speci men Type: BLOOD SPECIMEN Ordering Facility: [facility] Address: [address] [place] [address] Performed By: #### T SPN #### CC [facility] CLIA [id number] [address] [place] [address] [place] Hemoglobin (Bld) [Mass/Vol] 10.1 g/dL Low 11.5-15.5 [facility] Comment on above: Order Comment: Speci men Type: BLOOD SPECIMEN Ordering Facility: [facility] Address: [address] [place] [address] Performed By: #### T SPN #### [facility]LOOD [facility] CLIA [id number] [address] [place] [address] [place] MCH (RBC) [Entitic mass] 26.1 pg Normal 26.0-34.0 [facility] Comment on above: Order Comment: Speci men Type: BLOOD SPECIMEN Ordering Facility: [facility] Address: [address] [place] [address] Performed By: #### T SPN #### [facility]LOOD B[facility] CLIA [id number] [address] [place] [address] [place] MCHC (RBC) [Mass/Vol] 31.9 g/dL Normal 30.5-36.0 [facility] Comment on above: Order Comment: Speci men Type: BLOOD SPECIMEN Ordering Facility: [facility] Address: [address] [place] [address] Performed By: #### T SPN #### CC [facility] BLOOD BANK CLIA [id number] [address] [place] [address] [place] MCV (RBC) [Entitic vol] 81.9 fL Normal 80.0-100.0 [facility] Comment on above: Order Comment: Speci men Type: BLOOD SPECIMEN Ordering Facility: [facility] Address: [address] [place] [address] Performed By: #### T SPN #### CC [facility]LOOD B[facility] CLIA [id number] [address] [place] [address] [place] Nucleated RBC (Bld) [#/Vol] 10*3/uL Normal <0.01 [facility] Comment on above: Order Comment: Speci men Type: BLOOD SPECIMEN Ordering Facility: [facility] Address: [address] [place] [address] Performed By: #### T SPN #### CC [facility]LOOD B[facility] CLIA [id number] [address] [place] [address] [place] Platelet mean volume (Bld) [Entitic vol] 8.6 fL Low 9.0-12.7 [facility] Comment on above: Order Comment: Speci men Type: BLOOD SPECIMEN Ordering Facility: [facility] Address: [address] [place] [address] Performed By: #### T SPN #### [facility]LOOD B[facility] CLIA [id number] [address] [place] [address] [place] Platelets (Bld) [#/Vol] 253 10*3/uL Normal 150-400 [facility] Comment on above: Order Comment: Speci men Type: BLOOD SPECIMEN Ordering Facility: [facility] Address: [address] [place] [address] Performed By: #### T SPN #### CC [facility] BLOOD BANK CLIA [id number] [address] [place] [address] [place] RBC (Bld) [#/Vol] 3.87 10*6/uL Low 3.90-5.20 [facility] Comment on above: Order Comment: Speci men Type: BLOOD SPECIMEN Ordering Facility: [facility] Address: [address] [place] [address] Performed By: #### T SPN #### CC [facility] BLOOD B[facility] CLIA [id number] [address] [place] [address] [place] WBC (Bld) [#/Vol] 8.82 10*3/uL Normal 3.70-11.00 [facility] Comment on above: Order Comment: Speci men Type: BLOOD SPECIMEN Ordering Facility: [facility] Address: [address] [place] [address] Performed By: #### T SPN #### CC [facility]LOOD B[facility] CLIA [id number] [address] [place] [address] [place] CBC W Auto Differential pane l (Bld)on 07-10-2024 Basophils (Bld) [#/Vol] 10*3/uL Normal <0.11 [facility] Comment on above: Order Comment: Speci men Type: BLOOD SPECIMEN Ordering Facility: [facility] Address: [address] [place] [address] Performed By: #### T SPN #### [facility]LOOD B[facility] CLIA [id number] [address] [place] [address] [place] Basophils/100 WBC (Bld) 0.3 % Normal [facility] Comment on above: Order Comment: Speci men Type: BLOOD SPECIMEN Ordering Facility: [facility] Address: [address] [place] [address] Performed By: #### T SPN #### [facility]LOOD B[facility] CLIA [id number] [address] [place] [address] [place] Differential cell count method Nom (Bld) Auto Normal [facility] Comment on above: Order Comment: Speci men Type: BLOOD SPECIMEN Ordering Facility: [facility] Address: [address] [place] [address] Performed By: #### T SPN #### [facility]LOOD B[facility] CLIA [id number] [address] [place] [address] [place] Eosinophils (Bld) [#/Vol] 10*3/uL Normal <0.46 [facility] Comment on above: Order Comment: Speci men Type: BLOOD SPECIMEN Ordering Facility: [facility] Address: [address] [place] [address] Performed By: #### T SPN #### CC [facility] BLOOD B[facility] CLIA [id number] [address] [place] [address] [place] Eosinophils/100 WBC (Bld) 0.3 % Normal [facility] Comment on above: Order Comment: Speci men Type: BLOOD SPECIMEN Ordering Facility: [facility] Address: [address] [place] [address] Performed By: #### T SPN #### [facility]LOOD B[facility] CLIA [id number] [address] [place] [address] [place] Erythrocyte distribution width (RBC) [Ratio] 13.5 % Normal 11.5-15.0 [facility] Comment on above: Order Comment: Speci men Type: BLOOD SPECIMEN Ordering Facility: [facility] Address: [address] [place] [address] Performed By: #### T SPN #### CC [facility] BLOOD BANK CLIA [id number] [address] [place] [address] [place] Hematocrit (Bld) [Volume fraction] 29.5 % Low 36.0-46.0 [facility] Comment on above: Order Comment: Speci men Type: BLOOD SPECIMEN Ordering Facility: [facility] Address: [address] [place] [address] Performed By: #### T SPN #### [facility] BLOOD B[facility] CLIA [id number] [address] [place] [address] [place] Hemoglobin (Bld) [Mass/Vol] 9.5 g/dL Low 11.5-15.5 [facility] Comment on above: Order Comment: Speci men Type: BLOOD SPECIMEN Ordering Facility: [facility] Address: [address] [place] [address] Performed By: #### T SPN #### CC [facility]LOOD B[facility] CLIA [id number] [address] [place] [address] [place] Immature granulocytes (Bld) [#/Vol] 0.03 10*3/uL Normal <0.10 [facility] Comment on above: Order Comment: Speci men Type: BLOOD SPECIMEN Ordering Facility: [facility] Address: [address] [place] [address] Performed By: #### T SPN #### CC MAIN BLOOD BANK CLIA [id number] [address] [place] [address] [place] Immature granulocytes/100 WBC (Bld) 0.4 % Normal [facility] Comment on above: Order Comment: Speci men Type: BLOOD SPECIMEN Ordering Facility: [facility] Address: [address] [place] [address] Performed By: #### T SPN #### CC [facility] BLOOD B[facility] CLIA [id number] [address] [place] [address] [place] Lymphocytes (Bld) [#/Vol] 1.39 10*3/uL Normal 1.00-4.00 [facility] Comment on above: Order Comment: Speci men Type: BLOOD SPECIMEN Ordering Facility: [facility] Address: [address] [place] [address] Performed By: #### T SPN #### CC MAIN BLOOD BANK CLIA [id number] [address] [place] [address] [place] Lymphocytes/100 WBC (Bld) 18.3 % Normal [facility] Comment on above: Order Comment: Speci men Type: BLOOD SPECIMEN Ordering Facility: [facility] Address: [address] [place] [address] Performed By: #### T SPN #### CC MAIN BLOOD BANK CLIA [id number] [address] [place] [address] [place] MCH (RBC) [Entitic mass] 26.1 pg Normal 26.0-34.0 [facility] Comment on above: Order Comment: Speci men Type: BLOOD SPECIMEN Ordering Facility: [facility] Address: [address] [place] [address] Performed By: #### T SPN #### CC MAIN BLOOD BANK CLIA [id number] [address] [place] [address] [place] MCHC (RBC) [Mass/Vol] 32.2 g/dL Normal 30.5-36.0 [facility] Comment on above: Order Comment: Speci men Type: BLOOD SPECIMEN Ordering Facility: [facility] Address: [address] [place] [address] Performed By: #### T SPN #### CC MAIN BLOOD BANK CLIA [id number] [address] [place] [address] [place] MCV (RBC) [Entitic vol] 81.0 fL Normal 80.0-100.0 [facility] Comment on above: Order Comment: Speci men Type: BLOOD SPECIMEN Ordering Facility: [facility] Address: [address] [place] [address] Performed By: #### T SPN #### CC MAIN BLOOD BANK CLIA [id number] [address] [place] [address] [place] Monocytes (Bld) [#/Vol] 0.43 10*3/uL Normal <0.87 [facility] Comment on above: Order Comment: Speci men Type: BLOOD SPECIMEN Ordering Facility: [facility] Address: [address] [place] [address] Performed By: #### T SPN #### CC MAIN BLOOD BANK CLIA [id number] [address] [place] [address] [place] Monocytes/100 WBC (Bld) 5.7 % Normal [facility] Comment on above: Order Comment: Speci men Type: BLOOD SPECIMEN Ordering Facility: [facility] Address: [address] [place] [address] Performed By: #### T SPN #### CC MAIN BLOOD BANK CLIA [id number] [address] [place] [address] [place] Neutrophils (Bld) [#/Vol] 5.71 10*3/uL Normal 1.45-7.50 [facility] Comment on above: Order Comment: Speci men Type: BLOOD SPECIMEN Ordering Facility: [facility] Address: [address] [place] [address] Performed By: #### T SPN #### CC MAIN BLOOD BANK CLIA [id number] [address] [place] [address] [place] Neutrophils/100 WBC (Bld) 75.0 % Normal [facility] Comment on above: Order Comment: Speci men Type: BLOOD SPECIMEN Ordering Facility: [facility] Address: [address] [place] [address] Performed By: #### T SPN #### CC MAIN BLOOD BANK CLIA [id number] [address] [place] [address] [place] Nucleated RBC (Bld) [#/Vol] 10*3/uL Normal <0.01 [facility] Comment on above: Order Comment: Speci men Type: BLOOD SPECIMEN Ordering Facility: [facility] Address: [address] [place] [address] Performed By: #### T SPN #### CC MAIN BLOOD BANK CLIA [id number] [address] [place] [address] [place] Nucleated RBC/100 WBC (Bld) [Ratio] 0.0 /100 WBC Normal [facility] Comment on above: Order Comment: Speci men Type: BLOOD SPECIMEN Ordering Facility: [facility] Address: [address] [place] [address] Performed By: #### T SPN #### CC MAIN BLOOD BANK CLIA [id number] [address] [place] [address] [place] Platelet mean volume (Bld) [Entitic vol] 9.4 fL Normal 9.0-12.7 [facility] Comment on above: Order Comment: Speci men Type: BLOOD SPECIMEN Ordering Facility: [facility] Address: [address] [place] [address] Performed By: #### T SPN #### CC MAIN BLOOD BANK CLIA [id number] [address] [place] [address] [place] Platelets (Bld) [#/Vol] 245 10*3/uL Normal 150-400 [facility] Comment on above: Order Comment: Speci men Type: BLOOD SPECIMEN Ordering Facility: [facility] Address: [address] [place] [address] Performed By: #### T SPN #### CC MAIN BLOOD BANK CLIA [id number] [address] [place] [address] [place] RBC (Bld) [#/Vol] 3.64 10*6/uL Low 3.90-5.20 [facility] Comment on above: Order Comment: Speci men Type: BLOOD SPECIMEN Ordering Facility: [facility] Address: [address] [place] [address] Performed By: #### T SPN #### CC MAIN BLOOD BANK CLIA [id number] [address] [place] [address] [place] WBC (Bld) [#/Vol] 7.60 10*3/uL Normal 3.70-11.00 [facility] Comment on above: Order Comment: Speci men Type: BLOOD SPECIMEN Ordering Facility: [facility] Address: [address] [place] [address] Performed By: #### T SPN #### [facility] CLIA [id number] [address] [place] [address] [place] Ferritin SerPl-mCncon 2024 Ferritin [Mass/Vol] 12.5 ng/mL Low 14.7-205.1 [facility] Comment on above: Order Comment: Speci men Type: BLOOD SPECIMEN Ordering Facility: [facility] Address: [address] [place] [address] Performed By: #### T SPN #### [facility] CLIA [id number] [address] [place] [address] [place] GESTATIONAL GLUCOSE SCREEN, 1-HOUR, 50 GRAM, NON-FASTINGon 07-10-2024 Glucose [Mass/Vol] 96 mg/dL Normal 74-134 [facility] Comment on above: Order Comment: Speci men Type: BLOOD SPECIMEN Ordering Facility: [facility] Address: [address] [place] [address] Result Comment: [facility] Congress of Obstetricians and Gynecologists (Cele/Mathew) guidelines state a gestational diabetes mellitus positive screen is made, in women not previously diagnosed with overt diabetes, when the 1 hr plasma glucose level is equal to or above 140 mg/dL. [facility] Nurse Licensed [employer] recommends a 135 mg/dL cutoff. Performed By: #### G LTGST #### [facility] CLIA [id number] [address] [place] [address] [place] Iron and Iron binding capaci ty panelon 07-10-2024 Iron [Mass/Vol] 32 ug/dL Low 41-186 [facility] Comment on above: Order Comment: Speci men Type: BLOOD SPECIMEN Ordering Facility: [facility] Address: [address] [place] [address] Performed By: #### T SPN #### [facility] CLIA [id number] [address] [place] [address] [place] Iron binding capacity [Mass/Vol] 513 ug/dL High 232-386 [facility] Comment on above: Order Comment: Speci men Type: BLOOD SPECIMEN Ordering Facility: [facility] Address: [address] [place] [address] Performed By: #### T SPN #### [facility] CLIA [id number] [address] [place] [address] [place] Iron/TIBC [Molar ratio] 6.2 % Low 15.0-57.0 [facility] Comment on above: Order Comment: Speci men Type: BLOOD SPECIMEN Ordering Facility: [facility] Address: [address] [place] [address] Performed By: #### T SPN #### [facility] CLIA [id number] [address] [place] [address] [place] Reagin and Treponema pallidu m IgG and IgM [Interp]on 07-10-2024 T. pallidum IgG+IgM IA Ql (S) Non-Reactive Normal Nonreactive [facility] Comment on above: Order Comment: Speci men Type: BLOOD SPECIMEN Ordering Facility: [facility] Address: [address] [place] [address] Performed By: #### T SPN #### [facility] CLIA [id number] [address] [place] [address] [place] Reagin+T pallidum IgG+IgM Se rPl-Impon 07-10-2024 Reagin and Treponema pallidum IgG and IgM [Interp] Cannot exclude recent Treponemal infection if specimen collected within 7-10 days after appearance of suspect lesions or 2-3 weeks after an exposure. Clinical correlation is required. Normal [facility] Comment on above: Order Comment: Speci men Type: BLOOD SPECIMEN Ordering Facility: [facility] Address: [address] [place] [address] Performed By: #### T SPN #### [facility] CLIA [id number] [address] [place] [address] [place] TYPE + SCREEN PRENATALon ABO A Normal [facility] Comment on above: Order Comment: Speci men Type: BLOOD SPECIMEN Ordering Facility: [facility] Address: [address] [place] [address] Performed By: #### T SPN #### [facility] CLIA [id number] [address] [place] [address] [place] Rh Nom (Bld) Negative Normal [facility] Comment on above: Order Comment: Speci men Type: BLOOD SPECIMEN Ordering Facility: [facility] Address: [address] [place] [address] Performed By: #### T SPN #### [facility] CLIA [id number] [address] [place] [address] [place] TYPE AND SCREEN EXPIRATION 07/13/2024 23:59 Normal [facility] Comment on above: Order Comment: Speci men Type: BLOOD SPECIMEN Ordering Facility: [facility] Address: [address] [place] [address] Performed By: #### T SPN #### [facility] CLIA [id number] [address] [place] [address] OF [facility] Ambulatory Visit Summaryon 0 07-04-2024 Ambulatory Visit Summary Ambulatory Visit Summary JUMANA MENJIVAR Ruth :2000 Visit Date:07/04/2024 Ambulatory Visit Instructions Your Diagnosis Moderate persistent asthma Non-smoker Obesity BMI 33.0-33.9,adult Your Care Team Attending Physician - Herber Aragon MD Primary Care Physician - Herber Aragon MD This Is Your Medications List Contact prescribing physician if questions or concerns albuterol (Ventolin HFA 90 mcg/inh Aerosol-Adpt) budesonide-formoterol (Symbicort 80/4.5 inhalation aerosol with adapter) Procedures Performed Insertion of IUD (07/03/2018). Discharge Vitals Heart Rate (Peripheral) 95 Blood Pressure 116/66 Height 163 cm Height 64 in Weight 87.9 kg Weight 193.786 lb BMI 33.08 What to do next Scheduled Follow-Up Appointments Sunday 12:40 PM EDT With: Herber Aragon MD Where: [address] [address]- Medications What How Much When Why Instructions Unchanged albuterol (Ventolin HFA 90 mcg/ inh Aerosol-Adpt) 1 Puffs Inhalation Every 6 hours as needed for for wheezing Moderate persistent asthma Contact prescribing physician if questions or concerns Unchanged budesonide-formoterol (Symbicort 80/ 4.5 inhalation aerosol with adapter) 2 Puffs Inhalation 2 times a day Moderate persistent asthma Contact prescribing physician if questions or concerns Allergies No Known Medication Allergies Problems Ongoing - Any problem that you are currently receiving treatment for. Bilateral carpal tunnel syndrome BMI 33.0-33.9,adult GERD (gastroesophageal reflux disease) Hidradenitis suppurativa IBS (irritable bowel syndrome) Moderate persistent asthma Non-smoker Obesity Seasonal allergies Historical - Any problem that you are no longer receiving treatment for. Asthma GERD (gastroesophageal reflux disease) Lipid screening Screening for diabetes mellitus (DM) Patient Survey You may receive a survey via text or e-mail asking about your office visit. Please share your experience with us by completing your survey. We appreciate your feedback and thank you for choosing us for your care. Normal [facility] Family Medicine Office/Clini c Noteon 07-04-2024 Family Medicine Office/Clinic Note Family Medicine Office/Clinic Note Chief Complaint chronic follow up for asthma HPI Staff Chronic follow up. 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 Review of Systems PHQ Score Initial Depression Screen Score: 0 SCORE Negative except as noted in the HPI Physical Exam Vitals & Measurements HR: 95(Peripheral) BP: 116/66 SpO2: 99% HT: 64 in HT: 163 cm WT: 193.786 lb WT: 87.9 kg BMI: 33.08 General: Alert. Not in acute cardiopulmonary distress. Well hydrated, elevated BMI. Mental Status: Awake and Oriented to person, place, time, and situation. Normal affect. Normal mood. Normal interaction. Good eye contact. Respiratory: Spontaneous non-labored respirations. Symmetric chest expansion. Equal bilateral aeration. Clear to auscultation. No wheezing, rales or rhonchi. Cardiovascular: Heart sounds normal. No thrills. Regular rate and rhythm, no murmurs, rubs or gallops. Assessment/Plan Vitals within normal limits 1. 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 Non-smoker (Z78.9: Other specified health status) Pt doesn't use cigarettes Pt does use _ Encouraged to refrain from using any substances mentioned above, which can harm nearly eveyr organ of the body, cause many diseases, and reduce the health of users in general 3. Obesity (E66.9: Obesity, unspecified) Advised to follow healthy physical activity, nutrition, and lifestyle practices 4. BMI 33.0-33.9,adult (Z68.33: Body mass index [BMI] 33.0-33.9, adult) - The standard range for ages 18 and older is >=18.5 and <25 kg/m2. Today's BMI was above this range. -Discussed the medical benefits of weight loss. Reviewed the importance of making lifestyle changes (eg, gradually building up exercise to at least 5X/wk for at least 30 min per session, increase whole foods, decrease processed foods, avoid late night snacking, monitoring cooking habits and food choices). - Pt is to notify us if there is a preference for a referral for dietary counseling. -BMI and weight management will be followed at subsequent visits. Follow-up No qualifying data available Problem List/Past Medical History Ongoing Bilateral carpal tunnel syndrome BMI 33.0-33.9,adult GERD (gastroesophageal reflux disease) Hidradenitis suppurativa IBS (irritable bowel syndrome) Moderate persistent asthma Non-smoker Obesity Seasonal allergies Historical Asthma GERD (gastroesophageal reflux disease) Lipid screening Screening for diabetes mellitus (DM) Procedure/Surgical History Insertion of IUD (07/03/2018). Medications Symbicort 80/4.5 inhalation aerosol with adapter, 2 puff(s), Inhalation, BID, 2 refills Ventolin HFA 90 mcg/inh Aerosol-Adpt, 1 puff(s), Inhalation, q6hr, PRN, 2 refills Allergies No Known Medication Allergies Social History Alcohol - Denies Alcohol Use, 12/13/2018 Never., 03/07/2024 Substance Abuse - Denies Substance Abuse, 08/04/2020 Household substance abuse concerns: No., 07/04/2024 Tobacco - Denies Tobacco Use, 12/13/2018 Never (less than 100 in lifetime) Tobacco Use:. Never Smokeless Tobacco Use:. Household tobacco concerns: No., 07/04/2024 Family History Anxiety: Mother. Migraine: Mother. Immunizations Vaccine Date Status Comments influenza virus vaccine, inactivated - Not Given Patient Refuses influenza virus vaccine, live, trivalent - Not Given Patient Refuses diphtheria/pertussis, acel/tetanus adult 11/16/2014 Recorded meningococcal conjugate vaccine 11/16/2014 Recorded Normal [facility] Comment on above: Result Comment: Elec tronically Signed By: Herber Aragon MD\.br\Date and Time Signed: 07/04/24 12:17 EDT Lyn[facility] JUMA[facility] MENJIVAR ([id number]) 2 F Date Time Provider Department 06/18/24 MARY YEH OBLAYLA During your visit today, we recorded the following information about you: Yamel Driver RN 06/18/2024 2:20 PM Signed Breast pump and belly band order received from [address] [place] [address]. To to sign. MARCELLO Barroso Trisha, RN 06/20/2024 9:56 AM Signed Order signed and faxed. Yamel Driver RN Allergies As of Date: 06/18/2024 (No Known Allergies) Date Reviewed: 06/12/2024 Reviewed by: Ad Roland APRN.BIOMED TECH - Fully Assessed Reason for Visit: Breast Pump [Other] Prescriptions as of 06/20/2024 - SYMBICORT 80-4.5 mcg/actuation inhaler Inhale 2 Puffs as instructed two times a day. - famotidine (PEPCID) 20 mg tablet Take 1 tablet by mouth two times a day. - aspirin, enteric coated (ECOTRIN LOW STRENGTH) 81 mg EC tablet Take 1 tablet by mouth once daily. - prental multivitamin 27 mg iron- 800 mcg tablet Take 1 tablet by mouth once daily. - ALBUTEROL INHALATION Inhale as instructed. Meds Comments as of 12/08/2014: Per mom, 2 inhalers, allergy medication and stomach medication, all names unknown. 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 Mary Little RN Allergies As of Date: 06/18/2024 (No Known Allergies) Date Reviewed: 06/12/2024 Reviewed by: Ad Roland APRN.BIOMED TECH - Fully Assessed Reason for Visit: [employer] L[employer] - Other [3602] Cmt: PRAF Prescriptions as of 06/18/2024 - SYMBICORT 80-4.5 mcg/actuation inhaler Inhale 2 Puffs as instructed two times a day. - famotidine (PEPCID) 20 mg tablet Take 1 tablet by mouth two times a day. - aspirin, enteric coated (ECOTRIN LOW STRENGTH) 81 mg EC tablet Take 1 tablet by mouth once daily. - prental multivitamin 27 mg iron- 800 mcg tablet Take 1 tablet by mouth once daily. - ALBUTEROL INHALATION Inhale as instructed. Meds Comments as of 12/08/2014: Per mom, 2 inhalers, allergy medication and stomach medication, all names unknown. 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] 08/07/2022 Encounter Status:Closed by MARY LITTLE on 06/18/24 Normal [facility] BACTERIAL VAGINOSIS NAATon 0 3- Lactobacillus crispatus+gasseri+jense gallo + Gardnerella vaginalis + Atopobium vaginae rRNA PHYLLIS+probe Ql (Vag fld) Not detected Normal Not detected [facility] Comment on above: Order Comment: Speci men Type: BLOOD SPECIMEN Ordering Facility: [facility] Address: [address] [place] [address] [place] [address] Performed By: #### T SPN #### [facility] CLIA [id number] [address] [place] [address] OF [place] TABITHA/TRICHOMONAS NAATon 0 06-06-2024 C. glabrata RNA PHYLLIS+probe Ql (Vag fld) Not detected Normal Not detected [facility] Comment on above: Order Comment: Speci men Type: BLOOD SPECIMEN Ordering Facility: [facility] Address: [address] [place] [address] Performed By: #### T SPN #### [facility] CLIA [id number] [address] [place] [address] OF [place] Tabitha sp DNA PHYLLIS+probe Ql (Vag fld) Not detected Normal Not detected [facility] Comment on above: Order Comment: Speci men Type: BLOOD SPECIMEN Ordering Facility: [facility] Address: [address] [place] [address] Result Comment: The Tabitha species group target includes C. albicans, C. tropicalis, C. parapsilosis, and C. dubliniensis. Performed By: #### T SPN #### [facility] CLIA [id number] [address] [place] [address] [place] T. vaginalis DNA PHYLLIS+probe Ql (Unsp spec) Not detected Normal Not detected [facility] Comment on above: Order Comment: Speci men Type: BLOOD SPECIMEN Ordering Facility: [facility] Address: [address] [place] [address] Performed By: #### T SPN #### [facility] CLIA [id number] [address] [place] [address] [place] Examination level ultrasound on 05-16-2024 Indication Detailed anatomic survey Maternal obesity, BMI >30 Impression REMOTE READ The patient is referred for a detailed anatomic survey. - Single, live, intrauterine . - biometry is consistent with the established gestational age. - No malformations were visualized on a complete detailed anatomic survey. - The amniotic fluid volume is normal amount. - The placenta is anterior, fundal. - The Transabdominal cervical length measures 31.3 mm with no evidence of funneling or other dynamic changes. - Not all structural malformations can be detected by ultrasound examination. Recommendations Additional follow-up as clinically indicated. Maternal Assessment Height 163 cm Height (ft) 5 ft Height (in) 4 in Physical Exam Initial weight (lb) 190 lb Initial BMI 32.61 kg/m Maternal assessment other: 4 Para 1 Method Transabdominal ultrasound examination. View: Adequate visualization Mejia . Number of fetuses: 1 Dating LMP on: 12/27/2023 GA by LMP 20 w + 0 d FRANCINE by LMP: 10/02/2024 Ultrasound examination on: 05/15/2024 GA by U/S based upon: AC, BPD, Femur, HC GA by U/S 20 w + 1 d FRANCINE by U/S: 10/01/2024 Assigned: based on the LMP, selected on 05/15/2024 Assigned GA 20 w + 0 d Assigned FRANCINE: 10/02/2024 General Evaluation Cardiac activity present. FHR 143 bpm. movements: present. Presentation: cephalic Placenta: Placental site: anterior, fundal Umbilical cord: Cord vessels: 3 vessel cord Amniotic fluid: Amount of AF: normal amount. MVP 4.2 cm Growth Overview Exam date GA BPD (mm) HC (mm) AC (mm) FL (mm) HL (mm) EFW (g) 04/17/2024 16w 0d 32.9 58% 126.6 52% 115.8 89% 19.8 47% 161 78% 05/15/2024 20w 0d 46.2 48% 171.6 41% 143.7 34% 34.4 87% 32.2 82% 332 51% Biometry Standard BPD 46.2 mm 20w 0d 48% Hadlock OFD 60.1 mm 19w 4d 47% Nicolaides HC 171.6 mm 19w 5d 41% Eduardo Cerebellum tr 21.6 mm 20w 3d 86% Hill Nuchal fold 3.0 mm AC 143.7 mm 19w 5d 34% Hadlock Femur 34.4 mm 21w 0d 87% Eduardo Humerus 32.2 mm 20w 6d 82% Eduardo EFW 332 g 20w 0d 51% Hadlock EFW (lb) 0 lb EFW (oz) 12 oz EFW by: Hadlock (HC-AC-FL) Extended Barn Worker 6.5 mm CM 4.8 mm 43% Nicolaides Nasal bone 5.8 mm Head / Face / Neck Nasal bone: present Extremities / Bony Struc FL / HC 0.20 92% Hadlock Other Structures FHR 143 bpm Anatomy Cranium: normal Lateral ventricles: normal Choroid plexus: normal Midline falx: normal Cavum septi pellucidi: normal Cerebellum: normal Cisterna magna: normal Head / Neck Vermis: normal Neck: normal Nuchal fold: normal Lips: normal Profile: normal Nose: normal Face Nasal bone: present Maxilla: normal Mandible: normal Orbits: normal Lens: normal 4-chamber view: normal RVOT view: normal LVOT view: normal 3-vessel view: normal 4-iiukbf-ojkeffw view: normal Heart / Thorax Situs: situs solitus (normal) Aortic arch view: normal SVC: normal IVC: normal Cardiac axis: normal Rt lung: normal Lt lung: normal Diaphragm: normal Cord insertion: normal Stomach: normal Kidneys: normal Bladder: normal Genitals: normal Abdomen Abdom. wall: normal Cervical spine: normal Thoracic spine: normal Lumbar spine: normal Sacral spine: normal Arms: normal Legs: normal Rt upper arm: normal Rt forearm: normal Rt hand: normal Rt fingers: normal Lt upper arm: normal Lt forearm: normal Lt hand: normal Lt fingers: normal Rt upper leg: normal Rt lower leg: normal Rt foot: normal Lt upper leg: normal Lt lower leg: normal Lt foot: normal Gender: Unspecified Wants to know sex: no Maternal Structures Uterus / Cervix Uterus: Visualized Cervix: Visualized Approach: Transabdominal Cervical length 31.3 mm Other: Patient declined transvaginal ultrasound for cervical length. Ovaries / Tubes / Adnexa Rt ovary: Visualized Lt ovary: Visualized Performed By: Linda Duke RDMS, RVT Read By: Crys Kline M.D. MATERNAL MEDICINE [facility] Examination level ultrasound on 05-15-2024 Radiology Study observation (narrative) [facility] Examination level ultrasound on 04-17-2024 Indication Early anatomic survey Maternal obesity, BMI >30 Impression REMOTE READ The patient is referred for an early anatomic survey because of identified risk factors. - Single, live, intrauterine . - biometry is consistent with the established gestational age. - No malformations were visualized on an early anatomic assessment, although some anatomical structures were suboptimally seen as detailed below. - The amniotic fluid volume is normal amount. - The placenta is anterior, fundal. - Not all structural malformations can be detected by ultrasound examination. Recommendations Return around 20 weeks for detailed anatomic survey Maternal Assessment Height 163 cm Height (ft) 5 ft Height (in) 4 in Physical Exam Initial weight (lb) 190 lb Initial BMI 32.61 kg/m Maternal assessment other: 4 Para 1 Method Transabdominal ultrasound examination. View: Suboptimal view: limited by early gestational age Mejia . Number of fetuses: 1 Dating LMP on: 12/27/2023 GA by LMP 16 w + 0 d FRANCINE by LMP: 10/02/2024 GA by prior assessment 16 w + 0 d FRANCINE by prior assessment: 10/02/2024 Ultrasound examination on: 04/17/2024 GA by U/S based upon: AC, BPD, Femur, HC GA by U/S 16 w + 3 d FRANCINE by U/S: 09/29/2024 Assigned: based on stated FRANCINE, selected on 04/17/2024 Assigned GA 16 w + 0 d Assigned FRANCINE: 10/02/2024 General Evaluation Cardiac activity present. FHR 150 bpm. movements: present. Presentation: breech Placenta: Placental site: anterior Umbilical cord: Cord vessels: 3 vessel cord Amniotic fluid: Amount of AF: normal amount Biometry Standard BPD 32.9 mm 16w 2d 58% Hadlock OFD 44.9 mm 15w 5d 62% Nicolaides HC 126.6 mm 16w 0d 52% Eduardo AC 115.8 mm 17w 2d 89% Hadlock Femur 19.8 mm 15w 6d 47% Eduardo EFW 161 g 16w 3d 78% Hadlock EFW (lb) 0 lb EFW (oz) 6 oz EFW by: Hadlock (HC-AC-FL) Extended Barn Worker 5.3 mm Extremities / Bony Struc FL / HC 0.16 37% Hadlock Other Structures FHR 150 bpm Anatomy Cranium: normal Lateral ventricles: normal Choroid plexus: normal Midline falx: normal Cerebellum: normal Cisterna magna: normal Lips: normal 4-chamber view: normal RVOT view: normal LVOT view: normal 3-vessel view: normal 3-ibwlho-onbwwhs view: normal Heart / Thorax Diaphragm: normal Cord insertion: normal Stomach: normal Kidneys: normal Bladder: normal Cervical spine: normal Thoracic spine: suboptimally visualized Lumbar spine: suboptimally visualized Sacral spine: suboptimally visualized Arms: normal Legs: normal Rt upper arm: normal Rt forearm: normal Rt hand: normal Lt upper arm: normal Lt forearm: normal Lt hand: normal Rt upper leg: normal Rt lower leg: normal Rt foot: normal Lt upper leg: normal Lt lower leg: normal Lt foot: normal Gender: Unspecified Wants to know sex: no Maternal Structures Uterus / Cervix Uterus: Visualized Cervix: Visualized Approach: Transabdominal Cervical length 34.9 mm Ovaries / Tubes / Adnexa Rt ovary: Not visualized Lt ovary: Not visualized Performed By: Linda Duke, SANJU, RVT Read By: Lauren Pro M.D. MATERNAL MEDICINE [facility] Radiology Study observation (narrative) Jose dolan [facility] Ambulatory Visit Summaryon 0 04-11-2024 Ambulatory Visit Summary Ambulatory Visit Summary JUMANA MENJIVAR Ruth :2000 Visit Date:04/11/2024 Ambulatory Visit Instructions Your Diagnosis Moderate persistent asthma BMI 31.0-31.9,adult Obesity Non-smoker Your Care Team Attending Physician - Herber Aragon MD Primary Care Physician - Herber Aragon MD This Is Your Medications List albuterol (Ventolin HFA 90 mcg/inh Aerosol-Adpt) budesonide-formoterol (Symbicort 80/4.5 inhalation aerosol with adapter) Procedures Performed Insertion of IUD (07/03/2018). Discharge Vitals Heart Rate (Peripheral) 90 Respiratory Rate 16 Blood Pressure 121/78 Height 163 cm Height 64 in Weight 84.3 kg Weight 185.849 lb BMI 31.73 What to do next Scheduled Follow-Up Appointments Sunday 11:20 AM EDT With: Herber Aragon MD Where: [address] [address]- Medications What How Much When Why Instructions Changed albuterol (Ventolin HFA 90 mcg/ inh Aerosol-Adpt) 1 Puffs Inhalation Every 6 hours as needed for for wheezing Moderate persistent asthma Pickup at [facility] Unchanged budesonide-formoterol (Symbicort 80/ 4.5 inhalation aerosol with adapter) 2 Puffs Inhalation 2 times a day Moderate persistent asthma Pickup at [facility] Pharmacy Information [facility]: [address] [place], [place] [id number] [phone] Allergies No Known Medication Allergies Problems Ongoing - Any problem that you are currently receiving treatment for. Bilateral carpal tunnel syndrome GERD (gastroesophageal reflux disease) Hidradenitis suppurativa IBS (irritable bowel syndrome) Seasonal allergies Historical - Any problem that you are no longer receiving treatment for. Asthma GERD (gastroesophageal reflux disease) Lipid screening Screening for diabetes mellitus (DM) Patient Survey You may receive a survey via text or e-mail asking about your office visit. Please share your experience with us by completing your survey. We appreciate your feedback and thank you for choosing us for your care. Normal [facility] Family Medicine Office/Clini c Noteon 04-11-2024 Family Medicine Office/Clinic Note Family Medicine Office/Clinic Note Chief Complaint 1 month follow up HPI Staff 1 mo f/u Asthma - Symbicort prescribed States she is feeling good and has no new concerns at this time. History of Present Illness JUMANA MENJIVAR is a 24 Years White Female presenting to the clinic today for follow-up of Asthma. States that her Symbicort 80 2 puffs 2x/day is working well, denies side effects, taking as prescribed Staff HPI reviewed and discussed with the Pt. Review of Systems PHQ Score Initial Depression Screen Score: 0 SCORE Negative except as noted in the HPI Physical Exam Vitals & Measurements HR: 90(Peripheral) RR: 16 BP: 121/78 SpO2: 95% HT: 64 in HT: 163 cm WT: 84.3 kg WT: 185.849 lb BMI: 31.73 General: Alert. Not in acute cardiopulmonary distress. Well hydrated, elevated BMI. Mental Status: Awake and Oriented to person, place, time, and situation. Normal affect. Normal mood. Normal interaction. Good eye contact. Respiratory: Spontaneous non-labored respirations. Symmetric chest expansion. Equal bilateral aeration. Clear to auscultation. No wheezing, rales or rhonchi. Cardiovascular: Heart sounds normal. No thrills. Regular rate and rhythm, no murmurs, rubs or gallops. Assessment/Plan Vitals within normal limits 1. Moderate persistent asthma (J45.40: Moderate persistent asthma, uncomplicated) Chronic Controlled On Symbicort 80 2 puffs 2x/day is working well, denies side effects, taking as prescribed, continue taking May use rescue Albuterol inhaler as needed Ordered: albuterol, 1 puff(s), Inhalation, q6hr for wheezing, 18 gm, Refill(s) 2, [facility], 163, cm, 04/11/24 11:11:00 EST, Height/Length Dosing, 84.3, kg, 04/11/24 11:11:00 EST, Weight Dosing budesonide-formoterol , 2 puff(s), Inhalation, BID, 10.2 gm, Refill(s) 2, [facility], 163, cm, 04/11/24 11:11:00 EST, Height/Length Dosing, 84.3, kg, 04/11/24 11:11:00 EST, Weight Dosing 2. Obesity (E66.9: Obesity, unspecified) Advised to follow healthy physical activity, nutrition, and lifestyle practices 3. Non-smoker (Z78.9: Other specified health status) Pt doesn't use cigarettes/chewing tobacco/nicotine vapes/nicotine pouches, __. Encouraged to continue to refrain from use. Cigarette smoking harms nearly every organ of the body, causes many diseases, and reduces the health of smokers in general. 4. BMI 31.0-31.9,adult (Z68.31: Body mass index [BMI] 31.0-31.9, adult) - The standard range for ages 18 and older is >=18.5 and <25 kg/m2. Today's BMI was above this range. -Discussed the medical benefits of weight loss. Reviewed the importance of making lifestyle changes (eg, gradually building up exercise to at least 5X/wk for at least 30 min per session, increase whole foods, decrease processed foods, avoid late night snacking, monitoring cooking habits and food choices). - Pt is to notify us if there is a preference for a referral for dietary counseling. -BMI and weight management will be followed at subsequent visits. Follow-up No qualifying data available Problem List/Past Medical History Ongoing Bilateral carpal tunnel syndrome GERD (gastroesophageal reflux disease) Hidradenitis suppurativa IBS (irritable bowel syndrome) Seasonal allergies Historical Asthma GERD (gastroesophageal reflux disease) Lipid screening Screening for diabetes mellitus (DM) Procedure/Surgical History Insertion of IUD (07/03/2018). Medications Symbicort 80/4.5 inhalation aerosol with adapter, 2 puff(s), Inhalation, BID, 2 refills Ventolin HFA 90 mcg/inh Aerosol-Adpt, 1 puff(s), Inhalation, q6hr, PRN, 2 refills Allergies No Known Medication Allergies Social History Alcohol - Denies Alcohol Use, 08/04/2020 Never., 03/07/2024 Substance Abuse - Denies Substance Abuse, 08/04/2020 Never., 03/07/2024 Tobacco - Denies Tobacco Use, 08/04/2020 Never (less than 100 in lifetime) Tobacco Use:. Never Smokeless Tobacco Use:., 04/11/2024 Family History Anxiety: Mother. Migraine: Mother. Immunizations Vaccine Date Status Comments influenza virus vaccine, inactivated - Not Given Patient Refuses influenza virus vaccine, live, trivalent - Not Given Patient Refuses diphtheria/pertussis, acel/tetanus adult 11/16/2014 Recorded meningococcal conjugate vaccine 11/16/2014 Recorded Normal [facility] Comment on above: Result Comment: Elec tronically Signed By: Herber Aragon MD\.br\Date and Time Signed: 04/11/24 11:42 EST CBC W Auto Differential pane l (Bld)on 03-21-2024 Basophils (Bld) [#/Vol] 10*3/uL Normal <0.11 [facility] on above: Order Comment: Speci men Type: BLOOD SPECIMEN Ordering Facility: [facility] Address: [address] [place] [address] Performed By: #### T SPN #### [facility] CLIA [id number] [address] [place] [address] [place] Basophils/100 WBC (Bld) 0.3 % Normal [facility] Comment on above: Order Comment: Speci men Type: BLOOD SPECIMEN Ordering Facility: [facility] Address: [address], [place] [address] Performed By: #### T SPN #### [facility] CLIA [id number] [address] [place] [address] [place] Differential cell count method Nom (Bld) Auto Normal [facility] Comment on above: Order Comment: Speci men Type: BLOOD SPECIMEN Ordering Facility: [facility] Address: [address] [place] [address] Performed By: #### T SPN #### [facility] CLIA [id number] [address] [place] [address] [place] Eosinophils (Bld) [#/Vol] 0.03 10*3/uL Normal <0.46 [facility] Comment on above: Order Comment: Speci men Type: BLOOD SPECIMEN Ordering Facility: [facility] Address: [address] [place] [address] Performed By: #### T SPN #### [facility] CLIA [id number] [address] [place] [address] [place] Eosinophils/100 WBC (Bld) 0.4 % Normal [facility] Comment on above: Order Comment: Speci men Type: BLOOD SPECIMEN Ordering Facility: [facility] Address: [address] [place] [address] Performed By: #### T SPN #### [facility] CLIA [id number] [address] [place] [address] [place] Erythrocyte distribution width (RBC) [Ratio] 14.5 % Normal 11.5-15.0 [facility] Comment on above: Order Comment: Speci men Type: BLOOD SPECIMEN Ordering Facility: [facility] Address: [address] [place] [address] Performed By: #### T SPN #### [facility] CLIA [id number] [address] [place] [address] [place] Hematocrit (Bld) [Volume fraction] 35.2 % Low 36.0-46.0 [facility] Comment on above: Order Comment: Speci men Type: BLOOD SPECIMEN Ordering Facility: [facility] Address: [address] [place] [address] Performed By: #### T SPN #### [facility] CLIA [id number] [address] [place] [address] [place] Hemoglobin (Bld) [Mass/Vol] 11.4 g/dL Low 11.5-15.5 [facility] Comment on above: Order Comment: Speci men Type: BLOOD SPECIMEN Ordering Facility: [facility] Address: [address] [place] [address] Performed By: #### T SPN #### [facility] CLIA [id number] [address] [place] [address] [place] Immature granulocytes (Bld) [#/Vol] 0.03 10*3/uL Normal <0.10 [facility] Comment on above: Order Comment: Speci men Type: BLOOD SPECIMEN Ordering Facility: [facility] Address: [address] [place] [address] Performed By: #### T SPN #### [facility] CLIA [id number] [address] [place] [address] [place] Immature granulocytes/100 WBC (Bld) 0.4 % Normal [facility] Comment on above: Order Comment: Speci men Type: BLOOD SPECIMEN Ordering Facility: [facility] Address: [address] [place] [address] Performed By: #### T SPN #### [facility] CLIA [id number] [address] [place] [address] [place] Lymphocytes (Bld) [#/Vol] 1.84 10*3/uL Normal 1.00-4.00 [facility] Comment on above: Order Comment: Speci men Type: BLOOD SPECIMEN Ordering Facility: [facility] Address: [address] [place] [address] Performed By: #### T SPN #### [facility] CLIA [id number] [address] [place] [address] [place] Lymphocytes/100 WBC (Bld) 23.6 % Normal [facility] Comment on above: Order Comment: Speci men Type: BLOOD SPECIMEN Ordering Facility: [facility] Address: [address] [place] [address] Performed By: #### T SPN #### [facility] CLIA [id number] [address] [place] [address] [place] MCH (RBC) [Entitic mass] 25.2 pg Low 26.0-34.0 [facility] Comment on above: Order Comment: Speci men Type: BLOOD SPECIMEN Ordering Facility: [facility] Address: [address] [place] [address] Performed By: #### T SPN #### [facility] CLIA [id number] [address] [place] [address] [place] MCHC (RBC) [Mass/Vol] 32.4 g/dL Normal 30.5-36.0 [facility] Comment on above: Order Comment: Speci men Type: BLOOD SPECIMEN Ordering Facility: [facility] Address: [address] [place] [address] Performed By: #### T SPN #### [facility] CLIA [id number] [address] [place] [address] [place] MCV (RBC) [Entitic vol] 77.7 fL Low 80.0-100.0 [facility] Comment on above: Order Comment: Speci men Type: BLOOD SPECIMEN Ordering Facility: [facility] Address: [address] [place] [address] Performed By: #### T SPN #### [facility] CLIA [id number] [address] [place] [address] [place] Monocytes (Bld) [#/Vol] 0.34 10*3/uL Normal <0.87 [facility] Comment on above: Order Comment: Speci men Type: BLOOD SPECIMEN Ordering Facility: [facility] Address: [address] [place] [address] Performed By: #### T SPN #### [facility] CLIA [id number] [address] [place] [address] [place] Monocytes/100 WBC (Bld) 4.4 % Normal [facility] Comment on above: Order Comment: Speci men Type: BLOOD SPECIMEN Ordering Facility: [facility] Address: [address] [place] [address] Performed By: #### T SPN #### [facility] CLIA [id number] [address] [place] [address] [place] Neutrophils (Bld) [#/Vol] 5.54 10*3/uL Normal 1.45-7.50 [facility] Comment on above: Order Comment: Speci men Type: BLOOD SPECIMEN Ordering Facility: [facility] Address: [address] [place] [address] Performed By: #### T SPN #### [facility] CLIA [id number] [address] [place] [address] [place] Neutrophils/100 WBC (Bld) 70.9 % Normal [facility] Comment on above: Order Comment: Speci men Type: BLOOD SPECIMEN Ordering Facility: [facility] Address: [address] [place] [address] Performed By: #### T SPN #### [facility] CLIA [id number] [address] [place] [address] [place] Nucleated RBC (Bld) [#/Vol] 10*3/uL Normal <0.01 [facility] Comment on above: Order Comment: Speci men Type: BLOOD SPECIMEN Ordering Facility: [facility] Address: [address] [place] [address] Performed By: #### T SPN #### [facility] CLIA [id number] [address] [id number] [address] [place] Nucleated RBC/100 WBC (Bld) [Ratio] 0.0 /100 WBC Normal [facility] Comment on above: Order Comment: Speci men Type: BLOOD SPECIMEN Ordering Facility: [facility] Address: [address] [place] [address] Performed By: #### T SPN #### [facility] CLIA [id number] [address] [place] [address] [place] Platelet mean volume (Bld) [Entitic vol] 8.9 fL Low 9.0-12.7 [facility] Comment on above: Order Comment: Speci men Type: BLOOD SPECIMEN Ordering Facility: [facility] Address: [address] [place] [address] Performed By: #### T SPN #### [facility] CLIA [id number] [address] [place] [address] [place] Platelets (Bld) [#/Vol] 268 10*3/uL Normal 150-400 [facility] Comment on above: Order Comment: Speci men Type: BLOOD SPECIMEN Ordering Facility: [facility] Address: [address] [place] [address] Performed By: #### T SPN #### [facility] CLIA [id number] [address] [place] [address] [place] RBC (Bld) [#/Vol] 4.53 10*6/uL Normal 3.90-5.20 [facility] Comment on above: Order Comment: Speci men Type: BLOOD SPECIMEN Ordering Facility: [facility] Address: [address] [place] [address] Performed By: #### T SPN #### [facility] CLIA [id number] [address] [place] [address] [place] WBC (Bld) [#/Vol] 7.80 10*3/uL Normal 3.70-11.00 [facility] Comment on above: Order Comment: Speci men Type: BLOOD SPECIMEN Ordering Facility: [facility] Address: [address] [place] [address] Performed By: #### T SPN #### [facility] CLIA [id number] [address] [place] [address] [place] HBV surface Ag Ser Qlon HBV surface Ag Ql (S) Negative Normal Negative [facility] Comment on above: Order Comment: Speci men Type: BLOOD SPECIMEN Ordering Facility: [facility] Address: [address] [place] [address] Performed By: #### T SPN #### [facility] CLIA [id number] [address] [place] [address] [place] HCV Ab Ser Qlon 03-21-2024 HCV Ab Ql (S) Negative Normal Negative [facility] Comment on above: Order Comment: Speci men Type: BLOOD SPECIMEN Ordering Facility: [facility] Address: [address] [place] [address] Result Comment: The result suggests no evidence of active infection with Hepatitis C virus. Should recent infection be suspected, repeat testing may be considered 4-6 weeks after this draw. Performed By: #### T SPN #### [facility] CLIA [id number] [address] [place] [address] [place] HIV 1+2 Ab IA Qlon HIV 1 and 2 Ab IA.rapid Nom (S/P/Bld) Normal [facility] Comment on above: Order Comment: Speci men Type: BLOOD SPECIMEN Ordering Facility: [facility] Address: [address] [place] [address] Result Comment: Test not indicated. Performed By: #### T SPN #### [facility] CLIA [id number] [address] [place] [address] [place] HIV 1+2 Ab+HIV1 p24 Ag IA Ql Non-Reactive Normal Nonreactive [facility] Comment on above: Order Comment: Speci men Type: BLOOD SPECIMEN Ordering Facility: [facility] Address: [address] [place] [address] Performed By: #### T SPN #### [facility] CLIA [id number] [address] [place] [address] [place] HIV immunoassay testing algorithm interpretation (S/P/Bld) [Interp] Normal [facility] Comment on above: Order Comment: Speci men Type: BLOOD SPECIMEN Ordering Facility: [facility] Address: [address] [place] [address] Result Comment: No e vidence of HIV-1 or HIV-2 infection. Should recent infection be suspected, repeat testing may be considered 2-3 weeks after this draw. [place] Rev. Code 3701.243(E): This information has been disclosed to you from confidential records protected from disclosure by state law. ???You shall make no further disclosure of this information without the specific, written, and informed release of the individual to whom it pertains or as otherwise permitted by state law. A general authorization for the release of medical or other information is not sufficient for the purpose of the release of HIV test results or diagnoses. Performed By: #### T SPN #### [facility] IA [id number] [address] [place] [address] [place] HbA1c (Bld)on 03-21-2024 Average glucose Estimated from glycated hemoglobin (Bld) [Mass/Vol] 100 mg/dL Normal [facility] Comment on above: Order Comment: Speci men Type: BLOOD SPECIMEN Ordering Facility: [facility] Address: [address] [place] [address] Result Comment: eAG: (Estimated average glucose) is a calculated value from HgbA1c and is medical detail representative of the average blood glucose level in the last 2-3 month period. Performed By: #### T SPN #### [facility] IA [id number] [address] [place] [address] [place] HbA1c (Bld) [Mass fraction] 5.1 % Normal 4.3-5.6 [facility] Comment on above: Order Comment: Speci men Type: BLOOD SPECIMEN Ordering Facility: [facility] Address: [address] [place] [address] Result Comment: [place] Diabetes Association guidelines indicate that patients with HgbA1c in the range 5.7-6.4% are at increased risk for development of diabetes, and intervention by lifestyle modification may be beneficial. HgbA1c greater or equal to 6.5% is considered diagnostic of diabetes. Performed By: #### T SPN #### [facility] CLIA [id number] [address] [place] [address] [place] RUBELLA IGG ANTIBODYon 03-21 RUBELLA IGG AB, QUAL Positive Normal Positive [facility] Comment on above: Order Comment: Speci men Type: BLOOD SPECIMEN Ordering Facility: [facility] Address: [address] [place] [address] Result Comment: The result suggests recent or past exposure to Rubella virus or history of Rubella vaccination. Positive result may also be seen due to presence of passively-transferred antibodies. Please correlate with patient's history. Performed By: #### T SPN #### [facility] CLIA [id number] [address] [place] [address] [place] Reagin and Treponema pallidu m IgG and IgM [Interp]on 03-21-2024 T. pallidum IgG+IgM IA Ql (S) Non-Reactive Normal Nonreactive [facility] Comment on above: Order Comment: Garrisoni cheli Type: BLOOD SPECIMEN Ordering Facility: [facility] Address: [address] [place] [address] Performed By: #### T SPN #### [facility] CLIA [id number] [address] [place] [address] [place] Reagin+T pallidum IgG+IgM Se rPl-Impon 03-21-2024 Reagin and Treponema pallidum IgG and IgM [Interp] Cannot exclude recent Treponemal infection if specimen collected within 7-10 days after appearance of suspect lesions or 2-3 weeks after an exposure. Clinical correlation is required. Normal [facility] Comment on above: Order Comment: Speci men Type: BLOOD SPECIMEN Ordering Facility: [facility] Address: [address] [place] [address] Performed By: #### T SPN #### [facility] CLIA [id number] [address] [place] [address] [place] TYPE + SCREEN PRENATALon ABO A Normal [facility] Comment on above: Order Comment: Speci men Type: BLOOD SPECIMEN Ordering Facility: [facility] Address: [address] [place] [address] Performed By: #### T SPN #### [facility] CLIA [id number] [address] [place] [address] [place] Rh Nom (Bld) Negative Normal [facility] Comment on above: Order Comment: Speci men Type: BLOOD SPECIMEN Ordering Facility: [facility] Address: [address] [place] [address] Performed By: #### T SPN #### [facility] CLIA [id number] [address] [place] [address] [place] TYPE AND SCREEN EXPIRATION 03/24/2024 23:59 Normal [facility] Comment on above: Order Comment: Speci men Type: BLOOD SPECIMEN Ordering Facility: [facility] Address: [address] [place] [address] Performed By: #### T SPN #### [facility] CLIA [id number] [address] [place] [address] [place] Family Medicine Office/Clini c Noteon 03-07-2024 Family Medicine Office/Clinic Note Family Medicine Office/Clinic Note Chief Complaint Asthma Difficulty breathing and asthma exacerbation during . HPI Staff Pt is here today to discuss restarting a maintenance inhaler for her asthma. States she was previously on Flovent, which worked well for her. She is currently which seems to have worsened her asthma sx of SOB with exertion. The standard range for ages 18 and older is >=18.5 and < 25 kg/m2. Your BMI today was above this range, this falls in the overweight to obese category and there are medical benefits to weight loss. We can offer counselling, referral, and/or medical support in addressing this problem. Your BMI and weight management will be followed at subsequent visits. History of Present Illness The patient is a 24-year-old female presenting with exacerbation of asthma symptoms during her current The patient has a history of moderate persistent asthma, initially managed with a maintenance inhaler, specifically Flovent. Her asthma symptoms improved spontaneously before her first , requiring only a rescue inhaler for occasional episodes. , she remained asymptomatic until the onset of her second , where she experienced worsening of her asthma. Currently, she reports significant exertional dyspnea, describing situations such as interruptions during meals and needing to take breaks to breathe. She also experiences difficulty breathing in hot environments, for instance, while showering, after which she needs to sit to recover. These symptoms indicate an increased severity compared to prior experiences. Past treatments include the use of a steroid inhaler, specifically Flovent, and occasional use of rescue inhalers. Current maintenance medications are not in use, and she denies knowledge of other treatments such as Advair or Symbicort. She is currently using a rescue inhaler about 4x/day. Review of Systems PHQ Score Initial Depression Screen Score: 0 SCORE Negative except as noted in the HPI - Respiratory: Reports difficulty breathing, requiring breaks during eating and in hot showers. Physical Exam Vitals & Measurements HT: 64 in HT: 163 cm WT: 84.1 kg WT: 185.409 lb BMI: 31.65 General: Alert. Not in acute cardiopulmonary distress. Well hydrated, elevated BMI. Mental Status: Awake and Oriented to person, place, time, and situation. Normal affect. Normal mood. Normal interaction. Good eye contact. Respiratory: Spontaneous non-labored respirations. Symmetric chest expansion. Equal bilateral aeration. Clear to auscultation. No wheezing, rales or rhonchi. Cardiovascular: Heart sounds normal. No thrills. Regular rate and rhythm, no murmurs, rubs or gallops. Assessment/Plan 1. Moderate persistent asthma (J45.40: Moderate persistent asthma, uncomplicated) Chronic Uncontrolled Ordered Symbicort 2 puffs 2x/day May use rescue Albuterol inhaler as needed Ordered: budesonide-formoterol , 2 puff(s), Inhalation, BID, 10.2 gm, Refill(s) 0, [facility] 1448, 163, cm, 03/07/24 9:05:00 EST, Height/Length Dosing, 84.1, kg, 03/07/24 9:05:00 EST, Weight Dosing 2. Non-smoker (Z78.9: Other specified health status) Reinforcement of the importance of maintaining a non-smoking status for the continued management of asthma and overall health was discussed. 3. Obesity due to excess calories (E66.09: Other obesity due to excess calories) Recommendations for weight management through nutritional counseling and physical activity adjustments predicated upon her BMI of 31 were discussed. Management of weight gain during was highlighted as crucial in controlling asthma symptoms and potential related complications. 4. BMI 31.0-31.9,adult (Z68.31: Body mass index [BMI] 31.0-31.9, adult) Monitoring and managing weight through lifestyle interventions were emphasized, especially during , to prevent further exacerbation of obesity-related health issues. Follow-up No qualifying data available Problem List/Past Medical History Ongoing Asthma Bilateral carpal tunnel syndrome GERD (gastroesophageal reflux disease) Hidradenitis suppurativa IBS (irritable bowel syndrome) Seasonal allergies Historical Asthma GERD (gastroesophageal reflux disease) Lipid screening Screening for diabetes mellitus (DM) Procedure/Surgical History Insertion of IUD (07/03/2018). Medications Symbicort 80/4.5 inhalation aerosol with adapter, 2 puff(s), Inhalation, BID Ventolin HFA 90 mcg/inh Aerosol-Adpt, 2 puff(s), Inhalation, q4hr, PRN, 2 refills Allergies No Known Medication Allergies Social History Alcohol - Denies Alcohol Use, 08/04/2020 Never., 03/07/2024 Substance Abuse - Denies Substance Abuse, 08/04/2020 Never., 03/07/2024 Tobacco - Denies Tobacco Use, 08/04/2020 Never (less than 100 in lifetime) Tobacco Use:. Never Smokeless Tobacco Use:., 03/07/2024 Family History Anxiety: Mother. Migraine: Mother. Immunizations Vacci (more content not included)... Normal [facility] Comment on above: Result Comment: Elec tronically Signed By: Herber Aragon MD\.br\Date and Time Signed: 03/07/24 09:44 EST Lyndsey 02-21-2024 CNPN Telephone (OGFVWE) OTTOJUMANA ([id number]) 2 F Date Time Provider Department 02/21/24 MARY LITTLE OGFVWE During your visit today, we recorded the following information about you: Mary Little RN 02/21/2024 11:55 AM Signed 1st risk assessment form submitted 02/21/2024. Mary Little RN Allergies As of Date: 02/21/2024 (No Known Allergies) Date Reviewed: 02/19/2024 Reviewed by: Kathie Degroot APRN.BIOMED TECH - Fully Assessed Reason for Visit: [employer] Laminator - Other [3602] Cmt: BUD Prescriptions as of 02/21/2024 - aspirin, enteric coated (ECOTRIN LOW STRENGTH) 81 mg EC tablet Take 1 tablet by mouth once daily. - prental multivitamin 27 mg iron- 800 mcg tablet Take 1 tablet by mouth once daily. - ALBUTEROL INHALATION Inhale as instructed. Meds Comments as of 12/08/2014: Per mom, 2 inhalers, allergy medication and stomach medication, all names unknown. 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 trachomatis+N. gonorrhoea e DNA PHYLLIS+probe Ql (Unsp spec)on 02-19-2024 C. trachomatis rRNA PHYLLIS+probe Ql (Unsp spec) Not detected Normal Not detected [facility] Comment on above: Order Comment: Speci men Type: BLOOD SPECIMEN Ordering Facility: [facility] Address: [address] [place] [address] Performed By: #### T SPN #### [facility] CLIA [id number] [address] [place] [address] N. gonorrhoeae rRNA PHYLLIS+probe Ql (Unsp spec) Not detected Normal Not detected [facility] Comment on above: Order Comment: Speci men Type: BLOOD SPECIMEN Ordering Facility: [facility] Address: [address] [place] [address] Performed By: #### T SPN #### [facility] CLIA [id number] [address] [place] [address] STATES OF DESMOND POC PATTERN PAINTER ULTRASOUNDon 02-19-20 24 Indication Confirmation of intrauterine . Confirmation of cardiac activity Impression CRL is appropriate for clinical dates, corresponding to FRANCINE 10/02/24 cardiac activity is visualized Recommendations Additional follow-up as clinically indicated. Method Transvaginal ultrasound examination. View: Adequate visualization Mejia . Number of embryos: 1 Dating LMP on: 12/27/2023 GA by LMP 7 w + 5 d FRANCINE by LMP: 10/02/2024 Ultrasound examination on: 02/19/2024 GA by U/S based upon: CRL GA by U/S 8 w + 0 d FRANCINE by U/S: 09/30/2024 Assigned: based on the LMP, selected on 02/19/2024 Assigned GA 7 w + 5 d Assigned FRANCINE: 10/02/2024 Biometry Standard FHR 158 bpm CRL 16.1 mm 8w 0d >99% Hadlock Assessment Gestational sac: visualized Location: intrauterine Yolk sac: visualized Embryo: visualized CRL 16.1 mm 8w 0d >99% Hadlock Cardiac activity: present FHR 158 bpm General Evaluation Cardiac activity present. FHR 158 bpm Performed By: Kathie Degroot CNP Read By: Kathie Degroot CNP MATERNAL MEDICINE [facility] Radiology Study observation (narrative) [facility] Lyndsey 02-06-2024 CNPN Telephone (OBGYWM) JUMANA MENJIVAR ([id number]) 2 F Date Time Provider Department 02/06/24 AD ROLAND During your visit today, we recorded the following information about you: Adrienne Guzman MA 02/06/2024 1:58 PM Signed Attempted to contact the patient to go over new ob intake questions. No answer. Left voicemail. RICKEY Hudson Teresa, RN 02/06/2024 4:05 PM Signed I called patient and did intake questions Allergies As of Date: 02/06/2024 (No Known Allergies) Date Reviewed: 03/13/2023 Reviewed by: Fanny Skaggs MA - Fully Assessed Reason for Visit: Appointment [186] Prescriptions as of 02/06/2024 - Magnesium Oxide 420 mg tab Take 1 tablet by mouth once daily. - aspirin, enteric coated (ASPIRIN, ENTERIC COATED) 81 mg EC tablet Take 1 tablet by mouth once daily. - prental multivitamin 27 mg iron- 800 mcg tablet Take 1 tablet by mouth once daily. - ALBUTEROL INHALATION Inhale as instructed. Meds Comments as of 12/08/2014: Per mom, 2 inhalers, allergy medication and stomach medication, all names unknown. 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 Submit a new specimen if indicated. Normal [facility] Comment on above: Performed By: #### M 100.2200 #### [facility] [address] [place], [address] CBC W/Diff, Automatedon 11- Absolute Lymph 1.65 X10 3/uL Normal 0.83-4.51 [facility] Comment on above: Performed By: #### L 100.0100, BtABS, BTS #### [facility] [address] [place], [address] Absolute Neut 9.5 X10 3/uL High 2.0-7.7 [facility] Comment on above: Performed By: #### L 100.0100, BtABS, BTS #### [facility] [address] [place], [address] Basophils/100 WBC (Bld) 0.2 % Normal 0-1 [facility] Comment on above: Performed By: #### L 100.0100, BtABS, BTS #### [facility] [address] [place], [address] Eosinophils/100 WBC (Bld) 0.0 % Normal 0-5 [facility] Comment on above: Performed By: #### L 100.0100, BtABS, BTS #### [facility] [address] [place], [address] Erythrocyte distribution width (RBC) [Ratio] 13.7 % Normal 11.6-14.6 [facility] Comment on above: Performed By: #### L 100.0100, BtABS, BTS #### [facility] [address] [place], [address] Hematocrit (Bld) [Volume fraction] 34.5 % Low 37-47 [facility] Comment on above: Performed By: #### L 100.0100, BtABS, BTS #### [facility] [address] [place], [address] Hemoglobin (Bld) [Mass/Vol] 11.1 g/dL Low 12.0-15.0 [facility] Comment on above: Performed By: #### L 100.0100, BtABS, BTS #### [facility] [address] [place], [address] IG% 0.400 Normal 0.0-0.9 [facility] Comment on above: Result Comment: IG% - Immature Granulocytes (promyelocytes, myelocytes and metamyelocytes) > 1% indicates that a LEFT SHIFT is Present. Performed By: #### L 100.0100, BtABS, BTS #### [facility] [address] [place], [address] Lymphocytes/100 WBC (Bld) 14.1 % Low 19-41 [facility] Comment on above: Performed By: #### L 100.0100, BtABS, BTS #### [facility] [address] [place], [address] MCH (RBC) [Entitic mass] 26.9 pg Low 27.0-32.0 [facility] Comment on above: Performed By: #### L 100.0100, BtABS, BTS #### [facility] [address] [place], [address] MCHC (RBC) [Mass/Vol] 32.2 g/dL Normal 32-36 [facility] Comment on above: Performed By: #### L 100.0100, BtABS, BTS #### [facility] [address] [place], [address] MCV (RBC) [Entitic vol] 83.5 fL Normal 81-99 [facility] Comment on above: Performed By: #### L 100.0100, BtABS, BTS #### [facility] [address] [place], [address] Monocytes/100 WBC (Bld) 4.8 % Normal 0-10 [facility] Comment on above: Performed By: #### L 100.0100, BtABS, BTS #### [facility] [address] [place], [address] Neutrophils/100 WBC (Bld) 80.5 % High 47-70 [facility] Comment on above: Performed By: #### L 100.0100, BtABS, BTS #### [facility] [address] [place], [address] Nucleated RBC (Bld) [#/Vol] 0 10*3/uL Normal 0-5 [facility] Comment on above: Performed By: #### L 100.0100, BtABS, BTS #### [facility] [address] [place], [address] Platelet mean volume (Bld) [Entitic vol] 9.5 fL Normal 6.2-12.0 [facility] Comment on above: Performed By: #### L 100.0100, BtABS, BTS #### [facility] [address] [place], [address] Platelets (Bld) [#/Vol] 344 10*3/uL Normal 150-450 [facility] Comment on above: Performed By: #### L 100.0100, BtABS, BTS #### [facility] [address] [place], [address] RBC (Bld) [#/Vol] 4.13 10*6/uL Low 4.2-5.4 [facility] Comment on above: Performed By: #### L 100.0100, BtABS, BTS #### [facility] [address] [place], [address] RDW SD 41.7 fl Normal 35.1-43.9 [facility] Comment on above: Performed By: #### L 100.0100, BtABS, BTS #### [facility] [address] [place], [address] WBC (Bld) [#/Vol] 11.7 10*3/uL High 4.4-11.0 [facility] Comment on above: Performed By: #### L 100.0100, BtABS, BTS #### [facility] [address] 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 Normal [facility] Hepatitis C Antibodyon 01-25 Hepatitis C Ab Non-Reactive Normal Nonreactive [facility] Comment on above: Result Comment: Non Reactive: < 0.8 Equivocal: >/= 0.8 to < 1.0 Reactive: >/= 1.0 The CDC recommends that a reactive/equivocal HCV antibody result be followed up by the HCV Nucleic Acid Amplification test (880844) Performed By: #### L 3890.6300 #### [facility] [address] [place], [address] L509.8000on 3 Syphilis Abs Non-Reactive Normal [facility] Comment on above: Performed By: #### L 509.8000 #### [facility] [address] [place], [address] Operative Reporton 3 Operative Report [facility] Medical Records Department [address] [place] [address] Operative Report 01/25/23 1146 MR#: [id number] Acct: [id number] Name: JUMANA MENJIVAR Rep #: [id number] : 2000 23 From: Millicent Ribeiro MD PCP: ERIN POWELL Status:ADM IN Location: [id number] Maternal Data Information FRANCINE Calculator Estimated Delivery Date Method Current WG Current Estimate 01/26/23 Manual 39w 6d Vaginal Delivery Operative Information Date of Procedure: 01/25/23 Pre-Operative Diagnosis: 39 weeks, obesity in , meconium, rh negative Post-Operative Diagnosis: same, live female Surgery / Procedure Performed: Spontaneous Vaginal Delivery Type of Anesthesia: Epidural Drain: Guillen to straight drain Estimated Blood Loss: 300 Time of Delivery: 10:52 Findings Description of Procedure: Patient progressed to fully dilated. Good maternal pushing efforts delivered the 's head followed by the anterior and posterior shoulders. Rest the infant's body was delivered without complication. was vigorous at time of delivery and was placed on the mother's chest for immediate skin to skin. Adjunct Latin Professor and nursery team were available due to [...] applicable): CC: Yandel Ribeiro; ERIN POWELL Signed [facility] Type AND Screenon 01-25-2023 Ab SCREEN GEL TNP Normal [facility] Comment on above: Order Comment: Labor Performed By: #### L 100.0100, BtABS, BTS #### [facility] [address] [place], [place], [address] OPT OUT OF GEL Yes,TUBE (Screen) Normal [facility] Comment on above: Order Comment: Labor Performed By: #### L 100.0100, BtABS, BTS #### [facility] [address] [place], [place], [address] Urinalysis, Routine (Dipstic k)on 01-25-2023 BILIRUBIN URINE Negative Normal Negative [facility] Comment on above: Order Comment: JOAQUIN RICHARDOR TO SPECIFY Performed By: #### L 400.2010 #### [facility] [address] [place], [place], [address] Clarity (U) Clear Normal Clear [facility] Comment on above: Order Comment: JOAQUIN RICHARDOR TO SPECIFY Performed By: #### L 400.2010 #### [facility] [address] [place], [place], [address] Color (U) Yellow Normal Yellow [facility] Comment on above: Order Comment: COLLE CTOR TO SPECIFY Performed By: #### L 400.2010 #### [facility] [address] [place], [address] GLUCOSE, UR Normal Normal Normal [facility] Comment on above: Order Comment: COLLE CTOR TO SPECIFY Performed By: #### L 400.2010 #### [facility] [address] [place], [address] KETONE UR 50 mg/dl Abnormal Negative [facility] Comment on above: Order Comment: COLLE CTOR TO SPECIFY Performed By: #### L 400.2010 #### [facility] [address] [place], [address] LEUK ESTERASE 25 /ul Abnormal Negative [facility] Comment on above: Order Comment: COLLE CTOR TO SPECIFY Performed By: #### L 400.2010 #### [facility] [address] [place], [place], [facility] Nitrite Ql (U) Negative Normal Negative [facility] Comment on above: Order Comment: COLLE CTOR TO SPECIFY Performed By: #### L 400.2010 #### [facility] [address] [place], [address] OCCULT BLOOD-UR Negative Normal Negative [facility] Comment on above: Order Comment: COLLE CTOR TO SPECIFY Performed By: #### L 400.2010 #### [facility] [address] [place], [address] pH UR 8.0 Normal 5.0 - 8.0 [facility] Comment on above: Order Comment: COLLE CTOR TO SPECIFY Performed By: #### L 400.2010 #### [facility] [address] [place], [address] PROT DIPSTX Negative Normal Negative [facility] Comment on above: Order Comment: COLLE CTOR TO SPECIFY Performed By: #### L 400.2010 #### [facility] [address] [place], [place], [address] SP.GR. DIPSTX 1.015 Normal 1.002-1.030 [facility] Comment on above: Order Comment: JOAQUIN CTOR TO SPECIFY Performed By: #### L 400.2010 #### [facility] [address] [place], [place], [address] UROBILI Normal Normal Normal [facility] Comment on above: Order Comment: JOAQUIN CTOR TO SPECIFY Performed By: #### L 400.2010 #### [facility] [address] [place], [place], [address] Absolute lymphocyte countOrd ered By: Beena Walters on 01-24-2023 Lymphocytes Auto (Unsp spec) [#/Vol] 1.65 10*3/uL 0.83-4.51 [facility] Basophil percentageOrdered B y: Beena Walters on 01-24-2023 Basophils/100 WBC (Bld) 0.2 % 0-1 [facility] Eosinophils/100 WBC (Bld) 0.0 % 0-5 [facility] Neutrophils (Bld) [#/Vol] 9.5 10*3/uL 2.0-7.7 [facility] Neutrophils/100 WBC (Bld) 80.5 % 47-70 [facility] WBC (Bld) [#/Vol] 11.7 10*3/uL 4.4-11.0 [facility] Bilirubin Test strip Ql (U)O rdered By: Beena Walters on 01-24-2023 Bilirubin Ql (U) Negative Negative [facility] Blood erythrocytes count (nu mber/volume)Ordered By: Beena Walters on 01-24-2023 RBC (Bld) [#/Vol] 4.13 10*6/uL 4.2-5.4 [facility] Blood hemoglobin measurement (mass/volume)Ordered By: Beena Walters on 01-24-2023 Hemoglobin (Bld) [Mass/Vol] 11.1 g/dL 12.0-15.0 [facility] Blood lymphocytes/100 leukoc ytesOrdered By: Beena Walters on 01-24-2023 Lymphocytes/100 WBC (Bld) 14.1 % 19-41 [facility] Blood monocytes/100 leukocyt esOrdered By: Beena Walters on 01-24-2023 Monocytes/100 WBC (Bld) 4.8 % 0-10 [facility] Blood platelet mean volumeOr dered By: Beena Walters on 01-24-2023 Platelet mean volume (Bld) [Entitic vol] 9.5 fL 6.2-12.0 [facility] Culture, urineOrdered By: Eitna urbandar Walters on 01-24-2023 Bacteria identified Cx Nom (U) Positive [facility] Determination of erythrocyte mean corpuscular volume (MCV)Ordered By: Beena Walters on 01-24-2023 MCV (RBC) [Entitic vol] 83.5 fL 81-99 [facility] Hematocrit Auto (Bld) [Volum e fraction]Ordered By: Beena Walters on 01-24-2023 Hematocrit (Bld) [Volume fraction] 34.5 % 37-47 [facility] Ketones Test strip Ql (U)Ord ered By: Beena Walters on 01-24-2023 Ketones Ql (U) 50 mg/dl Negative [facility] Laboratory - Hematology and Cell countsOrdered By: Beena Walters on 01-24-2023 Erythrocyte distribution width (RBC) [Entitic vol] 41.7 fL 35.1-43.9 [facility] Erythrocyte distribution width (RBC) [Ratio] 13.7 % 11.6-14.6 [facility] Immature granulocytes/100 WBC (Bld) 0.400 % 0.0-0.9 [facility] Comment on above: IG% - Immature Granu locytes (promyelocytes, myelocytes and metamyelocytes) > 1% indicates that a LEFT SHIFT is Present. MCH (RBC) [Entitic mass] 26.9 pg 27.0-32.0 [facility] Nucleated RBC/100 WBC (Bld) [Ratio] 0 % 0-5 [facility] MCHC Auto (RBC) [Mass/Vol]Or dered By: Beena Walters on 01-24-2023 MCHC (RBC) [Mass/Vol] 32.2 g/dL 32-36 [facility] Nitrite Test strip Ql (U)Ord ered By: Beena Walters on 01-24-2023 Nitrite Ql (U) Negative Negative [facility] No Panel InformationOrdered By: Beena Walters on 01-24-2023 Hepatitis C Antibody Non-Reactive Nonreactive [facility] Comment on above: Non Reactive: < 0.8 Equivocal: >/= 0.8 to < 1.0 Reactive: >/= 1.0The CDC recommends that a reactive/equivocal HCV antibody result be followed up by the HCV Nucleic Acid Amplificationtest (772469) OB Triage Physician Noteon 1 03-26-2022 OB Triage Physician Note [facility] Medical Records Department [address] [place] [address] OB Triage Physician Note 01/24/232040 MR#: [id number] Acct: [id number] Name: JUMANA MENJIVAR Rep #: [id number] : 2000 23 From: Beena Walters CN PCP: ERIN POWELL Status:DEP CLI Y Location: OUT HPI - General HPI Narrative JUMANA MENJIVAR, is a 23 F who presents to triage with contractions. Patient denies any loss of fluid or vaginal bleeding. Positive movement. Maternal Data Information FRANCINE Calculator Estimated Delivery Date Method Current WG Current Estimate 01/26/23 Manual 39w 6d PFSH PFSH Home Medications aspirin 81 mg tablet,delayed release ([place] Aspirin) 81 mg PO DAILY 01/24/23 [History [...] History (Updated 01/25/23 @ 00:41 by Marni Caracmo) History of surgery Social History Smoking Status: [...] kick counts reviewed 01/25/23 0732 Date Beena Walters CNM Cosigner Signature (if applicable): Date CC: CECILE Walters; ERIN POWELL Signed Normal [facility] Platelets bldOrdered By: Jairon Waletrs on 01-24-2023 Platelets (Bld) [#/Vol] 344 10*3/uL 150-450 [facility] Protein Test strip Ql (U)Ord ered By: Beena Walters on 01-24-2023 Protein Ql (U) Negative Negative [facility] Serum Treponema species anti body detectionOrdered By: Beena Walters on 01-24-2023 Treponema sp Ab Ql (S) Non-Reactive [facility] Urine blood detectionOrdered By: Beena Walters on 01-24-2023 RBC Ql (U) Negative Negative [facility] Urine clarityOrdered By: Jairon Walters on 01-24-2023 Clarity (U) Clear Clear [facility] Urine color determinationOrd ered By: Beena Walters on 01-24-2023 Color (U) Yellow Yellow [facility] Urine glucose detectionOrder ed By: Beena Walters on 01-24-2023 Glucose Ql (U) Normal mg/dl Normal [facility] Urine leukocyte esterase det ection by dipstickOrdered By: Beena Walters on 01-24-2023 Leukocyte esterase Test strip Ql (U) 25 /ul Negative [facility] Urine pHOrdered By: Beena Walters on 01-24-2023 pH (U) 8.0 [pH] 5.0 - 8.0 [facility] Urine specific gravity measu rementOrdered By: Beena Walters on 01-24-2023 Specific gravity (U) [Rel density] 1.015 1.002-1.030 [facility] Urobilinogen Auto test strip Ql (U)Ordered By: Beena Walters on 01-24-2023 Urobilinogen Ql (U) Normal mg/dl Normal [facility] URINE OB DIP B/Oon 3 Glucose Ql (U) Negative Neg mg/dL [facility] Protein.monoclonal (U) [Mass/Vol] Negative Neg mg/dL [facility] OBSTETRIC ULTRASOUND WHIon [address] [facility] URINE OB DIP B/Oon 3 Glucose Ql (U) Negative Neg mg/dL [facility] Protein.monoclonal (U) [Mass/Vol] Negative Neg mg/dL [facility] URINE OB DIP B/Oon 3 Glucose Ql (U) Negative Neg mg/dL [facility] Protein.monoclonal (U) [Mass/Vol] Negative Neg mg/dL [facility] URINE OB DIP B/Oon 3 Glucose Ql (U) Negative Neg mg/dL [facility] Protein.monoclonal (U) [Mass/Vol] Negative Neg mg/dL [facility] URINE OB DIP B/Oon 3 Glucose Ql (U) Negative Neg mg/dL [facility] Protein.monoclonal (U) [Mass/Vol] Negative Neg mg/dL [facility] OBSTETRIC ULTRASOUND WHIon 0 11-14-[address] [facility] URINE OB DIP B/Oon 3 Glucose Ql (U) Negative Neg mg/dL [facility] Protein.monoclonal (U) [Mass/Vol] trace Neg mg/dL [facility] URINE OB DIP B/Oon 3 Glucose Ql (U) Negative Neg mg/dL [facility] Protein.monoclonal (U) [Mass/Vol] trace Neg mg/dL [facility] OBSTETRIC ULTRASOUND WHIon 0 09-29-[address] [facility] URINE OB DIP B/Oon 3 Glucose Ql (U) Negative Neg mg/dL [facility] Protein.monoclonal (U) [Mass/Vol] Negative Neg mg/dL [facility] Reference Laboratory Testing Ordered By: Rand Saavedra on 06-15-2022 Results Report See Comment 1 (06/15/22 6:03 PM) Normal [facility] SendOutsSS Comment on above: Result Comment: Resu lts for this order will not be sent to [facility]. The Reference Lab performing the testing will send the results directly to the ordering provider. CHEMISTRYOrdered By: Tango SYSTEM on 06-14-2022 Amphetamines Screen method >1000 [...] PM) Normal Negative [facility] Remisol HEMATOLOGYOrdered By: Tango SYSTEM on 06-14-2022 Basophils/100 WBC (Bld) 0.4 [...] 12.3 g/dL Normal 12.0 - 16.0 gm/dL [facility] HemeAutoSS MCH (RBC) [Entitic mass] 27.0 pg Normal 27.0 - 34.0 pg [facility] HemeAutoSS MCHC (RBC) [Mass/Vol] 33.6 g/dL Normal 31.4 - 36.0 gm/dL [facility] HemeAutoSS MCV (RBC) [Entitic vol] 80.4 fL Normal 80.0 - 100.0 fL [facility] HemeAutoSS Platelet mean volume (Bld) [Entitic vol] 7.1 fL Normal 6.4 - 10.[address] [facility] HemeAutoSS Platelets (Bld) [#/Vol] 356.0 E9/L Normal 150. 0 - 500.0 E9/L [facility] HemeAutoSS RBC (Bld) [#/Vol] 4.5 E12/L Normal 4.3 - 5.9 E12/L [facility] HemeAutoSS WBC corrected for nucl RBC Auto (Bld) [#/Vol] 9.7 E9/L Normal 4.0 - 11.0 E9/L [facility] HemeAutoSS HCG,BETA-QUANTITATIVEon 03-19 HCG,BETA-QUANTITATIVE <2 Normal [facility] Comment on above: Result Comment: . Total HCG measurement is performed using the Ashlyn Shake Access Immunoassay which detects intact HCG and free beta HCG subunit. . This test is not indicated for use as a tumor marker. HCG testing is performed using a different test methodology at [facility] than other [facility]. Direct result comparison should only be made within the same method. REF VALUES NON FEMALE <5 MALES <5 Performed By: #### H CGQU #### [place] [address] ABO/RH GROUP TESTon 03-18-20 ABO TYPE A Normal [facility] Comment on above: Performed By: #### A RIK #### [address] [address] CBC AND DIFFERENTIALon 03-18 % AUTOMATED IMMATURE GRAN 0.1 % Normal 0.0 - 0.9 [facility] Comment on above: Result Comment: Lesley ture Granulocyte Count (IG) includes promyelocytes, myelocytes and metamyelocytes but does not include bands. Percent differential counts (%) should be interpreted in the context of the absolute cell counts (cells/L). Performed By: #### A RIK #### [address] [address] Basophils (Bld) [#/Vol] 0.03 10*3/uL Normal 0.00 - 0.1 0 [facility] Comment on above: Performed By: #### A RIK #### [place] [id number] Basophils/100 WBC (Bld) 0.3 % Normal 0.0 - 2.[address] [facility] Comment on above: Performed By: #### A RIK #### [address] [address] Eosinophils (Bld) [#/Vol] 0.04 10*3/uL Normal 0.00 - 0.70 [facility] Comment on above: Performed By: #### A RIK #### [address] [address] Eosinophils/100 WBC (Bld) 0.4 % Normal 0.0 - 6.0 [facility] Comment on above: Performed By: #### A RIK #### [address] [address] Erythrocyte distribution width (RBC) [Ratio] 12.9 % Normal 11.5 - 14.5 [facility] Comment on above: Performed By: #### A RIK #### [address] [address] Hematocrit (Bld) [Volume fraction] 39.1 % Normal 36.0 - 46.0 [facility] Comment on above: Performed By: #### A RIK #### [address] [address] Hemoglobin (Bld) [Mass/Vol] 12.8 g/dL Normal 12.0 - 16.0 [facility] Comment on above: Performed By: #### A RIK #### [address] [address] Lymphocytes (Bld) [#/Vol] 2.24 10*3/uL Normal 1.20 - 4.80 [facility] Comment on above: Performed By: #### A RIK #### [address] [address] Lymphocytes/100 WBC (Bld) 24.5 % Normal 13.0 - 44.0 [facility] Comment on above: Performed By: #### A RIK #### [address] [address] MCHC (RBC) [Mass/Vol] 32.7 g/dL Normal 32.0 - 36.0 [facility] Comment on above: Performed By: #### A RIK #### [address] [address] MCV (RBC) [Entitic vol] 85 fL Normal 80 - [address] [facility] Comment on above: Performed By: #### A RIK #### [address] [address] Monocytes (Bld) [#/Vol] 0.44 10*3/uL Normal 0.10 - 1.0 0 [facility] Comment on above: Performed By: #### A RIK #### [address] [address] Monocytes/100 WBC (Bld) 4.8 % Normal 2.0 - 10.[address] [facility] Comment on above: Performed By: #### A RIK #### [place] [id number] Neutrophils (Bld) [#/Vol] 6.38 10*3/uL Normal 1.20 - 7.70 [facility] Comment on above: Result Comment: Perc ent differential counts (%) should be interpreted in the context of the absolute cell counts (cells/L). Performed By: #### A RIK #### [address] [address] Neutrophils/100 WBC (Bld) 69.9 % Normal 40.0 - 80.0 [facility] Comment on above: Performed By: #### A RIK #### [address] [address] Platelets (Bld) [#/Vol] 307 10*3/uL Normal 150 - 450 [facility] Comment on above: Performed By: #### A RIK #### [address] [address] RBC 4.62 x10E12/L Normal 4.00 - 5.20 [facility] Comment on above: Performed By: #### A RIK #### [address] [address] WBC (Bld) [#/Vol] 9.1 10*3/uL Normal 4.4 - 11.3 [facility] Comment on above: Performed By: #### Terrie JOLLY #### [address] [address] COMPREHENSIVE PANELon 2021 Albumin [Mass/Vol] 4.3 g/dL Normal 3.4 - 5.0 [facility] Comment on above: Performed By: #### U AMIC #### [address] [address] ALP [Catalytic activity/Vol] 74 U/L Normal 33 - 110 [facility] Comment on above: Performed By: #### U AMIC #### [address] [address] ALT [Catalytic activity/Vol] 10 U/L Normal 7 - 45 [facility] Comment on above: Result Comment: Becca ents treated with Sulfasalazine may generate falsely decreased results for ALT. Performed By: #### U AMIC #### [address] [address] Anion gap [Moles/Vol] 12 mmol/L Normal 10 - 20 [facility] Comment on above: Performed By: #### U AMIC #### [address] [address] AST [Catalytic activity/Vol] 15 U/L Normal 9 - 39 [facility] Comment on above: Performed By: #### U AMIC #### [address] [address] Bilirubin [Mass/Vol] 0.3 mg/dL Normal 0.0 - 1.2 [facility] Comment on above: Performed By: #### U AMIC #### [address] [address] Calcium [Mass/Vol] 9.5 mg/dL Normal 8.6 - 10.3 [facility] Comment on above: Performed By: #### U AMIC #### [address] [address] Chloride [Moles/Vol] 106 mmol/L Normal 98 - 107 [facility] Comment on above: Performed By: #### U AMIC #### [address] [address] Creatinine [Mass/Vol] 0.64 mg/dL Normal 0.50 - 1.05 [facility] Comment on above: Performed By: #### U AMIC #### [address] [address] eGFR FEMALE >90 Normal >90 [facility] Comment on above: Result Comment: CALC ULATIONS OF ESTIMATED GFR ARE PERFORMED USING THE 2020 CKD-EPI STUDY REFIT EQUATION WITHOUT THE RACE VARIABLE FOR THE IDMS-TRACEABLE CREATININE METHODS. https://jasn.asnjournals.org/content/early//ASN.2020 963874 Performed By: #### U AMIC #### [address] [address] Glucose [Mass/Vol] 92 mg/dL Normal 74 - 99 [facility] Comment on above: Performed By: #### U AMIC #### [address] [address] HCO3 (Bld) [Moles/Vol] 24 mmol/L Normal 21 - 32 [facility] Comment on above: Performed By: #### U AMIC #### [address] [address] Potassium [Moles/Vol] 3.6 mmol/L Normal 3.5 - 5.3 [facility] Comment on above: Performed By: #### U AMIC #### [address] [address] Protein [Mass/Vol] 7.1 g/dL Normal 6.4 - 8.2 [facility] Comment on above: Performed By: #### U AMIC #### [address] [address] Sodium [Moles/Vol] 138 mmol/L Normal 136 - 145 [facility] Comment on above: Performed By: #### U AMIC #### [address] [address] Urea nitrogen [Mass/Vol] 8 mg/dL Normal 6 - 23 [facility] Comment on above: Performed By: #### U AMIC #### [address] [address] HCG,BETA-QUANTITATIVEon 02-18 HCG,BETA-QUANTITATIVE 490 mIU/mL Abnormal [facility] Comment on above: Result Comment: . Total HCG measurement is performed using the Ashlyn Sanket Access Immunoassay which detects intact HCG and free beta HCG subunit. . This test is not indicated for use as a tumor marker. HCG testing is performed using a different test methodology at [facility] than other [facility]. Direct result comparison should only be made [...] elevation. Performed By: #### H CGQU #### [address] [address] Provider Note - ED v3on 02-18 Provider [...] a day Drug Name: brompheniramine/pseud oephedrine/dextrometh orphan [id number]/5 mL oral syrup Instructions: 5 milliliter(s) orally [...] Reference Range: STRAW,YELLOW Appearance, Urine HAZY Specific [place], Urine 1.010 pH, Urine 6.0 Protein, Urine [...] SIGNS: T PRBP SpO2O2(LPM) %FiO2 Method 18-Mar-2022 17:00:00-2860543/76 98 room air, no respiratory support 18-Mar-2022 16:37:00-5908115/65 100 room air, no respiratory support 18-Mar-2022 14:09:00-36.53234988/ 77 98 room air, no respiratory support [facility] MDM/ED COURSE: PMH: Reviewed PSH: Reviewed Social History: Reviewed. Allergies reviewed. HPI: This is a 22 year old female, , prior miscarriage July 2021 at approx 7 weeks gestation, who pr (more content not included)... [facility] RH IMMUNE GLOB.on 03-18-2022 RH IMMUNE GLOB. ORDER RECD [facility] Comment on above: Performed By: #### U AMIC #### [place] [address] Risk Screen - Adult Emergenc yon 03-18-2022 Risk Screen - Adult Emergency Preferred Language: Preferred Language: Preferred Language for Discussing Health Care (patient/designee)Kimberli estrella Patient Preferred Pharmacy: Patient Preferred Pharmacy Statement: [...] instruction; written material Cultural Considerationsnone Developmental Considerationsnone Congregation Considerationsnone Learning Assessment (Other Learner): Learning Assessment (Other Learner): Other learner availableno Pressure Injury/TB/Substance: Pressure Injury: Do you have a coughno Smoking Statusnever smoker Alcohol Usedenies Drug Usedenies Drug 2 Usedenies Admission Risk Screen: Significant IndicatorsComplete CAGE: CAGE: Is this an injured patient at a Trauma Center ([facility]/[place]/[facility]/[place]): no Electronic Signatures: Julia Dey (MARCELLO) (Signed 18-Mar-2022 15:16) Authored: Preferred Language, Patient Preferred Pharmacy, Advanced Directives, Family Violence Adult, Learning Assessment (Patient), Learning Assessment (Other Learner), Pressure Injury/TB/Substance, Pressure Injury, CAGE Last Updated: 18-Mar-2022 15:16 by Julia Dey (MARCELLO) [facility] TYPE + SCREENon 03-18-2022 ABO TYPE A [facility] Comment on above: Performed By: #### T +S #### [place] [address] RH TYPE Negative [facility] Comment on above: Result Comment: Revi ew your Rh Negative female patient's potential need for Rh Immune Globulin (RhIg)administration. Performed By: #### T +S #### [place] [address] Performed By: #### A RIK #### [place] [id number] UA MICROSCOPICon 03-18-2022 BACTERIA 1+ /HPF Abnormal [facility] Comment on above: Performed By: #### U AMIC #### [place] [address] RBC 17 /HPF Abnormal 0-5 [facility] Comment on above: Performed By: #### U AMIC #### [place] [address] SQUAMOUS EPITH. CELLS 2 /HPF Normal [facility] Comment on above: Performed By: #### U AMIC #### [place] [address] WBC 4 /HPF Normal 0-5 [facility] Comment on above: Performed By: #### U AMIC #### [place] [address] URINALYSIS WITH CULTURE IF I NDICATEDon 03-18-2022 pH (U) 6.0 [pH] Normal 5.0 - 8.0 [facility] Comment on above: Performed By: #### A RIK #### [place] [address] Appearance (U) HAZY Normal CLEAR [facility] Comment on above: Performed By: #### A RIK #### [place] [address] Bilirubin Ql (U) Negative Normal NEGATIVE [facility] Comment on above: Performed By: #### A RIK #### [place] [address] Color (U) RED Normal STRAW,YELLOW [facility] Comment on above: Performed By: #### A RIK #### [place] [address] Glucose Ql (U) Negative Normal NEGATIVE [facility] Comment on above: Performed By: #### A RIK #### [address] [address] Hemoglobin Ql (U) LARGE (3+) Abnormal NEGATIVE [facility] Comment on above: Performed By: #### A RIK #### [address] [address] Ketones Ql (U) Negative Normal NEGATIVE [facility] Comment on above: Performed By: #### A RIK #### [place] [id number] Leukocyte esterase Test strip Ql (U) TRACE Abnormal NEGATIVE [facility] Comment on above: Performed By: #### A RIK #### [address] [address] Nitrite Ql (U) Negative Normal NEGATIVE [facility] Comment on above: Performed By: #### A RIK #### [place] [id number] Protein Ql (U) 100 (2+) Abnormal NEGATIVE [facility] Comment on above: Performed By: #### A RIK #### [place] [address] Specific gravity (U) [Rel density] 1.010 Normal 1.005 - 1.035 [facility] Comment on above: Performed By: #### A RIK #### [place] [id number] Urobilinogen (U) [Mass/Vol] mg/dL Normal 0.0 - 1.9 [facility] Comment on above: Performed By: #### A RIK #### [address] [address] URINE CULTURE,BACTERIALon URINE CULTURE,BACTERIAL PATIENT: JUMANA MENJIVAR [place] [facility] [place] BILL#: [id number] : [birth year] AGE: SEX: F ORDERED BY: CRYS SMITH SOURCE: URINE COLLECTED: 03/18/22 14:42 ANTIBIOTICS AT [place].: RECEIVED : 03/19/22 08:41 SITE: R E S U L T S URINE CULTURE,BACTERIAL FINAL 03/20/22 07:58 NO GROWTH Normal [facility] Comment on above: Performed By: #### U [facility] #### [facility] [address] [place] [address] US PELVIS OB TRANSABDOMINAL W TRANSVAGINAL UP TO 1st TRIMESTERon 03-18-2022 US PELVIS OB TRANSABDOMINAL W TRANSVAGINAL UP TO 1st TRIMESTER Patient Name: JUMANA MENJIVAR STUDY: US PELVIS OB TRANSABDOMINAL WITH TRANSVAGINAL; 03/18/2022 4:40 pm INDICATION: 7 WEEKS PREG AND BLEEDING. COMPARISON: None. ACCESSION NUMBER(S): [id number] ORDERING CLINICIAN: ANITRA CAMEJO TECHNIQUE: Grayscale and [...] above. Electronically signed by: RENE GOMEZ MD [facility] 07-27-2021 L - -------- Specimen: [id number] Received: 07/27/21 Status: TAMIA De La Vega Num: [id number] Spec Type: Surgical Subm Dr: ASAEL PUENTE MD Tissues: A Products of Conception - Spontaneous or Missed (POC) Procedures: RAIMUNDO Stain/5, Gross/Micro L4 -------- Patient Age/Sex Location Account Attending Physician -------- Jumana Menjivar 21/F MD [id number] ASAEL PUENTE MD -------- SPEC NUM: [id number] RECD: 07/27/21 STATUS: EVANGELISTALuciano ROUSSEAU NUM: [id number] [place]: 07/27/[address] [facility] [address]: ASAEL PUENTE MD ENTERED: 07/28/21 [facility] DR: SPEC TYPE: Surgical DEPT: S ORDERED: HE Stain/5, [...] support the above pathologic diagnosis. -------- Specimen: [id number] Received: 07/27/21 Status: TAMIA De La Vega Num: [id number] Spec Type: Surgical Subm Dr: ASAEL PUENTE MD Tissues: A Products of Conception - Spontaneous or Missed (POC) Procedures: HE Stain/5, Gross/Micro L4 -------- Patient: Jumana Menjivar [id number] (Continued) -------- Specimen: [id number] Received: 07/27/21 (Continued) Signed (signature on file) Haim Cadena MD 07/28/21 1611 -------- Specimen: [id number] Received: 07/27/21 Status: TAMIA De La Vega Num: [id number] Spec Type: Surgical Subm Dr: ASAEL PUENTE MD Tissues: A Products of Conception - Spontaneous or Missed (POC) Procedures: RAIMUNDO [place]/5, Gross/Micro L4 -------- Patient: Jumaan Menjivar [id number] (Continued) -------- Specimen: [id number] Received: 07/27/21 (Continued) CPT Codes 33441 -------- -------- Specimen: Received: 07/27/21 Status: TAMIA De La Vega Num: [id number] Spec Type: Surgical Subm Dr: ASAEL PUENTE MD Tissues: A Products of Conception - Spontaneous or Missed (POC) Procedures: RAIMUNDO Stain/5, Gross/Micro L4 -------- Patient: Jumana Menjivar [id number] (Continued) -------- Signed (signature on file) Haim Cadena MD 07/28/21 1611 Normal [facility] CHEMISTRYOrdered By: SYSTEM SYSTEM on 07-25-2021 [place] [address] m[IU]/mL High 1 - 3 mIU/mL [facility] Remisol ABO/RH GROUP TESTon 07-18-19 ABO TYPE A Normal [facility] Comment on above: Performed By: #### A RIK #### [place] [address] Performed By: #### T +S #### [place] [address] RH TYPE Negative Normal [facility] Comment on above: Result Comment: Revi ew your Rh Negative female patient's potential need for Rh Immune Globulin (RhIg)administration. Performed By: #### A RIK #### [place] [address] Performed By: #### T +S #### [place] [address] CBC AND DIFFERENTIALon 07-17 Basophils (Bld) [#/Vol] 0.10 10*3/uL Normal 0.00 - 0.1 0 [facility] Comment on above: Performed By: #### U AMIC #### [place] [address] Basophils/100 WBC (Bld) 0.9 % Normal 0.0 - 2.[address] [facility] Comment on above: Performed By: #### U AMIC #### [facility] [address] [place] [address] Eosinophils (Bld) [#/Vol] 0.10 10*3/uL Normal 0.00 - 0.70 [facility] Comment on above: Performed By: #### U AMIC #### [address] [address] Eosinophils/100 WBC (Bld) 1.4 % Normal 0.0 - 6.0 [facility] Comment on above: Performed By: #### U AMIC #### [address] [address] Erythrocyte distribution width (RBC) [Ratio] 13.4 % Normal 11.5 - 14.5 [facility] Comment on above: Performed By: #### U AMIC #### [address] [address] Hematocrit (Bld) [Volume fraction] 39.0 % Normal 36.0 - 46.0 [facility] Comment on above: Performed By: #### U AMIC #### [address] [address] Hemoglobin (Bld) [Mass/Vol] 13.2 g/dL Normal 12.0 - 16.0 [facility] Comment on above: Performed By: #### U AMIC #### [address] [address] Lymphocytes (Bld) [#/Vol] 2.40 10*3/uL Normal 1.20 - 4.80 [facility] Comment on above: Performed By: #### U AMIC #### [address] [address] Lymphocytes/100 WBC (Bld) 29.7 % Normal 13.0 - 44.0 [facility] Comment on above: Performed By: #### U AMIC #### [address] [address] MCHC (RBC) [Mass/Vol] 33.8 g/dL Normal 32.0 - 36.0 [facility] Comment on above: Performed By: #### U AMIC #### [address] [address] MCV (RBC) [Entitic vol] 82 fL Normal 80 - [address] [facility] Comment on above: Performed By: #### U AMIC #### [address] [address] Monocytes (Bld) [#/Vol] 0.40 10*3/uL Normal 0.10 - 1.0 0 Merged With [facility] Comment on above: Performed By: #### U AMIC #### [address] [address] Monocytes/100 WBC (Bld) 5.1 % Normal 2.0 - 10.[address] [facility] Comment on above: Performed By: #### U AMIC #### [address] [address] Neutrophils (Bld) [#/Vol] 5.10 10*3/uL Normal 1.20 - 7.70 Merged With [facility] Comment on above: Result Comment: Perc ent differential counts (%) should be interpreted in the context of the absolute cell counts (cells/L). Performed By: #### U AMIC #### [address] [address] Neutrophils/100 WBC (Bld) 62.9 % Normal 40.0 - 80.0 Merged With [facility] Comment on above: Performed By: #### U AMIC #### [address] [address] Platelets (Bld) [#/Vol] 311 10*3/uL Normal 150 - 450 Merged With [facility] Comment on above: Performed By: #### U AMIC #### [address] [address] RBC 4.75 x10E12/L Normal 4.00 - 5.20 M[facility] With [facility] Comment on above: Performed By: #### U AMIC #### [address] [address] WBC (Bld) [#/Vol] 8.1 10*3/uL Normal 4.4 - 11.3 [facility] Comment on above: Performed By: #### U AMIC #### [address] [address] HCG,BETA-QUANTITATIVEon HCG,BETA-QUANTITATIVE 7458 mIU/mL Abnormal [facility] Comment on above: Result Comment: Low- [...] HCG measurement is performed using the Ashlyn Dresden Access Immunoassay which detects intact HCG and free beta HCG subunit. This test is not indicated for use as a tumor marker. HCG testing is performed using a different test methodology at [facility] than other [facility]. Direct result comparison should only be made within the same method. 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 Patient [...] Updated: 20-Jul-2021 07:11 by Jimmy Sanchez () [facility] Provider Note - ED v3on 05-0 Provider [...] a day Drug Name: brompheniramine/pseud oephedrine/dextrometh orphan [id number]/5 mL oral syrup Instructions: 5 milliliter(s) orally [...] Reference Range: STRAW,YELLOW Appearance, Urine CLEAR Specific [place], Urine 1.008 pH, Urine 6.0 Protein, Urine [...] SIGNS: T PRBP SpO2O2(LPM) %FiO2 Method 17-Jul-2021 06:11:[id number]/ 78 99 MDM MDM/ED COURSE: Patient appears well and nontoxic. Benign abdominal exam. Urine positive. Transvaginal ultrasound ordered. Patient signed out to incoming physician Dr. Sanchez in stable condition. DISPOSITION Diagnosis/Annotation: Signed Out to Incoming Provider Disposition: HANDOFF Signed out to Incoming Provider: Jimmy Sanchez (more content not included)... [facility] RH IMMUNE GLOB.on 07-17-2021 RH IMMUNE GLOB. ORDER RECD [facility] Comment on above: Performed By: #### U [facility] #### [address] [address] Risk Screen - Adult Emergenc yon 07-17-2021 Risk Screen - Adult Emergency Preferred Language: Preferred Language: Preferred Language for Discussing Health Care (patient/designee)Kimberli de la rosa Advanced Directives: Advance Directive/DNRno Family Violence Adult: Abuse Screen: Are you or have you been threatened or abused physically, emotionally, or sexually by anyoneno Learning Assessment (Patient): Learning Assessment (Patient): Patient is Able to be Assessed for Learningyes Factors Influencing Readiness to Learnacuteness of illness Factors that Impact Ability to Learnnone Devices/Methods Used to Communicatenone Learning Preferencesaudio Cultural Considerationsnone Developmental Considerationsnone Congregation Considerationsnone Learning Assessment (Other Learner): Learning Assessment (Other Learner): Other learner availableno Pressure Injury/TB/Substance: Pressure Injury: Pressure Injury Present on Admissionno Do you have a coughno Smoking Statusnever smoker Alcohol Usedenies Drug Usedenies Drug 2 Usedenies Admission Risk Screen: Significant IndicatorsComplete CAGE: CAGE: Is this an injured patient at a Trauma Center ([facility]/[place]/[facility]/[place]): no Electronic Signatures: Laney Fernando (MARCELLO) (Signed 17-Jul-2021 06:55) Authored: Preferred Language, Advanced Directives, Family Violence Adult, Learning Assessment (Patient), Learning Assessment (Other Learner), Pressure Injury/TB/Substance, Pressure Injury, CAGE Last Updated: 17-Jul-2021 06:55 by Laney Fernando (MARCELLO) [facility] TRANS VAG PREG UTERUSon 05- TRANS VAG PREG UTERUS Patient Name: JUMANA MENJIVAR STUDY: TRANS VAG PREG UTERUS; 07/17/2021 8:12 am INDICATION: spotting. COMPARISON: None. ACCESSION NUMBER(S): [id number] ORDERING CLINICIAN: JIMMY SANCHEZ TECHNIQUE: Multiple ultrasonographic [...] . Electronically signed by: RENAY CHANCE MD [facility] Triage - EDon 07-17-2021 Triage - ED [...] BMI (kg/m2): 32.719 Calculated BSA (m2) 1.97 [place] Coma Scale: Best Eye Response: (E4) spontaneous Best Motor Response: (M6) obeys commands Best Verbal Response: (V5) oriented [place] Score: 15 Cough lasting greater than 3 [...] History Last Updated: 17-Jul-2021 06:14 by Dario Erickson (MARCELLO) Normal [facility] UA MICROSCOPICon 07-17-2021 Mucus Ql (Urine sed) 1+ /LPF Normal [facility] Comment on above: Performed By: #### U AMIC #### [place] [address] RBC 2 /HPF Normal 0-5 [facility] Comment on above: Performed By: #### U AMIC #### [place] [address] SQUAMOUS EPITH. CELLS 2 /HPF Normal [facility] Comment on above: Performed By: #### U AMIC #### [place] [address] WBC 7 /HPF Abnormal 0-5 [facility] Comment on above: Performed By: #### U AMIC #### [address] [address] URINALYSIS WITH CULTURE IF I NDICATEDon 07-17-2021 Appearance (U) CLEAR Normal CLEAR [facility] Comment on above: Performed By: #### U AMIC #### [address] [address] Bilirubin Ql (U) Negative Normal NEGATIVE [facility] Comment on above: Performed By: #### U AMIC #### [place] [address] Color (U) Yellow Normal STRAW,YELLOW [facility] Comment on above: Performed By: #### U AMIC #### [place] [address] Glucose Ql (U) Negative Normal NEGATIVE [facility] Comment on above: Performed By: #### U AMIC #### [place] [address] Hemoglobin Ql (U) LARGE(3+) Abnormal NEGATIVE [facility] Comment on above: Performed By: #### U AMIC #### [address] [address] Ketones Ql (U) Negative Normal NEGATIVE [facility] Comment on above: Performed By: #### U AMIC #### [place] [id number] Leukocyte esterase Test strip Ql (U) Negative Normal NEGATIVE [facility] Comment on above: Performed By: #### U AMIC #### [address] [address] Nitrite Ql (U) Negative Normal NEGATIVE [facility] Comment on above: Performed By: #### U AMIC #### [place] [id number] pH (U) 6.0 [pH] Normal 5.0 - 8.0 [facility] Comment on above: Performed By: #### U AMIC #### [address] [address] Protein Ql (U) Negative Normal NEGATIVE [facility] Comment on above: Performed By: #### U AMIC #### [address] [address] Specific gravity (U) [Rel density] 1.008 Normal 1.005 - 1.035 M[facility] Comment on above: Performed By: #### U AMIC #### [address] [address] Urobilinogen (U) [Mass/Vol] mg/dL Normal 0.0 - 1.9 [facility] Comment on above: Performed By: #### U AMIC #### [address] [address] URINE CULTURE,BACTERIALon URINE CULTURE,BACTERIAL PATIENT: JUMANA MENJIVAR LOCATION: [facility]#: [id number] : [birth year] AGE: SEX: F ORDERED BY: JOVANI SIMPSON SOURCE: URINE COLLECTED: 07/17/21 06:32 ANTIBIOTICS AT [place] RECEIVED : 07/17/21 13:06 SITE: R E S [facility] S URINE CULTURE,BACTERIAL FINAL 07/18/21 08:31 NO SIGNIFICANT GROWTH. Normal [facility] Comment on above: Performed By: #### U [facility] #### [facility] [address] [place] [address] Coding Summary.on 08-12-2020 Coding Summary. CD:[id number] G h0bWw+PGhlYWQ+DI4ZBDH sF63waGTfeI4BA7fTLC9R PODKAGSFKD6LWU2qqBB3B WucW3YlgsQx PweynISfEB47BCi5SFC0l FuyVNjutA2xePXfJ4l3Wc DkHE04rM26VWkpWFDsIgT 3LjZpbjsgbWFy L5ioGyVnuDWlCli+PHRhY mxlIHdpZHRoPScxMDAlJy AqdKwwEZ3ySo0pLKUpTJS vbGxhcHNlOiBj c6diLYZqNXzhXD7twUzlT 5OlyIQ1FJSqe1e1Tm41aN I+OENpCLU9jQovGWpab86 4CfFvp5njXFK4 iNYnCDasHBL3S62hb0T3J LPhFZTrIRT3mHL0qT0gwI yfrdsxK1TvwZAeQqN1UOE 7hALnbA4fsLak onsbfZ8eSun+E69AQS7DD LNDGN7OPwl9D2UhYpfyzB I+KR82CLZiYB20cCHskJI hq3pzyJe6WqEp FCFhOKM5rCgvAWyev7BvR LKrG98zpWIkq9Z1AQXviS cfkMKjWfZvaFF0kL0vREp beznqx7yammld Mphsn0vhta19eF16I45nC FmxUEZcQYZ7KYApXZBzrO iwks7diC5yNm6+EFtzy8i bc7gtnCi8PvUy WVEofgGtwNjvWSS5d0XmG o72W6ZocJmjg1EhPcw2iy 50jNKsq3H1bDO4MXvpFQC xeA7kYSjqIzX8 EGGcJkUlyP34xHIuDGxgQ c1isAboeYicFZ2nBVElzn qmHHVyzK3dMPHahZCyfXs aAD4dPFBshnte h649VkTsNKW2IDLcoOOfW 1PqoC9aMlImOHWmPHGlK2 UxvUDtYMwdC263ETgsKeN 1ENNebsXkR2Ck CZQcoGyvJiP9l3H1Zb4Aq 5CynwxaJYX7JWadWWZ8Iy D9YpAxIwF6D9EsKnf5RXM fcRqqZK8qA2Oi PVUzlofinjkczTV4ORSdR DIrtO38vUWqDJxsNd5sg3 Y4o867FUTxHDOtbL84Mg1 udDogMTBwdCBU uH3iciwxf4yjbfvoYkYzS BUnLTb7SHk7MIWvjMtsCw XzPSY9IuA8TSP7gXTwyZ6 liVqqwzommE1y Oyc+T77jjL4vDOK2UBD8s mbwKZImohHyPT83EW08L1 RyPjwvdGFibGU+PGRpdiB mbWwaUZ5gWdLf s8zxd0QjBLmpW5ExQSOlJ XfeDnb7FQDoHFX0eBO6fA 7gLACxAIewv3W9gGD2D6E qcvEids2tg9ae WOQdHSpzI88jcNDxf1X9O IXtbBH0LIRlgRwhGwKnaN 93Oyc+KPUbxPzdv0ExSdy vm2vnp1flgBu8 EbHmFGYjhtXjsLqiDIQ0s 2NfAj22O12iMXzxPHIiUS ElANXwMZKleCoytd8lgF3 wIi8+PGNvbCB3 bFL0hD8nFRYmLfU1RMlgL 284JaPmjIOlElvwv3hiz8 rzjCr4EdSnCYZufoOthXl sUGG0z5UaMp17 I07xOVhiGUGwQKZkVGYoB EBsyNiwgy0umS7kFz1+PC 1cd9cdro10qQ92zQS+PHR iXVJ7zBpaMVjz SQLorX8oHHnlZeM9TLFbA zEruJ08fAInJEgwNl0asA sioIrkAY7mJUQgtfuuk70 3AtPmt2nlXEWe xNItOHhxOSO1Z69zs4N0Y QTvXLPmWCD3hIQ0vJ4fjQ lnbjogbGVmdDsgdmVydGl xCFrrEUxqA758 IHRvcDsnPlBhdGllbnQgT uLbZVy3F4IgOqi5ERClnY wuJO1mbQIePPjjLj2rrLs wxNtpOR2mUBNu llqgf634SxDwe8auLFYaq HAzIZpfAXG1E61zc4I9QT FlBQZzQYY7rNB8rL4lzAq nbjogbGVmdDsg ynIqpXigMCmzPHdmV913R HRvcDsnPkJpcnRoIERhdG E3SE79QD10fSHga1Z0bDA 1P0UnDGYpygyv unxmxXM2DQTlLUXsrI60T t1ydAlyYg8kRYImZBO1EI AyaQLnH4WtoW0wHbGvQCX vFVLeC8VlkRPu ELbmD929TApzItL6GRLym gOuQ2JcTVRggTnbQzT1r4 G4Vn7AJ6U4UO08WX54oWS gs5I4sND3L1Xf XYIvdnabpnouaJZ9IHWpW ZOtdR38Hx6srBgnOc6yNL BeQKW9XEQtxMDgR8BfeZ8 yOiAjMDAwMDAw D4OshUGqDMwzA741WLkvQ fC5SAGymrRmO3JuTHMksJ enCkX8p5W7Mn2QFHj3WE9 3AH57yBIpa9G2 jNI2Q9EoQFXvznqciqmji HG0TTWtUBOisT75Vl4ezV maKi9dIZKeCNQ5FJBinRD cG4VzqQ8xFoJm MYQmPXQcJ8DmhIBrBGtlG 303FCvwTvD5MSQzheEdO5 ZeYPFbhGudLyG0f2F1Yk9 XIBBhXE92LST5 uNN0MF88UB52W0MxDpgxy GFibGU+PHRhYmxlIHdpZH RoPScxMDAlJyBzdHlsZT0 yAo7eBVQnSKDs gAmrgKAxRfHue6nrBGUqZ FndSO1cpNfiJ9HskPC0WR Xjl7m4Ms85V61nI5BjcYT +QFXeaAN4oEW0 vL6nOeNhOjF7HEroP906A pLjdJYwHazvi7obh7fuaH j6NvD8UZJfomYefXetHGL 4a5XvDw10M01w IHdpZHRoPSIxNSUiIHZhb Bzesa3loN3tMt7+PGNvbC R8hUV0iE7lHjFtOyI1DLf eT786NcWbtSZr Zzedj8lur6iemUh7OlSgD KZoskMlwKoiXGK1z3VeAx 42X7RfuOxzv2TyCes3io4 1qMZpw1S1pLA0 N0YtMUWahpqioNUwmDmlI A0gSBBfxwedYZZpmR5mRD DpW4p6RhYoMyC5AFbvN7C ebqZ3FEBuwEBi DXoxDBS5D38iy3Z4DKZsD HYxBMU0uUT8hZ5moVdtrg ogbGVmdDsgdmVydGljYWw dKYsjN148OBVv mKcxCZLouU9oIAFvuBXki LirKD9kKQHpfgdxMxWFC0 JELCBLRUxMWTwvdGQ+PHR gMEE6zOmbOFwo ANJwzV3rOWQuP6q3YwJcG rC7SKmfF4EySSIqfooiDf 36dV2uSwLnVnY1LMdeO7B twcZ0FAKfkZZz CWkqIZG4J39st4D4AEPgB KKhHRK3cVX5bC8dmUlrgu ogbGVmdDsgdmVydGljYWw nPBxtS682DOAo lGcrCoDuGrC5CzDpRGO7K 1UkYjp7VLQlbRmcDH2ykV BcKJydMa5ksKwhsSppEJ7 wNTBpbjtwYWRk hE9dSSTuxMBwbUflUI1wT NNvpxuja476OfEqLQA5TC BnmVQkO2BjmI1dWlVpGHU sWTJiW7QnfGOq AYkfC063HLjsRkQ1BEOzq vNjX7UgOPDxePtyAnG2u3 F0Re0oIKLHLSAxvrpshKI +ZXEjZHG9cIfy DPudZIBirF0rBCCuI1u1J jXuJnT4TDxyW8JxZMTstn wsPm48yX9uJrAfYzE0TUe nA8YzdnX1ETTy dUQdNNqlEFD1S84vd2N3N WFlPVWyPYI1xQB3xL0reH lnbjogbGVmdDsgdmVydGl eAJqkSEgbV556 IHRvcDsnPkZlbWFsZTwvd GQ+NXIjAHJ2iXlnXInlCZ ElqI9mHWHtP1n7PzZbKhM 1WDlzP7DnCKRe gegsHh65nK7fWmPoBwS0N GsrO6DpksD0EDJlrSXsGQ hdKPE5U50lh1U9PMKyXCX yIXY6wRI6pB2d bGlnbjogbGVmdDsgdmVyd SuiAHkqLHklD907JOOkeX ucTjlvWqKVjm2uHU4vEeh vdGQ+CD47wl78 A4XjTxxnYsn8DZHnZJY3k UO7zN3mDDPcGObwh1E6oG A8M1MmqwJvrg0sp5ouQGG kZYlzT87fzYBd k2B9KVNfaEF7YXWwoQbvS pRclD82Znr+PGNvbGdyb3 WqVyuxo4cdf1kgxIh2UiE wJSIgdmFsaWdu HOI1p4WmWk57X10rGAcdN HRoPSIzMCUiIHZhbGlnbj 2hbT2rPq6+PJTxwMM8mIW 3cS0mOlCaIlM6 KJxsO624CvPpmFCsAkedl 9jxj1etaJi8DiPsSNViwq MdvFuhDWO7l9ImYr88T9I hrTqqc0KgDlf9 jc19cAIot2V8yLU6P4BhA CKrxzbjtILdnYkhCI1zVS BrjjsrFULwxL6cEVRaZ9b 1KmCkBgB1GMaf I8MtauG4VQCarHTjHRAah UHQtW9awqvws0yniaiyUl MqAYQbXVt9MDq2SVYedMw dYbEiEFL7QvO1 YFR0nTXetS7paTvmwkyxh G9wOyc+BMx2p3mndUCpFX 5clFQ0FN17XU27nCIry6Z 4cNQ5S3AgHKWw thpzxudpeQN3EYXhXLRvf A10Kb6crDrdVs5dUEUdMS F5EILaxPYoE4KvpB4tCvS xCEJwRYIyU7Zl pJJeLNgyY549WLbdPsJ8Q GWxzcWyG1EySDRirNfkFg L4l5O2Qu0IFO70EZ25RJ2 4yXXui8N1vTV8 X4BtOTThbjpijqlciWU9E YKuIYAihR73Ld9bkWpbHt 6iARFfRPK0MWCurSLsL4A csE4uBiHsCEVd YEZgQ6ZasZJxHUnwQ566D NylTwS4DICvtdZdS4RrET RqiXqoLfD5n0B0Ww9AEq0 2CE69EX19sNTp i9D8rJW3K8SpGIAmljwbx ghfyIK3EWXhVHZrwC70Ve 1bzOnnMv1kGPApFJP0RVQ suZTwS5VyrX2g HzPcKLVrIPWaN8VsvMQhI RpaM255ETakGuL9OKCqqk RnU5FpQMXzaGibGfI2e0C 7Gr6IDKsllqt3 L9YfUuvgzVQ+SY51YBCjN V62qVFolVRjc1luwOx3If FzOOQkEBI3wCdgTInpo4O hZBQeY88blTRh c2U6 (more content not included)... Normal [facility] Chlamydia/Gonococcus, NAAon 08-09-2020 C. trachomatis rRNA PHYLLIS+probe Ql (Unsp spec) Negative Invalid Interpretation Code Negative [facility] Comment on above: Order Comment: drop off- do not cancel pms 08/04/2020 22:06:26 EDT Performed By: #### 1 [id number] #### [facility] [address] [place] [address] N. gonorrhoeae rRNA PHYLLIS+probe Ql (Unsp spec) Negative Invalid Interpretation Code Negative [facility] Comment on above: Order Comment: drop off- do not cancel pms 08/04/2020 22:06:26 EDT Result Comment: Perf ormed at: =[facility] [address] [place] [id number] MD Deana Farrell Performed By: #### 1 [id number] #### [facility] [address] [place] [address] Ambulatory Clinical Summaryo n 08-04-2020 Ambulatory Clinical Summary {[id number]-[id number] -[id number] -ec-58}CD:[id number] Normal [facility] Gynecology Office/Clinic Not sarina 08-04-2020 Gynecology Office/Clinic Note CD:[id number] WR4qBhDqqqZsQCejGt5ly 0wxGX43qk8jYtJwQp2+Cj tvIS2LOVvNBCOo mO0gLABYPcqYLkVsDA3jG pMYZy7ZPIRgLSrUALgyOG 8zIYL5yqgmlK2bQY1kMZM rdKCwKd8uz7a8 HnepCz0fCc8QCc81gGDid TBuOGEFO3jnfI7oTG4rcW JfX0KdQDPdDd0TJIf6mRc jeQ3nsnI9Ial8 gNO3Ut85x4hoppIue5BfJ oJ2ZAcylVc6kZniLVfvfV 1iXvHvGLBTsU5usUdfCK9 hsE1offUtdQjf biI+VlgpQTRbBmv7wHGxH R80Q8KvvKgrXjd4hTS8VC IvqZIeMFMdiDd6LBDSYMP BLUNvbXBhdGli tTGySNSwaiLtsqP0EwqMR YOkFtPiEbc4E7frFJY+Cj zrv1J4Qvn5RUd2ITO6nEp rYXKtt917LLLg hMcjbXxwsGGwn73rIGIle JLeSsHfb654ZDDeojJ9YB mjpLloLup3vJSdmLAau3x rwIo3AlEdNZZy NbqMSNWriZesq6EyKudDM Faub4nwxhXecDopVSV7k8 EtQPozSXNzDIR5AvZuBM5 +CgkJPGNvbCB2 QHglH369QhEdyZBfi8lid Xa8PvV8LVFtXc3ZABsbD2 7cJ3RiqAS+Cdh9pXLxLFh +CgkJPHRyPgoJ NCc4pDLcu2T6wRO8EqGmg rGoc4y4QCxqNGK8HtA8NC R2sVCqjB5eqThaihbuzY0 wOyI+CgkJCTxk bOBgQ3gle9E0JgWbr6Bxc QborqFxQEQlIfKhs8hiEw hiSPJkjH7vKDR0ZhJeYGN ubAQlFWGfNJ6n dhMttVKdFDCvEbAvW1Frt 80rf8RnRWNNY7cITfTrFV Y1MW8jHkDeZS7fS7IyHSe 8ADxkRRU2ONZk EFW8Mz04D5D4ZYZ1UPZtO HgxDAHsFTPxu3R7mJH7St MgDVOfrqx3XAKjcOohBdb zcGFuIGNsYXNz POPeKNLaW8Nix83hrKIma KS2Yp96j6BkryDsdOxvDN 7jHp0mrH80IMrxoMN8XLI bgRD4RLTorIAi OZQoe0EfvBuvxqzfgZ5iP DXouY2nOgC+U9pjWQYhR5 7elNvicK01XX2cxEQiHgl du5Myel8QKVqV KOXlxxNdsWMlbu3vHVPlb OZpu159TN01FzZmUZede9 35OG00hSssNZ6dOYUWK1R WDH8ETKDADoPr KLbrWDGosxBlH8C7pIewI LQJK5K2TdO8IT9OCfFaIA OKA8RdCwRbYc7ZR8RHLFn OYxE8CgBmDJog ECPfRcH9JOQoPoMmPyNgC k49ZdZhBXS1OUSmY8SiWQ f8KmQ1KkKkPl9GDXxZHPB lpvFujHVsnf1j NOGvxJXtz925ZF13eNHgo CZlCXCrvZ02SNYlTWDgEQ R5K74ysCAbwKG0pBY3VbO BVENBUkVfTUVB YdKcZTO0FS58mBF4gWV2K iJ8SlL1SUb9DvSsCDyvIZ YfDwJ3QABaVNPsXWE1Wm2 6XMW0DGQjDMGd BwG6JMb6XxLeSrAsJbK6l IjsayrkBI9mFXhtEB6wB3 VlD1SlZI12YOUiq37pOhW moIQdeF5hijCp EE7rsaUoCbZgn4BqJk13Q A8vtbWexv83I6Nmqm3FGO sCBH5ijZC+CgkJCTwvZGl 2PgoKCQkJPGRp quExoIAcut6xEFAzCTZ9s Q1hTBDudoSyxuYyeUMokT UgZGRpbnNlcnRmcmVldGV 0yAVsPCKjpU70 KNTmSVLrvHT1Br1oLqWzJ hPcGp97OJU5BXC0AbsnSU cyZh7yULHmFNqxDCBqNnN qTUI9tXovFYIa ZXUfdN1mHpV2pJq7Bb47l 7KrnuGfeDLvgf6pSBGwON X6aX7rFFodtZhkhSP+PHN qCP0rg2X8bCW5 PnEjytZpg6MsS1h0IrQio 8mxNxO3OEw0FHWuL08vUO Rol431OZFuZXCqdYyhPUs sUb7if3EuvEHx DzFBkZU3i8J5TB7mwNSeZ bsyi5Zule2OYklTNOloyW TiX1pho5I4RzEau7Utz63 soxP0PF9upEC7 MPVvMEM8jYPpjSuueSEhN 1pmJISAD8qwJ54SMXNRYF YYCQwjX0QkF48rwzKhwlX fS2cyjKhjxD00 WDG3SNS9Ae6bNWSlRMCvY EofWTNvBQZ6NgV4WSeuKw FyCY22LkWfFUOxQ5PsHsZ yMGEzYzFmMjRk Pd63k9StuyYysGrwZW6vq EBdD8qrLuTosAPaZFepNk UoAYPyxT2gIkTmiCX1VAB tkJFcJBwuN683 BQahMcD1JZSunF5jHkCrY 6VpVOzhSNhfTSt3OUXcle Sys3N1aLT6CR9gvl9ncJb bDb5zqN71XYqj rMM0FW4dsn6kiFfliIB0l L8nPNOwjlH2dW9zRhLxh3 5lOyI+JKCdVF5dw6R0qQM 6GoLmmM7wDoEm F5GuYhUsBIKxKoxjQBg7I HsppVWeVQmpRv13r5N4NZ ZbfSnfzEIeVMpkNi8eu8S 3r705DIYfzCoe Ax7jiD86ZBbjsRU1DFAij BP5PDAueNSdVHPkh4AgaM qdntvprA4vIWSzrD2zGjE kTCGpzY1cmE0l OsBskOz3QU1lanivfj8qu 3K7g811KPTmkOkwWeJuKD orHT7owSJEiFP9n7P9ZN1 zcGFuPiYjeGEw OyYjeGEwOyYjeGEwOzxzc GLpMJT0mQmbSFRyQZBfxP 5gJVUniKtxKKV5ZcDnRWD ylS8xZMDmgEQp tXgmLNT7HeFwd593WFyfo IhclAjbMl3qPGzbdMHmE8 leXCJazSviJNA8LkSxTBH ecG3cXk37yL1u UfQtbAx1Bw1THULRTLhcI SNvKEjaMUtqm9Xcxn5dV7 tkTEwtR5oaHUfhYgH9HZG 7PrE2UYR8ZKRv IC8+CgkJCSYjeGEwOzxic eZcUfrKQTcjZ1hhDZsxC9 dtELnQyoNklrL3oY69cjJ hahTqosGhD5fm crMpuXO4u6A0BOmcmvDlA mVlbiByZWNvcmRlZDwvc3 Awuk02E1Aiya0RAHqORL5 kaXY+CgoJCQk8 MNq1BGFkTZAsHQVpJJHiL 0Bde98gRWNwVGIgTHUkFF NcCVLhXLjhf3UnjBVzIHO 0RKx2ZDKmalPq x7FkHikwPzBkMRtvLIK3f N0nQ01zFX1xSE6KCeVhCK RzLeAgEuGmjMF3Uz7aJuB qSwAmJq91YnYc QYG7BYOyQPQ4BN0mJzZ0T 7K2TOU9XGHmQVK1zCqcKO HwJCUycG1mVsT3eHc6Vp3 5a2AewrYqpNVm xm4cRUOmNML4uV6rKLyyo GxheSI+UFWuJK7pi2R9uF K3DhGmirFbe6HuG3t0TrB kc1tfJgY2AAm3 KBJfU24cMDTyx373IEWpR YPolLsvFBieOicwx3Btxa oli2ZqRBRci7QqcEQWpLs eVSTqJW6siVEc Inxnk5Memz3MNsaYJHgvd GTdJ0byy0T1JnWdIL0vD0 8ymXVqaGLhFHT4T46fG8V ayD8tSNOPFuUz LRcvh302TY55cKzxDT0mW T2US7ZVKBNwALBbXmBfCu EjNQ3fCOI5aJH5KxAtEvN oQrT1WWG5YBWh ALVBPq40YorUXFEILmP7N 6Y7D0T1NDPleQK2Ot7tMq i9FKVxUM5pIBdlEJAdTYW bPxT5BL94SwFp JTmrJDFtZKSwZzpYQRe7T Fo9KSQuZAUuLRTnHEHnwd NvbnRlbnRpdGVtIiBkZDp kv513SK74rOod GA9xVHQSJ4XBAY4HFEUYQ wReTNghdlUxvXkhHQ5aKH u8GKdjRdG7LJUoBRP8JW2 9aEE1dkQju3pz qd8mYWLpbIA4Yh6zJfK5W Sv1FZ9nBaBjEYGwZ6NdUG NhYY11VbC6RlCtISVpBkU tUbhGIId4DMw5 IGNsYXNzPSJkZGNvbXBvb oPrzYOePAQ3NY88jQS9oV E6mOX3dAC7IbRmn6ZilSX yaNDjkKW9Ni36 Ikg5CfIbDv3eDBD8UQJ4Y kHpDAMsLg0sOBzdKHQzHs PgN2ZrOtnNIFd1WBj9XJP sYXNzPSJkZGZy XQP9ERi0TVEkzoDok6CcP qizBkEmAJxyqO2vhG8irF fnW8J0zBwlKQR4v0Tltmn naHQiIGlkPSJf JSZ1S8OaQ5SuP6I8At82V zj7ULS5AZYvNyDtEuJ9Vk E9GGMuHh7hMNT4P60kyRQ yRLAps5TdpUKp FAw3hUGuPCQfKKNofB0bR AhqkLmuqUBxANwIQQ4nV0 qbISvvKIU3rQZqD8xmQZC uYSBwbGFjZWQg OdbiDH4xKm6yvE1cw12dX dAxKU1rIm2tGZ37EfFkPo 6QYWfEVS0LFMXrETUhSdG tpQFdr1BlsG5t dXufzLR8LGRtBhMzRYMgr gpcIEYfQJHdPCS6ULF8WH Qtg7Acu1VsVa0eIWTly0R 2NQRegT1lmAns UJOdGUN1sZ1mOVJrUPRtJ LxyCcYJIXU5xREzoTXzMM hzUkNfk3J0RFZilVCsLRH wRGXij1LkTSej fyUzG9VllKXzkxeqb5g1e XShGXSpoQVgxY7qhkwaou 2anSXarjHjKOM7FRSlJSC epkleIPGsVY9j RBXlmT5iyBymhA69XBVuc 9Iqv7QzEV9aESGkD0mvMW cwJShdI1jkuhajYEWukSZ siE9hZ9Q3ei4z rhagQZ5lGZ5he2JoSPKlX C8+SokYZQ6bWJHxLX7dQN TgcA4zySEcdLAajVdxbiY dodInLI02gIla RN7wQG4itbTomAEdi5RrO FxjLDTjtTQiqS5zCNo6JZ wgpqNsaJFxm9JuMZdsWVH yIC8+CgkJCVNo Z (more content not included)... 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 ? The progesterone IUD can be used [...] Document Reviewed: 07/08/2011 ExitCare? Patient Information ?2013 [employer]. [facility] Vital Signs Date Time Vital Sign Value Performing Clinician Facility 10-02-2024 15:10-0400 Body mass index (BMI) [Ratio] 34.67 kg/m2 Iris Garcia MD Work Phone: [facility] 10-02-2024 15:10-0400 Body weight 91.63 kg Iris Garcia MD Work Phone: [facility] 10-02-2024 15:10-0400 Diastolic blood pressure 78 mm[Hg] Iris Garcia MD Work Phone: [facility] 10-02-2024 15:10-0400 Systolic blood pressure 112 mm[Hg] Iris Garcia MD Work Phone: [facility] 09-25-2024 15:07-0400 Body mass index (BMI) [Ratio] 34.6 kg/m2 Tatum Yost MD Work Phone: [facility] 09-25-2024 [id number] Body weight 91.44 kg Tatum Yost MD Work Phone: [facility] 09-25-2024 15:07-0400 Diastolic blood pressure 74 mm[Hg] Tatum Yost MD Work Phone: [facility] 09-25-2024 15:07-0400 Systolic blood pressure 106 mm[Hg] Tatum Yost MD Work Phone: [facility] 09-18-2024 15:04-0400 Body mass index (BMI) [Ratio] 34.16 kg/m2 Mary Yeh MD Work Phone: [facility] 09-18-2024 15:04-0400 Body weight 90.27 kg Mary Yeh MD Work Phone: [facility] 09-18-2024 15:04-0400 Diastolic blood pressure 62 mm[Hg] Mary Yeh MD Work Phone: [facility] 09-18-2024 15:04-0400 Systolic blood pressure 110 mm[Hg] Mary Yeh MD Work Phone: [facility] 09-12-2024 15:22-0400 Body mass index (BMI) [Ratio] 34.67 kg/m2 Beena Blakelyts POST EXCHANGE MANAGER.CNM Work Phone: [facility] 09-12-2024 15:22-0400 Body weight 91.63 kg Beena Plotts POST EXCHANGE MANAGER.CNM Work Phone: [facility] 09-12-2024 15:22-0400 Diastolic blood pressure 64 mm[Hg] Beena Plotts POST EXCHANGE MANAGER.CNM Work Phone: [facility] 09-12-2024 15:22-0400 Systolic blood pressure 102 mm[Hg] Beena Plotts POST EXCHANGE MANAGER.CNM Work Phone: [facility] 09-05-2024 15:09-0400 Body mass index (BMI) [Ratio] 34.5 kg/m2 Beena Plotts POST EXCHANGE MANAGER.CNM Work Phone: [facility] 09-05-2024 15:09-0400 Body weight 91.17 kg Beena Walters POST EXCHANGE MANAGER.CNM Work Phone: [facility] 09-05-2024 15:09-0400 Diastolic blood pressure 66 mm[Hg] Beena Walters POST EXCHANGE MANAGER.CNM Work Phone: [facility] 09-05-2024 15:09-0400 Systolic blood pressure 102 mm[Hg] Beena Walters POST EXCHANGE MANAGER.CNM Work Phone: [facility] 08-22-2024 10:44-0400 Body mass index (BMI) [Ratio] 34.36 kg/m2 Tatum Yost MD Work Phone: [facility] 08-22-2024 10:44-0400 Body weight 90.81 kg Tatum Yost MD Work Phone: [facility] 08-22-2024 10:44-0400 Diastolic blood pressure 72 mm[Hg] Tatum Yost MD Work Phone: [facility] 08-22-2024 10:44-0400 Systolic blood pressure 110 mm[Hg] Tatum Yost MD Work Phone: [facility] 07-24-2024 13:39-0400 Body mass index (BMI) [Ratio] 33.37 kg/m2 Tatum Yost MD Work Phone: [facility] 07-24-2024 13:39-0400 Body weight 88.18 kg Tatum Yost MD Work Phone: [facility] 07-24-2024 13:39-0400 Diastolic blood pressure 78 mm[Hg] Tatum Yost MD Work Phone: [facility] 07-24-2024 13:39-0400 Systolic blood pressure 110 mm[Hg] Tatum Yost MD Work Phone: [facility] 06-12-2024 14:29-0400 Body mass index (BMI) [Ratio] 32.61 kg/m2 Ad Haury POST EXCHANGE MANAGER.BIOMED TECH Work Phone: [facility] 06-12-2024 14:29-0400 Body weight 86.18 kg Ad Roland POST EXCHANGE MANAGER.BIOMED TECH Work Phone: [facility] 06-12-2024 14:29-0400 Diastolic blood pressure 60 mm[Hg] Ad Odonnellury POST EXCHANGE MANAGER.BIOMED TECH Work Phone: [facility] 06-12-2024 14:29-0400 Systolic blood pressure 110 mm[Hg] Ad Roland POST EXCHANGE MANAGER.BIOMED TECH Work Phone: [facility] 06-06-2024 11:05-0400 Body mass index (BMI) [Ratio] 32.27 kg/m2 Mary Yeh MD Work Phone: [facility] 06-06-2024 11:05-0400 Body weight 85.28 kg aMry Yeh MD Work Phone: [facility] 06-06-2024 11:05-0400 Diastolic blood pressure 70 mm[Hg] Mary Yeh MD Work Phone: [facility] 06-06-2024 11:05-0400 Systolic blood pressure 120 mm[Hg] Mary Yeh MD Work Phone: [facility] 05-15-2024 13:55-0500 Body mass index (BMI) [Ratio] 31.93 kg/m2 Mary Yeh MD Work Phone: [facility] 05-15-2024 13:55-0500 Body weight 84.37 kg Mary Yeh MD Work Phone: [facility] 05-15-2024 13:55-0500 Diastolic blood pressure 74 mm[Hg] Mary Yeh MD Work Phone: [facility] 05-15-2024 13:55-0500 Systolic blood pressure 112 mm[Hg] Mary Yeh MD Work Phone: [facility] 04-17-2024 16:10-0500 Body mass index (BMI) [Ratio] 31.76 kg/m2 Mary eYh MD Work Phone: [facility] 04-17-2024 16:10-0500 Body weight 83.92 kg Mary Yeh MD Work Phone: [facility] 04-17-2024 16:10-0500 Diastolic blood pressure 73 mm[Hg] Mary Yeh MD Work Phone: [facility] 04-17-2024 16:10-0500 Systolic blood pressure 111 mm[Hg] Mary Yeh MD Work Phone: [facility] 03-21-2024 13:09-0500 Body mass index (BMI) [Ratio] 31.76 kg/m2 Tatum Yost MD Work Phone: [facility] 03-21-2024 13:09-0500 Body weight 83.92 kg Tatum Yost MD Work Phone: [facility] 03-21-2024 13:09-0500 Diastolic blood pressure 68 mm[Hg] Tatum Yost MD Work Phone: [facility] 03-21-2024 13:09-0500 Systolic blood pressure 120 mm[Hg] Tatum Yost MD Work Phone: [facility] 02-19-2024 08:10-0500 Body mass index (BMI) [Ratio] 32.41 kg/m2 Kathie Zane POST EXCHANGE MANAGER.BIOMED TECH Work Phone: [facility] 02-19-2024 08:10-0500 Body weight 85.64 kg Kathie Couderay POST EXCHANGE MANAGER.BIOMED TECH Work Phone: [facility] 02-19-2024 08:10-0500 Diastolic blood pressure 66 mm[Hg] Kathie Zane POST EXCHANGE MANAGER.BIOMED TECH Work Phone: [facility] 02-19-2024 08:10-0500 Systolic blood pressure 112 mm[Hg] Kathie Couderay POST EXCHANGE MANAGER.BIOMED TECH Work Phone: [facility] 01-26-2023 13:47-0500 Heart rate 93 /min [facility] 01-26-2023 13:47-0500 Respiratory rate 16 /min [facility] 01-26-2023 11:17-0500 Body temperature 97.7 [degF] [facility] 01-26-2023 11:17-0500 Diastolic blood pressure 68 mm[Hg] [facility] 01-26-2023 11:17-0500 SaO2% (BldA) [Mass fraction] 99 % [facility] 01-26-2023 11:17-0500 Systolic blood pressure 125 mm[Hg] [facility] 01-24-2023 21:46-0500 Body height 162.56 cm [facility] 01-24-2023 21:46-0500 Body mass index (BMI) [Ratio] 37.8 kg/m2 [facility] 01-24-2023 21:46-0500 Body weight 99.8 kg [facility] 01-24-2023 10:54-0500 Body height 162.56 cm [facility] 01-24-2023 10:54-0500 Body mass index (BMI) [Ratio] 37.8 kg/m2 [facility] 01-24-2023 10:54-0500 Body weight 99.9 kg [facility] 01-24-2023 10:49-0500 Body temperature 98.5 [degF] [facility] 01-24-2023 10:49-0500 Diastolic blood pressure 80 mm[Hg] [facility] 01-24-2023 10:49-0500 Heart rate 87 /min [facility] 01-24-2023 10:49-0500 Systolic blood pressure 122 mm[Hg] [facility] 01-16-2023 10:41-0400 Body weight 99.34 kg Jairo Guillermo MD Work Phone: [facility] 01-16-2023 10:41-0400 Diastolic blood pressure 72 mm[Hg] Jairo Guillermo MD Work Phone: [facility] 01-16-2023 10:41-0400 Systolic blood pressure 122 mm[Hg] Jairo Guillermo MD Work Phone: [facility] 01-10-2023 14:38-0400 Body weight 98.43 kg Iris Garcia MD Work Phone: [facility] 01-10-2023 14:38-0400 Diastolic blood pressure 76 mm[Hg] Iris Garcia MD Work Phone: [facility] 01-10-2023 14:38-0400 Systolic blood pressure 112 mm[Hg] Iris Garcia MD Work Phone: [facility] 01-02-2023 13:50-0400 Body weight 98.88 kg Millicent Eugene MD Work Phone: [facility] 01-02-2023 13:50-0400 Diastolic blood pressure 66 mm[Hg] Millicent Eugene MD Work Phone: [facility] 01-02-2023 13:50-0400 Systolic blood pressure 114 mm[Hg] Millicent Eugene MD Work Phone: [facility] 12-26-2022 14:39-0400 Body weight 99.43 kg Jairo Guillermo MD Work Phone: [facility] 12-26-2022 14:39-0400 Diastolic blood pressure 72 mm[Hg] Jairo Guillermo MD Work Phone: [facility] 12-26-2022 14:39-0400 Systolic blood pressure 106 mm[Hg] Jairo Guillermo MD Work Phone: [facility] 12-11-2022 13:50-0400 Blood Pressure Location Erin POWELL [facility] 12-11-2022 13:50-0400 Diastolic blood pressure 70 mm[Hg] Erin POWELL [facility] 12-11-2022 13:50-0400 Heart rate 104 /min Erin POWELL [facility] 12-11-2022 13:50-0400 SaO2% (BldA) [Mass fraction] 97 % Erin FREEMANNOAH [facility] 12-11-2022 13:50-0400 Systolic blood pressure 109 mm[Hg] Erin POWELL [facility] 11-29-2022 16:03-0400 Body weight 96.16 kg Millicent Eugene MD Work Phone: [facility] 11-29-2022 16:03-0400 Diastolic blood pressure 70 mm[Hg] Millicent Eugene MD Work Phone: [facility] 11-29-2022 16:03-0400 Systolic blood pressure 112 mm[Hg] Millicent Eugene MD Work Phone: [facility] 11-14-2022 13:46-0400 Body weight 95.71 kg Lauren Pro MD Work Phone: [facility] 11-14-2022 13:46-0400 Diastolic blood pressure 62 mm[Hg] Lauren Pro MD Work Phone: [facility] 11-14-2022 13:46-0400 Systolic blood pressure 108 mm[Hg] Lauren Pro MD Work Phone: [facility] 11-03-2022 10:17-0400 Body weight 95.25 kg Millicent Eugene MD Work Phone: [facility] 11-03-2022 10:17-0400 Diastolic blood pressure 64 mm[Hg] Millicent Eugene MD Work Phone: [facility] 11-03-2022 10:17-0400 Systolic blood pressure 110 mm[Hg] Millicent Eugene MD Work Phone: [facility] 10-11-2022 14:54-0400 Diastolic blood pressure 75 mm[Hg] Erin POWELL [facility] 10-11-2022 14:54-0400 Heart rate 91 /min Erin ROBUCK [facility] 10-11-2022 14:54-0400 SaO2% (BldA) [Mass fraction] 98 % Erin ROBUCK [facility] 10-11-2022 14:54-0400 Systolic blood pressure 114 mm[Hg] Erin ROBUCK [facility] 09-29-2022 14:39-0400 Body weight 93.89 kg Ob Ultrasound Work Phone: [facility] 09-01-2022 15:54-0400 Body weight 93.89 kg Jairo Guillermo MD Work Phone: [facility] 09-01-2022 15:54-0400 Diastolic blood pressure 58 mm[Hg] Jairo Guillermo MD Work Phone: [facility] 09-01-2022 15:54-0400 Systolic blood pressure 102 mm[Hg] Jairo Guillermo MD Work Phone: [facility] 06-20-2022 08:41-0400 Diastolic blood pressure 71 mm[Hg] Erin ROBUCK [facility] 06-20-2022 08:41-0400 Heart rate 90 /min Erin ROBUCK [facility] 06-20-2022 08:41-0400 Systolic blood pressure 107 mm[Hg] Erin ROBUCK [facility] 07-25-2021 16:03-0400 Body weight 85.72 kg MD Asael Puente Work Phone: [facility] 03-14-2021 17:50-0500 Body height 162.5 cm Erin Robuck Other Phone: [facility] 03-14-2021 17:50-0500 Body temperature 97.7 [degF] Erin Robuck Other Phone: [facility] 03-14-2021 17:50-0500 Diastolic blood pressure 83 mm[Hg] Erin Robuck Other Phone: [facility] 03-14-2021 17:50-0500 Heart rate 90 /min Erin Robuck Other Phone: [facility] 03-14-2021 17:50-0500 Respiratory rate 20 /min Erin Robuck Other Phone: [facility] 03-14-2021 17:50-0500 SaO2% (BldA) [Mass fraction] 98 % Erin Robuck Other Phone: [facility] 03-14-2021 17:50-0500 Systolic blood pressure 118 mm[Hg] Erin Robuck Other Phone: [facility] 12-08-2020 16:39-0400 Body height 162.6 cm Val Dai MD Work Phone: [facility] 12-08-2020 16:39-0400 Body mass index (BMI) [Percentile] Per age and sex 95.7 % Val Dai MD Work Phone: [facility] 12-08-2020 16:39-0400 Body mass index (BMI) [Ratio] 32.6 kg/m2 Val Dai MD Work Phone: [facility] 12-08-2020 16:39-0400 Body temperature 98.2 [degF] Val Dai MD Work Phone: [facility] 12-08-2020 16:39-0400 Body weight 86.14 kg Val Dai MD Work Phone: [facility] 12-08-2020 16:39-0400 Diastolic blood pressure 79 mm[Hg] Val Dai MD Work Phone: [facility] 12-08-2020 16:39-0400 Heart rate 91 /min Val Dai MD Work Phone: [facility] 12-08-2020 16:39-0400 SaO2% (BldA) [Mass fraction] 95 % Val Dai MD Work Phone: [facility] 12-08-2020 16:39-0400 Systolic blood pressure 112 mm[Hg] Val Dai MD Work Phone: [facility] 10-19-2020 16:27-0400 Body height 162.6 cm Vla Dai MD Work Phone: [facility] 10-19-2020 16:27-0400 Body mass index (BMI) [Ratio] 31.31 kg/m2 Val Dai MD Work Phone: [facility] 10-19-2020 16:27-0400 Body temperature 97.7 [degF] Val Dai MD Work Phone: [facility] 10-19-2020 16:27-0400 Body weight 82.74 kg aVl Dai MD Work Phone: [facility] 10-19-2020 16:27-0400 Diastolic blood pressure 81 mm[Hg] Val Dai MD Work Phone: [facility] 10-19-2020 16:27-0400 Heart rate 70 /min Val Dai MD Work Phone: [facility] 10-19-2020 16:27-0400 SaO2% (BldA) [Mass fraction] 98 % Val Dai MD Work Phone: [facility] 10-19-2020 16:27-0400 Systolic blood pressure 122 mm[Hg] Val Dai MD Work Phone: [facility] 08-19-2020 14:32-0400 Body height 162.6 cm Val Dai MD Work Phone: [facility] 08-19-2020 14:32-0400 Body mass index (BMI) [Ratio] 32.41 kg/m2 Val Dai MD Work Phone: [facility] 08-19-2020 14:32-0400 Body temperature 98.01 [degF] Val Dai MD Work Phone: [facility] 08-19-2020 14:32-0400 Body weight 85.64 kg Val Dai MD Work Phone: [facility] 08-19-2020 14:32-0400 Diastolic blood pressure 73 mm[Hg] Val Dai MD Work Phone: [facility] 08-19-2020 14:32-0400 Heart rate 60 /min Val Dai MD Work Phone: [facility] 08-19-2020 14:32-0400 SaO2% (BldA) [Mass fraction] 97 % Val Dai MD Work Phone: [facility] 08-19-2020 14:32-0400 Systolic blood pressure 123 mm[Hg] Val Dai MD Work Phone: [facility] 05-11-2020 13:42-0500 BMI (Body Mass Index) 31.76 kg/m2 [facility] 05-11-2020 13:42-0500 Body weight 83.92 kg [facility] 05-11-2020 13:42-0500 Height 162.6 cm [facility] Encounters Encounter Date Encounter Type Care Provider Facility Start: 01-02-2025 ambulatory MD Herber Kirby lity:LUCAS Collins Start: 10-02-2024 End: 10-02-2024 Patient encounter procedure Iris Garcia MD Work Phone: OB/Gynecology Comment on [...] Start: 09-25-2024 End: 09-25-2024 ambulatory TATUM YOST Facility:[facility] Start: 09-18-2024 End: 09-18-2024 Initial preventive medicine [...] Start: 09-18-2024 End: 09-18-2024 ambulatory MARY YEH Facility:[facility] Start: 09-12-2024 End: 09-12-2024 Patient encounter procedure Beena Walters APRN.CECILE Work Phone: OB/Gynecology Comment on above: Obesity affecting pr egnancy in third trimester, unspecified obesity type (HCC) (Primary Dx); 37 weeks gestation of (HCC); Encounter for supervision of high risk in third trimester, antepartum (HCC); Anemia complicating , third trimester (HCC); Short interval between pregnancies affecting , antepartum (HCC) Start: 09-12-2024 End: 09-12-2024 ambulatory BEENA WALTERS Facility:[facility] Start: 09-05-2024 End: 09-05-2024 Patient encounter procedure Beena Walters APRN.CNM Work Phone: OB/Gynecology Comment on above: Obesity affecting pr egnancy in third trimester, unspecified obesity type (HCC) (Primary Dx); Encounter for supervision of high risk in third trimester, antepartum (HCC); Anemia complicating , third trimester (HCC); 36 weeks gestation of (HCC) Start: 09-05-2024 End: 09-05-2024 ambulatory [facility]EENA [facility] Facility:[facility] Start: 08-25-2024 End: 08-25-2024 Telephone encounter Mary Little RN Maternal Medic ine Comment on above: [employer] ([employer]AF) Start: 08-22-2024 End: 08-22-2024 Patient encounter procedure Tatum Yost MD Work Phone: OB/Gynecology Comment on above: Obesity affecting pr egnancy in third trimester, unspecified obesity type (HCC) (Primary Dx); 34 weeks gestation of (HCC); Encounter for supervision of high risk in third trimester, antepartum (HCC) Start: 08-22-2024 End: 08-22-2024 ambulatory TATUM YOST Facility:[facility] Start: 08-07-2024 End: 08-07-2024 [facility] Start: 07-24-2024 End: 07-24-2024 Patient encounter procedure Tatum Yost MD Work Phone: OB/Gynecology Comment on above: Obesity affecting pr egnancy in third trimester, unspecified obesity type (HCC) (Primary Dx); 30 weeks gestation of (HCC); Encounter for supervision of high risk in third trimester, antepartum (HCC); Anemia complicating , third trimester (HCC) Start: 07-24-2024 End: 07-24-2024 ambulatory [facility] Facility:[facility] Start: 07-10-2024 End: 09-09-2024 Follow-up encounter Ad Roland APRN.CNP Work Phone: OB/Gynecology Start: 07-10-2024 End: 07-10-2024 ambulatory AD ROLAND Facility:[facility] Start: 07-04-2024 End: 07-04-2024 ambulatory MD Herber Aragon Facility:[facility] Start: 06-18-2024 End: 06-20-2024 Telephone encounter Mary Little RN Maternal Medic ine Comment on above: [employer] (PRAF) Breast Pump Start: 06-12-2024 End: 06-12-2024 ambulatory ADCHUCKY ODONNELLLOTUS Facility:[facility] Start: 06-12-2024 End: 06-12-2024 Patient encounter procedure Ad Odonnelllotus CAROLINAN.SAIDA Work Phone: OB/Gynecology Comment on above: Encounter for superv ision of high risk in second trimester, antepartum (Primary Dx); 24 weeks gestation of ; Rh negative state in antepartum period; Screening for diabetes mellitus; Obesity affecting in third trimester, unspecified obesity type Start: 06-06-2024 End: 06-06-2024 ambulatory MARY YEH Facility:[facility] Start: 06-06-2024 End: 06-06-2024 Office outpatient visit [...] Start: 05-15-2024 End: 05-15-2024 ambulatory TATUM YOST Facility:[facility] Start: 05-15-2024 End: 05-15-2024 Patient encounter procedure Whi Tech 1 Dental Intern M[facility] Maternal Medicine Comment on [...] gestation of Start: 04-17-2024 End: 04-17-2024 ambulatory [facility] Facility:[facility] Start: 04-17-2024 End: 04-17-2024 Patient encounter procedure Whi Tech 1 Dental Intern [facility] Maternal Medicine Comment on above: Encounter for antena ankush screening for malformation using ultrasound (Primary Dx); 16 weeks gestation of ; Obesity affecting in second trimester, unspecified obesity type Start: 04-12-2024 End: 04-14-2024 ambulatory Tatum Yost MD Work Phone: OB/Gynecology Comment on above: Medicine Start: 04-11-2024 End: 04-11-2024 ambulatory MD Herber Aragon Facility: [facility] Start: 03-24-2024 End: 03-24-2024 ambulatory Tatum Yost MD Work Phone: OB/Gynecology Comment on above: Test results Start: 03-21-2024 End: 03-21-2024 Patient encounter procedure Tatum Yost MD Work Phone: OB/Gynecology Comment on above: Short interval betwe en pregnancies affecting , antepartum (Primary Dx); 12 weeks gestation of ; Encounter for supervision of other normal in second trimester Start: 03-21-2024 End: 03-21-2024 ambulatory [facility] Facility:[facility] Start: 03-07-2024 End: 03-07-2024 ambulatory MD Herber Aragon [place]: [place] Start: 03-07-2024 End: 03-07-2024 Patient encounter procedure Herber Aragon [facility] [place] Start: 02-21-2024 End: 02-21-2024 Telephone encounter Mary Little RN Obstetrics/Gynecolog y Comment on above: [employer] (PRAF) Start: 02-19-2024 End: 02-19-2024 ambulatory KATHIE DEGROOT Facility:[facility] Start: 02-19-2024 End: 02-19-2024 Patient encounter procedure Kathie Degroot POST EXCHANGE MANAGER.BIOMED TECH Work Phone: OB/Gynecology Comment on above: with uncer tain dates in first trimester (Primary Dx); 7 weeks gestation of ; Short interval between pregnancies affecting , antepartum; Encounter for supervision of normal in multigravida in first trimester Start: 02-06-2024 End: 02-06-2024 Telephone encounter Ad Roland APRN.BIOMED TECH Work Phone: OB/Gynecology Comment on above: Appointment Start: 01-25-2023 ambulatory Millicent Eugene MD Work Phone: OB/Gynecology Comment on above: Ob Delivery Note Start: 01-25-2023 End: 01-26-2023 Evaluation and management of inpatient PALV BAADH Facility:[facility] Start: 01-25-2023 End: 01-26-2023 Evaluation and management of inpatient [facility] Work Phone: Start: 01-24-2023 End: 01-24-2023 ambulatory Jairo Guillermo MD Work Phone: [facility] Work Phone: Comment on above: Baby Start: 01-24-2023 End: 01-24-2023 ambulatory Beena Blakelychepe Facility:[facility] Start: 01-24-2023 End: 01-24-2023 Patient encounter procedure [facility] Work Phone: Start: 01-17-2023 ambulatory Jairo Dolan Work Phone: OB/Gynecology Comment on above: Movement Start: 01-16-2023 End: 01-16-2023 Patient encounter procedure Jairo Guillermo MD Work Phone: OB/Gynecology Comment on above: Supervision of other high risk pregnancies, third trimester (Primary Dx); 38 weeks gestation of Start: 01-10-2023 End: 01-10-2023 Patient encounter procedure Iris Garcia MD Work Phone: OB/Gynecology Comment on [...] End: 12-11-2022 Patient encounter procedure Erin POWELL [facility] Start: 11-29-2022 End: 11-29-2022 Patient encounter procedure [...] weeks gestation of Start: 11-03-2022 Telephone encounter [employer] RN Obstetrics/Gynecology Comment on above: [employer] - [employer]r (2nd risk assessment form submitted at 28 wks. Halima Mack RN) Start: 11-03-2022 End: 11-03-2022 Patient encounter procedure Millicent Eugene MD Work Phone: OB/Gynecology Comment on above: Obesity during pregn jasvir (Primary Dx); Rh negative state in antepartum period; Need for vaccination; 28 weeks gestation of Start: 10-11-2022 End: 10-11-2022 Patient encounter procedure Erin POWELL [facility] Start: 10-02-2022 Telephone encounter Jairo salamanca MD Work Phone: OB/Gynecology Comment on above: Received Outside Med ical Records Start: 09-29-2022 End: 09-29-2022 Patient encounter procedure Dental Intern Jeet Ultrasound Work Phone: OB/Gynecology Comment on above: Obesity during pregn jasvir Start: 09-01-2022 End: 09-01-2022 Patient encounter procedure Jairo Guillermo MD Work Phone: OB/Gynecology Comment on above: with prena ankush care elsewhere, antepartum (Primary Dx); Obesity during ; Recurrent urinary tract infection affecting , antepartum; 19 weeks gestation of Start: 06-20-2022 End: 06-20-2022 Patient encounter procedure Erin POWELL [facility] Start: 06-15-2022 End: 06-15-2022 Patient encounter procedure Josey HEATH [facility] Start: 06-14-2022 End: 06-14-2022 Patient encounter procedure Josey HEATH [facility] Start: 03-18-2022 End: 03-18-2022 Emergency department patient visit Crys Smith Facility:[id number] Start: 07-27-2021 End: 07-27-2021 Admission to same day surgery center MD Asael Puente Work Phone: [facility] [place] Start: 07-26-2021 End: 10-24-2021 Preprocedural examination done Asael Puente [facility] Start: 07-26-2021 End: 10-24-2021 Recurring Asael Puente [facility] Start: 07-25-2021 End: 07-25-2021 Patient encounter procedure Asael Puente [facility] Start: 07-17-2021 End: 07-17-2021 Emergency department patient visit Ms. Erin Powell Facility:[id number] Start: 05-17-2021 End: 05-17-2021 ambulatory NAYANA STERLING [facility] Start: 05-17-2021 End: 05-17-2021 Office outpatient visit 10 minutes Nayana Sterling CNP Work Phone: [facility] Comment on above: Tendinitis of thumb (Primary Dx); Carpal tunnel syndrome of right wrist Start: 03-14-2021 End: 03-14-2021 Emergency department patient visit Ruby Morgan [facility] Start: 12-08-2020 End: 12-08-2020 ambulatory VAL DAI [facility] Start: 12-08-2020 End: 12-08-2020 Office outpatient visit 15 minutes Val Dai MD Work Phone: [facility] Comment on above: Irritable bowel synd chris with diarrhea Start: 10-19-2020 End: 10-19-2020 ambulatory VAL THURMANTRA [facility] Start: 10-19-2020 End: 10-19-2020 Office outpatient visit 15 minutes Val Dai MD Work Phone: [facility] Comment on above: Irritable bowel synd chris with diarrhea (Primary Dx) Start: 08-20-2020 ambulatory VAL KUMAR [facility] Start: 08-19-2020 End: 08-19-2020 ambulatory ERIN POWELL [facility] Ambulatory Start: 08-19-2020 End: 08-19-2020 Office outpatient new 30 minutes Erin Hamiltonbealexis Powell [facility] Work Phone: [facility] Comment on above: Irritable bowel synd chris with both constipation and diarrhea Start: 07-05-2020 End: 07-05-2020 Transcribe Orders Alyssa Alfonso MA [facility] Comment on above: Irritable bowel synd chris without diarrhea (Primary Dx) Start: 05-11-2020 End: 05-11-2020 Office outpatient new 20 minutes Nayana Sterling Work Phone: [facility] Comment on above: Tendinitis of thumb (Primary Dx) Start: 01-29-2018 End: 01-30-2018 Patient encounter procedure Sameerclemencia Madsenel Brionna Facility:[facility] Procedures Date Procedure Procedure Detail Performing Clinician Start: 10-02-2024 Urnls dip stick/tabl et rgnt auto w/o microscopy Iris Garcia MD Work Phone: Start: 09-25-2024 Urnls dip stick/tabl et rgnt non-auto w/o micrscp Tatum Yost MD Work Phone: Start: 09-18-2024 Urnls dip stick/tabl et rgnt non-auto w/o micrscp Mary Yeh MD Work Phone: Start: 09-12-2024 Urnls dip stick/tabl et rgnt non-auto w/o micrscp Beena Walters APRN.CNM Work Phone: Start: 09-05-2024 Urnls dip stick/tabl et rgnt non-auto w/o micrscp Beena Walters POST EXCHANGE MANAGER.CNM Work Phone: Start: 08-22-2024 Urnls dip stick/tabl et rgnt non-auto w/o micrscp Tatum Yost MD Work Phone: Start: 07-10-2024 Antibody screen QUINTIN YEH Comment on above: Order Comment: Speci men Type: BLOOD SPECIMEN Ordering Facility: [facility] Address: [address] [place] [address] Performed By: #### T SPN #### [facility] CLIA [id number] [address] [place] [address] [place] Start: 05-15-2024 Us preg uterus after 1st trimest / gestation Tatum Yost MD Work Phone: Start: 04-17-2024 Us preg uterus after 1st trimest / gestation Kathie Zane POST EXCHANGE MANAGER.BIOMED TECH Work Phone: Start: 03-21-2024 Antibody screen QUINTIN YEH Comment on above: Order Comment: Speci men Type: BLOOD SPECIMEN [facility] [place] Address: [address] [place] [address] Performed By: #### T SPN #### [facility] CLIA [id number] [address] [place] [address] [place] Start: 02-19-2024 Us uterus l imited 1/> fetuses Kathie Zane POST EXCHANGE MANAGER.BIOMED TECH Work Phone: Start: 01-25-2023 Antibody screen Ramya Walters Comment on above: Order Comment: Labor Performed By: #### L 100.0100, BtABS, BTS #### [facility] [address] [place] [address]. [place], [address] Start: 01-24-2023 Urine culture Start: 01-16-2023 URINE OB DIP B/O Jairo Guillermo MD Work Phone: Start: 01-10-2023 INFLUENZA VACCINE, A GE 6 MO - 64 YR, QUADRIVALENT (AFLURIA, FLULAVAL, FLUZONE) Iris Garcia MD Work Phone: Start: 01-10-2023 URINE OB DIP B/O Maksim Garcia MD Work Phone: Start: 01-10-2023 Us preg uterus after 1st trimest 03/19 gestation Iris Garcia MD Work Phone: Start: 01-02-2023 URINE [...] Work Phone: Start: 03-18-2022 Antibody screen Orly Smith Comment on above: Performed By: #### T +S #### [address] [address] Start: 07-27-2021 Dilation and curetta ge of uterus MD Asael Puente Work Phone: Start: 05-01-2022 Antibody screen Orly Smith Comment on above: Performed By: #### T +S #### [facility] [address] [place] [address] Start: 07-03-2018 Insertion of intraut erine contraceptive device Asael Puente Plan of Treatment Date Care Activity Detail Author Start: 07-10-2034 Urine microalbumin profile DTaP,Tdap,Td Vaccine (4 - Td or Tdap) [facility] Start: 11-03-2032 Urine microalbumin profile [facility] Start: 08-08-2025 PAP TESTING PAP TESTING [facility] Start: 08-08-2025 Screening for malignant neoplasm of cervix Cervical Cancer Screening [facility] Start: 02-18-2025 GC (Gonorrhea) Screening () GC (Gonorrhea) Screening () [facility] Start: 02-18-2025 Screening for Chlamydia trachomatis Chlamydia Screening () [facility] Start: 11-18-2024 End: 11-18-2024 Patient encounter procedure 11/18/2024 2:30 PM EDT Office Visit OB/Gynecology [address] [place], [place] [id number] Iris Garcia MD [address] [place], [place] [id number] POST 6 week OB/Gynecology Comment on above: POST 6 week Start: 11-17-[address] [facility] Start: 10-13-2024 End: 10-13-2024 Patient encounter procedure 10/13/2024 2:30 PM EDT Office Visit OB/Gynecology [address] [place], [place] [id number] Ad Roland APRN.BIOMED TECH [address] [place], [place] [id number] Post OB/Gynecology Comment on above: Post Start: 10-02-2024 End: 10-02-2024 Patient encounter procedure 10/02/2024 3:10 PM EDT Routine Office Visit OB/Gynecology [address] [place] [address] Iris Gacria MD [address] [place] [address] OB OB/Gynecology Comment on above: OB Start: 09-25-2024 End: 09-25-2024 Patient encounter procedure 09/25/2024 3:10 PM EDT Routine Office Visit OB/Gynecology [address] [place] [address] Tatum Yost MD [address] [place] [address] OB OB/Gynecology Comment on above: OB Start: 09-18-2024 End: 09-18-2024 Patient encounter procedure 09/18/2024 3:40 PM EDT Routine Office Visit OB/Gynecology [address] [place] [address] Mary Yeh MD [address] [place] [address] OB OB/Gynecology Comment on above: OB Start: 09-12-2024 End: 09-12-2024 Patient encounter procedure 09/12/2024 3:15 PM EDT Routine Office Visit OB/Gynecology [address] [place] [address] Beena Walters APRN.CN [address] [place] [address] OB OB/Gynecology Comment on above: OB Start: 09-05-2024 End: 09-05-2024 Patient encounter procedure 09/05/2024 3:15 PM EDT Routine Office Visit OB/Gynecology [address] [place] [address] Beena Walters APRN.CNM [address] [place] [address] OB OB/Gynecology Comment on above: OB Start: 08-07-2024 End: 08-07-2024 Patient encounter procedure 08/07/2024 3:50 PM EDT Routine Office Visit OB/Gynecology [address] [place] [address] Mary Yeh MD [address] [place] [address] OB Routine OB/Gynecology Comment on above: OB Routine Start: 07-24-2024 End: 10-23-2024 CBC panel - Blood by Automated count COMPLETE BLOOD COUNT Lab Routine 30 weeks gestation of (HCC) Anemia complicating , third trimester (HCC) Expected: 07/24/2024, Expires: 10/23/2024 [facility] Work Phone: Comment on above: Expected: 07/24/2024, Expires: Start: 07-24-2024 End: 07-24-2024 Patient encounter procedure 07/24/2024 1:50 PM EDT Routine Office Visit OB/Gynecology [address] [place] [address] Tatum Yost MD [address] [place] [address] 30 wk OB OB/Gynecology Comment on above: 30 wk OB Start: 07-10-2024 End: 07-10-2024 Patient encounter procedure 07/10/2024 10:30 AM EDT Routine Office Visit OB/Gynecology [address] [place] [address] Mary Yeh MD [address] [place] [address] 28 wk OB + og shot + glucose test OB/Gynecology Comment on above: 28 wk OB + og shot + glucose test Start: 07-10-2024 End: 07-10-2024 ambulatory 07/10/2024 10:00 AM EDT Results Only [place] [facility] [address] [place] [address] glucose + labs [facility] [facility] Comment on above: glucose + labs Start: 07-07-2024 End: 10-06-2024 ANEMIA REFLEX PANEL ANEMIA REFLEX PANEL Lab Routine Encounter for supervision of other normal in second trimester Expected: 07/07/2024, Expires: 10/06/[address] [facility] Comment on above: Expected: 07/07/2024, Expires: Start: 07-07-2024 End: 06-06-2025 GESTATIONAL GLUCOSE SCREEN, 1-HOUR, 50 GRAM, NON-FASTING GESTATIONAL GLUCOSE SCREEN, 1-HOUR, 50 GRAM, NON-FASTING Lab Routine Screening for diabetes mellitus Expected: 07/07/2024, Expires: 06/06/2025 [facility] Work Phone: Comment on above: Expected: 07/07/2024, Expires: Start: 07-07-2024 End: 06-06-2025 SYPHILIS TREPONEMAL W/REFLEX SYPHILIS TREPONEMAL W/REFLEX Lab Routine Encounter for supervision of other normal in second trimester Expected: 07/07/2024, Expires: 06/06/[address] [facility] Comment on above: Expected: 07/07/2024, Expires: Start: 06-12-2024 End: 06-12-2024 Patient encounter procedure 06/12/2024 2:30 PM EDT Routine Office Visit OB/Gynecology [address] [place] [address] Ad Roland APRN.BIOMED TECH [address] [place] [address] 4 wk fu (24 wk appt) OB/Gynecology Comment on above: 4 wk fu (24 wk appt) Start: 06-12-2024 End: 09-11-2024 ANEMIA REFLEX PANEL ANEMIA REFLEX PANEL Lab Routine 24 weeks gestation of Rh negative state in antepartum period Expected: 06/12/2024, Expires: 09/11/[address] [facility] Comment on above: Expected: 06/12/2024, Expires: Start: 06-12-2024 End: 06-12-2025 GESTATIONAL GLUCOSE SCREEN, 1-HOUR, 50 GRAM, NON-FASTING GESTATIONAL GLUCOSE SCREEN, 1-HOUR, 50 GRAM, NON-FASTING Lab Routine Screening for diabetes mellitus Expected: 06/12/2024, Expires: 06/12/2025 [facility] Work Phone: Comment on above: Expected: 06/12/2024, Expires: Start: 06-12-2024 End: 06-12-2025 SYPHILIS TREPONEMAL W/REFLEX SYPHILIS TREPONEMAL W/REFLEX Lab Routine 24 weeks gestation of Rh negative state in antepartum period Expected: 06/12/2024, Expires: 06/12/[address] [facility] Comment on above: Expected: 06/12/2024, Expires: Start: 06-12-2024 End: 09-11-2024 TYPE + SCREEN TYPE + SCREEN Blood Bank Routine 24 weeks gestation of Rh negative state in antepartum period Expected: 06/12/2024, Expires: 09/11/[address] [facility] Comment on above: Expected: 06/12/2024, Expires: Start: 05-16-2024 End: 05-16-2024 Patient encounter procedure 05/16/2024 2:40 PM EST Routine Office Visit OB/Gynecology [address] [place] [address] Jairo Guillermo MD [address] [place] [address] OB Routine OB/Gynecology Comment on above: OB Routine Start: 05-16-2024 End: 05-16-2024 Patient encounter procedure 05/16/2024 1:30 PM EST Routine Office Visit Maternal Medicine [address] [place] [address] Anatomy Scan [facility] Comment on above: [...] in second trimester Expected: 03/21/2024, Expires: 03/21/2025 [facility] Work Phone: Comment on above: Expected: 03/21/2024, Expires: Start: 03-21-2024 End: 03-21-2024 Patient encounter procedure 03/21/2024 1:10 PM EST Routine Office Visit OB/Gynecology [address] [place] [address] Tatum Yost MD [address] [facility] [place] [address] 2nd OB OB/Gynecology Comment on above: 2nd OB Start: 02-19-2024 End: 05-20-2024 ANEMIA REFLEX PANEL ANEMIA REFLEX PANEL Lab Routine with uncertain dates in first trimester Expected: 02/19/2024, Expires: 05/20/2024 [facility] Work Phone: Comment on above: Expected: 02/19/2024, Expires: Start: 02-19-2024 End: 05-20-2024 Hemoglobin A1c in Blood HEMOGLOBIN A1C Lab Routine with uncertain dates in first trimester Expected: 02/19/2024, Expires: 05/20/[address] [facility] Comment on above: Expected: 02/19/2024, Expires: Start: 02-19-2024 End: 05-20-2024 Hepatitis B virus surface Ag [Presence] in Serum HEPATITIS B SURFACE ANTIGEN Lab Routine with uncertain dates in first trimester Expected: 02/19/2024, Expires: 05/20/[address] [facility] Comment on above: Expected: 02/19/2024, Expires: Start: 02-19-2024 End: 05-20-2024 Hepatitis C virus Ab [Presence] in Serum HEPATITIS C ANTIBODY IA WITH CONFIRMATION Lab Routine with uncertain dates in first trimester Expected: 02/19/2024, Expires: 05/20/[address] [facility] Comment on above: Expected: 02/19/2024, Expires: Start: 02-19-2024 End: 05-20-2024 HIV 1+2 Ab [Presence] in Serum or Plasma by Immunoassay HIV 1/2 COMBO WITH REFLEX TO DIFFERENTIATION Lab Routine with uncertain dates in first trimester Expected: 02/19/2024, Expires: 05/20/[address] [facility] Comment on above: Expected: 02/19/2024, Expires: Start: 02-19-2024 End: 02-18-2025 OBSTETRIC ULTRASOUND WHI OBSTETRIC ULTRASOUND WHI Anc Imaging Routine 7 weeks gestation of Expected: 02/19/2024, Expires: 02/18/[address] [facility] Comment on above: Expected: 02/19/2024, Expires: Start: 02-19-2024 End: 05-20-2024 RUBELLA IGG ANTIBODY RUBELLA IGG ANTIBODY Lab Routine with uncertain dates in first trimester Expected: 02/19/2024, Expires: 05/20/[address] [facility] Comment on above: Expected: 02/19/2024, Expires: Start: 02-19-2024 End: 05-20-2024 SYPHILIS TREPONEMAL W/REFLEX SYPHILIS TREPONEMAL W/REFLEX Lab Routine with uncertain dates in first trimester Expected: 02/19/2024, Expires: 05/20/[address] [facility] Comment on above: Expected: 02/19/2024, Expires: Start: 02-19-2024 End: 05-20-2024 TYPE + SCREEN TYPE + SCREEN Blood Bank Routine with uncertain dates in first trimester Expected: 02/19/2024, Expires: 05/20/[address] [facility] Comment on above: Expected: 02/19/2024, Expires: Start: 02-19-2024 End: 02-19-2024 Patient encounter procedure 02/19/2024 8:15 AM EST Initial Office Visit OB/Gynecology [address] [place] [address] Kathie Degroot APRN.BIOMED TECH [address] [place] [address] OB/Gynecology Start: 11-18-2023 Covid-19 Vaccine () Covid-19 Vaccine ( season) [facility] Start: 11-18-2023 Influenza vaccination Influenza Vaccine (#1) [facility] Start: 08-09-2023 CHLAMYDIA SCREENING () CHLAMYDIA SCREENING (18-) [facility] Start: 08-09-2023 GC (GONORRHEA) SCREENING (18-24) GC (GONORRHEA) SCREENING (18-24) [facility] Start: 08-09-2023 Screening for Chlamydia trachomatis Chlamydia Screening () [facility] Start: 01-26-2023 Patient discharge [facility] Start: 01-25-2023 Administration of blood product [facility] Start: 01-25-2023 Administration of medication [facility] Start: 01-25-2023 Application of ice collar, cap or bag [facility] Start: 01-25-2023 Catheterization of vein [facility] Start: 01-25-2023 Introduction of urinary catheter [facility] Start: 01-25-2023 Measuring intake and output [facility] Start: 01-25-2023 Notification of physician [facility] Start: 01-25-2023 Procedure discontinued [facility] Start: 01-25-2023 Provision of activity privileges [facility] Start: 01-25-2023 Vital signs measurements [facility] Start: 01-25-2023 [facility] Start: 01-25-2023 Admission procedure [facility] Start: 01-25-2023 Verification routine [facility] Start: 01-24-2023 Nonstress test [facility] Start: 01-24-2023 Obstetric monitoring [facility] Start: 01-24-2023 Vital signs measurements [facility] Start: 01-24-2023 [facility] Start: 01-24-2023 Patient discharge [facility] Start: 11-17-[address] [facility] Start: 11-14-2022 End: 11-15-2023 OBSTETRIC ULTRASOUND WHI OBSTETRIC ULTRASOUND WHI Anc Imaging Routine Obesity during 29 weeks gestation of Expected: 11/14/2022, Expires: 11/15/2023 [facility] Work Phone: Comment on above: Expected: 11/14/2022, Expires: 4 Start: 09-01-2022 End: 09-02-2023 OBSTETRIC ULTRASOUND WHI OBSTETRIC ULTRASOUND WHI Anc Imaging Routine Obesity during Expected: 09/01/2022, Expires: 09/02/2023 [facility] Work Phone: Comment on above: Expected: 09/01/2022, Expires: Start: 03-19-2022 DEPRESSION ASSESSMENT DEPRESSION ASSESSMENT [facility] Start: 03-10-2021 End: 03-10-2021 Patient encounter procedure 03/10/2021 Office Visit Gastroenterology Val Dai MD [address] [place] [address] [facility] Start: 11-18-2020 End: 11-18-2020 Patient encounter procedure 11/18/2020 Office Visit GastroenterVal Medellin MD [address] [place] [address] [facility] Start: 11-17-2020 Influenza vaccination [facility] Start: 09-16-2020 End: 09-16-2020 Patient encounter procedure 09/16/2020 Office Visit GastroenterVal Medellin MD [address] [place] [address] [facility] Start: 04-25-2020 Meningococcal B Vaccine (2 of 2 - Trumenba SCDM 2-dose series) Meningococcal B Vaccine (2 of 2 - Trumenba SCDM 2-dose series) [facility] Start: 04-25-2020 Meningococcal B Vaccine: Consider Based On Risk (2 of 2 - Risk Trumenba 2-dose series) Meningococcal B Vaccine: Consider Based On Risk (2 of 2 - Risk Trumenba 2-dose series) [facility] Start: 01-04-2020 Hepatitis B Vaccine (1 of 3 - 19+ 3-dose series) Hepatitis B Vaccine (1 of 3 - 19+ 3-dose series) [facility] Start: 01-04-2020 Urine microalbumin profile DTAP,TDAP,TD (1 - Tdap) [facility] Start: 11-21-2019 HPV Vaccine (2 - 3-dose series) HPV Vaccine (2 - 3-dose series) [facility] Start: 11-18-2019 Influenza vaccination Sequential Influenza Vaccine (#1) [facility] Start: 11-18-2019 Influenza vaccination given Sequential Influenza Vaccine (#1) [facility] Start: 2019 Anxiety Screening Anxiety Screening [facility] Start: 2019 Depression Screening Depression Screening [facility] Start: 2019 Hepatitis C antibody, confirmatory test Hepatitis C Screening [facility] Start: 2019 Hepatitis C screening Hepatitis C Screening [facility] Start: 2019 HEPATITIS C SCREENING HEPATITIS C SCREENING [facility] Start: 2019 HIV SCREENING HIV SCREENING [facility] Start: 2019 HIV screening HIV Screening [facility] Start: 2017 COVID-19 Vaccine (1 of 2) COVID-19 Vaccine (1 of 2) [facility] Start: 2017 COVID-19 Vaccine (1) COVID-19 Vaccine (1) [facility] Start: 01-04-2016 HIV screening HIV Screening [facility] Start: 2015 PEDS TO ADULT TRANSITION ANNUAL ASSESSMENT PEDS TO ADULT TRANSITION ANNUAL ASSESSMENT [facility] Start: 2013 Adolescent depression screening assessment Depression Screening (PHQ9) [facility] Start: 2013 COVID-19 Vaccine (1) COVID-19 Vaccine (1) [facility] Start: 2013 Depression screening using PHQ-9 (Patient Health Questionnaire 9) score [facility] Start: 2013 PEDS TO ADULT TRANSITION INITIAL DISCUSSION PEDS TO ADULT TRANSITION INITIAL DISCUSSION [facility] Start: 01-04-2012 Vaccination for human papillomavirus HPV Vaccines (1 - 2-dose series) [facility] Start: 2010 HPV VACCINE (1 - 2-dose series) HPV VACCINE (1 - 2-dose series) [facility] Start: 2006 COVID-19 Vaccine (1) COVID-19 Vaccine (1) [facility] Start: 01-04-2004 History and physical examination, annual for health maintenance Wellness Visit [facility] Start: 2001 COVID-19 VACCINE (#1) COVID-19 VACCINE (#1) [facility] Start: 2001 HEPATITIS B (1 of 3 - 3-dose series) HEPATITIS B (1 of 3 - 3-dose series) [facility] Start: 2001 Hepatitis B Vaccine (1 of 3 - 3-dose series) Hepatitis B Vaccine (1 of 3 - 3-dose series) [facility] Start: 2001 Screening for Chlamydia trachomatis Chlamydia Screening [facility] Start: 2001 Tetanus vaccination Tetanus: Every 10yrs [facility] Bacteria identified in Urine by Culture URINE CULTURE Microbiology Routine with care elsewhere, antepartum Recurrent urinary tract infection affecting , antepartum 09/01/2022 4:30 PM EDT [facility] Work Phone: Bacteria identified in Urine by Culture URINE CULTURE Microbiology Routine with uncertain dates in first trimester 02/19/2024 8:[address] [facility] Bacteria identified in Urine by Culture BACTERIAL CULTURE, URINE Microbiology Routine Encounter for supervision of high risk in third trimester, antepartum (HCC) Short interval between pregnancies affecting , antepartum ([facility]) Anemia complicating , third trimester ([facility]) 40 weeks gestation of (HCC) Vaginal discharge during in third trimester (HCC) 10/02/2024 3:[address] [facility] BACTERIAL VAGINOSIS NAAT BACTERI AL VAGINOSIS NAAT Lab Routine Vaginal itching 06/06/2024 11:[address] [facility] BACTERIAL VAGINOSIS NAAT BACTERI AL VAGINOSIS NAAT Lab Routine Encounter for supervision of high risk in third trimester, antepartum (HCC) Short interval between pregnancies affecting , antepartum (HCC) Anemia complicating , third trimester (HCC) 40 weeks gestation of (HCC) Vaginal discharge during in third trimester (HCC) 10/02/2024 3:[address] [facility] TABITHA/TRICHOMONAS NAAT TABITHA /TRICHOMONAS NAAT Lab Routine Vaginal itching 06/06/2024 11:[address] [facility] TABITHA/TRICHOMONAS NAAT TABITHA /TRICHOMONAS NAAT Lab Routine Encounter for supervision of high risk in third trimester, antepartum (HCC) Short interval between pregnancies affecting , antepartum (HCC) Anemia complicating , third trimester (HCC) 40 weeks gestation of (HCC) Vaginal discharge during in third trimester (HCC) 10/02/2024 3:56 PM T [facility] Work Phone: Chlamydia trachomatis+Neisseria gonorrhoeae DNA [Presence] in Unspecified specimen by PHYLLIS with probe detection GONORRHEA/CHLAMYDIA NAAT Lab Routine with uncertain dates in first trimester 02/19/2024 8:40 AM [facility] Chlamydia trachomatis+Neisseria gonorrhoeae DNA [Presence] in Unspecified specimen by PHYLLIS with probe detection GONORRHEA/CHLAMYDIA NAAT Lab Routine Encounter for supervision of high risk in third trimester, antepartum (HCC) Short interval between pregnancies affecting , antepartum (HCC) Anemia complicating , third trimester ([facility]) 40 weeks gestation of (HCC) Vaginal discharge during in third trimester ([facility]) 10/02/2024 3:56 PM [facility] End: 09-16-2021 Electromyography EMG: Neurology Routine Carpal tunnel syndrome of right wrist 1 Occurrences starting 05/17/2021 until 09/16/2021 [facility] Work Phone: Comment on above: 1 Occurrences starting 05/17/2021 until 09/16/2021 End: 05-17-2022 Nerve conduction test Nerve conduction test Neurology Routine Carpal tunnel syndrome of right wrist 1 Occurrences starting 05/17/2021 until 05/17/2022 [facility] Comment on above: 1 Occurrences starting 05/17/2021 until 05/17/2022 Patient Education [facility] Work Phone: Patient referral [facility] Work Phone: ROUTINE, GR OUP B STREP PCR ROUTINE, GROUP B STREP PCR Microbiology Routine 36 weeks gestation of 01/02/2023 2:50 PM EDT [facility] Work Phone: ROUTINE, GR OUP B STREPTOCOCCUS BY PCR ROUTINE, GROUP B STREPTOCOCCUS BY PCR Microbiology Routine Obesity affecting in third trimester, unspecified obesity type (HCC) Encounter for supervision of high risk in third trimester, antepartum (HCC) Anemia complicating , third trimester (HCC) 36 weeks gestation of (HCC) 09/05/2024 3:24 PM EDT [facility] Work Phone: End: 08-19-2021 Tissue transglutaminase IgA measurement Tissue Transglutaminase, IgA Lab Routine Irritable bowel syndrome with both constipation and diarrhea 1 Occurrences starting 08/19/2020 until 08/19/2021 [facility] Comment on above: 1 Occurrences starting 08/19/2020 until 08/19/2021 [facility] Immunizations Immunization Date Immunization Notes Care Provider [facility] 07-10-2024 RHO(D) immune globulin- IV or IM Tatum Ysot MD Work Phone: [facility] 07-10-2024 tetanus toxoid, reduced diphtheria toxoid, and acellular pertussis vaccine, adsorbed Tatum Yost MD Work Phone: [facility] 01-16-2023 influenza, high dose seasonal, preservative-free [facility] 01-16-2023 influenza virus vaccine, unspecified formulation Kathie Degroot POST EXCHANGE MANAGER.BIOMED TECH Work Phone: [facility] 01-10-2023 influenza, injectabl e, quadrivalent, contains preservative Iris Garcia MD Work Phone: [facility] Work Phone: 01-10-2023 influenza virus vaccine, unspecified formulation Ad Roland APRN.BIOMED TECH Work Phone: [facility] 11-03-2022 RHO(D) immune globulin- IV or IM [employer] Laminator RN [facility] Work Phone: 11-03-2022 tetanus toxoid, reduced diphtheria toxoid, and acellular pertussis vaccine, adsorbed [employer] Laminator MARCELLO [facility] Work Phone: 10-24-2019 Human Papillomavirus 9-valent vaccine Tatum Yost MD Work Phone: [facility] 10-24-2019 meningococcal B vaccine, fully recombinant Tatum Yost MD Work Phone: [facility] 10-24-2019 meningococcal polysaccharide (groups A, C, Y and W-135) diphtheria toxoid conjugate vaccine (MCV4P) Tatum Yost MD Work Phone: [facility] 11-16-2014 meningococcal ACWY vaccine, unspecified formulation Asael Puente [facility] 11-16-2014 tetanus toxoid, reduced diphtheria toxoid, and acellular pertussis vaccine, adsorbed [employer] [facility] NEGATED: Highlighted row has not occurred!12-11-2022 influenza virus vaccine, unspecified formulation Erin POWELL [facility] NEGATED: Highlighted row has not occurred!05-30-2019 influenza virus vaccine, live, attenuated, for intranasal use Asael Puente [facility] Payers Date Payer Category Payer Self-pay [id number] 2022 Unknown [id number] 2020 Medicaid [id number] 2020 Medicaid [id number] 2020 Medicaid [id number] 2018 Unknown 2001 Unknown [id number] 2.16. [id number] 2001 Unknown [id number] 2.16. [id number] 2001 Unknown [id number] 2.16. 840.1.520402.3.579.2.903 2001 Unknown [id number] 2.16. 840.1.013831.3.579.2.903 2001 Unknown [id number] 2.16. 840.1.277786.3.579.2.903 2001 Unknown [id number] 2.16. 840.1.063326.3.579.2.903 2001 Unknown [id number] 2.16.8 40.1.882760.3.579.2.1069 2001 Unknown [id number] 2.16.8 40.1.856290.3.579.2.1069 2001 Unknown [id number] 2.16.8 40.1.374263.3.579.2.727 2001 Unknown [id number] 2.16.8 40.1.251397.3.579.2.727 2001 Unknown [id number] 2.16.8 40.1.743648.3.579.2.727 2001 Unknown [id number] 2.16.8 40.1.046180.3.579.2.727 1976 Unknown [id number] 2.16.84 0.1.905438.3.579.2.717 Unknown [id number] 2.16.8 40.1.190569.3.579.2.462 Unknown [id number] 2.16.8 [id number] Social History Date Type Detail Facility Start: 05-12-2020 End: 08-08-2022 Tobacco smoking status LAIS Never smoker [facility] Start: 05-12-2020 End: 08-08-2022 Tobacco use and exposure Never used [facility] Start: 05-12-2020 End: 10-02-2024 Alcohol intake Ex-drinker (finding) [facility] Start: 2001 Sex Assigned At Not on file [facility] Start: 05-07-2021 End: 05-17-2021 Exposure to SARS-CoV-2 (event) Not sure [facility] Start: 01-25-2023 Tobacco smokin g consumption unknown [facility] Tobacco smoking status Never [facility] Start: 09-29-2022 End: 10-02-2024 Sex Assigned At Female [facility] Start: 2001 Sex Assigned At Female F [facility] Start: 08-03-[address] [facility] Start: 05-05-[address] [facility] Start: 09-29-2022 End: 10-02-2024 History of Social function [facility] Goals Date Patient Goal Desired Activity /State Personal health goal Personal health goal Clinical Notes 08-19-2020 to 10-02-2024 Addendum Note - Iris Garcia MD - 10/02/2024 3:55 PM EDTAddendum Note - Iris Garcia MD - 10/02/2024 3:55 PM EDTAddendum Note - Jenny Nielsen MA - 10/02/2024 3:50 PM EDT Note Date & Type Note Facility 10-02-2024 Note Addended by: IRIS GARCIA on: 10/02/2024 03:55 PM Modules accepted: Orders [facility] 10-02-2024 Miscellaneous Notes Addended by: IRIS GARCIA on: 10/02/2024 03:55 PM Modules accepted: [...] of high risk in third trimester, antepartum ([facility]) Orders: TABITHA/TRICHOMONAS NAAT BACTERIAL VAGINOSIS NAAT UA DIP, URINE (POC) BACTERIAL CULTURE, URINE Short interval between pregnancies affecting , antepartum ([facility]) Orders: TABITHA/TRICHOMONAS NAAT BACTERIAL VAGINOSIS NAAT UA DIP, URINE (POC) BACTERIAL CULTURE, URINE Anemia complicating , third trimester ([facility]) Orders: TABITHA/TRICHOMONAS NAAT BACTERIAL VAGINOSIS NAAT UA DIP, URINE (POC) BACTERIAL CULTURE, URINE 40 weeks gestation of ([facility]) Orders: TABITHA/TRICHOMONAS NAAT BACTERIAL VAGINOSIS NAAT UA DIP, URINE (POC) BACTERIAL CULTURE, URINE Vaginal discharge during in third trimester ([facility]) Orders: TABITHA/TRICHOMONAS NAAT BACTERIAL VAGINOSIS NAAT UA DIP, URINE (POC) BACTERIAL CULTURE, URINE r/b/a to induction of labor reviewed, questions answered, desires to proceed. Scheduled for 10/05/24. Membranes swept after verbal consent Iris Garcia M.D. documented in this encounter [facility] 10-02-2024 Note Addended by: Luciano NIELSEN on: 10/02/2024 03:50 PM Modules accepted: Orders [facility] 10-02-2024 Progress note Formatting of t his [...] of high risk in third trimester, antepartum ([facility]) Orders: TABITHA/TRICHOMONAS NAAT BACTERIAL VAGINOSIS NAAT UA DIP, URINE (POC) BACTERIAL CULTURE, URINE Short interval between pregnancies affecting , antepartum ([facility]) Orders: TABITHA/TRICHOMONAS NAAT BACTERIAL VAGINOSIS NAAT UA DIP, URINE (POC) BACTERIAL CULTURE, URINE Anemia complicating , third trimester ([facility]) Orders: TABITHA/TRICHOMONAS NAAT BACTERIAL VAGINOSIS NAAT UA DIP, URINE (POC) BACTERIAL CULTURE, URINE 40 weeks gestation of ([facility]) Orders: TABITHA/TRICHOMONAS NAAT BACTERIAL VAGINOSIS NAAT UA DIP, URINE (POC) BACTERIAL CULTURE, URINE Vaginal discharge during in third trimester ([facility]) Orders: TABITHA/TRICHOMONAS NAAT BACTERIAL VAGINOSIS NAAT UA DIP, URINE (POC) BACTERIAL CULTURE, URINE r/b/a to induction of labor reviewed, questions answered, desires to proceed. Scheduled for 10/05/24. Membranes swept after verbal consent Iris Garcia M.D. [facility] 09-25-2024 Progress note Formatting of t his note might be different from the original. SW- No ctx, vb, lof. Good FM PE: Gen- NAD, well appearing, comfortable Abd- Soft, gravid, NT See flowsheet A/p 39 wk gestation - Discussed 41 wk IOL - RTO 1 wk Tatum Yost DO [facility] 09-25-2024 Miscellaneous Notes SW- No ctx, vb, lof. Good FM PE: Gen- NAD, well appearing, comfortable Abd- Soft, gravid, NT See flowsheet A/p 39 wk gestation - Discussed 41 wk IOL - RTO 1 wk Tatum Yost DO documented in this encounter [facility] 09-25-2024 Instructions Fanny Skaggs MA - 09/25/2024 3:06 PM EDT SEQUENTIAL SCREENINGS The [facility] offers sequential screenings for women who are [...] It will require an appointment with our design engineering technician. This is not an ultrasound performed [...] the above symptoms, contact our office at [phone] and ask to speak with a nurse. After hours, you can call doctors registry at [phone] OR call [facility] at [phone] and ask to have the doctor hairspring fabrication supervisor paged. If you consider this an emergency, dial 5-9-9 or go to your nearest emergency department. NEED HELP? Are you dealing with a violent or abusive relationship? Are you a victim of rape or sexual assult? Call [facility] ([place]) 24 hour Crisis Hotline: 340.695.4570 or 277-967-4573. MANUAL Your Guide to a Healthy manual is now on-line. Visit [email or web address] to download your free copy documented in this encounter [facility] 09-18-2024 Progress note Formatting of t his [...] of high risk in third trimester, antepartum ([facility]) - ICD9: V23.9, ICD10: O09.93 (primary diagnosis) - URINE OB DIP B/O 2. Obesity affecting in third trimester, unspecified obesity type ([facility]) - ICD9: 649.13, ICD10: O99.213 - URINE OB DIP B/O 3. Anemia complicating , third trimester ([facility]) - ICD9: 648.23, 285.9, ICD10: O99.013 Oral iron - URINE OB DIP B/O 4. Short interval between pregnancies affecting , antepartum ([facility]) - ICD9: V23.89, ICD10: O09.899 - URINE OB DIP B/O 5. 38 weeks gestation of ([facility]) - ICD9: V22.2, ICD10: Z3A.38 - URINE OB DIP B/O Mary Yeh MD [facility] 09-18-2024 Miscellaneous Notes S: Jumana Menjivar is [...] of high risk in third trimester, antepartum ([facility]) - ICD9: V23.9, ICD10: O09.93 (primary diagnosis) - URINE OB DIP B/O 2. Obesity affecting in third trimester, unspecified obesity type ([facility]) - ICD9: 649.13, ICD10: O99.213 - URINE OB DIP B/O 3. Anemia complicating , third trimester ([facility]) - ICD9: 648.23, 285.9, ICD10: O99.013 Oral iron - URINE OB DIP B/O 4. Short interval between pregnancies affecting , antepartum ([facility]) - ICD9: V23.89, ICD10: O09.899 - URINE OB DIP B/O 5. 38 weeks gestation of ([facility]) - ICD9: V22.2, ICD10: Z3A.38 - URINE OB DIP B/O Mary Yeh MD documented in this encounter [facility] 09-18-2024 Instructions Dana Jimenez MA - 09/18/2024 3:03 PM EDT SEQUENTIAL SCREENINGS The [facility] offers sequential screenings for women who are [...] It will require an appointment with our design engineering technician. This is not an ultrasound performed [...] the above symptoms, contact our office at [phone] and ask to speak with a nurse. After hours, you can call doctors registry at [phone] OR call [facility] at [phone] and ask to have the doctor hairspring fabrication supervisor paged. If you consider this an emergency, dial 11-17- or go to your nearest emergency department. NEED HELP? Are you dealing with a violent or abusive relationship? Are you a victim of rape or sexual assult? Call [facility] ([facility] 24 hour Crisis Hotline: 598.629.2676 or 331-844-1030. MANUAL Your Guide to a Healthy manual is now on-line. Visit [email or web address] to download your free copy documented in this encounter [facility] 09-12-2024 Progress note Formatting of t his [...] - RTO weekly visits Beena Walters APRN.CNM [facility] 09-12-2024 Miscellaneous Notes S: Jumana Menjivar is [...] Beena Walters APRN.CNM documented in this encounter [facility] 09-12-2024 Instructions Kamari Rock MA - 09/12/2024 3:19 PM EDT SEQUENTIAL SCREENINGS The [facility] offers sequential screenings for women who are [...] It will require an appointment with our design engineering technician. This is not an ultrasound performed [...] the above symptoms, contact our office at [phone] and ask to speak with a nurse. After hours, you can call doctors registry at [phone] OR call [facility] at [phone] and ask to have the doctor hairspring fabrication supervisor paged. If you consider this an emergency, dial -6 or go to your nearest emergency department. NEED HELP? Are you dealing with a violent or abusive relationship? Are you a victim of rape or sexual assult? Call [facility] ([facility] 24 hour Crisis Hotline: 627.711.8709 or 195-147-5978. MANUAL Your Guide to a Healthy manual is now on-line. Visit [email or web address] to download your free copy documented in this encounter [facility] 09-05-2024 Progress note Formatting of t his [...] - RTO weekly visits Beena Walters APRN.CNM [facility] Work Phone: 09-05-2024 Miscellaneous Notes S: Jumana [...] Beena Walters APRN.CNM documented in this encounter [facility] 09-05-2024 Instructions Kamari Rock MA - 09/05/2024 3:08 PM EDT SEQUENTIAL SCREENINGS The [facility] offers sequential screenings for women who are [...] It will require an appointment with our design engineering technician. This is not an ultrasound performed [...] the above symptoms, contact our office at [phone] and ask to speak with a nurse. After hours, you can call doctors registry at [phone] OR call [facility] at [phone] and ask to have the doctor hairspring fabrication supervisor paged. If you consider this an emergency, dial 9-7-8 or go to your nearest emergency department. NEED HELP? Are you dealing with a violent or abusive relationship? Are you a victim of rape or sexual assult? Call [facility] ([facility] 24 hour Crisis Hotline: 358.390.4117 or 557-635-0861. MANUAL Your Guide to a Healthy manual is now on-line. Visit [email or web address] to download your free copy documented in this encounter [facility] 08-25-2024 Telephone encounter Note 3rd risk assessment form submitted 08/25/2024. Mary Little RN [facility] 08-25-2024 Miscellaneous Notes 3rd risk assessment form submitted 08/25/2024. Mary Little RN documented in this encounter [facility] 08-22-2024 Progress note Formatting of t his note might be different from the original. SW- No pain, vb, lof. Good FM PE: Gen- NAD, well appearing Abd- A/p 34 wk gestation - Anemia: Cont oral iron - RTO 2 wks for GBS Tatum Yost DO [facility] 08-22-2024 Miscellaneous Notes SW- No pain, vb, lof. Good FM PE: Gen- NAD, well appearing Abd- A/p 34 wk gestation - Anemia: Cont oral iron - RTO 2 wks for GBS Tatum Yost DO documented in this encounter [facility] 08-22-2024 Fanny Stiles MA - 08/22/2024 10:42 AM EDT SEQUENTIAL SCREENINGS The [facility] offers sequential screenings for women who are [...] It will require an appointment with our design engineering technician. This is not an ultrasound performed [...] the above symptoms, contact our office at [phone] and ask to speak with a nurse. After hours, you can call doctors registry at [phone] OR call [facility] at [phone] and ask to have the doctor hairspring fabrication supervisor paged. If you consider this an emergency, dial 5--2 or go to your nearest emergency department. NEED HELP? Are you dealing with a violent or abusive relationship? Are you a victim of rape or sexual assult? Call [facility] ([place]) 24 hour Crisis Hotline: 942.535.3935 or 725-855-7156. MANUAL Your Guide to a Healthy manual is now on-line. Visit [email or web address] to download your free copy documented in this encounter [facility] 07-24-2024 Progress note Formatting of t his note might be different from the original. SW- pt doing well. No pain, vb, lof. Good FM PE: Gen- NAD, well appearing Abd- Soft, gravid, NT See flowsheet A/p 30 wk gestation - Anemia: Cont oral iron and repeat CBC ordered for next visit - Discussed upcoming expectations - RTO 2 wks Tatum Yost DO [facility] 07-24-2024 Miscellaneous Notes SW- pt doing well. No pain, vb, lof. Good FM PE: Gen- NAD, well appearing Abd- Soft, gravid, NT See flowsheet A/p 30 wk gestation - Anemia: Cont oral iron and repeat CBC ordered for next visit - Discussed upcoming expectations - RTO 2 wks Tatum Yost DO documented in this encounter [facility] 07-24-2024 Instructions Fanny Skaggs MA - 07/24/2024 1:38 PM EDT SEQUENTIAL SCREENINGS The [facility] offers sequential screenings for women who are [...] It will require an appointment with our design engineering technician. This is not an ultrasound performed [...] the above symptoms, contact our office at [phone] and ask to speak with a nurse. After hours, you can call doctors registry at [phone] OR call [facility] at [phone] and ask to have the doctor hairspring fabrication supervisor paged. If you consider this an emergency, dial 9-1-0 or go to your nearest emergency department. NEED HELP? Are you dealing with a violent or abusive relationship? Are you a victim of rape or sexual assult? Call [facility] ([place]) 24 hour Crisis Hotline: 871.332.5230 or 004-122-0289. MANUAL Your Guide to a Healthy manual is now on-line. Visit [email or web address] to download your free copy documented in this encounter [facility] 07-10-2024 Note HNO ID: [id number] Author: MARY COTTRELL RN Service: ? Author Type: Registered Nurse Type: Progress Notes Filed: 07/10/2024 11:15 Note Text: The patient is here for an injection of Rhogam. Dose: 300 mcg Amount wasted: none. Route: Intramuscular Site: right upper quadrant gluteus Emergency Medical Technician: CSL Behring Lot #: [id number] Expiration Date: 09/14/26 The date due for the next injection is N/A Patient tolerated well. Mary Yeh MD present in office at time of injection. Mary Cottrell RN [facility] 07-10-2024 Note HNO ID: [id number] Author: JENNY NIELSEN MA Service: ? Author Type: Pretzel Twister Type: Progress Notes Filed: 07/10/2024 11:15 Note Text: Patient identified by name and date of . Jumana Ruth Menjivar presents today for a vaccination of Tdap. Patient denies an allergy to latex: yes Patient denies a severe (life-threatening) allergy to a previous dose of Tdap, DTP, DTaP, DT or Td vaccine. Yes Patient denies history of epilepsy or neurological problems: Yes Patient is afebrile and denies being moderately or severely ill: Yes Patient denies history of Guillain-[place] Syndrome (a severe paralytic illness): Yes Tdap Adacel injection was given without incident. See immunizations for details of immunizations administered today. VIS sheet provided: Yes Provider Dr Yeh was present in office at time of injection. [facility] 06-20-2024 Telephone encounter Note Order signed and faxed. Yamel Driver RN [facility] 06-20-2024 Miscellaneous Notes Order signed and faxed. Yamel Driver RN Breast pump and belly band order received from [address] To JG to sign. Yamel Driver RN documented in this encounter [facility] 06-18-2024 Telephone encounter Note Breast pump and belly band order received from [address] To JG to sign. Yamel Driver RN [facility] 06-18-2024 Telephone encounter Note 2nd risk assessment form submitted 06/18/2024. Mary Little RN [facility] 06-18-2024 Miscellaneous Notes 2nd risk assessment form submitted 06/18/2024. Mary Little RN documented in this encounter [facility] 06-12-2024 Note HNO ID: [id number] Author: AD ROLAND APRN.BIOMED TECH Service: ? Author Type: Nurse Practitioner Type: [...] weeks or sooner as needed. Ad Roland APRN.CNP [facility] 06-12-2024 History of Presen t illness Narrative [...] weeks or sooner as needed. Ad Roland APRN.BIOMED TECH documented in this encounter [facility] 06-12-2024 Instructions Henna Myers MA - 06/12/2024 2:22 PM EDT SEQUENTIAL SCREENINGS The [facility] offers sequential screenings for women who are [...] It will require an appointment with our design engineering technician. This is not an ultrasound performed [...] the above symptoms, contact our office at [phone] and ask to speak with a nurse. After hours, you can call doctors registry at [phone] OR call [facility] at [phone] and ask to have the doctor hairspring fabrication supervisor paged. If you consider this an emergency, dial 9-1-0 or go to your nearest emergency department. NEED HELP? Are you dealing with a violent or abusive relationship? Are you a victim of rape or sexual assult? Call [facility] ([place]) 24 hour Crisis Hotline: 759.764.8401 or 424-408-2389. MANUAL Your Guide to a Healthy manual is now on-line. Visit [email or web address] to download your free copy documented in this encounter [facility] 06-06-2024 Progress note Formatting of t his note [...] 1-HOUR, 50 GRAM, NON-FASTING Mary Yeh MD [facility] 06-06-2024 Miscellaneous Notes S: Jumana Menjivar is [...] Mary Yeh MD documented in this encounter [facility] 06-06-2024 Instructions Dana Jimenez MA - 06/06/2024 11:01 AM EDT SEQUENTIAL SCREENINGS The [facility] offers sequential screenings for women who are [...] It will require an appointment with our design engineering technician. This is not an ultrasound performed [...] the above symptoms, contact our office at [phone] and ask to speak with a nurse. After hours, you can call doctors registry at [phone] OR call [facility] at [phone] and ask to have the doctor hairspring fabrication supervisor paged. If you consider this an emergency, dial 9-1-9 or go to your nearest emergency department. NEED HELP? Are you dealing with a violent or abusive relationship? Are you a victim of rape or sexual assult? Call [facility] ([facility] 24 hour Crisis Hotline: 150.549.2273 or 091-677-6587. MANUAL Your Guide to a Healthy manual is now on-line. Visit [email or web address] to download your free copy documented in this encounter [facility] 05-15-2024 Progress note Formatting of t his [...] ICD9: V22.2, ICD10: Z3A.20 Mary Yeh MD [facility] 05-15-2024 Miscellaneous Notes S: Jumana Menjivar is [...] Mary Yeh MD documented in this encounter [facility] 05-15-2024 Bashir Chen MA - 05/15/2024 1:54 PM EST SEQUENTIAL SCREENINGS The [facility] offers sequential screenings for women who are [...] It will require an appointment with our design engineering technician. This is not an ultrasound performed [...] the above symptoms, contact our office at [phone] and ask to speak with a nurse. After hours, you can call doctors registry at [phone] OR call [facility] at [phone] and ask to have the doctor hairspring fabrication supervisor paged. If you consider this an emergency, dial 91-8 or go to your nearest emergency department. NEED HELP? Are you dealing with a violent or abusive relationship? Are you a victim of rape or sexual assult? Call [facility] ([place]) 24 hour Crisis Hotline: 268.657.1745 or 902-819-3314. MANUAL Your Guide to a Healthy manual is now on-line. Visit [email or web address] to download your free copy documented in this encounter [facility] 04-17-2024 Progress note Formatting of t his [...] ICD9: V22.2, ICD10: Z3A.16 Mary Yeh MD [facility] 04-17-2024 Miscellaneous Notes S: Jumana Menjivar is [...] Mary Yeh MD documented in this encounter [facility] 04-17-2024 Instructions Jenny Nielsen MA - 04/17/2024 4:10 PM EST SEQUENTIAL SCREENINGS The [facility] offers sequential screenings for women who are [...] It will require an appointment with our design engineering technician. This is not an ultrasound performed [...] the above symptoms, contact our office at [phone] and ask to speak with a nurse. After hours, you can call doctors registry at [phone] OR call [facility] at [phone] and ask to have the doctor hairspring fabrication supervisor paged. If you consider this an emergency, dial 9--7 or go to your nearest emergency department. NEED HELP? Are you dealing with a violent or abusive relationship? Are you a victim of rape or sexual assult? Call [facility] ([place]) 24 hour Crisis Hotline: 853.339.8647 or 421-678-4038. MANUAL Your Guide to a Healthy manual is now on-line. Visit [email or web address] to download your free copy documented in this encounter [facility] 04-14-2024 Miscellaneous Notes Faxed to [facility] in [place]. Mary Cottrell RN documented in this encounter [facility] 04-14-2024 Telephone encounter Note Faxed to [facility] in [place]. Mary Cottrell, RN [facility] 03-21-2024 Note Addended by: TATUM YOST on: 03/21/2024 01:35 PM Modules accepted: Orders [facility] 03-21-2024 Miscellaneous Notes Addended by: TATUM YOST on: 03/21/2024 01:35 PM Modules accepted: Orders SW- Acid reflux. No pain, vb, lof. PE: Gen- NAD, well appearing Abd- Soft A/p 12 wk gestation - Start baby ASA - NOB labs completed - Start Pepcid - Schedule anatomy US - RTO 4 wks Tatum Yost DO documented in this encounter [facility] 03-21-2024 Progress note Formatting of t his note might be different from the original. SW- Acid reflux. No pain, vb, lof. PE: Gen- NAD, well appearing Abd- Soft A/p 12 wk gestation - Start baby ASA - NOB labs completed - Start Pepcid - Schedule anatomy US - RTO 4 wks Tatum Yost DO [facility] 03-21-2024 Instructions Fanny Skaggs MA - 03/21/2024 1:05 PM EST SEQUENTIAL SCREENINGS The [facility] offers sequential screenings for women who are [...] It will require an appointment with our design engineering technician. This is not an ultrasound performed [...] the above symptoms, contact our office at [phone] and ask to speak with a nurse. After hours, you can call doctors registry at [phone] OR call [facility] at [phone] and ask to have the doctor hairspring fabrication supervisor paged. If you consider this an emergency, dial 11-17-4 or go to your nearest emergency department. NEED HELP? Are you dealing with a violent or abusive relationship? Are you a victim of rape or sexual assult? Call [facility] ([place]) 24 hour Crisis Hotline: 222.153.7899 or 889-101-1286. MANUAL Your Guide to a Healthy manual is now on-line. Visit [email or web address]/[email or web address] [email or web address] to download your free copy documented in this encounter [facility] 02-21-2024 Telephone encounter Note 1st risk assessment form submitted 02/21/2024. Mary Little RN [facility] 02-21-2024 Miscellaneous Notes 1st risk assessment form submitted 02/21/2024. Mary Little RN documented in this encounter [facility] 02-19-2024 Instructions Mitra Webber LPN - 02/19/2024 8:02 AM EST Please select the following link to access the [facility] Your Guide to a Healthy . [email or web address] de documented in this encounter [facility] 02-06-2024 Telephone encounter Note I called patient and did intake questions [facility] 02-06-2024 Miscellaneous Notes I called patient and did intake questions Attempted to contact the patient to go over new ob intake questions. No answer. Left voicemail. Adrienne Guzman MA documented in this encounter [facility] 02-06-2024 Note HNO ID: [id number] Author: KATHIE DEGROOT APRN.BIOMED TECH Service: ? Author Type: Nurse Practitioner Type: Progress Notes Filed: 02/19/2024 08:47 Note Text: Patient declined business objects. *Delivered last child 01/25/2023. 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 (Patient not taking: Reported on 03/13/2023) 100 tablet 3 aspirin, enteric coated (ASPIRIN, ENTERIC COATED) 81 mg EC tabl (more content not included)... [facility] 02-06-2024 History of Presen t illness Narrative Patient declined business objects. *Delivered last child 01/25/2023. 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 As applicable, any other physician, advance practice provider, medical student, or other health professional student that will be observing or involved in the sensitive examination for educational or training purposes was discussed with the Patient or Authorized Mobile Ui/Ux Designer. The Patient or Authorized Mobile Ui/Ux Designer has agreed to proceed with the sensitive [...] +cardiac activity, CRL consistent with LMP. Kathie Degroot, POST EXCHANGE MANAGER.BIOMED TECH ASSESSMENT: 24 year old at 5w6d wks gestational age PLAN: 1) Patient oriented to practice. Patient given new OB orientation folder. Discussed nutrition, folic acid supplementation, dietary guidelines, exercise, smoking, alcohol, caffeine, and drug use. Discussed gestational weight gain guidelines. Discussed routine OB labs including STD/HIV. Discussed how to access Your guide to a health and the Marketing Intern. Reviewed midwifery and electrician research services that are available. 2) Screening: Hemoglobin [...] 4 weeks or sooner dinh. Kathie Degroot APRN.SAIDA documented in this encounter [facility] 02-06-2024 Telephone encounter Note Attempted to contact the patient to go over new ob intake questions. No answer. Left voicemail. Adrienne Guzman MA [facility] 01-26-2023 Discharge summary Note Date/Time January 26, 2023 8:39am [facility] Medical Records Department [address] [place] [address] Discharge Summary 01/26/23 0837 MR#: [id number] Acct: [id number] Name: JUMANA MENJIVAR Rep #:[id number] : 2000 23 From: Beena Walters CNM PCP: ERIN POWELL Status:ADM IN Location: NZ864-9 Providers Date of Admission: 01/25/23 Primary Care [...] Encounter for full-term uncomplicated delivery Plan CE /1 bulging bag AROM for meconium fluid Continue [...] Your Visit: Labor and Delivery Attending Provider: Iris Garcia Primary Care Provider: ERIN POWELL Discharge Orders/Prescriptions Prescriptions: Continued ipratropium-albuterol 20-100 mcg/actuation mist 1 puff inhalation Q6H Discontinued aspirin [Roseau Aspirin] 81 mg tablet,delayed release (DR/EC) 81 mg PO DAILY magnesium oxide 420 mg tablet 420 mg PO DAILY Referrals / Follow Up: ERIN POWELL [Other] Disposition Disposition (needs filled in before D/C Order can be placed): Home, Self Care 01/26/23 0841 <Electronically signed by Beena Walters CNM> Cosigner Signature (if applicable): CC: CECIEL Walters; ERIN POWELL~ Signed [facility] Work Phone: 1(343) 432-705711-10-2023 [facility] Medical Records Department [address] [place] [address] Discharge Summary 01/26/23 0837 MR#: [id number] Acct: [id number] Name: JUMANA MENJIVAR Rep #: [id number] : 2000 23 From: Beena Walters CNM PCP: ERIN POWELL Status:ADM IN Location: [place] [id number] Providers Date of Admission: 01/25/23 Primary Care [...] Your Visit: Labor and Delivery Attending Provider: Iris Garcia Primary Care Provider: ERIN POWELL Discharge Orders/Prescriptions Prescriptions: Continued ipratropium-albuterol 20-100 mcg/actuation mist 1 puff inhalation Q6H Discontinued aspirin [Roseau Aspirin] 81 mg tablet,delayed release (DR/EC) 81 mg PO DAILY magnesium oxide 420 mg tablet 420 mg PO DAILY Referrals / Follow Up: ERIN POWELL [Other] Disposition Disposition (needs filled in before D/C Order can be placed): Home, Self Care 01/26/23 0841 Cosigner Signature (if applicable): CC: CECILE Walters; ERIN POWELL [facility] History of Present illness Narrative * Yamel Driver RN - 01/25/2023 4:58 PM EST Patient delivered via by Dr. Eugene on 01/25/23 at [facility]. See OB history. Yamel Driver RN [facility] Procedure [facility]11-09-2023 Progress note Author Yandel james [facility] January 25, 2023 9:49am Note Date/Time January 25, 2023 9 :49am [facility] Medical Records Department [address] [place] [address] Progress Note 01/25/23947 MR#: [id number] Acct: [id number] Name: JUMANA MENJIVAR Rep #:[id number] : 2000 23 From: Millicent Eugene MD PCP: ERIN POWELL Status:ADM IN Location: PX851-7 Progress Note pt examined at bedside, /0. continue pitocin and labor at this time. FHR tracing reviewed. anticipate . 01/25/23 0949 <Electronically signed by Millicent Ribeiro MD> Millicent Ribeiro MD Cosigner Signature (if applicable): CC: ~ Signed [facility] Work Phone: 1(529) 211-409911-09-2023 Progress note Author Beena [facility] January 25, 2023 7:44am Note Date/Time January 25, 2023 7 :44am [facility] Medical Records Department [address] [place] [address] Progress Note 01/25/23 0742 MR#: [id number] Acct: [id number] Name: JUMANA MENJIVAR Rep #:[id number] : 2000 23 From: Beena Wlaters CNM PCP: ERIN POWELL Status:ADM IN [facility] Note Patient seen at bedside. Remains comfortable with epidural. Desires AROM. Assessment & Plan Assessment/Plan (1) Meconium in amniotic fluid: (2) Artificial rupture of membranes antepartum: (3) 39 weeks gestation of : (4) Obesity affecting : (5) Spontaneous onset of labor: (6) Rh negative status during : PLAN: Plan CE bulging bag AROM for meconium fluid Continue present plan of care Anticipate 01/25/23743 <Electronically signed by Beena Walters CNM> Beena Walters CNM Cosigner Signature (if applicable): CC: ~ Signed [facility] Work Phone: 1(436) 208-300211-09-2023 Progress note Author Beena [facility] January 25, 2023 7:29am Note Date/Time January 25, 2023 7 :29am [facility] Medical Records Department [address] [place] [address] Progress Note 01/25/23 0726 MR#: [id number] Acct: [id number] Name: JUAMNA MENJIVAR Rep #:[id number] : 2000 23 From: Beena Walters CNM PCP: ERIN POWELL Status:ADM IN [facility] Note Patient comfortable with epidural anesthesia. Assessment & Plan Assessment/Plan (1) Spontaneous onset of labor: (2) 39 weeks gestation of : (3) Rh negative status during : (4) Obesity affecting : (5) Recurrent UTI: PLAN: Plan Continue present plan of care Continue Pitocin IV and increase per policy GBS negative CE [address] 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 Garcia notified and is collaborating physician 01/25/23715 <Electronically signed by Beena Walters CNM> Cosigner Signature (if applicable): CC: CECILE Walters; ERIN POWELL~ Signed ADDENDUM by CECILE Walters on 01/25/23 at 0726 Addendum INCORRECT PATIENT CHARTED ON- This patient did NOT have ROM plus return positive and is currently intact. Ableto palpate bag of water with exam. 01/25/23725<Electronically signed by Beena Walters CNM> Cosigner Signature (if applicable): cc: CECILE Walters; ERIN POWELL ~* Signed [facility] Work Phone: 1(164) 382-237911-08-2023 Miscellaneous Notes* Telephone Encounter - Beena Walters APRN.CNM - 01/24/2023 10:52 AM EST Thank you for the update. Beena Walters APRN.CNM * Telephone Encounter - Yamel Driver RN - 01/24/2023 9:36 AM EST Patient called in for update. Contractions are now 4 minutes apart and she is uncomfortable. No bleeding or leaking fluid. Good movement. She is wanting to go to L&D. She is notifying L&D that she is coming. JOAQUIN. Yamel Driver RN [facility] Miscellaneous Notes* Telephone Encounter - Beena [...] NST. Linda Valenzuela RN [facility] History of Present illness Narrative* Jairo Guillermo [...] SIGNATURE: Jairo Guillermo MD documented in [facility]23 Miscellaneous Notes* Quick Notes - Jairo [...] reviewed. Jairo Guillermo MD documented in this [facility]10-31-2023 Instructions* Patient Instructions* s Mandi Rodriguez - 01/16/2023 10:36 AM EDT SEQUENTIAL SCREENINGS The [facility] offers sequential screenings for women who are [...] testing. It will require an appointment withour design engineering technician. This is not an ultrasound performed [...] the above symptoms, contact our office at [phone] and ask to speak with anurse. After hours, you can call doctors registry at [phone] OR call [facility] at [phone] ask to have the doctor hairspring fabrication supervisor paged. If you consider this an emergency, dial 5-3-8 or go to your nearest emergency department. NEED HELP? Are you dealing with a violent or abusive relationship? Are you a victim of rape or sexual assult? Call [facility] ([place]) 24 hour Crisis Hotline: 378.360.6033 or 714-087-0960. MANUAL Your Guide to a Healthy manual is now on-line. Visit [email or web address] to download your free copy documented in [facility] History of Present illness Narrative* Iris Garcia MD - 01/10/2023 2:49 PM EDT NST SUMMARY PROVIDER ASSESSMENT AND INTERPRETATION Jumana Menjivar is a 23 year old female, , who is at 37w5d with an FRANCINE of 01/26/2023, by Ultrasound dating method. Indications for NST: Obesity Baseline: 155 Variability: Moderate Accelerations: Present 15 X 15 Decelerations: None Contractions: TOCO: None Interpretation: Category I and Reactive SIGNATURE: Iris Garcia MD documented in this encounterWilson [facility]10-25-2023 Miscellaneous Notes* Quick Notes - Iris Garcia MD - 01/10/2023 2:43 PM EDT RR- VB No. LOF No. CTXS No. Movement: present. Other c/o: No. Medication list reviewed. Physical Exam See Flow Sheet Abd: soft, nontender, gravid Ext: edema: Trace A/P 37w5d Estimated Date of Delivery: 01/26/23 GBS neg US for growth today getting NSTs weekly for BMI >35 FLU VACCINE DONE TODAY Iris Garcia M.D. documented in this encounter[facility]10-25-2023 Instructions* Patient Instructions* Jenny Nielsen Ma - 01/10/2023 2:18 PM EDT SEQUENTIAL SCREENINGS The [facility] offers sequential screenings for women who are [...] testing. It will require an appointment withour design engineering technician. This is not an ultrasound performed [...] the above symptoms, contact our office at [phone] and ask to speak with anurse. After hours, you can call doctors registry at [phone] OR call [facility] at [phone] ask to have the doctor hairspring fabrication supervisor paged. If you consider this an emergency, dial 9-1-4 or go to your nearest emergency department. NEED HELP? Are you dealing with a violent or abusive relationship? Are you a victim of rape or sexual assult? Call [facility] ([place]) 24 hour Crisis Hotline: 867.913.2925 or 141-349-0794. MANUAL Your Guide to a Healthy manual is now on-line. Visit [email or web address]/HealthyPregnancyGuide to download your free copy documented in [facility]10-17-2023 Miscellaneous Notes* Quick Notes - Millicent Dent [...] reviewed Millicent Ribeiro MD documented in this [facility]10-17-2023 History of Present illness Narrative* Millicent Dent [...] SIGNATURE: Millicent Ribeiro MD documented in this encounterWilson [facility]10-17-2023 Instructions* Patient Instructions* Barbara Rodriguez Dana - 01/02/2023 1:44 PM EDT SEQUENTIAL SCREENINGS The [facility] offers sequential screenings for women who are [...] testing. It will require an appointment withour design engineering technician. This is not an ultrasound performed [...] the above symptoms, contact our office at [phone] and ask to speak with anurse. After hours, you can call doctors registry at [phone] OR call [facility] at [phone] ask to have the doctor hairspring fabrication supervisor paged. If you consider this an emergency, dial 9--1 or go to your nearest emergency department. NEED HELP? Are you dealing with a violent or abusive relationship? Are you a victim of rape or sexual assult? Call [facility] ([place]) 24 hour Crisis Hotline: 919.595.5800 or 004-329-6693. MANUAL Your Guide to a Healthy manual is now on-line. Visit [email or web address]/HealthyPregnancyGuide to download your free copy documented in [facility]10-10-2023 Miscellaneous Notes* Quick Notes - Jairo Guillermo [...] reviewed. Jairo Guillermo MD documented in this encounterWilson [facility]10-10-2023 Instructions* Patient Instructions* Mandi Jorge Ma - 12/26/2022 2:34 PM EDT SEQUENTIAL SCREENINGS The [facility] offers sequential screenings for women who are [...] testing. It will require an appointment withour design engineering technician. This is not an ultrasound performed [...] the above symptoms, contact our office at [phone] and ask to speak with anurse. After hours, you can call doctors registry at [phone] OR call [facility] at [phone] ask to have the doctor hairspring fabrication supervisor paged. If you consider this an emergency, dial 9-1-0 or go to your nearest emergency department. NEED HELP? Are you dealing with a violent or abusive relationship? Are you a victim of rape or sexual assult? Call [facility] ([place]) 24 hour Crisis Hotline: 615.285.6182 or 204-798-9815. MANUAL Your Guide to a Healthy manual is now on-line. Visit [email or web address]/HealthyPregnancyGuide to download your free copy documented [facility]09-[facility] Hospital Discharge instructions Follow Up Care 12/04/2022 12:58:44 With:Erin POWELL CNP Address: [address] [place] [address]- When: only if needed [facility] 09-13-2023 Miscellaneous Notes* Quick Notes - Millicent Dent MD - 11/29/2022 4:22 PM EDT DM-Pt doing well. Denies vaginal Bleeding, Leaking fluid, or regular Contractions. Pt reports good movement Physical Exam: Gen: female in no apparent distress Abd: soft, Gravid. Non tender to palpation. See flow sheet A/P: @ 31.5 week 1) declines flu 2) RTO 2 wk 3) kick counts reviewed Millicent iRbeiro MD documented in this encounterWilson [facility]09-13-2023 Instructions* Patient Instructions* Dana Jimenez Ma - 11/29/2022 3:43 PM EDT SEQUENTIAL SCREENINGS The [facility] offers sequential screenings for women who are [...] testing. It will require an appointment withour design engineering technician. This is not an ultrasound performed [...] the above symptoms, contact our office at [phone] and ask to speak with anurse. After hours, you can call doctors registry at [phone] OR call [facility] at [phone] ask to have the doctor hairspring fabrication supervisor paged. If you consider this an emergency, dial 9-1-1 or go to your nearest emergency department. NEED HELP? Are you dealing with a violent or abusive relationship? Are you a victim of rape or sexual assult? Call [facility] 24 hour Crisis Hotline: 507.391.2287 or 490-220-8904. MANUAL Your Guide to a Healthy manual is now on-line. Visit [email or web address]/HealthyPregnancyGuide to download your free copy documented in this encounter[address] [facility]08-29-2023 Miscellaneous Notes* Quick Notes - Jairo Guillermo [...] reviewed. Jairo Guillermo MD documented in this encounterWilson [facility]08-29-2023 Instructions* Patient Instructions* Masters Mandi Rodriguez - 11/14/2022 2:40 PM EDT SEQUENTIAL SCREENINGS The [facility] offers sequential screenings for women who are [...] testing. It will require an appointment withour design engineering technician. This is not an ultrasound performed [...] the above symptoms, contact our office at [phone] and ask to speak with anurse. After hours, you can call doctors registry at [phone] OR call [facility] at [phone] ask to have the doctor hairspring fabrication supervisor paged. If you consider this an emergency, dial 9--1 or go to your nearest emergency department. NEED HELP? Are you dealing with a violent or abusive relationship? Are you a victim of rape or sexual assult? Call [facility] ([place]) 24 hour Crisis Hotline: 712.226.7648 or 339-972-7427. MANUAL Your Guide to a Healthy manual is now on-line. Visit [email or web address]/HealthyPregnancyGuide to download your free copy documented in this [facility]08-18-2023 Miscellaneous Notes* Quick Notes - Millicent Dent [...] reviewed Millicent Ribeiro MD documented in this encounterWilson [facility]08-18-2023 History of Present illness Narrative* Dana Jimenez [...] severely ill: Yes Patient denies history of Guillain-[place] Syndrome (a severe paralytic illness): Yes Tdap Adacel injection was given without incident. See immunizations for details of immunizations administered today. VIS sheet provided: Yes Provider Jabier was present in office at time of injection. Dana Jimenez Ma documented in this encounterWilson [facility]08-18-2023 Instructions* Patient Instructions* Dana Jimenez Ma - 11/03/2022 10:02 AM EDT SEQUENTIAL SCREENINGS The [facility] offers sequential screenings for women who are [...] testing. It will require an appointment withour design engineering technician. This is not an ultrasound performed [...] the above symptoms, contact our office at [phone] and ask to speak with anurse. After hours, you can call doctors registry at [phone] OR call [facility] at [phone] ask to have the doctor hairspring fabrication supervisor paged. If you consider this an emergency, dial 7-3-1 or go to your nearest emergency department. NEED HELP? Are you dealing with a violent or abusive relationship? Are you a victim of rape or sexual assult? Call [facility] 24 hour Crisis Hotline: 889.416.7213 or 166-276-6580. MANUAL Your Guide to a Healthy manual is now on-line. Visit [email or web address]/HealthyPregnancyGuide to download your free copy documented in this [facility] [facility]08-18-2023 Miscellaneous Notes* Telephone Encounter - Halima Mack RN - 11/03/2022 9:47 AM EDT 2nd risk assessment form submitted at 28 wks. Halima Mack RN documented in this [facility]Wilson [facility]07-26-2023 Hospital Discharge instructions Patient Education 10/11/2022 15:03:17 Obesity, Adult, Dafa-ia-Ound Obesity, Adult Obesity is having too much [...] food choices, such as grocery stores and [employer]. What are the signs or symptoms? [...] eat. ?How much exercise you get. Take yuan-bbr-rmheicc and prescription medicines only as told by [...] provider. Document Revised: 10/11/2021 Document Reviewed: 10/11/2021 [email or web address] Patient Education 2022 [employer]. Follow Up Care 06/20/2022 09:03:56 With:Erin POWELL CNP Address: [address] [place], [place] [id number]- When: only if needed [facility] 07-18-2023 Miscellaneous Notes* Telephone Encounter - Jus Katz RN - 10/03/2022 9:33 AM EDT Received records. On Dr Eagle olivia for review and a copy sent to be scanned into medical record * Telephone Encounter - Jus Katz RN - 10/02/2022 3:07 PM EDT Received medical records from [facility].No records were included. Just TiffanyYN visit from 08/04/2020. I called their office to get the other records faxed to us. Spoke with Dayanara and she will fax office visits to us. ( If pt calls back I had left a message to clarify if she had care there-[facility] to bother her) documented in this [facility] [facility]06-16-2023 Miscellaneous Notes* Quick Notes - Jairo Guillermo MD - 09/01/2022 4:12 PM EDT KJ - No VB/LOF/ctxs. Possible flutters. A&P: Anatomy US today & follow up schedule Need records - patient to sign records release as reports getting PNB in [place] Urine culture Jairo Guillermo MD documented in this encounterWilson [address] [facility]06-16-2023 Instructions* Patient Instructions* Mandi Jorge Ma - 09/01/2022 3:53 PM EDT SEQUENTIAL SCREENINGS The [facility] offers sequential screenings for women who are [...] testing. It will require an appointment withour design engineering technician. This is not an ultrasound performed [...] the above symptoms, contact our office at [phone] and ask to speak with anurse. After hours, you can call doctors registry at [phone] OR call [facility] at [phone] ask to have the doctor hairspring fabrication supervisor paged. If you consider this an emergency, dial [phone]- or go to your nearest emergency department. NEED HELP? Are you dealing with a violent or abusive relationship? Are you a victim of rape or sexual assult? Call [facility] ([place]) 24 hour Crisis Hotline: 858.463.1975 or 285-248-4362. MANUAL Your Guide to a Healthy manual is now on-line. Visit [email or web address] to download your free copy [facility] Discharge instructions Patient Education 06/20/2022 08:56:13 Obesity, Adult, [id number]-[id number] Obesity, Adult Obesity is having too much [...] food choices, such as grocery stores and [employer]. What are the signs or symptoms? [...] eat. ?How much exercise you get. Take ubzl-gou-msdmzja and prescription medicines only as told by [...] 05/27/2012 Document Revised: 11/07/2018 Document Reviewed: 11/07/2018 [email or web address] Patient Education [email or web address]. Follow Up Care 06/16/2022 08:57:43 With:Erin POWELL CNP Address: [address] [place] [phone] When:Within 3 Month(s) [facility] 03-29-2023 Evaluation + Plan note Diagnostic Tests Pending * Hepatitis B Surface Antigen 06/14/22 * Urine Culture 06/14/22 * RPR with Conf Rfx 06/14/22 * Rubella Antibody IgG 06/14/22 * HIV Screen 4th Generation wRfx 06/14/22 * Varicella Zoster Antibody IgG 06/14/22 [facility]03-[facility] History of Present illness Narrative* Nayana Sterling CNP - 05/18/2021 7:19 AM EST [facility] [address] [facility] [address] [facility] [id number] Chief Complaint Patient presents with Right Hand [...] has normal right wrist ROM. Muscle Strength Director Business Systems: 4/5 Tests Phalen s sign: positive Tinel's [...] with the treatment plan. documented in this [id number] History of Present illness Narrative* Val Dai MD - 12/08/2020 5:00 PM EDT Jumana Otto 20 y.o. 2000 female Changes since last [...] Friends and Family: Not on file Attends Congregation Services: Not on file Active Member of [...] months. Val Dai MD documented in this [id number] History of Present illness Narrative* Val Dai [...] Social Gatherings with Friends and Family: Attends Congregation Services: Active Member of Clubs or Organizations: [...] colonoscopy. Val Dai MD documented in this [id number] History of Present illness Narrative* Val Dai [...] Social Gatherings with Friends and Family: Attends Congregation Services: Active Member of Clubs or Organizations: [...] Appointment Date:08/10/2021 03:30:00 PM Scheduled Provider:Josey CASTILLO [facility] Future Appointments Appointment Date:09/20/2022 09:00:00 AM Scheduled Provider:Erin POWELL CNP Location:[facility] Appointment Type:[facility] Evaluation + Plan note Future Appointments Appointment Date:04/04/2024 09:40:00 AM Scheduled Provider:Herber Aragon MD Location:[facility] Appointment Type:[facility] Evaluation note* Diagnosis Irritable bowel syndrome without diarrhea- [facility] Diagnosis Irritable bowel syndrome with both constipation and diarrhea [facility] Diagnosis Irritable bowel syndrome with diarrhea- Primary Irritable bowel syndrome documented [facility]* Diagnosis Irritable bowel syndrome with diarrhea Irritable bowel syndrome documented in this encounter [facility] note* Diagnosis Tendinitis of thumb- Primary Carpal tunnel syndrome of right wrist documented in this encounter [facility] noteNo assessment information availableAk[facility] Work Phone: Evaluation note* Diagnosis with care elsewhere, antepartum- Primary Obesity during Recurrent urinary tract infection affecting , antepartum 19 weeks gestation of state, incidental [facility] Diagnosis Obesity during [facility] this encounter [facility] Diagnosis Obesity during - Primary Rh negative state in antepartum period Rhesus isoimmunization affecting management of mother, antepartum condition Need for vaccination Need for prophylactic vaccination and inoculation against unspecified single disease 28 weeks gestation of state, incidental [facility]* Diagnosis Encounter for follow-up ultrasound of anatomy- Primary Obesity affecting in second trimester, unspecified obesity type 29 weeks gestation of state, incidental documented [facility] this encounter [facility]* Diagnosis Obesity during - Primary 29 weeks gestation of state, incidental documented [facility] this encounter [facility]* Diagnosis Obesity in - Primary Obesity complicating , childbirth, or the puerperium, unspecified as to episode of care or not applicable 31 weeks gestation of state, incidental documented in this encounter [facility]* Diagnosis with care elsewhere, antepartum- Primary Obesity during 35 weeks gestation of state, incidental documented in this encounter [facility]* Diagnosis Obesity during - Primary with care elsewhere, antepartum 36 weeks gestation of state, incidental documented in this encounter [facility]* Diagnosis with care elsewhere, antepartum- Primary Obesity during Encounter for ultrasound to check growth Encounter for routine screening for malformation using ultrasonics 37 weeks gestation of state, incidental Need for influenza vaccination Need for prophylactic vaccination and inoculation against influenza documented in this encounter [facility]* Diagnosis Encounter for ultrasound to assess growth- Primary Uterine size-date discrepancy, third trimester Supervision of other high risk pregnancies, third trimester 38 weeks gestation of state, incidental documented in this encounter [facility]* Diagnosis Supervision of other high risk pregnancies, third trimester- Primary 38 weeks gestation of state, incidental [facility] this encounter [facility]* Diagnosis Onset Date Resolution Status 39 weeks gestation of acute Uterine contractions acute 39 weeks gestation of acute Artificial rupture of membranes antepartum acute Meconium in amniotic fluid a cute Obesity affecting acute Recurrent UTI acute Rh negative status during acute Spontaneous onset of labor a cute (spontaneous vaginal delivery) acute [facility] Work Phone: Evaluation note* Diagnosis with uncertain dates in first trimester- Primary 7 weeks gestation of state, incidental Short interval between pregnancies affecting , antepartum Encounter for supervision of normal in multigravida in first trimester documented [facility] this encounter [facility] Diagnosis Short interval between pregnancies affecting , antepartum- Primary 12 weeks gestation of state, incidental Encounter for supervision of other normal in second trimester [facility] this encounter [facility]* Diagnosis Encounter for screening for malformation using ultrasound- Primary 16 weeks gestation of state, incidental Obesity affecting in second trimester, unspecified obesity type [facility] Diagnosis Short interval between pregnancies affecting , antepartum- Primary Encounter for supervision of other normal in second trimester 16 weeks gestation of state, incidental [facility] Diagnosis Encounter for supervision of other normal in second trimester- Primary 20 weeks gestation of state, incidental [facility] Diagnosis Encounter for anatomic survey- Primary Obesity affecting in second trimester, unspecified obesity type 20 weeks gestation of state, incidental documented in this encounter [facility]* Diagnosis Encounter for supervision of other normal in second trimester- Primary Short interval between pregnancies affecting , antepartum Vaginal itching Pruritus of genital organs Screening for diabetes mellitus [facility] Diagnosis Encounter for supervision of high risk in second trimester, antepartum- Primary 24 weeks gestation of state, incidental Rh negative state in antepartum period Rhesus isoimmunization affecting management of mother, antepartum condition Screening for diabetes mellitus Obesity affecting in third trimester, unspecified obesity type documented in this encounter [facility] note* Diagnosis Obesity affecting in third trimester, unspecified obesity type (HCC)- Primary 30 weeks gestation of (HCC) state, incidental Encounter for supervision of high risk in third trimester, antepartum (HCC) Anemia complicating , third trimester (HCC) documented in this encounter [facility] note* Diagnosis Obesity affecting in third trimester, unspecified obesity type (HCC)- Primary 34 weeks gestation of (HCC) state, incidental Encounter for supervision of high risk in third trimester, antepartum (HCC) documented in this encounter [facility] note* Diagnosis Obesity affecting in third trimester, unspecified obesity type (HCC)- Primary Encounter for supervision of high risk in third trimester, antepartum (HCC) Anemia complicating , third trimester (HCC) 36 weeks gestation of (HCC) state, incidental documented in this encounter [facility] note* Diagnosis Obesity affecting in third trimester, unspecified obesity type (HCC)- Primary 37 weeks gestation of (HCC) state, incidental Encounter for supervision of high risk in third trimester, antepartum (HCC) Anemia complicating , third trimester (HCC) Short interval between pregnancies affecting , antepartum (HCC) documented in this encounter [facility] note* Diagnosis Encounter for supervision of high risk in third trimester, antepartum (HCC)- Primary Obesity affecting in third trimester, unspecified obesity type (HCC) Anemia complicating , third trimester (HCC) Short interval between pregnancies affecting , antepartum (HCC) 38 weeks gestation of (HCC) state, incidental documented in this encounter [facility] note* Diagnosis Obesity affecting in third trimester, unspecified obesity type (HCC)- Primary 39 weeks gestation of (HCC) state, incidental Encounter for supervision of high risk in third trimester, antepartum (HCC) Anemia complicating , third trimester (HCC) Short interval between pregnancies affecting , antepartum (HCC) documented in this encounter [facility] note* Diagnosis Encounter for supervision of high risk in third trimester, antepartum (HCC)- Primary Short interval between pregnancies affecting , antepartum (HCC) Anemia complicating , third trimester (HCC) 40 weeks gestation of (HCC) state, incidental Vaginal discharge during in third trimester (HCC) * Assessment & Plan Note - Iris Garcia MD - 10/02/2024 3:32 PM EDT Associated Problem(s): Anemia complicating , third trimester (HCC) Orders: TABITHA/TRICHOMONAS NAAT BACTERIAL VAGINOSIS NAAT UA DIP, URINE (POC) BACTERIAL CULTURE, URINE * Assessment & Plan Note - Iris Garcia MD - 10/02/2024 3:32 PM EDT Associated Problem(s): Short interval between pregnancies affecting , antepartum ([facility]) Orders: TABITHA/TRICHOMONAS NAAT BACTERIAL VAGINOSIS NAAT UA DIP, URINE (POC) BACTERIAL CULTURE, URINE [facility] Narrative No data available for this section [facility] Discharge instructions No data available for this section [facility] No data available for this section [facility] (narrative)* Consultation (Routine) Status Reason Specialty Diagnoses / Procedures Referred By Contact Referred To Contact Authorized Gastroenterology Diagnoses Irritable bowel syndrome without diarrhea Erin Powell CNP [address] [place] [address] Val Dai MD [address] [place] [address] [facility] Diagnostic Procedure Only (Routine) - Authorized Specialty Diagnoses / Procedures Referred By Contac t Referred To Contact [facility] Diagnoses Obesity during Procedures OBSTETRIC ULTRASOUND WHI US PREG UTERUS AFTER 1ST TRIMEST GESTATION Jairo Guillermo MD [address] [place] [address] [address] [facility] [address] [place] [address] Referral ID Status Reason Start Date Expiration Date Visits Requested Visits Authorized [id number] Authorized Auto-Generat ed Referral 09/01/2022 09/01/2023 1 1 [facility] for referral (narrative)* Diagnostic Procedure Only (Routine) - Authorized Specialty Diagnoses / Procedures Referred By Contac t Referred To Contact [facility] Diagnoses Obesity during 29 weeks gestation of Procedures OBSTETRIC ULTRASOUND WHI US PREG UTERUS AFTER 1ST TRIMEST GESTATION Jairo Guillermo MD [address] [place] [address] [address] Referral ID Status Reason Start Date Expiration Date Visits Requested Visits Authorized [id number] Authorized Auto-Generat ed Referral 11/14/2022 11/14/2023 1 1 [facility] for referral (narrative)* Diagnostic Procedure Only (Routine) - Authorized Specialty Diagnoses / Procedures Referred By Contac t Referred To Contact [facility] Diagnoses 7 weeks gestation of Procedures OBSTETRIC ULTRASOUND WHI US PREG UTERUS AFTER 1ST TRIMEST GESTATION Kathie Degroot APRN.CNP [address] [place] [address] [address] Referral ID Status Reason Start Date Expiration Date Visits Requested Visits Authorized [id number] Authorized Auto-Generat ed Referral 02/19/2024 02/18/2025 1 1 [facility] for referral (narrative)* Diagnostic Procedure Only (Routine) - Authorized Specialty Diagnoses / Procedures Referred By Contac t Referred To Contact [facility] Diagnoses 12 weeks gestation of Short interval between pregnancies affecting , antepartum Encounter for supervision of other normal in second trimester Procedures OBSTETRIC ULTRASOUND WHI US PREG UTERUS AFTER 1ST TRIMEST GESTATION Tatum Yost MD [address] [place] [address] [place] [address] [place] [address] Referral ID Status Reason Start Date Expiration Date Visits Requested Visits Authorized [id number] Authorized Auto-Generat ed Referral 03/21/2024 03/21/2025 1 1 [facility] for visit Narrative* Consultation (Routine) Status Reason Specialty Diagnoses / Procedures Referred By Contact Referred To Contact Closed Gastroenterology Diagnoses Irritable bowel syndrome without diarrhea Erin Powell, SAIDA [address] [place] [address] Val Dai MD [address] [place] [address] [facility] Summary Purpose Family History No Family History Records FoundNo Family History Records FoundNo Family History Records FoundNo Family History Records FoundNo Family History Records FoundNo Family History Records FoundNo Family History Records FoundNo Family History Records Found No data available for this section No Family History Records FoundNo Family History Records Found Advance Directives Documents on File Type Date Recorded Patient Mobile Ui/Ux Designer Expl anation Advance Directives and Living Will Documents on File Type Date Recorded Patient Mobile Ui/Ux Designer Expl anation Advance Directives and Living Will Advance Directive Response Recorded Date/ Time Advance Directives No July 26 12:02pm Advance Directive Response Recorded Date/ Time Living Will No January 25 12:39am Power of Barge Pilot No January 25, 2023 12:39am History of Present Illness * Nayana Sterling, SAIDA - 05/12/2020 11:56 AM EST [facility] [address] [facility] [address] [facility] [id number] Chief Complaint Patient presents with Right Hand - Pain Jumana Menjivar, 20 year old female with right thumb pain. She states that this has been going on for months now but within the last couple of weeks its been so painful that she has a hard time using that right hand. 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 Muscle Strength Director Business Systems: 4/5 Tests Phalen s Sign: negative Tinel's [...] Referral Specialty Diagnoses / Procedures Referred By Contac t Referred To Contact Neurology Diagnoses Carpal tunnel syndrome of right wrist Procedures Nerve conduction test Nayana Sterling CNP [address] [place] [address] Brady Steward MD [address] [address] Referral ID Status Reason Start Date Expiration Date V isits Requested Visits Authorized [id number] Authorized 05/17/2021 05/17/2022 1 1 Specialty Diagnoses / Procedures Referred By Contac t Referred To Contact Neurology Diagnoses Carpal tunnel syndrome of right wrist Procedures EMG: Nayana Sterling, SAIDA [address] [place] [address] Brady Steward MD [address] [place] [id number] Referral ID Status Reason Start Date Expiration Date V isits Requested Visits Authorized [id number] Authorized 05/17/2021 05/17/2022 1 1 Chief Complaint [...] Problem Noted Date [facility] Education - COMMON 07/18 Education - [place] 08/08/2022 Problem Noted Date Diagnosed Date [facility] Education - [facility] 08/08/2022 Education - [place] 08/08/2022 Problem Noted Date Diagnosed Date [facility] Education - [facility] 08/08/2022 Education - [place] 08/08/2022 Problem Noted Date Diagnosed Date [facility] Education - [facility] 08/08/2022 Education - [place] 08/08/2022 Problem Noted Date Diagnosed Date [facility] Education - [facility] 08/08/2022 Education - [place] 08/08/2022 Problem Noted Date Diagnosed Date [facility] Education - [facility] 08/08/2022 Education - [place] 08/08/2022 Problem Noted Date Diagnosed Date [facility] Education - [facility] 08/08/2022 Education - [place] 08/08/2022 Problem Noted Date Diagnosed Date [facility] Education - [facility] 08/08/2022 Education - [place] 08/08/2022 Problem Noted Date Diagnosed Date [facility] Education - [facility] 08/08/2022 Education - [place] 08/08/2022 Problem Noted Date Diagnosed Date [facility] Education - [facility] 08/08/2022 Education - [place] 08/08/2022 Problem Noted Date Diagnosed Date [facility] Education - [facility] 08/08/2022 Education - [place] 08/08/2022 Problem Noted Date Diagnosed Date [facility] Education - [facility] 08/08/2022 Education - [place] 08/08/2022 Additional Source Comments INFORMATION SOURCE (unrecogn ized section and content) DATE CREATED AUTHOR 02/25/2018 [facility] DATE CREATED AUTHOR AUTHOR'S ORGANIZ ATION 08/21/2020 [facility] DATE CREATED AUTHOR AUTHOR'S ORGANIZ ATION 04/25/2021 [facility] DATE CREATED AUTHOR AUTHOR'S ORGANIZ ATION 05/18/2021 [facility] DATE CREATED AUTHOR AUTHOR'S ORGANIZ ATION 09/02/2021 [facility] DATE CREATED AUTHOR AUTHOR'S ORGANIZ ATION 03/20/2022 [facility] DATE CREATED AUTHOR AUTHOR'S ORGANIZ ATION 03/29/2022 [facility] DATE CREATED AUTHOR AUTHOR'S ORGANIZ ATION 02/02/2023 [facility] DATE CREATED AUTHOR AUTHOR'S ORGANIZ ATION 07/06/2024 [facility] DATE CREATED AUTHOR AUTHOR'S ORGANIZ ATION 09/30/2024 [facility] Reason for Visit (unrecogniz ed section and content) Reason Comments Pain Reason Comments Pain Reason Onset Date Comments Care 09/01/2022 Reason Comments US Specialty Diagnoses / Procedures Referred By Charity burnett [facility] Diagnoses Obesity during Procedures OBSTETRIC ULTRASOUND WHI US PREG UTERUS AFTER 1ST TRIMEST GESTATION Jairo Guillermo MD [address] [place] [address] [place] [address] [place] [address] Referral ID Status Reason Start Date Expiration Date V isits Requested Visits Authorized [id number] Closed Auto-Generate d Referral 09/01/2022 09/01/2023 1 1 Reason Comments Received Outside Medical Records Reason Comments [employer] Laminator - Other 2nd [facility] assessment form submitted at 28 wks. Halima Mack RN Reason Onset Date Comments Care 11/03/2022 Specialty Diagnoses / Procedures Referred By Contac t Referred To Contact [facility] Diagnoses Encounter for follow-up ultrasound of anatomy Procedures OBSTETRIC ULTRASOUND WHI US PREG UTERUS AFTER 1ST TRIMEST GESTATION Millicent Dent MD [address] [place] [address] [address] Referral ID Status Reason Start Date Expiration Date V isits Requested Visits Authorized [id number] Closed Auto-Generate d Referral 10/09/2022 10/09/2023 1 1 Reason Onset Date Comments Care 11/14/2022 Reason Onset Date Comments Care 11/29/2022 Reason Onset Date Comments Care 12/26/2022 Reason Onset Date Comments Care 01/02/2023 Reason Onset Date Comments Care 01/10/2023 Immunizations 01/10/2023 Flu vaccination Specialty Diagnoses / Procedures Referred By Contac t Referred To Contact [facility] Diagnoses Uterine size-date discrepancy, third trimester Supervision of other high risk pregnancies, third trimester Procedures OBSTETRIC ULTRASOUND WHI US PREG UTERUS AFTER 1ST TRIMEST GESTATION Iris Garcia MD [address] [address] [address] [place] [address] Referral ID Status Reason Start Date Expiration Date V isits Requested Visits Authorized [id number] Closed Auto-Generate d Referral 12/13/2022 12/13/2023 1 1 Reason Onset Date Comments Care 01/16/2023 Reason Comments Ob Delivery Note Reason Comments Appointment Reason Comments New OB Reason Comments [employer] Boards Laminator - Other PRAF Reason Onset Date Comments Care 03/21/2024 Specialty Diagnoses / Procedures Referred By Contac t Referred To Contact [facility] Diagnoses 7 weeks gestation of Procedures OBSTETRIC ULTRASOUND WHI US PREG UTERUS AFTER 1ST TRIMEST GESTATION Kathie Degroot APRN.SAIDA [address] [place] [address] [address] Referral ID Status Reason Start Date Expiration Date V isits Requested Visits Authorized [id number] Closed Auto-Generate d Referral 02/19/2024 02/18/2025 1 1 Reason Onset Date Comments Care 04/17/2024 Reason Onset Date Comments Care 05/15/2024 Specialty Diagnoses / Procedures Referred By Contac t Referred To Contact [facility] Diagnoses 12 weeks gestation of Short interval between pregnancies affecting , antepartum Encounter for supervision of other normal in second trimester Procedures OBSTETRIC ULTRASOUND WHI US PREG UTERUS AFTER 1ST TRIMEST GESTATION Tatum Yost MD [address] [place] [address] Phone: tel: fax: [address] [address] Referral ID Status Reason Start Date Expiration Date V isits Requested Visits Authorized [id number] Closed Auto-Generate d Referral 03/21/2024 03/21/2025 1 [...] Care Teams (unrecognized sec tion and content) Archeologist Relationship Specialty Start Date End Date Erin Powell, SAIDA [address] [id number] PCP - General Nurse Practitioner 05/11/20 Archeologist Relationship Specialty Start Date End Date AndreErinzaSAIDA salmon [address] [place] [address] PCP - General Nurse Practitioner 05/11/20 Team Status: Inactive Member Role Status Dates Asael Puente MD Attending Provider Active Erin Powell APRN COMMUNITY SERVICE COORDINATOR-C Primary Care Provider Active Team Status: Active Member Role Status Dates Erin Powell APRN COMMUNITY SERVICE COORDINATOR-C Primary Care Provider Active Archeologist Relationship Specialty Start Date End Date (Historical), No Pcp PCP - General 11/20/14 Archeologist Relationship Specialty Start Date End Date (Historical), No Pcp PCP - General 11/20/14 Archeologist Relationship Specialty Start Date End Date (Historical), No Pcp PCP - General 11/20/14 Archeologist Relationship Specialty Start Date End Date (Historical), No Pcp PCP - General 11/20/14 Archeologist Relationship Specialty Start Date End Date (Historical), No Pcp PCP - General 11/20/14 Archeologist Relationship Specialty Start Date End Date (Historical), No Pcp PCP - General 11/20/14 Archeologist Relationship Specialty Start Date End Date (Historical), No Pcp PCP - General 11/20/14 Archeologist Relationship Specialty Start Date End Date (Historical), No Pcp PCP - General 11/20/14 Archeologist Relationship Specialty Start Date End Date (Historical), No Pcp PCP - General 11/20/14 Archeologist Relationship Specialty Start Date End Date (Historical), No Pcp PCP - General 11/20/14 Archeologist Relationship Specialty Start Date End Date (Historical), No Pcp PCP - General 11/20/14 Team Status: Active Member Role Status Dates ERIN POWELL Primary Care Provider Active Team Status: Inactive Member Role Status Dates ANDRE KHAN Primary Care Provider Active Beena Walters CNM Attending Provider, Referring Pr ovider Active Archeologist Relationship Specialty Start Date End Date (Historical), No Pcp PCP - General 11/20/14 Team Status: Inactive Member Role Status Dates ANDRE KHAN Primary Care Provider Active Dr. Iris Garcia MD Admit Provider, Attending Pro vider Active Archeologist Relationship Specialty Start Date End Date Sunday Bruno [address] [place] [place] [address] PCP - General Family Medicine 01/28/24 Archeologist Relationship Specialty Start Date End Date Sunday Bruno [address] [place] [address] PCP - General Family Medicine 01/28/24 Archeologist Relationship Specialty Start Date End Date Sunday Bruno [address] [place] [address] PCP - General Family Medicine 01/28/24 Archeologist Relationship Specialty Start Date End Date Sunday Bruno [address] [place] [address] PCP - General Family Medicine 01/28/24 Archeologist Relationship Specialty Start Date End Date Sunday Bruno [address] [place] [address] PCP - General Family Medicine 01/28/24 Archeologist Relationship Specialty Start Date End Date Sunday Bruno [address] [place] [address] PCP - General Family Medicine 01/28/24 Archeologist Relationship Specialty Start Date End Date Sunday Bruno [address] [place] [place] [address] PCP - General Family Medicine 01/28/24 Archeologist Relationship Specialty Start Date End Date Sunday Bruno [address] [place] [address] PCP - General Family Medicine 01/28/24 Archeologist Relationship Specialty Start Date End Date Sunday Bruno [address] [place] [place] [address] PCP - General Family Medicine 01/28/24 Archeologist Relationship Specialty Start Date End Date Sunday Bruno [address] [place] [place] [address] PCP - General Family Medicine 01/28/24 Archeologist Relationship Specialty Start Date End Date Sunday Bruno [address] [place] [place] [address] PCP - General Family Medicine 01/28/24 Archeologist Relationship Specialty Start Date End Date Sunday Bruno [address] [place] [place] [address] PCP - General Family Medicine 01/28/24 Archeologist Relationship Specialty Start Date End Date Sunday Bruno [address] [place] [address] PCP - General Family Medicine 01/28/24 Archeologist Relationship Specialty Start Date End Date Sunday Bruno [address] [place] [address] PCP - General Family Medicine 01/28/24 Archeologist Relationship Specialty Start Date End Date Sunday Bruno [address] [place] [address] PCP - General Family Medicine 01/28/24 Archeologist Relationship Specialty Start Date End Date Sunday Bruno [address] [place] [address] PCP - General Family Medicine 01/28/24 Archeologist Relationship Specialty Start Date End Date Sunday Bruno [address] [place] [address] PCP - General Family Medicine 01/28/24 <item> [...] or prosecute any alcohol or drug abuse patient.[facility] HospitalIn the event this information is protected by the Federal Confidentiality of Alcohol and Drug Abuse Patient Records regulations: The Federal rules restrict any use of the information to criminally investigate or prosecute any alcohol or drug abuse patient.[facility] HospitalIn the event this information is protected by the Federal Confidentiality of Alcohol and Drug Abuse Patient Records regulations: The Federal rules restrict any use of the information to criminally investigate or prosecute any alcohol or drug abuse patient.[facility] HospitalIn the event this information is protected by the Federal Confidentiality of Alcohol and Drug Abuse Patient Records regulations: The Federal rules restrict any use of the information to criminally investigate or prosecute any alcohol or drug abuse patient.[facility] HospitalIn the event this information is protected by the Federal Confidentiality of Alcohol and Drug Abuse Patient Records regulations: The Federal rules restrict any use of the information to criminally investigate or prosecute any alcohol or drug abuse patient.[facility] HospitalIn the event this information is protected by the Federal Confidentiality of Alcohol and Drug Abuse Patient Records regulations: The Federal rules restrict any use of the information to criminally investigate or prosecute any alcohol or drug abuse patient.[facility] HospitalIn the event this information is protected by the Federal Confidentiality of Alcohol and Drug Abuse Patient Records regulations: The Federal rules restrict any use of the information to criminally investigate or prosecute any alcohol or drug abuse patient.[facility] HospitalIn the event this information is protected by the Federal Confidentiality of Alcohol and Drug Abuse Patient Records regulations: The Federal rules restrict any use of the information to criminally investigate or prosecute any alcohol or drug abuse patient.[facility] HospitalIn the event this information is protected by the Federal Confidentiality of Alcohol and Drug Abuse Patient Records regulations: The Federal rules restrict any use of the information to criminally investigate or prosecute any alcohol or drug abuse patient.[facility] HospitalIn the event this information is protected by the Federal Confidentiality of Alcohol and Drug Abuse Patient Records regulations: The Federal rules restrict any use of the information to criminally investigate or prosecute any alcohol or drug abuse patient.[facility] HospitalIn the event this information is protected by the Federal Confidentiality of Alcohol and Drug Abuse Patient Records regulations: The Federal rules restrict any use of the information to criminally investigate or prosecute any alcohol or drug abuse patient.[facility] HospitalIn the event this information is protected by the Federal Confidentiality of Alcohol and Drug Abuse Patient Records regulations: The Federal rules restrict any use of the information to criminally investigate or prosecute any alcohol or drug abuse patient.[facility] HospitalIn the event this information is protected by the Federal Confidentiality of Alcohol and Drug Abuse Patient Records regulations: The Federal rules restrict any use of the information to criminally investigate or prosecute any alcohol or drug abuse patient.[facility] HospitalIn the event this information is protected by the Federal Confidentiality of Alcohol and Drug Abuse Patient Records regulations: The Federal rules restrict any use of the information to criminally investigate or prosecute any alcohol or drug abuse patient.[facility] HospitalIn the event this information is protected by the Federal Confidentiality of Alcohol and Drug Abuse Patient Records regulations: The Federal rules restrict any use of the information to criminally investigate or prosecute any alcohol or drug abuse patient.[facility] HospitalIn the event this information is protected by the Federal Confidentiality of Alcohol and Drug Abuse Patient Records regulations: The Federal rules restrict any use of the information to criminally investigate or prosecute any alcohol or drug abuse patient.[facility] HospitalIn the event this information is protected by the Federal Confidentiality of Alcohol and Drug Abuse Patient Records regulations: The Federal rules restrict any use of the information to criminally investigate or prosecute any alcohol or drug abuse patient.[facility] HospitalIn the event this information is protected by the Federal Confidentiality of Alcohol and Drug Abuse Patient Records regulations: The Federal rules restrict any use of the information to criminally investigate or prosecute any alcohol or drug abuse patient.[facility] HospitalIn the event this information is protected by the Federal Confidentiality of Alcohol and Drug Abuse Patient Records regulations: The Federal rules restrict any use of the information to criminally investigate or prosecute any alcohol or drug abuse patient.[facility] HospitalIn the event this information is protected by the Federal Confidentiality of Alcohol and Drug Abuse Patient Records regulations: The Federal rules restrict any use of the information to criminally investigate or prosecute any alcohol or drug abuse patient.[facility] HospitalIn the event this information is protected by the Federal Confidentiality of Alcohol and Drug Abuse Patient Records regulations: The Federal rules restrict any use of the information to criminally investigate or prosecute any alcohol or drug abuse patient.[facility] HospitalIn the event this information is protected by the Federal Confidentiality of Alcohol and Drug Abuse Patient Records regulations: The Federal rules restrict any use of the information to criminally investigate or prosecute any alcohol or drug abuse patient.[facility] HospitalIn the event this information is protected by the Federal Confidentiality of Alcohol and Drug Abuse Patient Records regulations: The Federal rules restrict any use of the information to criminally investigate or prosecute any alcohol or drug abuse patient.[facility] HospitalIn the event this information is protected by the Federal Confidentiality of Alcohol and Drug Abuse Patient Records regulations: The Federal rules restrict any use of the information to criminally investigate or prosecute any alcohol or drug abuse patient.[facility] HospitalIn the event this information is protected by the Federal Confidentiality of Alcohol and Drug Abuse Patient Records regulations: The Federal rules restrict any use of the information to criminally investigate or prosecute any alcohol or drug abuse patient.[facility] HospitalIn the event this information is protected by the Federal Confidentiality of Alcohol and Drug Abuse Patient Records regulations: The Federal rules restrict any use of the information to criminally investigate or prosecute any alcohol or drug abuse patient.[facility] HospitalIn the event this information is protected by the Federal Confidentiality of Alcohol and Drug Abuse Patient Records regulations: The Federal rules restrict any use of the information to criminally investigate or prosecute any alcohol or drug abuse patient.[facility] HospitalIn the event this information is protected by the Federal Confidentiality of Alcohol and Drug Abuse Patient Records regulations: The Federal rules restrict any use of the information to criminally investigate or prosecute any alcohol or drug abuse patient.[facility] HospitalIn the event this information is protected by the Federal Confidentiality of Alcohol and Drug Abuse Patient Records regulations: The Federal rules restrict any use of the information to criminally investigate or prosecute any alcohol or drug abuse patient.[facility] HospitalIn the event this information is protected by the Federal Confidentiality of Alcohol and Drug Abuse Patient Records regulations: The Federal rules restrict any use of the information to criminally investigate or prosecute any alcohol or drug abuse patient.[facility] HospitalIn the event this information is protected by the Federal Confidentiality of Alcohol and Drug Abuse Patient Records regulations: The Federal rules restrict any use of the information to criminally investigate or prosecute any alcohol or drug abuse patient.[facility] HospitalIn the event this information is protected by the Federal Confidentiality of Alcohol and Drug Abuse Patient Records regulations: The Federal rules restrict any use of the information to criminally investigate or prosecute any alcohol or drug abuse patient.[facility] HospitalIn the event this information is protected by the Federal Confidentiality of Alcohol and Drug Abuse Patient Records regulations: The Federal rules restrict any use of the information to criminally investigate or prosecute any alcohol or drug abuse patient.[facility] HospitalIn the event this information is protected by the Federal Confidentiality of Alcohol and Drug Abuse Patient Records regulations: The Federal rules restrict any use of the information to criminally investigate or prosecute any alcohol or drug abuse patient.[facility] HospitalIn the event this information is protected by the Federal Confidentiality of Alcohol and Drug Abuse Patient Records regulations: The Federal rules restrict any use of the information to criminally investigate or prosecute any alcohol or drug abuse patient.[facility] HospitalIn the event this information is protected by the Federal Confidentiality of Alcohol and Drug Abuse Patient Records regulations: The Federal rules restrict any use of the information to criminally investigate or prosecute any alcohol or drug abuse patient.[facility] HospitalIn the event this information is protected by the Federal Confidentiality of Alcohol and Drug Abuse Patient Records regulations: The Federal rules restrict any use of the information to criminally investigate or prosecute any alcohol or drug abuse patient.[facility] HospitalIn the event this information is protected by the Federal Confidentiality of Alcohol and Drug Abuse Patient Records regulations: The Federal rules restrict any use of the information to criminally investigate or prosecute any alcohol or drug abuse patient.[facility] HospitalIn the event this information is protected by the Federal Confidentiality of Alcohol and Drug Abuse Patient Records regulations: The Federal rules restrict any use of the information to criminally investigate or prosecute any alcohol or drug abuse patient.[facility] HospitalIn the event this information is protected by the Federal Confidentiality of Alcohol and Drug Abuse Patient Records regulations: The Federal rules restrict any use of the information to criminally investigate or prosecute any alcohol or drug abuse patient.[facility] HospitalIn the event this information is protected by the Federal Confidentiality of Alcohol and Drug Abuse Patient Records regulations: The Federal rules restrict any use of the information to criminally investigate or prosecute any alcohol or drug abuse patient.[facility] FOR RECORDS PERTAINING TO PATIENTS WHO ARE [...] BE BASED ON THE PRIMARY CLINICAL RECORDS. [facility]. provides no warranty or guarantee of the accuracy or completeness of information in this document.
[2024-10-05] MEDS: Lactated Ringers 1,000 ML 50 ML IV (07:40)
[2024-10-05] MEDS: Oxytocin 15 Units/NS 250ml 15 UNITS/250 ML IV.SOLN 2 UNITS IV (08:45)
[2024-10-05 09:02] LABS: Hematocrit 33.0 % (37-47); Hemoglobin 10.6 g/dL (12.0-15.0); Immature Granulocytes Count 0.030 X10^3/uL (0.0-0.0); Mean Corp Hgb Conc 32.1 g/dL (32-36); Mean Corpuscular Volume 81.7 fL (81-99); Mean Platelet Vol. 9.7 fl (6.2-12.0); NRBC Flagged by Analyzer 0 % (0-5); Platelet Count 286 K/mm3 (150-450); RBC Distribution Width CV 15.1 % (11.6-14.6); RBC Distribution Width SD 45.0 fl (35.1-43.9); Red Blood Count 4.04 M/mm3 (4.2-5.4); White Blood Count 8.8 K/mm3 (4.4-11.0)
[2024-10-05 09:35] LABS: Syphilis Antibodies Nonreactive (Nonreactive)
--- NOTE | 2024-10-05 13:07 | HP.PCM.OB_ITS ---
HPI - General General Date of Admission: 10/05/24 Date of Service: 10/05/24 Chief Complaint: induction HPI Narrative JUMANA GIORDANO, is a 24 F who presents for induction of labor. GBS negative Maternal Data Information Final FRANCINE: 10/02/24 Gestational age: 40+3 PFSH PFSH Medical History Asthma (spontaneous vaginal delivery) Meconium in amniotic fluid Recurrent UTI Rh negative status during Obesity affecting Home Medications ?Medication ?Instructions ?Recorded ?Last Taken ?Type ipratropium 20 mcg-albuterol 100 1 puff inhalation Q6H Asthma 01/24/23 Unknown History mcg/actuation mist for inhalation aspirin 81 mg tablet,delayed 81 mg PO DAILY 10/05/24 Unknown History release ferrous sulfate 325 mg (65 mg 325 mg PO DAILY Pregnanc y 10/05/24 10/04/24 History iron) tablet (iron) pantoprazole 20 mg tablet,delayed 20 mg PO DAILY Reflu x 10/05/24 10/04/24 History release (Protonix) vitamin#30 30 mg iron-10 1 cap PO DAILY Pregn jasvir 10/05/24 10/04/24 History mg iron-folic acid 1 mg-omg3 capsule (OB Complete With Dha) Allergy/AdvReac Type Severity Reaction Status Date / Time No Known Allergies Allergy Verified 01/24/23 10:49 Surgical History History of surgery Social History Smoking Status: Never smoker History 2 Elective abortions Hx Para 1 Spontaneous abortions Hx # Term Pregnancies Ectopic pregnancies Hx # Pregnancies Multiple births # of living children NST FHR Rate Baby A Baseline: 140 Variability:: Moderate Accelerations:: 15 x 15 Decelerations:: None NST Reactive:: Yes Uterine Activity:: q2-3 ROS Constitutional Constitutional: Denies fatigue, fever(s) or malaise Eyes Eyes: Denies change in vision ENT HEENT: Denies dizziness or headache(s) Cardiovascular Cardiovascular: Denies chest pain, dyspnea or lightheadedness Respiratory/Chest Respiratory/Chest: Denies cough or dyspnea Gastrointestinal Gastrointestinal: Denies change in bowel habits Genitourinary Genitourinary: Denies burning urination or genital lesions Integumentary Integumentary: Denies rash Neurologic Neurologic: Denies confusion, dizziness, headache(s), numbness or weakness Vital Signs Vital Signs Vital Signs: 10/05/24 08:10 10/05/24 08:10 10/05/24 08:10 Temperature 99.1 F Temperature Source Temporal Pulse Rate Respiratory Rate 16 Blood Pressure BP Systolic BP Diastolic Pulse Ox 10/05/24 08:12 10/05/24 08:12 10/05/24 08:12 Temperature 99.1 F Temperature Source Pulse Rate 113 H Respiratory Rate Blood Pressure 124/80 H BP Systolic 124 BP Diastolic 80 Pulse Ox 10/05/24 08:12 10/05/24 08:12 10/05/24 11:32 Temperature Temperature Source Pulse Rate 111 H 90 Respiratory Rate Blood Pressure BP Systolic BP Diastolic Pulse Ox 97 10/05/24 11:32 10/05/24 11:32 10/05/24 11:33 Temperature 98.8 F Temperature Source Pulse Rate Respiratory Rate Blood Pressure 128/78 H BP Systolic 128 BP Diastolic 78 Pulse Ox 100 10/05/24 11:33 Temperature Temperature Source Pulse Rate 89 Respiratory Rate Blood Pressure BP Systolic BP Diastolic Pulse Ox Weight Weight: 91.626 kg Body Mass Index (BMI) 34.7 Physical Exam Const alert and no apparent distress General Appearance: cooperative HEENT normocephalic Resp normal respiratory effort Cardio regular rate GI soft to palpation GI Narrative: gravid, nontender, appropriate for gestational age Extremity no calf tenderness General Extremity: edema Skin no wounds Rashes: No rashes noted Psych activity/motor behavior normal Labs Labs Labs: Blood Type A NEGATIVE Antibody Screen NEGATIVE Hct 33.0 % (37-47) L Hgb 10.6 g/dL (12.0-15.0) L Syphilis Total Ab Nonreactive (Nonreactive) Hepatitis C Antibody Non-Reactive (Nonreactive) Assessment & Plan (1) Elective induction of labor planned: (2) 40 weeks gestation of : PLAN: Plan AROM and pit
--- NOTE | 2024-10-05 13:10 | PN.OBGYN_ITS ---
Subjective Subjective AROM for clear fluid. 3-4/80/-2 Pit at 8. No epidural Objective Data Objective Data Vital Signs: Vital Signs Temp Pulse Resp BP Pulse Ox 98.8 F 89 16 128/78 H 100 10/05/24 11:32 10/05/24 11:33 10/05/24 08:10 10/05/24 11:33 10/05/24 11:32 Weight: 91.626 kg Body Mass Index (BMI) 34.7 Intake & Output: Intake and Output for Last 24 Hours 10/03/24 10/04/24 10/05/24 23:59 23:59 23:59 Intake Total 7.06 / 7.06 Balance 7.06 / 7.06 Lab / Micro Data 10/05/24 07:40 Labs: Laboratory Results - last 24 hr 10/05/24 07:40: WBC 8.8, RBC 4.04 L, Hgb 10.6 L, Hct 33.0 L, MCV 81.7, MCH 26.2 L, MCHC 32.1, RDW Std Deviation 45.0 H, RDW Coeff of Tawanda 15.1 H, Plt Count 286, MPV 9.7, Immature Gran % (Auto) 0.300, Neut % (Auto) 66.3, Lymph % (Auto) 25.7, [place] % (Auto) 6.6, Eos % (Auto) 0.8, Baso % (Auto) 0.3, Absolute Neuts (auto) 5.8, Absolute Lymphs (auto) 2.25, Nucleated RBC % 0, Syphilis Total Ab Nonreactive, Blood Type A NEGATIVE, Antibody Screen NEGATIVE NST FHR Rate Baby A Baseline: 140 Variability:: Moderate Accelerations:: 15 x 15 Decelerations:: None FHR Category:: Category I Assessment & Plan (1) 40 weeks gestation of : (2) Elective induction of labor planned: PLAN: Plan continue pitocin
[2024-10-05] MEDS: Lactated Ringers 1,000 ML 999 ML IV (13:44)
[2024-10-05] MEDS: fentaNYL-bupivacaine (epidural) 100 ML BAG EPIDURAL (15:01)
--- NOTE | 2024-10-05 17:40 | OB.VAGDELI_ITS ---
Assessment & Plan (1) S/P : Maternal Data Information Final FRANCINE: 10/02/24 Gestational age: 40+3 Vaginal Delivery Maternal Presentation Maternal Presentation: Elective Induction Type of Induction: Pitocin and Amniotomy Vaginal Delivery Information Procedure Performed: Spontaneous Vaginal Delivery Surgeon/Practitioner: Mary Yeh Date of Procedure: 10/05/24 Pre-Procedure Diagnosis: term Post-Procedure Diagnosis: Type of anesthesia: Epidural Estimated Blood Loss: 100 cc Time of Delivery: 17:30 Findings Description of procedure: Induction of labor with pitocin and amniotomy. Progressed to complete and pushed for 4 contractions to deliver the vertex over an intact peritoneum. The anterior and posterior shoulders delivered with gentle traction, followed by the remainder of the body. The infant cried upon delivery and was placed on the maternal abdomen. The cord was clamped and cut at one minute. Cord blood was collected. The placenta delivered spontaneously. There were no lacerations that needed repaired. All sponge and instrument counts were correct. 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
[2024-10-05] MEDS: Oxytocin 15 Units/NS 250ml 15 UNITS/250 ML IV.SOLN 83 UNITS IV (18:10)
[2024-10-06] VITALS (10 sets, daily range): BP systolic 107–130; BP diastolic 61–81; PULSE 68–92; RESP 16; TEMP 36.1–37; O2SAT 97–98
--- NOTE | 2024-10-06 07:23 | PN.OBGYN_ITS ---
Subjective Subjective Doing well. Ambulating and voiding without difficulty. Mild lochia. Breast feeding. Objective Data Objective Data Vital Signs: Vital Signs Temp Pulse Resp BP Pulse Ox O2 Del Method 97.7 F L 68 16 107/64 97 Room Air 10/06/24 04:12 10/06/24 04:13 10/06/24 04:12 10/06/24 04:13 10/06/24 04:12 10/06/24 04:12 Oxygen Delivery Method Room Air Weight: 91.626 kg Body Mass Index (BMI) 34.7 Intake & Output: Intake and Output for Last 24 Hours 10/04/24 10/05/24 10/06/24 23:59 23:59 23:59 Intake Total 1370.00 / 1370.00 Output Total 700 / 700 Balance 670.00 / 670.00 Lab / Micro Data 10/05/24 07:40 Labs: Laboratory Results - last 24 hr 10/05/24 07:40: WBC 8.8, RBC 4.04 L, Hgb 10.6 L, Hct 33.0 L, MCV 81.7, MCH 26.2 L, MCHC 32.1, RDW Std Deviation 45.0 H, RDW Coeff of [place] 15.1 H, Plt Count 286, MPV 9.7, Immature Gran % (Auto) 0.300, Neut % (Auto) 66.3, Lymph % (Auto) 25.7, [place] % (Auto) 6.6, Eos % (Auto) 0.8, Baso % (Auto) 0.3, Absolute Neuts (auto) 5.8, Absolute Lymphs (auto) 2.25, Nucleated RBC % 0, Syphilis Total Ab Nonreactive, Blood Type A NEGATIVE, Antibody Screen NEGATIVE ROS Constitutional Constitutional: Denies headache(s) Cardiovascular Cardiovascular: Denies chest pain or dyspnea Gastrointestinal Gastrointestinal: Denies nausea or vomiting Genitourinary Genitourinary: Denies dysuria Physical Exam Const alert, oriented x3 and no apparent distress General Appearance: cooperative and comfortable Eyes PERRL and EOMs intact bilaterally Resp normal respiratory effort GI soft to palpation and non-tender Uterus Palpation: uterus fundus firm ( below umbilicus) Extremity normal to inspection and full ROM Neuro oriented x3 and CN's II-XII intact bilaterally Psych mental status grossly normal Assessment & Plan (1) (spontaneous vaginal delivery): PLAN: Plan Routine . Plan discharge tonight
--- NOTE | 2024-10-06 07:26 | PCM.DC.SUM ---
Providers Date of Admission: 10/05/24 Date of Discharge: 10/06/24 Primary Care Physician: Erin Powell, MARYURIC Reason For Visit: VAGINAL DELIVERY Diagnosis Discharge Diagnosis (1) (spontaneous vaginal delivery): Status: Acute Code(s): O80 - Encounter for full-term uncomplicated delivery Plan Routine . Plan discharge tonight Medications at Discharge Home Medications ipratropium 20 mcg-albuterol 100 mcg/actuation mist for inhalation 1 puff inhalation Q6H Asthma 01/24/23 ferrous sulfate 325 mg (65 mg iron) tablet (iron) 325 mg PO DAILY 10/05/24 pantoprazole 20 mg tablet,delayed release (Protonix) 20 mg PO DAILY Reflux 10/05/24 vitamin#30 30 mg iron-10 mg iron-folic acid 1 mg-omg3 capsule (OB Complete With Dha) 1 cap PO DAILY 10/05/24 Hospital Course Operations None Procedures None Summary of Care Provided Minutes Spent on Discharge: 20 Hospital Course: without complications. Bottle feeding. Physical Exam Const alert and no apparent distress Narrative: Fundus firm, below umbilicus. Weight / BMI Weight Weight: 91.626 kg Body Mass Index (BMI) 34.7 ABG / Lab / Microbiology Data 10/05/24 07:40 Laboratory: Laboratory Results - last 24 hr 10/05/24 07:40: WBC 8.8, RBC 4.04 L, Hgb 10.6 L, Hct 33.0 L, MCV 81.7, MCH 26.2 L, MCHC 32.1, RDW Std Deviation 45.0 H, RDW Coeff of [place] 15.1 H, Plt Count 286, MPV 9.7, Immature Gran % (Auto) 0.300, Neut % (Auto) 66.3, Lymph % (Auto) 25.7, [place] % (Auto) 6.6, Eos % (Auto) 0.8, Baso % (Auto) 0.3, Absolute Neuts (auto) 5.8, Absolute Lymphs (auto) 2.25, Nucleated RBC % 0, Syphilis Total Ab Nonreactive, Blood Type A NEGATIVE, Antibody Screen NEGATIVE D/C Instructions May resume sexual activity in: 6 weeks DC O2, CPAP, BIPAP Needs Home O2 Discharge instructions: No Please Follow Up With: Iris Self MD When: Follow up with our office in 1-2 and 6 weeks or as needed. [phone] Meaningful Use Info Meaningful Use Meaningful Use Diagnoses (Choose all that apply): None applicable Discharge Plan Admission Admit Date/Time: 10/05/24 07:17 Primary Reason for Your Visit: labor Attending Provider: Mary Yeh Primary Care Provider: Erin Powell Discharge Orders/Prescriptions Prescriptions: Continued ipratropium-albuterol 20-100 mcg/actuation mist 1 puff inhalation Q6H ferrous sulfate [iron] 325 mg (65 mg iron) tablet 325 mg PO DAILY pantoprazole [Protonix] 20 mg tablet,delayed release (DR/EC) 20 mg PO DAILY OB Complete With Dha 30 mg iron-10 mg iron-1 mg capsule 1 cap PO DAILY Discontinued aspirin 81 mg tablet,delayed release (DR/EC) 81 mg PO DAILY Referrals / Follow Up: Erin Powell, [facility] [Primary Care Provider] - Disposition Disposition (needs filled in before D/C Order can be placed): Home, Self Care
--- NOTE | 2024-10-10 13:43 | NURSING ---
F/up call attempted, no ans, LVM
== END 2024-10-06 18:40 | disposition home or self-care (01) | DRG 560 ==
PROVIDERS: Admitting Provider Obstetrics & Gynecology; PCP Nurse Practitioner Family; Visit Provider Obstetrics & Gynecology
DX: O26.893 Other specified pregnancy related conditions, third trimester (principal); Z37.0 Single live birth; J45.909 Unspecified asthma, uncomplicated; Z67.11 Type A blood, Rh negative; O77.0 Labor and delivery complicated by meconium in amniotic fluid; O99.52 Diseases of the respiratory system complicating childbirth; Z3A.40 40 weeks gestation of pregnancy; Z79.51 Long term (current) use of inhaled steroids
CPT/HCPCS: 59025; 59050; 85025; 86780; 86850; 86900; 86901; 99221; G0378